=== PATIENT | male | born 1945 | race Caucasian/White ===

== ENCOUNTER → 2021-09-25 | Outpatient (REF) | payer SELFPAY ==
[2021-09-25 09:25] LABS: Erythrocyte Sedimentation Rate 25 mm/hr (0-20)
[2021-09-25 09:27] LABS: Absolute Lymphocyte Count 0.89 X10^3/uL (0.83-4.51); Absolute Neutrophil Count 11.3 X10^3/uL (2.0-7.7); Basophil# 0.05 X10^3/uL; Basophil% 0.4 % (0-1); Eosinophil# 0.17 X10^3/uL; Eosinophils% 1.3 % (0-5); Hematocrit 27.8 % (40-54); Hemoglobin 8.8 g/dL (13.0-16.5); Lymphocyte # 0.89 X10^3/ul (0.83-4.51); Lymphocyte % 6.7 % (19-41); Mean Corp Hgb Conc 31.7 g/dL (32-36); Mean Corpuscular Hgb 31.9 pg (27.0-32.0); Mean Corpuscular Volume 100.7 fL (80-94); Mean Platelet Vol. 9.9 fl (6.2-12.0); Monocyte# 0.75 X10^3/uL; Monocyte% 5.7 % (0-10); NRBC Flagged by Analyzer 0 % (0-5); Neutrophil # 11.27 X10^3/uL (2.7-7.7); Neutrophil % 85.2 % (47-70); POSITIVE MORPHOLOGY YES; Platelet Count 470 K/mm3 (150-450); RBC Distribution Width CV 21.7 % (11.6-14.6); RBC Distribution Width SD 72.4 fl (35.1-43.9); Red Blood Count 2.76 M/mm3 (4.6-6.2); White Blood Count 13.2 K/mm3 (4.4-11.0)
[2021-09-25 09:28] LABS: Differential Indicated SCAN CRITERIA MET
[2021-09-25 09:54] LABS: Anion Gap 9 (5-15); BUN 41 mg/dL (7-18); BUN/Creat Ratio 7.4 RATIO (10-20); Calcium,Total 9.7 mg/dL (8.5-10.1); Chloride 97 mmol/L (98-107); Creatinine, Serum 5.55 mg/dL (0.70-1.30); EST Glomerular Filtration Rate 11 mL/min (>60); Est Glom Filt Rate - Afr Amer 13 mL/min (>60); Glucose 92 mg/dL (74-106); Sodium Level 136 mmol/L (136-145)
[2021-09-25 09:58] LABS: Anisocytosis 2+; Differential Comment SCANNED; Macrocytosis 1+; Microcytosis 1+
== END | disposition home or self-care (01) ==
LOC: OLS.SW300 07:50
PROVIDERS: PCP Surgery; Visit Provider Family Medicine
DX: L08.9 Local infection of the skin and subcutaneous tissue, unspecified (principal)
CPT/HCPCS: 36415; 80048; 85025; 85652; 86140

== ENCOUNTER → 2021-11-13 | Outpatient (REF) | payer MEDICARE, OTHER, SELFPAY ==
[2021-11-13 09:25] LABS: Absolute Lymphocyte Count 0.73 X10^3/uL (0.83-4.51); Absolute Neutrophil Count 6.5 X10^3/uL (2.0-7.7); Basophil# 0.01 X10^3/uL; Basophil% 0.1 % (0-1); Eosinophil# 0.03 X10^3/uL; Eosinophils% 0.4 % (0-5); Hematocrit 28.8 % (40-54); Hemoglobin 9.3 g/dL (13.0-16.5); Lymphocyte # 0.73 X10^3/ul (0.83-4.51); Lymphocyte % 9.2 % (19-41); Mean Corp Hgb Conc 32.3 g/dL (32-36); Mean Corpuscular Hgb 30.5 pg (27.0-32.0); Mean Corpuscular Volume 94.4 fL (80-94); Monocyte# 0.64 X10^3/uL; Monocyte% 8.1 % (0-10); NRBC Flagged by Analyzer 0 % (0-5); Neutrophil # 6.48 X10^3/uL (2.7-7.7); Neutrophil % 81.7 % (47-70); Platelet Count 297 K/mm3 (150-450); RBC Distribution Width CV 15.6 % (11.6-14.6); RBC Distribution Width SD 54.1 fl (35.1-43.9); Red Blood Count 3.05 M/mm3 (4.6-6.2); White Blood Count 7.9 K/mm3 (4.4-11.0)
[2021-11-13 09:33] LABS: Erythrocyte Sedimentation Rate 10 mm/hr (0-20)
[2021-11-13 09:41] LABS: Anion Gap 11 (5-15); BUN 45 mg/dL (7-18); BUN/Creat Ratio 6.3 RATIO (10-20); Calcium,Total 8.5 mg/dL (8.5-10.1); Chloride 91 mmol/L (98-107); Creatinine, Serum 7.16 mg/dL (0.70-1.30); EST Glomerular Filtration Rate 8 mL/min (>60); Est Glom Filt Rate - Afr Amer 10 mL/min (>60); Glucose 55 mg/dL (74-106); Potassium 3.6 mmol/L (3.5-5.1); Sodium Level 133 mmol/L (136-145)
== END ==
LOC: OLS.SW300 05:00
PROVIDERS: PCP Surgery; Visit Provider Family Medicine
DX: D64.9 Anemia, unspecified (principal); L08.9 Local infection of the skin and subcutaneous tissue, unspecified
CPT/HCPCS: 36415; 80048; 85025; 85652; 86140

== ENCOUNTER 2021-11-29 19:55 | Inpatient (IN) | payer MEDICARE, OTHER, SELFPAY ==
[2021-11-29 19:55] VITALS: BP 107/71; PULSE 91; RESP 18; TEMP 36.4; O2SAT 94; BMI 18.4
[2021-11-29 21:39] VITALS: BP 138/49; PULSE 79; RESP 30; O2SAT 97
--- NOTE | 2021-11-29 21:50 | EKG12_ITS ---
Test Reason : DYSRHYTHMIA Blood Pressure : / mmHG Vent. Rate : 074 BPM Atrial Rate : 068 BPM P-R Int : 000 ms QRS Dur : 118 ms QT Int : 430 ms P-R-T Axes : 000 248 140 degrees QTc Int : 477 ms Atrial fibrillation Nonspecific T wave abnormality Prolonged QT Abnormal ECG Confirmed by KORY KINCAID, ONOFRE ([id number]), editor publications ROSIE OVALLES ([id number]) on 12/02/2021 9:38:08 AM Referred By: BB Confirmed By:ONOFRE HORN MD
[2021-11-29 22:10] LABS: Absolute Lymphocyte Count 1.07 X10^3/uL (0.83-4.51); Absolute Neutrophil Count 5.1 X10^3/uL (2.0-7.7); Basophil# 0.04 X10^3/uL; Basophil% 0.6 % (0-1); Eosinophil# 0.06 X10^3/uL; Eosinophils% 0.9 % (0-5); Hematocrit 31.1 % (40-54); Hemoglobin 9.9 g/dL (13.0-16.5); Lymphocyte # 1.07 X10^3/ul (0.83-4.51); Lymphocyte % 15.7 % (19-41); Mean Corp Hgb Conc 31.8 g/dL (32-36); Mean Corpuscular Hgb 30.6 pg (27.0-32.0); Mean Platelet Vol. 10.4 fl (6.2-12.0); Monocyte# 0.57 X10^3/uL; Monocyte% 8.3 % (0-10); NRBC Flagged by Analyzer 0 % (0-5); Neutrophil # 5.06 X10^3/uL (2.7-7.7); Neutrophil % 74.1 % (47-70); Platelet Count 195 K/mm3 (150-450); RBC Distribution Width CV 17.5 % (11.6-14.6); RBC Distribution Width SD 60.4 fl (35.1-43.9); Red Blood Count 3.24 M/mm3 (4.6-6.2); White Blood Count 6.8 K/mm3 (4.4-11.0)
[2021-11-29 22:21] LABS: Anion Gap 10 (5-15); BUN 17 mg/dL (7-18); BUN/Creat Ratio 4.9 RATIO (10-20); Calcium,Total 8.3 mg/dL (8.5-10.1); Chloride 93 mmol/L (98-107); EST Glomerular Filtration Rate 18 mL/min (>60); Est Glom Filt Rate - Afr Amer 22 mL/min (>60); Estimated Creatinine Clearance 16.38 ml/min; Glucose 76 mg/dL (74-106); Potassium 3.1 mmol/L (3.5-5.1); Sodium Level 135 mmol/L (136-145); Troponin-I HS 57 pg/mL (3.0-78.0)
--- NOTE | 2021-11-29 22:50 | EDS_ITS ---
HPI History of Present Illness Chief Complaint: GI Bleed Informant: patient, EMS and SNF Onset/Context/Timing Onset: Today Narrative Narrative: According to halfway patient had an episode of GI bleeding today. He has no idea if he did or not, and the patient states he felt fine. At the halfway he was hypotensive 90/62, and otherwise okay. Did not lose consciousness. He is anticoagulated on apixaban because of atrial fibrillation, he is also on Plavix because he had had an ischemic distal left foot, ended up having what appeared to be a transtarsal amputation due to that, and is still in rehab b ecause he is nonweightbearing they are still according to the son's description of podiatry recommendations. [facility] Medical History (Updated 11/29/21 @ 22:[address] Aristeo Rossi MD) Atrial fibrillation ESRD (end stage renal disease) on dialysis Peripheral arterial disease Home Medications calcium acetate(phosphat bind) 667 mg capsule 667 mg PO TIDCM 10/09/14 [History Last Taken 10/08/14] cinacalcet 60 mg tablet (Sensipar) 60 mg PO PRN PRN IPTH 10/09/14 [History Last Taken Unknown] apixaban 2.5 mg tablet 2.5 mg PO BID 11/29/21 [History Last Taken Unknown] atorvastatin 40 mg tablet 40 mg PO QHS 11/29/21 [History Last Taken Unknown] clopidogrel 75 mg tablet 75 mg PO DAILY 11/29/21 [History Last Taken Unknown] metoprolol tartrate 50 mg tablet 50 mg PO BID 11/29/21 [History Last Taken Unknown] pantoprazole 40 mg tablet,delayed release (Protonix) 40 mg PO DAILY 11/29/21 [History Last Taken Unknown] Allergy/AdvReac Type Severity Reaction Status Date / Time No Known Allergies Allergy Verified 11/29/21 19:59 Social History Smoking Status: Never smoker ROS ROS ED Constitutional Constitutional ED: Denies chills or fever(s) Eyes Eyes: Denies change in vision or diplopia ENT ENT ED: Denies rhinorrhea or sore throat Cardiovascular Cardiovascular: Denies chest pain or palpitations Respiratory/Chest Respiratory/Chest: Denies cough or dyspnea Gastrointestinal Gastrointestinal: Denies abdominal pain, diarrhea, nausea or vomiting Genitourinary Genitourinary ED: Denies dysuria or hematuria Musculoskeletal Musculoskeletal: Denies back pain or neck pain Integumentary Denies abscess or rash Neurologic Neurologic: Denies headache(s), paresthesias or weakness Psychiatric Psychiatric: Denies anxiety or suicidal thoughts EXAM Physical Exam Const Vital Signs: 11/29/21 19:55 11/29/21 21:39 Temperature 97.5 F L Temperature Source Temporal Pulse Rate 91 79 Respiratory Rate 18 30 H Blood Pressure 107/71 138/49 H Blood Pressure Mean 83 78 Pulse Ox 94 97 Oxygen Delivery Method Room Air Room Air Positive well nourished and well developed General Appearance ED: well developed and NAD HEENT Reports moist mucous membranes normocephalic and atraumatic Eyes PERRL and EOMs intact bilaterally Neck full ROM and supple Chest Wall inspection of chest normal and palpation of chest normal Resp normal respiratory effort and clear to auscultation bilaterally Cardio Cardio Narrative: Systolic crescendo murmur LLSB Rhythm: abnormal rhythm irregularly irregular GI non-tender and non-distended GI Narrative: Stool is darker in his diaper, light brown from the rectum, no gross bleeding or melena present. Hemoccult positive after sent to lab. Auscultation: normoactive bowel sounds Palpation: soft Back/Spine no CVA tenderness General Back: other FROM Extremity normal to inspection General Extremety ED: Negative for edema, pulses abnormal or tenderness General Extremity: Negative for edema or pulses abnormal Neuro oriented x3, CN's II-XII intact bilaterally and no sensory deficits noted Sensorium / Orientation: awake and alert Motor Exam: strength 5/5 throughout Skin no rashes or lesions noted and no wounds MDM MDM MDM Narrative Medical decision making narrative: Patient blood pressure remained stable while in the emergency department, well over 100 systolic with each measurement. He remained clinically stable as well. His stool shows no gross blood or melena, it is Hemoccult positive. His hemoglobin was at 10.6, and went down to 8.6 prior to arrival, and here he is measuring at 9.9. It is possible he may be a little relatively dehydrated since he had dialysis today. Given that he is doing well now but he is anticoagulated, we will admit him to observation for further evaluation. Lab Data Attestation: I reviewed the patient's lab results. Labs: Laboratory Results - last 24 hr 11/29/21 11/29/21 20:10 20:10 WBC 6.8 RBC 3.24 L Hgb 9.9 L Hct 31.1 L MCV 96.0 H MCH 30.6 MCHC 31.8 L RDW Std Deviation 60.4 H RDW Coeff of Sue 17.5 H Plt Count 195 MPV 10.4 Immature Gran % (Auto) 0.400 Neut % (Auto) 74.1 H Lymph % (Auto) 15.7 L Bartholomew % (Auto) 8.3 Eos % (Auto) 0.9 Baso % (Auto) 0.6 Absolute Neuts (auto) 5.1 Absolute Lymphs (auto) 1.07 Nucleated RBC % 0 Sodium 135 L Potassium 3.1 L Chloride 93 L Carbon Dioxide 32.0 Anion Gap 10 BUN 17 Creatinine 3.50 H Estim Creat Clear Calc 16.38 Est GFR (MDRD) Af Amer 22 L Est GFR (MDRD) Non-Af 18 L BUN/Creatinine Ratio 4.9 L Glucose 76 Calcium 8.3 L Troponin I High Sens 57 EKG Initial EKG: Attestation: I personally reviewed and interpreted this EKG as follows: Interpretation: No Acute Injury Pattern and Atrial Fibrillation (rate 74) Prior EKG tracings: available for review Prior: Unchanged Discharge Plan Triage Chief Complaint: GI Bleed ED Provider: Aristeo Rossi Dx/Rx/DC Orders Clinical Impression: Acute lower gastrointestinal bleeding, ESRD (end stage renal disease) on dialysis, ABLA (acute blood loss anemia), Anticoagulated, Transient hypotension Prescriptions: No Action cinacalcet [Sensipar] 60 MG tablet 60 mg PO PRN PRN (Reason: IPTH) Label Comments: parathyroid calcium acetate(phosphat bind) 667 MG capsule 667 mg PO TIDCM Label Comments: kidney health atorvastatin 40 mg Tablet 40 mg PO QHS clopidogrel 75 mg Tablet 75 mg PO DAILY pantoprazole [Protonix] 40 mg Tablet,Delayed Release (Dr/Ec) 40 mg PO DAILY metoprolol tartrate 50 mg Tablet 50 mg PO BID apixaban 2.5 mg Tablet 2.5 mg PO BID Primary Care Provider: Adair Castaneda Referrals: Adair Castaneda MD [Primary Care Provider] - Disposition Disposition: Acute Care Hospital [facility]
[2021-11-29 23:03] VITALS: BP 125/75; PULSE 76; RESP 24; TEMP 36.7; O2SAT 95
--- NOTE | 2021-11-29 23:05 | HP.PCM.HOS_ITS ---
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 Quinteros, Chronic anemia/AOCD, Hx Lower GI bleed (10/2014) and also reported Hx Duodenal GI bleed prior also unclear exact timing, Hx Obstructive uropathy due to BPH with self chronic catheterization from remote history who presents to the [facility] ED on 11/29/21 with history of onset of dark appearing stools over the last 24 hours, low Hgb obtained at facility noted to have been initially 10.6 and decreased to 8.6 with blood pressure at 90/62 the evening prior with noted HD on day of presentation prompting ED referral. Patient denies any recent abdominal cramping or pain nor any nausea or emesis. He also denies any lightheadedness or dizziness. Work-up in the ED included T 97.5, HR 91, BP 107/71, RR 18, 94% on RA, CBC with WBC 6.8, hemoglobin 9.9, platelet 195 without marked shift, BMP with sodium 135, potassium 3.1, chloride 93, BUN/creatinine 17/3.50, troponin 57, type and screen performed per ED physician, guaiac positive. [facility] Medical History Atrial fibrillation Chronic anemia ESRD (end stage renal disease) on dialysis GERD (gastroesophageal reflux disease) History of duodenal ulcer HTN (hypertension) Peripheral arterial disease Home Medications calcium acetate(phosphat bind) 667 mg capsule 667 mg PO TIDCM 10/09/14 [History Last Taken 10/08/14] cinacalcet 60 mg tablet (Sensipar) 60 mg PO PRN PRN IPTH 10/09/14 [History Last Taken Unknown] apixaban 2.5 mg tablet 2.5 mg PO BID 11/29/21 [History Last Taken Unknown] atorvastatin 40 mg tablet 40 mg PO QHS 11/29/21 [History Last Taken Unknown] clopidogrel 75 mg tablet 75 mg PO DAILY 11/29/21 [History Last Taken Unknown] metoprolol tartrate 50 mg tablet 50 mg PO BID 11/29/21 [History Last Taken Unknown] pantoprazole 40 mg tablet,delayed release (Protonix) 40 mg PO DAILY 11/29/21 [History Last Taken Unknown] Allergy/AdvReac Type Severity Reaction Status Date / Time No Known Allergies Allergy Verified 11/29/21 19:59 Family History (Updated 11/29/21 @ 23:[address] Irma White MD) Mother Heart disease Father Heart disease Surgical History (Updated 11/29/21 @ 23:[address] Irma White MD) History of transmetatarsal amputation of left foot S/P arteriovenous (AV) fistula creation S/P foot surgery, left S/P peripheral artery angioplasty with stent placement Social History (Updated 11/29/21 @ 23:[address] Irma White MD) housing: [facility] Smoking Status: Never smoker alcohol intake: never substance use type: does not use ROS ROS Narrative Admission Review of Systems: CONSTITUTIONAL: No weight loss, fever, chills, + weakness or fatigue. HEENT: Eyes: No visual loss, blurred vision, double vision or yellow sclerae. Ears, Nose, Throat: No hearing loss, sneezing, congestion, runny nose or sore throat. SKIN: + s/p L TMA, some drainage, serosanguinous, staged ecchymoses to extremity. CARDIOVASCULAR: No chest pain, chest pressure or chest discomfort, palpitations, edema, orthopnea, syncopal events. RESPIRATORY: No shortness of breath, cough or sputum, wheezing, hemoptysis. GASTROINTESTINAL: + Dark stools, positive guaiac, No anorexia, nausea, vomiting, diarrhea, abdominal pain, BRBPR. GENITOURINARY: No dysuria, frequency, urgency or retention. NEUROLOGICAL: No headache, dizziness, syncope, paralysis, ataxia, numbness or tingling in the extremities, focal weakness, change in bowel or bladder control, seizure. MUSCULOSKELETAL: + muscle, back pain, joint pain or stiffness. HEMATOLOGIC: + anemia, bleeding or bruising. LYMPHATICS: No enlarged nodes. No history of splenectomy. PSYCHIATRIC: No history of depression or anxiety. ENDOCRINOLOGIC: No reports of sweating, cold or heat intolerance. No polyuria or polydipsia. ALLERGIES: No history of asthma, hives, eczema or rhinitis. Vital Signs Vital Signs Vital Signs: 11/29/21 19:55 11/29/21 21:39 11/29/21 23:03 Temperature 97.5 F L 98.1 F Temperature Source Temporal Temporal Pulse Rate 91 79 76 Respiratory Rate 18 30 H 24 H Blood Pressure 107/71 138/49 H 125/75 H Blood Pressure Mean 83 78 91 Pulse Ox 94 97 95 Oxygen Delivery Method Room Air Room Air Room Air Weight Weight: 140 lb Body Mass Index (BMI) 18.4 Physical Exam Narrative Physical Examination: General: Awake, alert, oriented to self, place and recent events, poor historian regarding his own medical history, remains cooperative, seated upright in the ED bed in no apparent distress. Skin: Normal color, normal turgor, no icterus, no cyanosis except for status post left TMA with serosanguineous drainage. HEENT: AT/NC, EOMI, PERRLA, MMM, no carotid bruits or JVD noted. Lungs: CTA bilaterally, moderate effort, mild decrease BL bases, no rales, ronchi or wheezing. Heart: Irregular, rate controlled; no gallop, rub audible. Abdomen: Soft, thin habitus, NTTP, ND, distant normal BS, no HSM. Extremities: No cyanosis, no clubbing, see skin for left lower extremity, + AVF. Neurological: Patient awake, alert, oriented as noted, very hard of hearing, from description potentially underlying dementia, currently cognitive function a ppears baseline intact; pupils equally reactive to light and accommodation, cranial nerves grossly normal, moving all 4 extremities, no focal deficits, strength moderately globally decreased. Psychiatric: Affect appears mildly fatigued otherwise normal, no acute evidence of depressive or anxiety feelings. Results Lab / Micro Data Result Diagrams: 11/29/21 20:10 11/29/21 20:10 Labs: Laboratory Results - last 24 hr 11/29/21 20:10: Blood Type O POSITIVE, Antibody Screen NEGATIVE 11/29/21 20:10: WBC 6.8, RBC 3.24 L, Hgb 9.9 L, Hct 31.1 L, MCV 96.0 H, MCH 30.6, MCHC 31.8 L, RDW Std Deviation 60.4 H, RDW Coeff of Sue 17.5 H, Plt Count 195, MPV 10.4, Immature Gran % (Auto) 0.400, Neut % (Auto) 74.1 H, Lymph % (Auto) 15.7 L, Hayes % (Auto) 8.3, Eos % (Auto) 0.9, Baso % (Auto) 0.6, Absolute Neuts (auto) 5.1, Absolute Lymphs (auto) 1.07, Nucleated RBC % 0 11/29/21 20:10: Sodium 135 L, Potassium 3.1 L, Chloride 93 L, Carbon Dioxide 32.0, Anion Gap 10, BUN 17, Creatinine 3.50 H, Estim Creat Clear Calc 16.38, Est GFR (MDRD) Af Amer 22 L, Est GFR (MDRD) Non-Af 18 L, BUN/Creatinine Ratio 4.9 L, Glucose 76, Calcium 8.3 L, Troponin I High Sens 57 Micro: Microbiology 11/29/21 21:50 Stool Stool Occult Blood (DILIP) - Final Occult Blood Positive Assessment & Plan Assessment/Plan (1) Acute lower gastrointestinal bleeding: PLAN: Plan The patient is a 76 y/o M w/ PMHx: Hx Severe Protein-Calorie Malnutrition, Recent 09/2021 Osteomyelitis L Foot s/p eventual TMA and LLE PAD requiring thrombectomy and [employer]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 Quinteros, Chronic anemia/AOCD, Hx Lower GI bleed (10/2014) and also reported Hx Duodenal GI bleed prior also unclear exact timing, Hx Obstructive uropathy due to BPH with self chronic catheterization from remote history who presents to the [facility] ED on 11/29/21 with history of onset of dark appearing stools over the last 24 hours, low Hgb obtained at facility noted to have been initially 10.6 and decreased to 8.6 with blood pressure at 90/62 the evening prior with noted HD on day of presentation prompting ED referral. #1. Acute GI Bleed w/ resultant Acute Blood Loss Anemia on Chronic anemia/AOCD: Will admit to [facility], maintain on IVFs, obtain serial H+H, obtain T+S w/ cross for PRBC administration if appropriate, maintain on IV PPI, maintain NPO status, con sult Gastroenterology. Given patient recent peripheral left lower extremity angioplasty and stenting will cautiously continue Plavix given stable hemoglobin as repeat hemoglobin in the ED 9.9 and had previously been 10.6 despite the reported initial drop at facility of 8.6 but hold low-dose Eliquis regimen pending further GI assessment. #2. Recent Hx L foot osteomyelitis, gangrene and LLE PAD: 09/04/21 presented to [facility] ED w/ L foot discoloration with CT demonstrating L great toe gangr earnest with necrotizing infection and osteomyelitis initiated on IV vanc and zosyn with 09/06/21 L foot 1st and 2nd digit amputation with vascular evaluation and eventual transfer to [facility] for evaluation by vascular with Dr. 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 Current dressings at [facility] w/ noted soap and water cleansing with follow-up Aquacel Ag placement with ABD and Kerlix wrap with Jamel overlay daily and as needed. NWB to LLE. Given acute presentation with GI bleed holding Eliquis, given recent stenting will cautiously continue Plavix given stable hemoglobin and blood pressure at this time awaiting GI evaluation. #3. PAF: We will cautiously continue patient home metoprolol regimen, hold for hypotension, holding Eliquis given acute presentation as noted. #4. Hx Obstructive uropathy: Secondary to BPH with prior reported history of self chronic catheterization, patient not the best historian therefore clarifying if still ongoing catheterization and if so we will continue. #5. ESRD: Will consult Nephrology, Dr. Quinteros with whom the patient follows per records, per patient and family as well as facility patient did have dialysis on 11/29/2021. Prior records from system note dialysis on Thursday//Thursday at [facility] in [place] however this does not concur with dialysis being administered 11/29/2021, will await nephrology input. #6. Hyperlipidemia: We will continue patient home statin therapy. #7. Hx CVA: As noted we will continue Plavix however will cautiously hold Eliquis therapy given acute presentation number 1, continue hypertensive regimen as well as statin therapy. #8. GERD: We will place on IV PPI. #9. DVT Prophylaxis: SCDs, holding home Eliquis regimen given acute presentation as noted #1. #10. CODE STATUS: Full code per facility paperwork. Charges/Coding Visit Charges OBSV E&M: 60401 Initial observation care L3
--- NOTE | 2021-11-29 23:06 | ED.RN ---
Attempted to call patient's son to let him know he would he admitted over night and phone number was unavailable and could not be completed.
[2021-11-30] VITALS (15 sets, daily range): BP systolic 111–129; BP diastolic 40–86; PULSE 71–89; RESP 17–20; TEMP 36.4–36.9; O2SAT 94–98; BMI 19.1
[2021-11-30] MEDS: 0.9% Saline Lock 10 ML Syringe IV (00:36)
[2021-11-30] MEDS: 0.9% Normal Saline 1,000 ML 100 ML IV (00:36)
[2021-11-30 02:39] LABS: Hematocrit 30.3 % (40-54); Hemoglobin 9.4 g/dL (13.0-16.5)
[2021-11-30] MEDS: Potassium Chloride Oral Tablet 20 MEQ 40 MEQ PO (03:28)
[2021-11-30 06:56] LABS: Absolute Lymphocyte Count 1.04 X10^3/uL (0.83-4.51); Absolute Neutrophil Count 3.5 X10^3/uL (2.0-7.7); Basophil# 0.05 X10^3/uL; Basophil% 0.9 % (0-1); Eosinophil# 0.09 X10^3/uL; Eosinophils% 1.7 % (0-5); Hemoglobin 8.6 g/dL (13.0-16.5); Lymphocyte # 1.04 X10^3/ul (0.83-4.51); Lymphocyte % 19.5 % (19-41); Mean Corp Hgb Conc 33.1 g/dL (32-36); Mean Corpuscular Hgb 31.2 pg (27.0-32.0); Mean Corpuscular Volume 94.2 fL (80-94); Monocyte# 0.65 X10^3/uL; Monocyte% 12.2 % (0-10); NRBC Flagged by Analyzer 0 % (0-5); Neutrophil # 3.49 X10^3/uL (2.7-7.7); Neutrophil % 65.5 % (47-70); Platelet Count 177 K/mm3 (150-450); RBC Distribution Width CV 17.6 % (11.6-14.6); RBC Distribution Width SD 59.7 fl (35.1-43.9); Red Blood Count 2.76 M/mm3 (4.6-6.2); White Blood Count 5.3 K/mm3 (4.4-11.0)
[2021-11-30 07:30] LABS: ALB/GLOB Ratio 0.5 RATIO (0.9-2.4); AST(SGOT) 21 U/L (15-37); Alanine Aminotransfer ALT/SGPT 11 U/L (16-61); Albumin, Serum 1.7 g/dL (3.2-5.0); Alkaline Phosphatase 149 U/L (45-117); Anion Gap 7 (5-15); BUN 18 mg/dL (7-18); BUN/Creat Ratio 4.7 RATIO (10-20); Calcium,Total 7.6 mg/dL (8.5-10.1); Chloride 96 mmol/L (98-107); Creatinine, Serum 3.83 mg/dL (0.70-1.30); EST Glomerular Filtration Rate 16 mL/min (>60); Est Glom Filt Rate - Afr Amer 20 mL/min (>60); Estimated Creatinine Clearance 15.53 ml/min; Globulin 3.7 g/dL (2.2-4.2); Glucose 60 mg/dL (74-106); Potassium 3.4 mmol/L (3.5-5.1); Protein, Total 5.4 g/dL (6.4-8.2); Sodium Level 135 mmol/L (136-145)
[2021-11-30] MEDS: Menthol/Lanolin/Calamine/Znox 113 GM Tube 1 APPLIC TOPICAL ×2 (07:37→15:14)
[2021-11-30] MEDS: Clopidogrel Bisulfate 75 MG Tablet PO (10:10)
[2021-11-30] MEDS: Metoprolol Tartrate 50 MG Tablet PO ×2 (10:11→21:30)
[2021-11-30] MEDS: Calcium Acetate 667 MG Capsule PO ×2 (13:32→17:44)
[2021-11-30] MEDS: 0.9% Normal Saline 1,000 ML 75 ML IV (13:32)
--- NOTE | 2021-11-30 14:34 | PCM.CONS.GEN ---
Assessment & Plan Assessment/Plan (1) Acute lower gastrointestinal bleeding: PLAN: The differential diagnosis for his acute GI blood loss does include diverticular bleed, hemorrhoidal bleeding, angiodysplasia, less likely neoplasia, upper GI bleed with rapid transit. We will perform an upper endoscopy tomorrow to evaluate his upper GI tract. Recommend to continue to hold anticoagulation and antiplatelet therapy. Continue to monitor his hemoglobin. Continue to GI therapy as previously ordered. Patient was explained alternatives, risk, benefits including not withstanding bleeding, infection, sepsis, perforation, need for emergent . He will have an ASA of 3. HPI Consult Data Date of Consult: 11/30/21 HPI Narrative Reason for Consultation: GI bleeding HPI Narrative: FLAQUITO GORDON, is a 76 M who presents from the half-way after passing blood per rectum.? At the half-way he was hypotensive 90/62. He did not lose consciousness.? 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 He also has a history of end-stage renal disease on hemodialysis. Apparently he had 2 episodes of bleeding per rectum. His hemoglobin was 9.9 and is down to 8.6. He had a colonoscopy back in 2014 for lower GI bleeding. He was discovered to have 2 adenomatous polyps which were removed. One from the rectum and one from the sigmoid colon. He was also discovered to have extensive diverticular disease and was a good prep for the study. T 97.5, HR 91, BP 107/71, RR 18, 94% on RA, CBC with WBC 6.8, platelet 195 without marked shift, BMP with sodium 135, potassium 3.1, chloride 93, BUN/creatinine 17/3.50, troponin 57, type and screen performed per ED physician, guaiac positive. [facility] Medical History Atrial fibrillation Chronic anemia ESRD (end stage renal disease) on dialysis GERD (gastroesophageal reflux disease) History of duodenal ulcer HTN (hypertension) Peripheral arterial disease Home Medications calcium acetate(phosphat bind) 667 mg capsule 667 mg PO TIDCM 10/09/14 [History Last Taken 10/08/14] cinacalcet 60 mg tablet (Sensipar) 60 mg PO PRN PRN IPTH 10/09/14 [History Last Taken Unknown] apixaban 2.5 mg tablet 2.5 mg PO BID 11/29/21 [History Last Taken Unknown] atorvastatin 40 mg tablet 40 mg PO QHS 11/29/21 [History Last Taken Unknown] clopidogrel 75 mg tablet 75 mg PO DAILY 11/29/21 [History Last Taken Unknown] metoprolol tartrate 50 mg tablet 50 mg PO BID 11/29/21 [History Last Taken Unknown] pantoprazole 40 mg tablet,delayed release (Protonix) 40 mg PO DAILY 11/29/21 [History Last Taken Unknown] Allergy/AdvReac Type Severity Reaction Status Date / Time No Known Allergies Allergy Verified 11/29/21 19:59 Family History (Updated 11/29/21 @ 23:[address] Irma White MD) Mother Heart disease Father Heart disease Surgical History (Updated 11/29/21 @ 23:[address] Irma White MD) History of transmetatarsal amputation of left foot S/P arteriovenous (AV) fistula creation S/P foot surgery, left S/P peripheral artery angioplasty with stent placement Social History (Updated 11/29/21 @ 23:[address] Irma White MD) housing: half-way Smoking Status: Never smoker alcohol intake: never substance use type: does not use ROS ROS Narrative Admission Review of Systems: CONSTITUTIONAL: No weight loss, fever, chills, + weakness or fatigue. HEENT: Eyes: No visual loss, blurred vision, double vision or yellow sclerae. Ears, Nose, Throat: No hearing loss, sneezing, congestion, runny nose or sore throat. SKIN: + s/p L TMA, some drainage, serosanguinous, staged ecchymoses to extremity. CARDIOVASCULAR: No chest pain, chest pressure or chest discomfort, palpitations, edema, orthopnea, syncopal events. RESPIRATORY: No shortness of breath, cough or sputum, wheezing, hemoptysis. GASTROINTESTINAL: + Dark stools, positive guaiac, No anorexia, nausea, vomiting, diarrhea, abdominal pain, BRBPR. GENITOURINARY: No dysuria, frequency, urgency or retention. NEUROLOGICAL: No headache, dizziness, syncope, paralysis, ataxia, numbness or tingling in the extremities, focal weakness, change in bowel or bladder control, seizure. MUSCULOSKELETAL: + muscle, back pain, joint pain or stiffness. HEMATOLOGIC: + anemia, bleeding or bruising. LYMPHATICS: No enlarged nodes. No history of splenectomy. PSYCHIATRIC: No history of depression or anxiety. ENDOCRINOLOGIC: No reports of sweating, cold or heat intolerance. No polyuria or polydipsia. ALLERGIES: No history of asthma, hives, eczema or rhinitis. Physical Exam Const alert, oriented x3 and no apparent distress HEENT head/scalp atraumatic, moist oral mucous membranes and oropharynx normal Head and Scalp: normocephalic Mouth: oral and palatal mucosa normal Eyes PERRL and EOMs intact bilaterally Neck no lymphadenopathy and supple Resp normal respiratory effort, no retractions, no use of accessory muscles and clear to auscultation bilaterally Cardio regular rate, regular rhythm, S1 normal heart sound, S2 normal heart sound and no murmurs GI normal to inspection, nondistended, normoactive bowel sounds, soft to palpation and non-tender Extremity normal to inspection, full ROM and no clubbing, cyanosis or edema Neuro oriented x3, CN's II-XII intact bilaterally and moves all extremities Sensorium / Orientation: awake, alert and oriented to person Speech: speech normal Motor Exam: strength 5/5 throughout Psych affect normal Lab / Micro Data Result Diagrams: 11/30/21 06:50 11/30/21 06:50 Labs: Laboratory Results - last 24 hr 11/29/21 20:10: Blood Type O POSITIVE, Antibody Screen NEGATIVE 11/29/21 20:10: WBC 6.8, RBC 3.24 L, Hgb 9.9 L, Hct 31.1 L, MCV 96.0 H, MCH 30.6, MCHC 31.8 L, RDW Std Deviation 60.4 H, RDW Coeff of Sue 17.5 H, Plt Count 195, MPV 10.4, Immature Gran % (Auto) 0.400, Neut % (Auto) 74.1 H, Lymph % (Auto) 15.7 L, [place] % (Auto) 8.3, Eos % (Auto) 0.9, Baso % (Auto) 0.6, Absolute Neuts (auto) 5.1, Absolute Lymphs (auto) 1.07, Nucleated RBC % 0 11/29/21 20:10: Sodium 135 L, Potassium 3.1 L, Chloride 93 L, Carbon Dioxide 32.0, Anion Gap 10, BUN 17, Creatinine 3.50 H, Estim Creat Clear Calc 16.38, Est GFR (MDRD) Af Amer 22 L, Est GFR (MDRD) Non-Af 18 L, BUN/Creatinine Ratio 4.9 L, Glucose 76, Calcium 8.3 L, Troponin I High Sens 57 11/30/21 02:17: Hgb 9.4 L, Hct 30.3 L 11/30/21 06:50: WBC 5.3, RBC 2.76 L, Hgb 8.6 L, Hct 26.0 L, MCV 94.2 H, MCH 31.2, MCHC 33.1, RDW Std Deviation 59.7 H, RDW Coeff of Sue 17.6 H, Plt Count 177, MPV 10.0, Immature Gran % (Auto) 0.200, Neut % (Auto) 65.5, Lymph % (Auto) 19.5, [place] % (Auto) 12.2 H, Eos % (Auto) 1.7, Baso % (Auto) 0.9, Absolute Neuts (auto) 3.5, Absolute Lymphs (auto) 1.04, Nucleated RBC % 0 11/30/21 06:50: Sodium 135 L, Potassium 3.4 L, Chloride 96 L, Carbon Dioxide 32.0, Anion Gap 7, BUN 18, Creatinine 3.83 H, Estim Creat Clear Calc 15.53, Est GFR (MDRD) Af Amer 20 L, Est GFR (MDRD) Non-Af 16 L, BUN/Creatinine Ratio 4.7 L, Glucose 60 L, Calcium 7.6 L, Total Bilirubin 0.60, AST 21, ALT 11 L, Alkaline Phosphatase 149 H, Total Protein 5.4 L, Albumin 1.7 L, Globulin 3.7, Albumin/Globulin Ratio 0.5 L Micro: Microbiology 11/29/21 21:50 Stool Stool Occult Blood (DILIP) - Final Occult Blood Positive Charges/Coding Visit Charges Inpatient E&M: 00883 Init Hosp L2
--- NOTE | 2021-11-30 14:36 | PN.HOSP_ITS ---
Subjective Subjective Patient seen and examined. He had no complaints and had an unventful night. Review of systems is otherwise negative. Objective Data Objective Data Vital Signs: Vital Signs Temp Pulse Resp BP Pulse Ox O2 Del Method 97.8 F 76 17 111/71 96 Room Air 11/30/21 09:50 11/30/21 10:11 11/30/21 09:50 11/30/21 09:50 11/30/21 09:50 11/30/21 09:50 Oxygen Delivery Method Room Air Weight: 145 lb 4.554 oz Body Mass Index (BMI) 19.1 Intake & Output: Intake and Output for Last 24 Hours 11/28/21 11/29/21 11/30/21 23:59 23:59 23:59 Intake Total 1245.41 / 1245.41 Balance 1245.41 / 1245.41 Lab / Micro Data Result Diagrams: 11/30/21 06:50 11/30/21 06:50 Labs: Laboratory Results - last 24 hr 11/29/21 20:10: Blood Type O POSITIVE, Antibody Screen NEGATIVE 11/29/21 20:10: WBC 6.8, RBC 3.24 L, Hgb 9.9 L, Hct 31.1 L, MCV 96.0 H, MCH 30.6, MCHC 31.8 L, RDW Std Deviation 60.4 H, RDW Coeff of Use 17.5 H, Plt Count 195, MPV 10.4, Immature Gran % (Auto) 0.400, Neut % (Auto) 74.1 H, Lymph % (Auto) 15.7 L, [place] % (Auto) 8.3, Eos % (Auto) 0.9, Baso % (Auto) 0.6, Absolute Neuts (auto) 5.1, Absolute Lymphs (auto) 1.07, Nucleated RBC % 0 11/29/21 20:10: Sodium 135 L, Potassium 3.1 L, Chloride 93 L, Carbon Dioxide 32.0, Anion Gap 10, BUN 17, Creatinine 3.50 H, Estim Creat Clear Calc 16.38, Est GFR (MDRD) Af Amer 22 L, Est GFR (MDRD) Non-Af 18 L, BUN/Creatinine Ratio 4.9 L, Glucose 76, Calcium 8.3 L, Troponin I High Sens 57 11/30/21 02:17: Hgb 9.4 L, Hct 30.3 L 11/30/21 06:50: WBC 5.3, RBC 2.76 L, Hgb 8.6 L, Hct 26.0 L, MCV 94.2 H, MCH 31.2, MCHC 33.1, RDW Std Deviation 59.7 H, RDW Coeff of Sue 17.6 H, Plt Count 177, MPV 10.0, Immature Gran % (Auto) 0.200, Neut % (Auto) 65.5, Lymph % (Auto) 19.5, [place] % (Auto) 12.2 H, Eos % (Auto) 1.7, Baso % (Auto) 0.9, Absolute Neuts (auto) 3.5, Absolute Lymphs (auto) 1.04, Nucleated RBC % 0 11/30/21 06:50: Sodium 135 L, Potassium 3.4 L, Chloride 96 L, Carbon Dioxide 32.0, Anion Gap 7, BUN 18, Creatinine 3.83 H, Estim Creat Clear Calc 15.53, Est GFR (MDRD) Af Amer 20 L, Est GFR (MDRD) Non-Af 16 L, BUN/Creatinine Ratio 4.7 L, Glucose 60 L, Calcium 7.6 L, Total Bilirubin 0.60, AST 21, ALT 11 L, Alkaline Phosphatase 149 H, Total Protein 5.4 L, Albumin 1.7 L, Globulin 3.7, Albumin/Globulin Ratio 0.5 L Micro: Microbiology 11/29/21 21:50 Stool Stool Occult Blood (DILIP) - Final Occult Blood Positive Physical Exam Const alert, oriented x3 and no apparent distress HEENT head/scalp atraumatic, moist oral mucous membranes and oropharynx normal Head and Scalp: normocephalic Mouth: oral and palatal mucosa normal Eyes PERRL and EOMs intact bilaterally Neck no lymphadenopathy and supple Resp normal respiratory effort, no retractions, no use of accessory muscles and clear to auscultation bilaterally Cardio regular rate, regular rhythm, S1 normal heart sound, S2 normal heart sound and no murmurs GI normal to inspection, nondistended, normoactive bowel sounds, soft to palpation and non-tender Extremity normal to inspection, full ROM and no clubbing, cyanosis or edema Neuro oriented x3, CN's II-XII intact bilaterally and moves all extremities Sensorium / Orientation: awake, alert and oriented to person Speech: speech normal Motor Exam: strength 5/5 throughout Psych affect normal Assessment & Plan Assessment/Plan (1) Acute lower gastrointestinal bleeding: PLAN: Plan #Acute lower GI bleed * hasnt had any more bleeding overnight * eliquis on hold * gastroenterology on board * for EGD and colonoscopy tomorrow * plavix also on hold. Trend Hb * does have a history of diverticular disease, so that may the cause of the bleeding * Hb is 8.6 * on IV PPI * #ESRD: on hemodialyisis. COnsult nephrology for dialysis. On sensipar #Peripheral artery disease * on plavix and high intensity statin * #Afib: on metoprolol. Eliquis on hold. #History of CVA: hold plavix as well. continue statin. DVT prophylaxis: SCDs. Eliquis on hold Charges/Coding Visit Charges Inpatient E&M: 78032 Subs Hosp L2
[2021-11-30] MEDS: Ensure Plus High Protein 120 ML LIQUID PO ×3 (15:14→21:30)
[2021-11-30] MEDS: Juven (unflavored) Packet 1 PACKET PO (17:44)
[2021-11-30] MEDS: Atorvastatin Calcium 40 MG Tablet PO (21:30)
[2021-12-01] VITALS (20 sets, daily range): BP systolic 85–129; BP diastolic 54–89; PULSE 68–95; RESP 16–20; TEMP 36.4–36.7; O2SAT 90–96
[2021-12-01] MEDS: 0.9% Normal Saline 1,000 ML 75 ML IV ×2 (01:46→09:25)
[2021-12-01] MEDS: Menthol/Lanolin/Calamine/Znox 113 GM Tube 1 APPLIC TOPICAL ×2 (03:34→15:13)
--- NOTE | 2021-12-01 03:52 | NURSING ---
Patient refuses to be straight cath, states he does not need it.
[2021-12-01 06:26] LABS: International Normalized Ratio 1.4; Prothrombin Time (Protime)PT. 17.2 SECONDS (11.7-14.9)
--- NOTE | 2021-12-01 07:52 | NURSING ---
Report given to surgery. Pt being taken down by DEVELOPMENT ARCHITECT for EGD. Consent on the chart.
--- NOTE | 2021-12-01 08:05 | EGD_PTH ---
PATIENT: FLAQUITO GORDON LOC: [facility] U#:[id number] AGE/SX: 76/M ROOM: [facility] RE11/30/[address]: Dr. Triston Ponce MD : 1945 BED: 1 DIS: 12/04/2021 SPEC #: [id number] RECD: 12/02/21 11:06 STATUS: OCHOA VIZCAINO #: [id number] DIEUDONNE: 12/01/21 08:[address]: Dipesh Suresh DEPT: SURGICAL PATHOLOGY RECD BY: Breanne Meehan ENTERED: 12/02/21 12:45 SP TYPE: EGD BIOPSY OTHR DR: MD Dr. Alda Perez MD Dr. Nana Yaa Koram, MD Dr. Nicholas F Kotsonis, MD Dr. Paul Nielsen, MD Tissues: Duodenum, NOS Procedures: Surgery Specimen Level IV Comments: @ Ordering doctor for SUIV edited from to @ by ALFONSO at 12/02/21 1404 @ Submitting doctor edited from to @ by RGOOD at 12/02/21 1405 HEADER OPERATION: EGD with biopsy (MAC) PRE-OP DIAGNOSIS: Acute lower GI bleeding TISSUE SUBMITTED: Duodenum biopsy MICROSCOPIC DIAGNOSIS Duodenum, biopsy: Suggestive of mild Anju?s gland hyperplasia. AM:jyoti 12/03/2021 MICROSCOPIC DESCRIPTION Slides are reviewed. GROSS DESCRIPTION Received in fixative is one container labeled with the patient's name and designated duodenum biopsy. The specimen consists of multiple irregular fragments of light ludwig soft tissue that in aggregate measure 1 x 0.5 x 0.1 cm. The specimen is totally submitted in one cassette. / EMMETT:jyoti 12/02/2021 TC:5 CPT: 70425
[2021-12-01 08:07] LABS: Absolute Lymphocyte Count 1.12 X10^3/uL (0.83-4.51); Basophil# 0.06 X10^3/uL; Eosinophil# 0.06 X10^3/uL; Hematocrit 27.1 % (40-54); Hemoglobin 8.6 g/dL (13.0-16.5); Lymphocyte # 1.12 X10^3/ul (0.83-4.51); Lymphocyte % 19.2 % (19-41); Mean Corp Hgb Conc 31.7 g/dL (32-36); Mean Corpuscular Hgb 30.1 pg (27.0-32.0); Mean Corpuscular Volume 94.8 fL (80-94); Mean Platelet Vol. 10.6 fl (6.2-12.0); Monocyte# 0.61 X10^3/uL; Monocyte% 10.4 % (0-10); NRBC Flagged by Analyzer 0 % (0-5); Neutrophil # 3.98 X10^3/uL (2.7-7.7); Neutrophil % 68.2 % (47-70); Platelet Count 210 K/mm3 (150-450); RBC Distribution Width CV 17.3 % (11.6-14.6); RBC Distribution Width SD 59.6 fl (35.1-43.9); Red Blood Count 2.86 M/mm3 (4.6-6.2); White Blood Count 5.8 K/mm3 (4.4-11.0)
[2021-12-01 08:21] LABS: Anion Gap 8 (5-15); BUN 21 mg/dL (7-18); BUN/Creat Ratio 4.8 RATIO (10-20); Calcium,Total 7.5 mg/dL (8.5-10.1); Chloride 98 mmol/L (98-107); Creatinine, Serum 4.38 mg/dL (0.70-1.30); EST Glomerular Filtration Rate 14 mL/min (>60); Est Glom Filt Rate - Afr Amer 17 mL/min (>60); Glucose 66 mg/dL (74-106); Sodium Level 133 mmol/L (136-145)
--- NOTE | 2021-12-01 08:39 | OP.EGD_ITS ---
Patient Name: Alivn Crandall Procedure Date: 12/01/2021 7:54 AM Date of : 1945 Age: 76 Procedure: Upper GI endoscopy Indications: Melena Providers: Dipesh Suresh DO Medicines: Monitored Anesthesia Care Patient Profile: This is a 76 year old male. Refer to note in patient chart for documentation of history and physical. Patient has symptoms of acute epigastric abdominal pain. Complications: No immediate complications. Procedure: Pre-Anesthesia Assessment: - Prior to the procedure, a History and Physical was performed, and patient medications and allergies were reviewed. The patient is competent. The risks and benefits of the procedure and the sedation options and risks were discussed with the patient. All questions were answered and informed consent was obtained. Patient identification and proposed procedure were verified by the physician in the pre-procedure area. Mental Status Examination: alert and oriented. Airway Examination: normal oropharyngeal airway and neck mobility. Respiratory Examination: clear to auscultation. CV Examination: normal. Prophylactic Antibiotics: The patient does not require prophylactic antibiotics. Prior Anticoagulants: The patient has taken no previous anticoagulant or antiplatelet agents. ASA Grade Assessment: II - A patient with mild systemic disease. After reviewing the risks and benefits, the patient was deemed in satisfactory condition to undergo the procedure. The anesthesia plan was to use monitored anesthesia care (MAC). Immediately prior to administration of medications, the patient was re-assessed for adequacy to receive sedatives. The heart rate, respiratory rate, oxygen saturations, blood pressure, adequacy of pulmonary ventilation, and response to care were monitored throughout the procedure. The physical status of the patient was re-assessed after the procedure. After obtaining informed consent, the endoscope was passed under direct vision. Throughout the procedure, the patient's blood pressure, pulse, and oxygen saturations were monitored continuously. The Endoscope was introduced through the mouth, and advanced to the second part of duodenum. The upper GI endoscopy was accomplished without difficulty. The patient tolerated the procedure well. Scope In: 8:12:08 AM Scope Out: 8:22:55 AM Total Procedure Duration Time 0 hours 10 minutes 47 seconds Findings: No gross lesions were noted in the entire esophagus. A medium-sized hiatal hernia was present. Moderate portal hypertensive gastropathy was found in the cardia. A Dieulafoy lesion with no bleeding and no stigmata of recent bleeding was found in the gastric fundus. Localized nodular mucosa was found in the duodenal bulb. Biopsies were taken with a cold forceps for histology. Verification of patient identification for the specimen was done. Estimated blood loss was minimal. One oozing cratered duodenal ulcer with pigmented material was found in the duodenal bulb. The lesion was 6 mm in largest dimension. Coagulation for hemostasis using monopolar probe was successful. Estimated blood loss was minimal. Impression: - No gross lesions in esophagus. - Medium-sized hiatal hernia. - Portal hypertensive gastropathy. - Dieulafoy lesion of stomach is an abnormally large and tortuous submucosal artery that protrudes through a small mucosal defect resulting in gastrointestinal bleeding. - Nodular mucosa in the duodenal bulb. Biopsied. - One oozing duodenal ulcer with pigmented material. Treated with a monopolar probe. Recommendation: - [facility]. Due to the fact that we do not have any imaging of his abdomen pelvis to see if he has any signs of blood clots in his abdomen pelvis, portal hypertension or cirrhosis. It is dangerous to treat this nonbleeding stable for lesion at this time. Also should not be treated at this time due to the fact that he has recently been on antiplatelets and anticoagulation and if it cannot be stopped from bleeding he would need angiographic embolization or surgery. - Clear liquid diet today. - Continue present medications. Procedure Code(s): --- Professional --- 44332, 59, Esophagogastroduodenoscopy, flexible, transoral; with control of bleeding, any method 15471, 51, Esophagogastroduodenoscopy, flexible, transoral; with biopsy, single or multiple CPT copyright 2017 [employer]. All rights reserved. The codes documented in this report are preliminary and upon supervisor pipe finishing review may be revised to meet current compliance requirements. Dipesh Suresh DO 12/01/2021 8:39:09 AM This report has been signed electronically. Number of Addenda: 0 Note Initiated On: 12/01/2021 7:54 AM
--- NOTE | 2021-12-01 08:40 | OP.CCLET_ITS ---
12/01/2021 Adair Castaneda MD [address] [phone] Re : Upper GI endoscopy procedure for Alvin Workmanh Dear Dr. Castaneda This procedure was performed on Wednesday, December 01, 2021. My impressions and recommendations are as follows: Impressions : - No gross lesions in esophagus. - Medium-sized hiatal hernia. - Portal hypertensive gastropathy. - Dieulafoy lesion of stomach is an abnormally large and tortuous submucosal artery that protrudes through a small mucosal defect resulting in gastrointestinal bleeding. - Nodular mucosa in the duodenal bulb. Biopsied. - One oozing duodenal ulcer with pigmented material. Treated with a monopolar probe. Recommendations : - [facility]. Due to the fact that we do not have any imaging of his abdomen pelvis to see if he has any signs of blood clots in his abdomen pelvis, portal hypertension or cirrhosis. It is dangerous to treat this nonbleeding stable for lesion at this time. Also should not be treated at this time due to the fact that he has recently been on antiplatelets and anticoagulation and if it cannot be stopped from bleeding he would need angiographic embolization or surgery. - Clear liquid diet today. - Continue present medications. My findings are described in the full procedure note, which is enclosed. If I can be of further assistance, please feel free to contact me at . Sincerely, Dipesh Suresh, 12/01/2021 8:39:09 AM This report has been signed electronically.
--- NOTE | 2021-12-01 09:11 | NURSING ---
Pt returned from procedure.
[2021-12-01] MEDS: 0.9% Saline Lock 10 ML Syringe IV ×2 (09:28→21:15)
[2021-12-01] MEDS: Calcium Acetate 667 MG Capsule PO ×2 (11:27→17:31)
[2021-12-01] MEDS: Metoprolol Tartrate 50 MG Tablet PO ×2 (11:27→21:15)
--- NOTE | 2021-12-01 11:31 | PN.HOSP_ITS ---
Subjective Subjective Patient seen and examined. He had no active complaints today. REview of systems is otherwise negative. he had EGD today. Objective Data Objective Data Vital Signs: Vital Signs Temp Pulse Resp BP Pulse Ox O2 Del Method 97.8 F 72 17 108/64 95 Room Air 12/01/21 11:04 12/01/21 11:27 12/01/21 11:04 12/01/21 11:04 12/01/21 11:04 12/01/21 11:04 Oxygen Delivery Method Room Air Weight: 149 lb 11.102 oz Body Mass Index (BMI) 19.1 Intake & Output: Intake and Output for Last 24 Hours 11/29/21 11/30/21 12/01/21 23:59 23:59 23:59 Intake Total 2149.16 / 2149.16 1265.00 / 1265.00 Balance 2149.16 / 2149.16 1265.00 / 1265.00 Lab / Micro Data Result Diagrams: 12/01/21 04:45 12/01/21 04:45 Labs: Laboratory Results - last 24 hr 12/01/21 04:45: PT 17.2 H, INR 1.4 12/01/21 04:45: WBC 5.8, RBC 2.86 L, Hgb 8.6 L, Hct 27.1 L, MCV 94.8 H, MCH 30.1, MCHC 31.7 L, RDW Std Deviation 59.6 H, RDW Coeff of Sue 17.3 H, Plt Count 210, MPV 10.6, Immature Gran % (Auto) 0.200, Neut % (Auto) 68.2, Lymph % (Auto) 19.2, [place] % (Auto) 10.4 H, Eos % (Auto) 1.0, Baso % (Auto) 1.0, Absolute Neuts (auto) 4.0, Absolute Lymphs (auto) 1.12, Nucleated RBC % 0 12/01/21 04:45: Sodium 133 L, Potassium 4.0, Chloride 98, Carbon Dioxide 27.0, Anion Gap 8, BUN 21 H, Creatinine 4.38 H, Estim Creat Clear Calc 14.00, Est GFR (MDRD) Af Amer 17 L, Est GFR (MDRD) Non-Af 14 L, BUN/Creatinine Ratio 4.8 L, Glucose 66 L, Calcium 7.5 L Micro: Microbiology 11/29/21 21:50 Stool Stool Occult Blood (DILIP) - Final Occult Blood Positive Physical Exam Const alert, oriented x3 and no apparent distress HEENT head/scalp atraumatic, moist oral mucous membranes and oropharynx normal Head and Scalp: normocephalic Mouth: oral and palatal mucosa normal Eyes PERRL and EOMs intact bilaterally Neck no lymphadenopathy and supple Resp normal respiratory effort, no retractions, no use of accessory muscles and clear to auscultation bilaterally Cardio regular rate, regular rhythm, S1 normal heart sound, S2 normal heart sound and no murmurs GI normal to inspection, nondistended, normoactive bowel sounds, soft to palpation and non-tender Extremity normal to inspection, full ROM and no clubbing, cyanosis or edema Neuro oriented x3, CN's II-XII intact bilaterally and moves all extremities Sensorium / Orientation: awake, alert and oriented to person Speech: speech normal Motor Exam: strength 5/5 throughout Psych affect normal Assessment & Plan Assessment/Plan (1) Acute lower gastrointestinal bleeding: PLAN: Plan #Acute lower GI bleed * had EGD today which showed no gross lesions in esophagus, medisum sized hiatal hernia and portal hypertensive gastropathy; Dieulafoy lesion of stomach as well as nodular mucosa in the duodenal bulb which was biopsied, and one oozing duodenal ulcer with pigmented material which was treated with a monopolar probe. * eliquis and plavix on hold * on IV PPI * will get CTA of hte abdomen and pelvis to evaluate for liver disease in light of portal hypertensive gastropathy; ordered for tomorrow morning, so he has dialysis afterwards. * * #ESRD: on hemodialysis MWF. Nephrology on board #Peripheral artery disease * on plavix and high intensity statin * #Afib: on metoprolol. Eliquis on hold. #History of CVA: hold plavix as well. continue statin. DVT prophylaxis: SCDs. Eliquis on hold Charges/Coding Visit Charges Inpatient E&M: 92952 Subs Hosp L2
[2021-12-01 12:33] LABS: AST(SGOT) 26 U/L (15-37); Alanine Aminotransfer ALT/SGPT 15 U/L (16-61); Albumin, Serum 1.5 g/dL (3.2-5.0); Alkaline Phosphatase 146 U/L (45-117); Bilirubin, Direct 0.15 mg/dL (0.00-0.30); Globulin 3.9 g/dL (2.2-4.2); Protein, Total 5.4 g/dL (6.4-8.2)
--- NOTE | 2021-12-01 15:08 | PCM.CONS.R ---
Assessment & Plan Assessment/Plan (1) ESRD (end stage renal disease) on dialysis: PLAN: Dialysis will be arranged for tomorrow as per schedule. No acute indications today. (2) ABLA (acute blood loss anemia): PLAN: Transfusion as needed. Gastroenterology following. HPI Consult Data Date of Consult: 12/01/21 HPI Narrative Reason for Consultation: ESRD HPI Narrative: FLAQUITO GORDON, is a 76 M who presents to the hospital with GI bleed. Nephrology on consultation for ESRD. History of ESRD, on dialysis at [facility] in [place]. He was seen by our group in the past. Currently sees trim master operator based out of [place]. Status post endoscopy today. Currently feels okay. No breathing problems. Dialysis Thursday, Thursday, Thursday schedule. FOR[facility]LY [facility], [facility] Medical History (Updated 12/01/21 @ 15:[address] Alda Quinteros MD) Atrial fibrillation Chronic anemia ESRD (end stage renal disease) on dialysis GERD (gastroesophageal reflux disease) History of duodenal ulcer HTN (hypertension) Peripheral arterial disease Medical History unable to obtain Home Medications calcium acetate(phosphat bind) 667 mg capsule 667 mg PO TIDCM 10/09/14 [History Last Taken 10/08/14] cinacalcet 60 mg tablet (Sensipar) 60 mg PO PRN PRN IPTH 10/09/14 [History Last Taken Unknown] apixaban 2.5 mg tablet 2.5 mg PO BID 11/29/21 [History Last Taken Unknown] atorvastatin 40 mg tablet 40 mg PO QHS 11/29/21 [History Last Taken Unknown] clopidogrel 75 mg tablet 75 mg PO DAILY 11/29/21 [History Last Taken Unknown] metoprolol tartrate 50 mg tablet 50 mg PO BID 11/29/21 [History Last Taken Unknown] pantoprazole 40 mg tablet,delayed release (Protonix) 40 mg PO DAILY 11/29/21 [History Last Taken Unknown] Allergy/AdvReac Type Severity Reaction Status Date / Time No Known Allergies Allergy Verified 11/29/21 19:59 Family History (Updated 11/29/21 @ 23:[address] Irma White MD) Mother Heart disease Father Heart disease Surgical History (Updated 11/29/21 @ 23:[address] Irma White MD) History of transmetatarsal amputation of left foot S/P arteriovenous (AV) fistula creation S/P foot surgery, left S/P peripheral artery angioplasty with stent placement Surgical History unable to obtain Social History (Updated 11/29/21 @ 23:[address] Irma White MD) housing: [facility] Smoking Status: Never smoker alcohol intake: never substance use type: does not use ROS ROS Narrative Negative except above Physical Exam Narrative Alert awake oriented x 3 no obvious distress no pallor no icterus no JVD s1s2 no murmurs lungs clear abdomen soft no organomegaly no edema no cyanosis Lab / Micro Data Result Diagrams: 12/01/21 04:45 12/01/21 04:45 Labs: Laboratory Results - last 24 hr 12/01/21 04:45: PT 17.2 H, INR 1.4 12/01/21 04:45: WBC 5.8, RBC 2.86 L, Hgb 8.6 L, Hct 27.1 L, MCV 94.8 H, MCH 30.1, MCHC 31.7 L, RDW Std Deviation 59.6 H, RDW Coeff of Sue 17.3 H, Plt Count 210, MPV 10.6, Immature Gran % (Auto) 0.200, Neut % (Auto) 68.2, Lymph % (Auto) 19.2, [place] % (Auto) 10.4 H, Eos % (Auto) 1.0, Baso % (Auto) 1.0, Absolute Neuts (auto) 4.0, Absolute Lymphs (auto) 1.12, Nucleated RBC % 0 12/01/21 04:45: Sodium 133 L, Potassium 4.0, Chloride 98, Carbon Dioxide 27.0, Anion Gap 8, BUN 21 H, Creatinine 4.38 H, Estim Creat Clear Calc 14.00, Est GFR (MDRD) Af Amer 17 L, Est GFR (MDRD) Non-Af 14 L, BUN/Creatinine Ratio 4.8 L, Glucose 66 L, Calcium 7.5 L 12/01/21 04:45: Total Bilirubin 0.50, Direct Bilirubin 0.15, AST 26, ALT 15 L, Alkaline Phosphatase 146 H, Total Protein 5.4 L, Albumin 1.5 L, Globulin 3.9
[2021-12-01] MEDS: Ensure Plus High Protein 120 ML LIQUID PO (15:13)
[2021-12-01] MEDS: Juven (unflavored) Packet 1 PACKET PO (17:31)
[2021-12-01] MEDS: Atorvastatin Calcium 40 MG Tablet PO (21:16)
[2021-12-02] VITALS (15 sets, daily range): BP systolic 104–123; BP diastolic 68–85; PULSE 74–91; RESP 16–18; TEMP 36.4–36.9; O2SAT 88–98
[2021-12-02] MEDS: Menthol/Lanolin/Calamine/Znox 113 GM Tube 1 APPLIC TOPICAL ×3 (02:37→22:36)
--- NOTE | 2021-12-02 05:55 | CT_ITS ---
EXAM: CT ANGIOGRAPHY ABDOMEN AND PELVIS WITHOUT AND WITH INTRAVENOUS CONTRAST CLINICAL INDICATION: portal gastropathy portal gastropathy. PT IN PCU FOR GI BLEED,DARK STOOLS WITH LOW HEMOGLOBIN,HAD EGD DONE YESTERDAYHX:A-FIB,CHRONIC ANEMIA,HTN,DUODENAL ULCER,SKIN CANCER,ESRD-ON DIALYSIS,PAD-WITH LLE STNT DUE TO THROMBECTOMY TECHNIQUE: Helically acquired angiography images were obtained of the abdomen and pelvis without and with intravenous contrast. This CT exam was performed using one or more of the following dose reduction techniques: automated exposure control, adjustment of the mA and/or kV according to patient size, and/or use of iterative reconstruction technique. This report was created using [employer] report generation technology. MIP reconstructed images were created and reviewed. CONTRAST: IV 100mL Isovue-370 RADIATION DOSE: CTDIvol = 22.46 mGy, DLP = 1185.70 mGy-cm COMPARISON: None. FINDINGS: VASCULATURE: AORTA: Extensive atherosclerotic calcification of the aorta and other intra-abdominal and pelvic arteries. No acute findings. Normal caliber abdominal aorta. No dissection. CELIAC TRUNK AND MESENTERIC ARTERIES: No acute findings. No occlusion or significant stenosis. No dissection. RENAL ARTERIES: Severe stenosis bilaterally.. No occlusion. ILIAC ARTERIES: No acute findings. No occlusion or significant stenosis. No dissection. LOWER THORAX: There large pleural effusions bilaterally with overlying compression atelectasis in the visualized lower lobes. The heart is enlarged. There are coronary artery calcifications. ABDOMEN: LIVER: Unremarkable. Homogeneous. No focal mass. GALLBLADDER AND BILE DUCTS: Unremarkable. No calcified gallstones. No gallbladder distention or wall edema. No intra- or extrahepatic biliary ductal dilation. PANCREAS: Unremarkable. No focal cystic or solid mass. SPLEEN: As seen on axial images 40-50, there is a 5 cm thick walled cystic lesion arising from the anterior upper pole of the spleen. There is probably another 3.8 cm nodule arising exophytically from the upper pole the spleen is well. Visualization is limited by artifacts related to the patient''s arms. ADRENALS: Unremarkable. No nodules. KIDNEYS AND URETERS: There is severe hydronephrosis of both kidneys, with bilateral ureteral distention. There is bilateral renal atrophy with cortical thinning. As seen on axial images 73-88, there is a 4 cm space occupying lesion arising from the lateral mid right kidney with attenuation of 50 [place] units. STOMACH AND BOWEL: Colonic diverticula. Assessment of the stomach is limited by nondistention. No focal inflammatory change. PELVIS: APPENDIX: No evidence of acute appendicitis. BLADDER: Unremarkable. REPRODUCTIVE: The prostate gland is enlarged. ABDOMEN and PELVIS: INTRAPERITONEAL SPACE: There is mild ascites and diffuse infiltration of intra-abdominal fat which may be due to anasarca and/or fluid overload. No free air. BONES/JOINTS: Unremarkable. No suspicious lytic or blastic abnormality. SOFT TISSUES: There is diffuse infiltration of subcutaneous fat, consistent with anasarca and/or fluid volume overload. LYMPH NODES: Unremarkable. No enlarged lymph nodes. CT/CT ANGIO ABD&PEL W/O&W/DYE IMPRESSION: 1. Extensive atherosclerotic calcifications. Severe stenosis of the renal arteries bilaterally. 2. No other evidence for hemodynamically significant arterial stenosis. No evidence for aneurysm or dissection. 3. This study does not include portal venous phase imaging and is not useful for evaluation of portal venous distention nor presence of esophageal varices. 4. 4 cm space occupying lesion arising from the lateral right kidney. Recommend MRI or CT without and with intravenous contrast. 5. Bilateral renal atrophy. Severe hydronephrosis of both kidneys and bilateral hydroureters, of indeterminate etiology. 6. Enlarged prostate. 7. Colonic diverticulosis, without evidence for acute diverticulitis. 8. Bilateral pleural effusions, ascites, and infiltration of subcutaneous fat may be due to fluid volume overload and/or anasarca. 9. 5 cm thick walled cystic lesion arising from the spleen as well as a 3.8 cm, probably solid nodular structure. Recommend further evaluation with PET, abdominal MRI or biopsy. Electronically Signed: Heriberto Mccoy MD at 6:15 EDT ,
[2021-12-02] MEDS: Cinacalcet HCl 30 MG Tablet 60 MG PO (08:09)
--- NOTE | 2021-12-02 08:51 | WOUNDNOTE ---
wound photo: left medial foot
--- NOTE | 2021-12-02 08:52 | WOUNDNOTE ---
skin photo: left foot
--- NOTE | 2021-12-02 10:06 | CASEMGMT ---
Discharge Enrobing Machine Feeder Debbi sent updates on patient via [facility] to Judit at [facility].' Debbi Hurd Discharge Enrobing Machine Feeder
[2021-12-02] MEDS: Metoprolol Tartrate 50 MG Tablet PO ×2 (10:22→22:37)
[2021-12-02] MEDS: Calcium Acetate 667 MG Capsule PO ×2 (10:22→12:24)
--- NOTE | 2021-12-02 13:15 | PN_ITS ---
Subjective Subjective Patient has been sleeping on and off all day. He denies any abdominal pain. He has been tolerating a diet. Objective Data Objective Data Vital Signs: Vital Signs Temp Pulse Resp BP Pulse Ox O2 Del Method O2 Flow Rate 97.9 F 75 16 123/77 H 94 Room Air 2 12/02/21 09:52 12/02/21 10:22 12/02/21 09:52 12/02/21 09:52 12/02/21 09:52 12/02/21 09:52 12/02/21 09:52 Oxygen Flow Rate (L/min) 2 Oxygen Delivery Method Room Air Weight: 154 lb 5.177 oz Body Mass Index (BMI) 19.1 Intake & Output: Intake and Output for Last 24 Hours 11/30/21 12/01/21 12/02/21 23:59 23:59 23:59 Intake Total 2149.16 / 2149.16 1814.50 / 1864.50 640 / 640 Balance 2149.16 / 2149.16 1814.50 / 1864.50 640 / 640 Lab / Micro Data Result Diagrams: 12/01/21 04:45 12/01/21 04:45 Micro: Microbiology 11/29/21 21:50 Stool Stool Occult Blood (DILIP) - Final Occult Blood Positive Radiography Diagnostic Testing: Radiology Impression Abdomen/Pelvis CTA 12/02/21 05:55 IMPRESSION: 1. Extensive atherosclerotic calcifications. Severe stenosis of the renal arteries bilaterally. 2. No other evidence for hemodynamically significant arterial stenosis. No evidence for aneurysm or dissection. 3. This study does not include portal venous phase imaging and is not useful for evaluation of portal venous distention nor presence of esophageal varices. 4. 4 cm space occupying lesion arising from the lateral right kidney. Recommend MRI or CT without and with intravenous contrast. 5. Bilateral renal atrophy. Severe hydronephrosis of both kidneys and bilateral hydroureters, of indeterminate etiology. 6. Enlarged prostate. 7. Colonic diverticulosis, without evidence for acute diverticulitis. 8. Bilateral pleural effusions, ascites, and infiltration of subcutaneous fat may be due to fluid volume overload and/or anasarca. 9. 5 cm thick walled cystic lesion arising from the spleen as well as a 3.8 cm, probably solid nodular structure. Recommend further evaluation with PET, abdominal MRI or biopsy. Electronically Signed: Heriberto Mccoy MD at 6:15 EDT , Physical Exam Narrative Alert awake oriented x 3 no obvious distress no pallor no icterus no JVD s1s2 no murmurs lungs clear abdomen soft no organomegaly no edema no cyanosis Assessment & Plan Assessment/Plan (1) Duodenal ulcer: PLAN: Awaiting biopsies of duodenal ulcer. I did not think it was ischemic although that was on the differential diagnosis in the setting of severe peripheral arterial disease. I suspect it was secondary to antiplatelet therapy and anticoagulation. I recommend continue sulcal fate therapy for 4 weeks and twice daily PPI therapy for 8 weeks. (2) ABLA (acute blood loss anemia): PLAN: He was discovered also to have gastropathy in the gastric cardia extending into the greater curvature with daily visualization. This was not treated endoscopically due to the fact that I had not visualized his abdomen pelvis for any signs of cirrhosis for thromboembolic involving the portal vasculature. CT angiography of the abdomen showed extensive arterial calcifications with severe stenosis of bilateral renal arteries. It also showed a 4 cm space- occupying lesion arising from the lateral right kidney. A CT or MRI was recommended for further evaluation. There was also severe colonic diverticulosis without diverticulitis and a 5 cm thick-walled cystic lesion a rising from the spleen which is likely solid and nodular. Also noted was bilateral pleural effusions, ascites and mild LAD of fluid in the subcutaneous fat consistent with possible anasarca. At this time I do not think it would be safe in order to treat the day before the lesion in the gastric cardia due to severe hypoalbuminemia, severe arthrosclerotic disease. If his hemoglobin continues to drop then this should be treated at a institution that can provide interventional radiology angiograp hy. This can be very difficult to stop bleeding endoscopically. ? Charges/Coding Visit Charges Inpatient E&M: 24934 Subs Hosp L3
--- NOTE | 2021-12-02 14:11 | CASEMGMT ---
SW attempted to call patient's son to see if the plan is for patient to return to [facility] at discharge. However, there was no answer and no option to leave a message. HIRA will try again. Tata PERERA
--- NOTE | 2021-12-02 14:28 | PN.HOSP_ITS ---
Documented by User: Pura Monsalve NP, RESIDENTIAL PLUMBER-C 12/02/21 14:40 Subjective Subjective Patient seen and examined. Denies abdominal pain. Intermittently drowsy. Denies nausea, vomiting. Objective Data Objective Data Vital Signs: Vital Signs Temp Pulse Resp BP Pulse Ox O2 Del Method O2 Flow Rate 98.2 F 74 18 120/80 94 Room Air 2 12/02/21 13:34 12/02/21 13:34 12/02/21 13:34 12/02/21 13:34 12/02/21 13:34 12/02/21 13:34 12/02/21 09:52 Oxygen Flow Rate (L/min) 2 Oxygen Delivery Method Room Air Weight: 154 lb 5.177 oz Body Mass Index (BMI) 19.1 Intake & Output: Intake and Output for Last 24 Hours 11/30/21 12/01/21 12/02/21 23:59 23:59 23:59 Intake Total 2149.16 / 2149.16 1814.50 / 1864.50 640 / 640 Balance 2149.16 / 2149.16 1814.50 / 1864.50 640 / 640 Lab / Micro Data Result Diagrams: 12/01/21 04:45 12/01/21 04:45 Micro: Microbiology 11/29/21 21:50 Stool Stool Occult Blood (DILIP) - Final Occult Blood Positive Radiography Diagnostic Testing: Radiology Impression Abdomen/Pelvis CTA 12/02/21 05:55 IMPRESSION: 1. Extensive atherosclerotic calcifications. Severe stenosis of the renal arteries bilaterally. 2. No other evidence for hemodynamically significant arterial stenosis. No evidence for aneurysm or dissection. 3. This study does not include portal venous phase imaging and is not useful for evaluation of portal venous distention nor presence of esophageal varices. 4. 4 cm space occupying lesion arising from the lateral right kidney. Recommend MRI or CT without and with intravenous contrast. 5. Bilateral renal atrophy. Severe hydronephrosis of both kidneys and bilateral hydroureters, of indeterminate etiology. 6. Enlarged prostate. 7. Colonic diverticulosis, without evidence for acute diverticulitis. 8. Bilateral pleural effusions, ascites, and infiltration of subcutaneous fat may be due to fluid volume overload and/or anasarca. 9. 5 cm thick walled cystic lesion arising from the spleen as well as a 3.8 cm, probably solid nodular structure. Recommend further evaluation with PET, abdominal MRI or biopsy. Electronically Signed: Heriberto Mccoy MD at 6:15 EDT , Physical Exam Const alert and oriented x3 HEENT normocephalic and moist oral mucous membranes Eyes PERRL, EOMs intact bilaterally and conjunctivae normal Neck no lymphadenopathy Resp normal respiratory effort and clear to auscultation bilaterally Cardio regular rate, regular rhythm and no murmurs Peripheral Pulses: pulses 2+ throughout GI normal to inspection, nondistended, normoactive bowel sounds, non-tender and non-distended Extremity normal to inspection Extremity Narrative: PHYLLIS fistula Skin no rashes or lesions noted Lesions: no lesions Rashes: no rashes Trauma: no lacerations or abrasions Neuro CN's II-XII intact bilaterally, no focal motor deficits, no sensory deficits noted and deep tendon reflexes 2+ bilaterally Psych mental status grossly normal and affect normal Assessment & Plan Assessment/Plan (1) Acute lower gastrointestinal bleeding: PLAN: Plan 1. Acute GI bleed-GI following. Continue PPI, Carafate. Plavix, Eliquis on hold. 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 Oozing duodenal ulcer. CTA of abdomen demonstrated severe stenosis of the renal arteries bilaterally. 4 cm lesion lateral right kidney. Severe hydronephrosis of both kidneys and bilateral hydroureters. Enlarged prostate. 5 cm cystic lesion of the spleen as well as 3.[address] or MRI recommended for further evaluation of lesions. Will discuss with GI/nephrology further imaging recommendations. Per GI, if hemoglobin continues to drop, will likely need tertiary facility for interventional radiology. 2. Recent left foot osteomyelitis/gangrene, PAD-status post TMA 09/20/2021. Stent of distal popliteal artery and TP trunk 09/10/2021. Continue dressing changes as ordered. Completed course of antibiotics. Continue statin. Plavix on hold. 3. End-stage renal disease on hemodialysis-nephrology consulted. CT with bilateral hydronephrosis and bilateral renal artery stenosis. Will consult vascular as well. 4. History of obstructive uropathy-obtain bladder scan given hydronephrosis on CT. If evidence of retention, will involve urology. 5. Paroxysmal atrial fibrillation-Eliquis on hold. Continue metoprolol. 6. History of CVA-continue statin. Eliquis, Plavix on hold. 7. Hyperlipidemia-continue statin. DVT prophylaxis-SCDs This patient was seen by ARUN Aguilar under the supervision of Dr. Ponce. Time spent examining patient, reviewing data and subsequent management of care: 17 minutes Documented by User: Dr. Triston Ponce MD 12/02/21 15:59 Objective Data Lab / Micro Data Result Diagrams: 12/01/21 04:45 12/01/21 04:45 Assessment & Plan Assessment/Plan (1) Acute lower gastrointestinal bleeding: Charges/Coding Addendum Addendum: Addendum: Dr. Ponce I personally examined the patient and reviewed the chart. I agree with the above.-year-old male presented with a GI bleed. EGD demonstrated Dieulafoy lesion of the stomach as well as a large and tortuous submucosal artery. There was concern that he could have a cirrhotic like picture so a CTA of the abdomen was performed on the day of dialysis which demonstrated a possible renal mass as well as a splenic mass as well as hydronephrosis and hydroureters as well as an enlarged prostate. Bladder scan only demonstrated about 200 cc of urine. We will discuss with nephrology if we can proceed with an MRA of his abdomen to better characterize the solid kidney and splenic lesions. In the meantime we will recheck his hemoglobin which appears to have stayed stable in the morning, if his hemoglobin drops from transfer to a tertiary care center. We will also continue with wound care to his recent left foot osteomyelitis and gangrene. Clinical time spent in all aspects of patient care: 23 minutes Visit Charges Inpatient E&M: 16687 Subs Hosp L3
--- NOTE | 2021-12-02 15:26 | PCM.PN.REN ---
Subjective Subjective No new complaints Objective Data Objective Data Vital Signs: Vital Signs Temp Pulse Resp BP Pulse Ox O2 Del Method O2 Flow Rate 98.2 F 74 18 120/80 94 Room Air 2 12/02/21 13:34 12/02/21 13:34 12/02/21 13:34 12/02/21 13:34 12/02/21 13:34 12/02/21 13:34 12/02/21 09:52 Oxygen Flow Rate (L/min) 2 Oxygen Delivery Method Room Air Weight: 70 kg Body Mass Index (BMI) 19.1 Intake & Output: Intake and Output for Last 24 Hours 11/30/21 12/01/21 12/02/21 23:59 23:59 23:59 Intake Total 2149.16 / 2149.16 1814.50 / 1864.50 640 / 640 Balance 2149.16 / 2149.16 1814.50 / 1864.50 640 / 640 Lab / Micro Data Result Diagrams: 12/01/21 04:45 12/01/21 04:45 Micro: Microbiology 11/29/21 21:50 Stool Stool Occult Blood (DILIP) - Final Occult Blood Positive Radiography Diagnostic Testing: Radiology Impression Abdomen/Pelvis CTA 12/02/21 05:55 IMPRESSION: 1. Extensive atherosclerotic calcifications. Severe stenosis of the renal arteries bilaterally. 2. No other evidence for hemodynamically significant arterial stenosis. No evidence for aneurysm or dissection. 3. This study does not include portal venous phase imaging and is not useful for evaluation of portal venous distention nor presence of esophageal varices. 4. 4 cm space occupying lesion arising from the lateral right kidney. Recommend MRI or CT without and with intravenous contrast. 5. Bilateral renal atrophy. Severe hydronephrosis of both kidneys and bilateral hydroureters, of indeterminate etiology. 6. Enlarged prostate. 7. Colonic diverticulosis, without evidence for acute diverticulitis. 8. Bilateral pleural effusions, ascites, and infiltration of subcutaneous fat may be due to fluid volume overload and/or anasarca. 9. 5 cm thick walled cystic lesion arising from the spleen as well as a 3.8 cm, probably solid nodular structure. Recommend further evaluation with PET, abdominal MRI or biopsy. Electronically Signed: Heriberto Mccoy MD at 6:15 EDT , Physical Exam Narrative Alert awake oriented x 3 no obvious distress no pallor no icterus no JVD s1s2 no murmurs lungs clear abdomen soft no organomegaly no edema no cyanosis Assessment & Plan Assessment/Plan (1) ESRD (end stage renal disease) on dialysis: PLAN: He is on neck stage on dialysis 5 times a week. 2 and half hours each treatment. We will plan for dialysis 3 times a week while he is inpatient. 3 and half hours. Discussed with staff about dialysis orders. Left arm AV fistula with good bruit. (2) ABLA (acute blood loss anemia): PLAN: Transfusion as needed. Gastroenterology following. PLAN: Plan A CT abdomen with contrast was done in view of bleeding duodenal ulcer. He was noted to have a 4 cm lesion on the kidney, bilateral hydronephrosis, bilateral renal artery stenosis. Of all these, I would probably pursue the renal mass work-up. MRI of kidney can be done as outpatient. We will check to see if he has urology follow-up.
[2021-12-02] MEDS: 0.9% Saline Lock 10 ML Syringe IV (22:36)
[2021-12-02] MEDS: Atorvastatin Calcium 40 MG Tablet PO (22:38)
[2021-12-03] VITALS (15 sets, daily range): BP systolic 103–118; BP diastolic 46–86; PULSE 66–82; RESP 16–18; TEMP 36.2–36.4; O2SAT 89–99
--- NOTE | 2021-12-03 00:30 | NURSING ---
PT refused to let nurse Bladder scan at this time. PT stated to this nurse that he was bladder scanned earlier and did not want to be bladder scaned. This nurse educated patient on the importance of bladder scanning, and pt stated he will urinate before the am.
[2021-12-03] MEDS: Menthol/Lanolin/Calamine/Znox 113 GM Tube 1 APPLIC TOPICAL ×3 (04:28→21:43)
[2021-12-03 05:44] LABS: Absolute Lymphocyte Count 1.07 X10^3/uL (0.83-4.51); Absolute Neutrophil Count 3.2 X10^3/uL (2.0-7.7); Basophil# 0.07 X10^3/uL; Basophil% 1.4 % (0-1); Eosinophil# 0.09 X10^3/uL; Eosinophils% 1.8 % (0-5); Hematocrit 28.7 % (40-54); Lymphocyte # 1.07 X10^3/ul (0.83-4.51); Lymphocyte % 21.4 % (19-41); Mean Corp Hgb Conc 31.4 g/dL (32-36); Mean Corpuscular Volume 95.7 fL (80-94); Mean Platelet Vol. 10.3 fl (6.2-12.0); Monocyte# 0.55 X10^3/uL; NRBC Flagged by Analyzer 0 % (0-5); Neutrophil # 3.19 X10^3/uL (2.7-7.7); Neutrophil % 63.8 % (47-70); Platelet Count 177 K/mm3 (150-450); RBC Distribution Width CV 17.9 % (11.6-14.6); RBC Distribution Width SD 61.1 fl (35.1-43.9)
[2021-12-03 06:04] LABS: Anion Gap 7 (5-15); BUN 15 mg/dL (7-18); Calcium,Total 7.8 mg/dL (8.5-10.1); Chloride 99 mmol/L (98-107); Creatinine, Serum 3.74 mg/dL (0.70-1.30); EST Glomerular Filtration Rate 17 mL/min (>60); Est Glom Filt Rate - Afr Amer 20 mL/min (>60); Estimated Creatinine Clearance 16.97 ml/min; Glucose 51 mg/dL (74-106); Potassium 3.8 mmol/L (3.5-5.1); Sodium Level 136 mmol/L (136-145)
[2021-12-03] MEDS: Cinacalcet HCl 30 MG Tablet 60 MG PO (08:25)
[2021-12-03] MEDS: Calcium Acetate 667 MG Capsule PO ×3 (08:25→16:00)
[2021-12-03] MEDS: Juven (unflavored) Packet 1 PACKET PO ×2 (08:25→16:00)
[2021-12-03] MEDS: 0.9% Saline Lock 10 ML Syringe IV ×2 (09:38→21:41)
[2021-12-03] MEDS: Metoprolol Tartrate 50 MG Tablet PO ×2 (09:38→21:43)
[2021-12-03] MEDS: Ensure Plus High Protein 120 ML LIQUID PO ×4 (09:41→21:43)
--- NOTE | 2021-12-03 11:11 | EX.PCM.CON.S ---
Assessment & Plan Assessment/Plan (1) Renal artery stenosis: PLAN: -CTA images reviewed, bilateral renal artery origin calcified stenosis with diminutive vessels distally -given only single agent antihypertensive and that already ESRD on dialysis would not perform and further imaging or pursue intervention HPI Consult Data Date of Consult: 12/03/21 HPI Narrative HPI Narrative: FLAQUITO GORDON, is a 76 M who presents with an acute GI bleed. During evaluation he was found to have bilateral renal artery stenosis. Patient is a poor informant but states he has been on HD for 11 years. Has left forearm AV access that has been working fine, unclear how long it has been in place. Also with recent LLE intervention per notes, but patient unable to further elaborate or confirm. Was on eliquis and plavix prior to current acute events. On single agent antihypertensive. Does still make urine, straight cath daily. [facility] Medical History Atrial fibrillation Chronic anemia ESRD (end stage renal disease) on dialysis GERD (gastroesophageal reflux disease) History of duodenal ulcer HTN (hypertension) Peripheral arterial disease Medical History unable to obtain Home Medications calcium acetate(phosphat bind) 667 mg capsule 667 mg PO TIDCM 10/09/14 [History Last Taken 10/08/14] cinacalcet 60 mg tablet (Sensipar) 60 mg PO PRN PRN IPTH 10/09/14 [History Last Taken Unknown] apixaban 2.5 mg tablet 2.5 mg PO BID 11/29/21 [History Last Taken Unknown] atorvastatin 40 mg tablet 40 mg PO QHS 11/29/21 [History Last Taken Unknown] clopidogrel 75 mg tablet 75 mg PO DAILY 11/29/21 [History Last Taken Unknown] metoprolol tartrate 50 mg tablet 50 mg PO BID 11/29/21 [History Last Taken Unknown] pantoprazole 40 mg tablet,delayed release (Protonix) 40 mg PO DAILY 11/29/21 [History Last Taken Unknown] Allergy/AdvReac Type Severity Reaction Status Date / Time No Known Allergies Allergy Verified 11/29/21 19:59 Family History Mother Heart disease Father Heart disease Surgical History History of transmetatarsal amputation of left foot S/P arteriovenous (AV) fistula creation S/P foot surgery, left S/P peripheral artery angioplasty with stent placement Surgical History unable to obtain Social History housing: snf Smoking Status: Never smoker alcohol intake: never substance use type: does not use ROS Review of Systems ROS Unobtainable: due to mental status Gastrointestinal Gastrointestinal: Reports melena Physical Exam Const alert and no apparent distress General Appearance: cooperative and frail; Negative for combative or lethargic Orientation / Consciousness: awake Exam Limitations: altered mental status; Negative for no limitations HEENT Head and Scalp: normocephalic and atraumatic Neck full ROM General: trachea midline Resp normal respiratory effort and no use of accessory muscles Effort and Inspection: Negative for labored, stridor or audible wheezes Cardio regular rate and regular rhythm Peripheral Pulses: brachial pulses present and radial pulses present; Negative for popliteal pulses present, posterior tibial pulses present or dorsalis pedis pulses present Back/Spine Cervical Spine: cervical ROM normal Extremity no pedal edema Skin Skin Narrative: Left TMA dressing c/d/i Neuro CN's II-XII intact bilaterally and no focal motor deficits Psych thought process normal, cooperative, affect normal, speech normal and activity/motor behavior normal Lab / Micro Data Result Diagrams: 12/03/21 05:23 12/03/21 05:23 Labs: Laboratory Results - last 24 hr 12/03/21 05:23: WBC 5.0, RBC 3.00 L, Hgb 9.0 L, Hct 28.7 L, MCV 95.7 H, MCH 30.0, MCHC 31.4 L, RDW Std Deviation 61.1 H, RDW Coeff of Sue 17.9 H, Plt Count 177, MPV 10.3, Immature Gran % (Auto) 0.600, Neut % (Auto) 63.8, Lymph % (Auto) 21.4, [place] % (Auto) 11.0 H, Eos % (Auto) 1.8, Baso % (Auto) 1.4 H, Absolute Neuts (auto) 3.2, Absolute Lymphs (auto) 1.07, Nucleated RBC % 0 12/03/21 05:23: Sodium 136, Potassium 3.8, Chloride 99, Carbon Dioxide 30.0, Anion Gap 7, BUN 15, Creatinine 3.74 H, Estim Creat Clear Calc 16.97, Est GFR (MDRD) Af Amer 20 L, Est GFR (MDRD) Non-Af 17 L, BUN/Creatinine Ratio 4.0 L, Glucose 51 L, Calcium 7.8 L Charges/Coding Visit Charges Inpatient E&M: 39894 Init Hosp L2
--- NOTE | 2021-12-03 11:21 | MRI_ITS ---
STUDY: MRI ABDOMEN WITH AND WITHOUT CONTRAST REASON FOR EXAM: Male, 76 years old. Lesion of spleen, right kidney lesion -- Kidney and spleen -- TECHNIQUE: Standardized fat and water weighted pulse sequences were obtained in all 3 orthogonal planes post contrast administration. IV 14ml Clariscan was administered for the contrast portion of the examination. COMPARISON: CT examination of 12/02/2021 FINDINGS: Limitation: Severe limitation current examination. Technologist note: Pt unable to hold breath, filled with fluid, dialysis, best images possible d/t patient condition Liver has normal size and configuration. No distinct intrahepatic mass is identified however significant motion artifact obscures detail. Gallbladder is intact. No filling defects identified. No evidence of ductal dilatation. Visualized pancreas is normal configuration. No pancreatic masses identified. Spleen has normal configuration however a cystic lesion is identified along the anterior aspect of the spleen with irregular thickened capsule. There however is exophytic solid and cystic structure arising from the posterior contour of the liver, only partially visible on current exam, measuring approximately 3.3 x 2.6 cm. Kidneys: 1. RIGHT kidney is remarkable for multiple cysts with mild hydronephrosis and hydroureter. There is a cyst along the lateral aspect of the RIGHT kidney measuring approximately 2.9 x 3.0 cm, with peripheral wall enhancement. No other areas of abnormal enhancement noted. 2. LEFT kidney: Extensive cysts are noted throughout the LEFT kidney. There is hydronephrosis, and hydroureter. Normal visualized stomach. Normal small intestine. Normal colon. Appendix is not visualized. Normal abdominal aorta. Normal inferior vena cava. Normal retroperitoneum. Normal abdominal wall. Normal osseous structures. MRI/MRI Abd WITH and W/O Contrast IMPRESSION: 1. Significantly limited examination due to patient motion. 2. Extensive bilateral cystic changes within the kidneys consistent with polycystic kidney disease. 3. There is an exophytic cyst arising from the RIGHT kidney with peripheral capsular enhancement. No other areas of abnormal contrast enhancement identified, however significantly limited exam. Consider short-term follow-up to assure stability particularly of the exophytic cyst, with follow-up in approximately 2-3 months with MRI, alternatively postcontrast CT. Short-term follow-up could be obtained with ultrasound to assess the exophytic RIGHT renal lesion. 4. Bilateral pelvocaliectasis and hydroureter. 5. No evidence cholelithiasis. Normal appearance of the liver. Two lesions noted within the spleen, more anteriorly positioned lesion appears to represent a cyst with thick wall without significant enhancement. There is a complex solid and cystic exophytic mass arising from the posterior aspect of the spleen not adequately evaluated on current examination due to significant artifact. Short-term follow-up is recommended to assure stability... Electronically Signed: Cristiano Stinson MD at 2:17 EDT ,
--- NOTE | 2021-12-03 11:23 | PN.HOSP_ITS ---
Documented by User: Pura Monsalve NP, PERSONAL INVESTMENT ADVISER-C 12/03/21 11:29 Subjective Subjective Patient seen and examined. Denies current symptoms or complaints. Hemoglobin appears stable. To undergo MRI and dialysis. Objective Data Objective Data Vital Signs: Vital Signs Temp Pulse Resp BP Pulse Ox O2 Del Method O2 Flow Rate 97.4 F L 82 18 118/77 95 Nasal Cannula 2 12/03/21 09:45 12/03/21 09:45 12/03/21 09:45 12/03/21 09:45 12/03/21 09:45 12/03/21 09:45 12/03/21 09:45 Oxygen Flow Rate (L/min) 2 Oxygen Delivery Method Nasal Cannula Weight: 154 lb 15.759 oz Body Mass Index (BMI) 19.1 Intake & Output: Intake and Output for Last 24 Hours 12/01/21 12/02/21 12/03/21 23:59 23:59 23:59 Intake Total 1814.50 / 1864.50 1110 / 1110 110 / 110 Output Total 900 / 900 Balance 1814.50 / 1864.50 1110 / 1110 -790 / -790 Lab / Micro Data Result Diagrams: 12/03/21 05:23 12/03/21 05:23 Labs: Laboratory Results - last 24 hr 12/03/21 05:23: WBC 5.0, RBC 3.00 L, Hgb 9.0 L, Hct 28.7 L, MCV 95.7 H, MCH 30.0, MCHC 31.4 L, RDW Std Deviation 61.1 H, RDW Coeff of Sue 17.9 H, Plt Count 177, MPV 10.3, Immature Gran % (Auto) 0.600, Neut % (Auto) 63.8, Lymph % (Auto) 21.4, [place] % (Auto) 11.0 H, Eos % (Auto) 1.8, Baso % (Auto) 1.4 H, Absolute Neuts (auto) 3.2, Absolute Lymphs (auto) 1.07, Nucleated RBC % 0 12/03/21 05:23: Sodium 136, Potassium 3.8, Chloride 99, Carbon Dioxide 30.0, Anion Gap 7, BUN 15, Creatinine 3.74 H, Estim Creat Clear Calc 16.97, Est GFR (MDRD) Af Amer 20 L, Est GFR (MDRD) Non-Af 17 L, BUN/Creatinine Ratio 4.0 L, Glucose 51 L, Calcium 7.8 L Micro: Microbiology 11/29/21 21:50 Stool Stool Occult Blood (DILIP) - Final Occult Blood Positive Physical Exam Const alert and oriented x3 HEENT normocephalic and moist oral mucous membranes Eyes PERRL, EOMs intact bilaterally and conjunctivae normal Neck no lymphadenopathy Resp normal respiratory effort and clear to auscultation bilaterally Cardio regular rate, regular rhythm and no murmurs Peripheral Pulses: pulses 2+ throughout GI normal to inspection, nondistended, normoactive bowel sounds, non-tender and non-distended Extremity normal to inspection Skin no rashes or lesions noted Skin Narrative: Foot wound, dressing intact Lesions: no lesions Rashes: no rashes Trauma: no lacerations or abrasions Neuro CN's II-XII intact bilaterally, no focal motor deficits, no sensory deficits noted and deep tendon reflexes 2+ bilaterally Psych mental status grossly normal and affect normal Assessment & Plan Assessment/Plan (1) Acute lower gastrointestinal bleeding: PLAN: Plan 1.? Acute GI bleed-GI following.? Continue PPI, Carafate.? Plavix, Eliquis on hold.? 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? Oozing duodenal ulcer.? CTA of abdomen demonstrated severe stenosis of the renal arteries bilaterally.? 4 cm lesion lateral right kidney.? Severe hydronephrosis of both kidneys and bilateral hydroureters.? Enlarged prostate.? 5 cm cystic lesion of the spleen as well as 3.8 cm nodular structure.? CT or MRI recommended for further evaluation of lesions.? Per GI, if hemoglobin continues to drop, will likely need tertiary facility for interventional radiology. MRI for spleen and kidney lesions pending. Hemoglobin currently stable. 2. Recent left foot osteomyelitis/gangrene, PAD-status post TMA 09/20/2021.? Stent of distal popliteal artery and TP trunk 09/10/2021.? Continue dressing changes as ordered.? Completed course of antibiotics.? Continue statin.? Plavix on hold. 3. End-stage renal disease on hemodialysis-nephrology consulted.? CT with bilateral hydronephrosis and bilateral renal artery stenosis.? Vascular consulted. To undergo dialysis following MRI. 4. History of obstructive uropathy-bladder scan unremarkable. 5. Paroxysmal atrial fibrillation-Eliquis on hold.? Continue metoprolol. 6. History of CVA-continue statin.? Eliquis, Plavix on hold. 7. Hyperlipidemia-continue statin. DVT prophylaxis-SCDs This patient was seen by ARUN Aguilar under the supervision of Dr. Ponce. Time spent examining patient, reviewing data and subsequent management of care: 16 minutes Documented by User: Dr. Triston Ponce MD 12/03/21 12:06 Objective Data Lab / Micro Data Result Diagrams: 12/03/21 05:23 12/03/21 05:23 Assessment & Plan Assessment/Plan (1) Acute lower gastrointestinal bleeding: Charges/Coding Addendum Addendum: Dr. Ponce I personally examined the patient and reviewed the chart. I agree with the above.-year-old male presented with a GI bleed.? EGD demonstrated Dieulafoy lesion of the stomach as well as a large and tortuous submucosal artery.? There was concern that he could have a cirrhotic like picture so a CTA of the abdomen was performed on the day of dialysis which demonstrated a possible renal mass as well as a splenic mass as well as hydronephrosis and hydroureters as well as an enlarged prostate.? Bladder scan only demonstrated about 200 cc of urine.? We will discuss with nephrology if we can proceed with an MRA of his abdomen to better characterize the solid kidney and splenic lesions.? In the meantime we will recheck his hemoglobin which appears to have stayed stable in the morning, if his hemoglobin drops from transfer to a tertiary care center.? We will also continue with wound care to his recent left foot osteomyelitis and gangrene.? Clinical time spent in all aspects of patient care: 23 minutes 12/03/2021: Doing well today, denies any further abdominal pain or hematemesis. Discussed the potential for an MRI with nephrology and they are okay with receiving contrast as an MRA to further evaluate these abdominal masses. There was the possibility of obtaining an MRI as an outpatient however given that he would be going to a SNF I felt it more prudent to have the evaluation done while he was here. Vascular surgery was consulted to evaluate for his renal artery stenosis however given his comorbidities no further interventions were indicated at this time. Clinical time spent in all aspects of patient care: 18 minutes Visit Charges Inpatient E&M: 69286 Subs Hosp L2
--- NOTE | 2021-12-03 11:40 | PCM.PN.REN ---
Subjective Subjective No new complaints Objective Data Objective Data Vital Signs: Vital Signs Temp Pulse Resp BP Pulse Ox O2 Del Method O2 Flow Rate 97.4 F L 82 18 118/77 95 Nasal Cannula 2 12/03/21 09:45 12/03/21 09:45 12/03/21 09:45 12/03/21 09:45 12/03/21 09:45 12/03/21 09:45 12/03/21 09:45 Oxygen Flow Rate (L/min) 2 Oxygen Delivery Method Nasal Cannula Weight: 70.3 kg Body Mass Index (BMI) 19.1 Intake & Output: Intake and Output for Last 24 Hours 12/01/21 12/02/21 12/03/21 23:59 23:59 23:59 Intake Total 1814.50 / 1864.50 1110 / 1110 110 / 110 Output Total 900 / 900 Balance 1814.50 / 1864.50 1110 / 1110 -790 / -790 Lab / Micro Data Result Diagrams: 12/03/21 05:23 12/03/21 05:23 Labs: Laboratory Results - last 24 hr 12/03/21 05:23: WBC 5.0, RBC 3.00 L, Hgb 9.0 L, Hct 28.7 L, MCV 95.7 H, MCH 30.0, MCHC 31.4 L, RDW Std Deviation 61.1 H, RDW Coeff of Sue 17.9 H, Plt Count 177, MPV 10.3, Immature Gran % (Auto) 0.600, Neut % (Auto) 63.8, Lymph % (Auto) 21.4, [place] % (Auto) 11.0 H, Eos % (Auto) 1.8, Baso % (Auto) 1.4 H, Absolute Neuts (auto) 3.2, Absolute Lymphs (auto) 1.07, Nucleated RBC % 0 12/03/21 05:23: Sodium 136, Potassium 3.8, Chloride 99, Carbon Dioxide 30.0, Anion Gap 7, BUN 15, Creatinine 3.74 H, Estim Creat Clear Calc 16.97, Est GFR (MDRD) Af Amer 20 L, Est GFR (MDRD) Non-Af 17 L, BUN/Creatinine Ratio 4.0 L, Glucose 51 L, Calcium 7.8 L Micro: Microbiology 11/29/21 21:50 Stool Stool Occult Blood (DILIP) - Final Occult Blood Positive Physical Exam Narrative Alert awake oriented x 3 no obvious distress no pallor no icterus no JVD s1s2 no murmurs lungs clear abdomen soft no organomegaly no edema no cyanosis Assessment & Plan Assessment/Plan (1) ESRD (end stage renal disease) on dialysis: PLAN: He is on nxstage on dialysis 5 times a week. 2 and half hours each treatment. We will plan for dialysis 3 times a week while he is inpatient. 3 and half hours. Left arm AV fistula with good bruit. (2) ABLA (acute blood loss anemia): PLAN: Transfusion as needed. Gastroenterology following. PLAN: Plan A CT abdomen with contrast was done in view of bleeding duodenal ulcer. He was noted to have a 4 cm lesion on the kidney, bilateral hydronephrosis, bilateral renal artery stenosis. Doubt renal artery stenosis is significant. He will probably need to follow-up with urology for management of kidney mass. I asked him if he has any urology appointments and he could not tell me. It might be just safer to set up urology appointment while he is here with a follow-up. Recommend urology consult. If he gets MRI with contrast today, will plan for dialysis here for 3 days in a row. At the skilled nursing he gets dialysis 5 times a week anyway.
--- NOTE | 2021-12-03 13:53 | CASEMGMT ---
HIRA spoke with patient's son Alvin. Alvin confirmed the plan is for patient to return to [facility] at discharge. Plan: d/c back to [facility] when medically ready. Tata PERERA
[2021-12-03] MEDS: Atorvastatin Calcium 40 MG Tablet PO (21:43)
[2021-12-04] VITALS (11 sets, daily range): BP systolic 105–121; BP diastolic 44–73; PULSE 68–75; RESP 15–20; TEMP 36.3–36.7; O2SAT 91–98
[2021-12-04 05:39] LABS: Absolute Lymphocyte Count 0.97 X10^3/uL (0.83-4.51); Absolute Neutrophil Count 2.9 X10^3/uL (2.0-7.7); Basophil# 0.05 X10^3/uL; Basophil% 1.1 % (0-1); Eosinophil# 0.09 X10^3/uL; Hematocrit 26.7 % (40-54); Hemoglobin 8.7 g/dL (13.0-16.5); Lymphocyte # 0.97 X10^3/ul (0.83-4.51); Lymphocyte % 21.5 % (19-41); Mean Corp Hgb Conc 32.6 g/dL (32-36); Mean Corpuscular Hgb 31.6 pg (27.0-32.0); Mean Corpuscular Volume 97.1 fL (80-94); Mean Platelet Vol. 11.4 fl (6.2-12.0); Monocyte# 0.55 X10^3/uL; Monocyte% 12.2 % (0-10); NRBC Flagged by Analyzer 0 % (0-5); Neutrophil # 2.85 X10^3/uL (2.7-7.7); Platelet Count 220 K/mm3 (150-450); RBC Distribution Width CV 18.1 % (11.6-14.6); RBC Distribution Width SD 63.7 fl (35.1-43.9); Red Blood Count 2.75 M/mm3 (4.6-6.2); White Blood Count 4.5 K/mm3 (4.4-11.0)
[2021-12-04] MEDS: Menthol/Lanolin/Calamine/Znox 113 GM Tube 1 APPLIC TOPICAL (06:23)
[2021-12-04 07:09] LABS: Anion Gap 7 (5-15); BUN 31 mg/dL (7-18); BUN/Creat Ratio 6.8 RATIO (10-20); Calcium,Total 7.9 mg/dL (8.5-10.1); Chloride 100 mmol/L (98-107); Creatinine, Serum 4.57 mg/dL (0.70-1.30); EST Glomerular Filtration Rate 13 mL/min (>60); Est Glom Filt Rate - Afr Amer 16 mL/min (>60); Estimated Creatinine Clearance 12.21 ml/min; Glucose 73 mg/dL (74-106); Potassium 4.2 mmol/L (3.5-5.1); Sodium Level 137 mmol/L (136-145)
--- NOTE | 2021-12-04 07:42 | PCM.CONS.U ---
HPI Consult Data Date of Consult: 12/04/21 HPI Narrative Reason for Consultation: Bilateral hydronephrosis and lesion on right kidney HPI Narrative: FLAQUITO GORDON, is a 76 M who presents to the hospital with a GI bleed he was seen by gastroenterology who did a work-up supposedly by the notes it looks like he has a lesion in his stomach to cause the bleeding. During work-up a CAT scan was done and he was found to have chronic bilateral hydronephrosis. Also appears to have a cystic mass on the right kidney some enhancement on MRI but not a clear mass not a clear surgical mass. He would be at high risk for any surgical intervention on the mass given his comorbidities. Currently is in a custodial recovering from podiatric surgery and has been on intermittent catheterization and also while here in the hospital he has been on intermittent catheterization for high residuals, PVR. He is on hemodialysis. Current recommendations would be observation of the right renal mass and probably repeat imaging in 4 months to document stability and I would not recommend any intervention on that mass, on my review of imaging this this appears to be a complex cyst. He has chronic bilateral hydronephrosis which is probably the cause of his renal insufficiency and renal failure and no intervention is necessary at this point continue with self intermittent catheterization per the hospital and on discharge he can continue with that management for his bladder. If you have any questions please give a call. [facility] Medical History Atrial fibrillation Chronic anemia ESRD (end stage renal disease) on dialysis GERD (gastroesophageal reflux disease) History of duodenal ulcer HTN (hypertension) Peripheral arterial disease Medical History unable to obtain Home Medications calcium acetate(phosphat bind) 667 mg capsule 667 mg PO TIDCM 10/09/14 [History Last Taken 10/08/14] cinacalcet 60 mg tablet (Sensipar) 60 mg PO PRN PRN IPTH 10/09/14 [History Last Taken Unknown] apixaban 2.5 mg tablet 2.5 mg PO BID 11/29/21 [History Last Taken Unknown] atorvastatin 40 mg tablet 40 mg PO QHS 11/29/21 [History Last Taken Unknown] clopidogrel 75 mg tablet 75 mg PO DAILY 11/29/21 [History Last Taken Unknown] metoprolol tartrate 50 mg tablet 50 mg PO BID 11/29/21 [History Last Taken Unknown] pantoprazole 40 mg tablet,delayed release (Protonix) 40 mg PO DAILY 11/29/21 [History Last Taken Unknown] Allergy/AdvReac Type Severity Reaction Status Date / Time No Known Allergies Allergy Verified 11/29/21 19:59 Family History Mother Heart disease Father Heart disease Surgical History History of transmetatarsal amputation of left foot S/P arteriovenous (AV) fistula creation S/P foot surgery, left S/P peripheral artery angioplasty with stent placement Surgical History unable to obtain Social History housing: custodial Smoking Status: Never smoker alcohol intake: never substance use type: does not use Lab / Micro Data Result Diagrams: 12/04/21 04:42 12/04/21 06:15 Labs: Laboratory Results - last 24 hr 12/04/21 04:42: WBC 4.5, RBC 2.75 L, Hgb 8.7 L, Hct 26.7 L, MCV 97.1 H, MCH 31.6, MCHC 32.6, RDW Std Deviation 63.7 H, RDW Coeff of Sue 18.1 H, Plt Count 220, MPV 11.4, Immature Gran % (Auto) 0.200, Neut % (Auto) 63.0, Lymph % (Auto) 21.5, [place] % (Auto) 12.2 H, Eos % (Auto) 2.0, Baso % (Auto) 1.1 H, Absolute Neuts (auto) 2.9, Absolute Lymphs (auto) 0.97, Nucleated RBC % 0 12/04/21 04:42: Sodium Cancelled, Potassium Cancelled, Chloride Cancelled, Carbon Dioxide Cancelled, Anion Gap Cancelled, BUN Cancelled, Creatinine Cancelled, Estim Creat Clear Calc Cancelled, Est GFR (MDRD) Af Amer Cancelled, Est GFR (MDRD) Non-Af Cancelled, BUN/Creatinine Ratio Cancelled, Glucose Cancelled, Calcium Cancelled 12/04/21 06:15: Sodium 137, Potassium 4.2, Chloride 100, Carbon Dioxide 30.0, Anion Gap 7, BUN 31 H, Creatinine 4.57 H, Estim Creat Clear Calc 12.21, Est GFR (MDRD) Af Amer 16 L, Est GFR (MDRD) Non-Af 13 L, BUN/Creatinine Ratio 6.8 L, Glucose 73 L, Calcium 7.9 L Radiology Impression Abdomen MRI 12/03/21 11:21 IMPRESSION: 1. Significantly limited examination due to patient motion. 2. Extensive bilateral cystic changes within the kidneys consistent with polycystic kidney disease. 3. There is an exophytic cyst arising from the RIGHT kidney with peripheral capsular enhancement. No other areas of abnormal contrast enhancement identified, however significantly limited exam. Consider short-term follow-up to assure stability particularly of the exophytic cyst, with follow-up in approximately 2-3 months with MRI, alternatively postcontrast CT. Short-term follow-up could be obtained with ultrasound to assess the exophytic RIGHT renal lesion. 4. Bilateral pelvocaliectasis and hydroureter. 5. No evidence cholelithiasis. Normal appearance of the liver. Two lesions noted within the spleen, more anteriorly positioned lesion appears to represent a cyst with thick wall without significant enhancement. There is a complex solid and cystic exophytic mass arising from the posterior aspect of the spleen not adequately evaluated on current examination due to significant artifact. Short-term follow-up is recommended to assure stability... Electronically Signed: Cristiano Stinson MD at 2:17 EDT ,
[2021-12-04] MEDS: Juven (unflavored) Packet 1 PACKET PO (08:18)
[2021-12-04] MEDS: Calcium Acetate 667 MG Capsule PO ×2 (08:18→15:04)
[2021-12-04] MEDS: Cinacalcet HCl 30 MG Tablet 60 MG PO (08:18)
[2021-12-04] MEDS: Ensure Plus High Protein 120 ML LIQUID PO ×2 (09:46→15:03)
--- NOTE | 2021-12-04 11:55 | CASEMGMT ---
Patient is ready for discharge back to [facility] today. SW notified Judit at [facility] as well as patient's son. Tata PERERA
--- NOTE | 2021-12-04 13:43 | PCM.TXEXTCAR ---
Diet Diet Order/Speech Therapy: 12/03/21 11:56 Diet: Renal - General Is pt able to select menu?: No Routine Orders/Code Status Enema Type: Fleetz Enema Frequency: Daily PRN Suppository Type: Dulcolax 10mg Suppository Frequency: Daily PRN O2 Liters per Minute: 2 O2 Frequency: Continuous Keep PO Greater than or Equal to (%): 90 Routine Lab Work: - (weekly CBC, BMP) Code Status: Full Code Wound(s) LLE: Wound Type: Surgical Incision left medial foot: Wound Type: nonhealing wound along surgical incision Dressing Change: AntiMicrobial (Aquacel AG, etc) Suggestions for Active Care Change Position every (hours): 2 Times a day to sit in chair: 3 Therapies Weight Bearing: Non weight bearing Physical Therapy: Eval and Treat Occupational Therapy: Eval and Treat Problem/Diagnosis (1) Acute lower gastrointestinal bleeding: Status: Acute Code(s): K92.2 - Gastrointestinal hemorrhage, unspecified Allergies/Procedures Done in Hospital Allergies No Known Allergies Allergy (Verified 11/29/21 19:59) Procedures: Dialysis Type of Care/Length of Stay Estimated LOS: More Than 30 Days Type of Care Needed: Skilled Rehab Potential: Fair Prognosis: Fair Additional Orders/Day of Discharge H&P will serve as current which was dated: 11/29/21 Day of Discharge: 12/04/21 Dietary and Speech Recommendations Dietitian Recommendations/Changes: continue renal-general diet as tolerated, ensure plus high protein w/ medpass and Paul BID Discharge Plan Admission Admit Date/Time: 11/30/21 14:32 Primary Reason for Your Visit: GI Bleed Attending Provider: Triston Ponce Primary Care Provider: Adair Castaneda Consulting Providers: Irma White ; Alda Quinteros ; Ann Chang ; Serge Dunn Discharge Orders/Prescriptions Prescriptions: New sucralfate 1 gram Tablet 1 g PO 1HR_ACHS 30 Days Qty: 0 0RF pantoprazole 40 mg Tablet,Delayed Release (Dr/Ec) 40 mg PO BID 60 Days Qty: 120 0RF Continued cinacalcet [Sensipar] 60 MG tablet 60 mg PO PRN PRN (Reason: IPTH) Label Comments: parathyroid Rx Instructions: Give 60mg on Mon, Tues, Wed, Fri before dialysis calcium acetate(phosphat bind) 667 MG capsule 667 mg PO TIDCM Label Comments: kidney health atorvastatin 40 mg Tablet 40 mg PO QHS clopidogrel 75 mg Tablet 75 mg PO DAILY metoprolol tartrate 50 mg Tablet 50 mg PO BID apixaban 2.5 mg Tablet 2.5 mg PO BID Discontinued pantoprazole [Protonix] 40 mg Tablet,Delayed Release (Dr/Ec) 40 mg PO DAILY Referrals / Follow Up: Alda Quinteros MD [Med Staff - Consulting] - See Referral Note (As scheduled ) Serge Dunn MD [Med Staff - Active Staff] - In 1 Week Adair Castaneda MD [Primary Care Provider] - In 1 Week Dipesh Suresh DO [Med Staff - Active Staff] - Within 2 Weeks (May see DIE CUTTING MACHINE OPERATOR) Disposition Disposition (needs filled in before D/C Order can be placed): Longterm Facility
--- NOTE | 2021-12-04 13:59 | PCM.DC.SUM ---
Documented by User: Pura Monsalve NP, PORTABLE POWER TOOL REPAIRER-C 12/04/21 14:15 Providers Date of Admission: 11/30/21 Date of Discharge: 12/04/21 Primary Care Physician: Dr. Adair Castaneda MD Consultations 11/30/21 00:12 Consult: Gastroenterology Routine Consulting Provider: [facility] Reason for Consult: GI bleed, recent peripheral angioplasty/stent on plavix and PAF on eliquis. EMERGENT Consult: No MD Notified: Yes Date Notified: 11/29/21 Time Notified: 23:35 Method of Notification: Text Consult: Onc/Wound/hand pattern marker Routine Comment: Reason for Consult:: LLE TMA prior 11/30/21 01:56 Consult: Nephrology Routine Consulting Provider: Alda Quinteros Reason for Consult: ESRD on HD EMERGENT Consult: No Notified: Yes Date Notified: 11/30/21 Time Notified: 06:35 Method of Notification: Answering Service 12/03/21 11:55 Consult: Urology Routine Consulting Provider: Serge Dunn Reason for Consult: Hydroureter, hydronephrosis EMERGENT Consult: No Notified: Yes Date Notified: 12/04/21 Time Notified: 07:32 Method of Notification: Verbal Reason For Visit: GI BLEED Diagnosis Discharge Diagnosis (1) Acute lower gastrointestinal bleeding: Status: Acute Code(s): K92.2 - Gastrointestinal hemorrhage, unspecified Medications at Discharge Home Medications calcium acetate(phosphat bind) 667 mg capsule 667 mg PO TIDCM 10/09/14 cinacalcet 60 mg tablet (Sensipar) 60 mg PO PRN PRN IPTH 10/09/14 apixaban 2.5 mg tablet 2.5 mg PO BID 11/29/21 atorvastatin 40 mg tablet 40 mg PO QHS 11/29/21 clopidogrel 75 mg tablet 75 mg PO DAILY 11/29/21 metoprolol tartrate 50 mg tablet 50 mg PO BID 11/29/21 pantoprazole 40 mg tablet,delayed release 40 mg PO BID 60 days #120 tabs 12/04/21 sucralfate 1 gram tablet 1 g PO 1HR_ACHS 30 days #0 tabs 12/04/21 Hospital Course Operations None Procedures Dialysis Summary of Care Provided Hospital Course: Patient is a 76-year-old male admitted 11/29/2021 due to dark stools and low hemoglobin. 1.? Acute GI bleed-GI consulted during admission.? Continue PPI, Carafate.? Plavix, Eliquis on hold.? 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? Oozing duodenal ulcer.? CTA of abdomen demonstrated severe stenosis of the renal arteries bilaterally.? 4 cm lesion lateral right kidney.? Severe hydronephrosis of both kidneys and bilateral hydroureters.? Enlarged prostate.? 5 cm cystic lesion of the spleen as well as 3.8 cm nodular structure.? CT or MRI recommended for further evaluation of lesions. Hemoglobin remained stable. Continue PPI and Carafate. Resume Plavix and Eliquis. MRI showed cystic lesions on the spleen as well as right kidney cyst. Recommend outpatient surveillance. Follow-up with PCP, GI and nephrology at discharge. 2. Recent left foot osteomyelitis/gangrene, PAD-status post TMA 09/20/2021.? Stent of distal popliteal artery and TP trunk 09/10/2021.? Completed course of antibiotics.? Continue statin.? Resume Plavix. Continue dressing changes as ordered. 3. End-stage renal disease on hemodialysis-nephrology consulted.? CT with bilateral hydronephrosis and bilateral renal artery stenosis.? Vascular consulted with no additional recommendations. Continue outpatient follow-up with nephrology. Recommend follow-up with urology at discharge. 4. History of obstructive uropathy-bladder scan unremarkable. 5. Paroxysmal atrial fibrillation-? Continue metoprolol, eliquis. 6. History of CVA-continue statin.? Resume Eliquis, Plavix at discharge. 7. Hyperlipidemia-continue statin. Physical Exam Const alert and oriented x3 HEENT normocephalic and moist oral mucous membranes Eyes PERRL, EOMs intact bilaterally and conjunctivae normal Neck no lymphadenopathy Resp normal respiratory effort and clear to auscultation bilaterally Cardio regular rate, regular rhythm and no murmurs Peripheral Pulses: pulses 2+ throughout GI normal to inspection, nondistended, normoactive bowel sounds, non-tender and non-distended Extremity normal to inspection Skin no rashes or lesions noted Skin Narrative: Foot wound, dressing intact Lesions: no lesions Rashes: no rashes Trauma: no lacerations or abrasions Neuro CN's II-XII intact bilaterally, no focal motor deficits, no sensory deficits noted and deep tendon reflexes 2+ bilaterally Psych mental status grossly normal and affect normal Patient seen and examined prior to discharge. Physical assessment as noted above. Patient is stable for discharge with follow up recommendations as noted above. This patient was seen by ARUN Aguilar under the supervision of Dr. Ponce. Time spent examining patient, reviewing data and subsequent management of care: 25 minutes Weight / BMI Weight Weight: 136 lb 3.931 oz Body Mass Index (BMI) 19.1 ABG / Lab / Microbiology Data Result Diagrams: 12/04/21 04:42 12/04/21 06:15 Laboratory: Laboratory Results - last 24 hr 12/04/21 04:42: WBC 4.5, RBC 2.75 L, Hgb 8.7 L, Hct 26.7 L, MCV 97.1 H, MCH 31.6, MCHC 32.6, RDW Std Deviation 63.7 H, RDW Coeff of Sue 18.1 H, Plt Count 220, MPV 11.4, Immature Gran % (Auto) 0.200, Neut % (Auto) 63.0, Lymph % (Auto) 21.5, [place] % (Auto) 12.2 H, Eos % (Auto) 2.0, Baso % (Auto) 1.1 H, Absolute Neuts (auto) 2.9, Absolute Lymphs (auto) 0.97, Nucleated RBC % 0 12/04/21 04:42: Sodium Cancelled, Potassium Cancelled, Chloride Cancelled, Carbon Dioxide Cancelled, Anion Gap Cancelled, BUN Cancelled, Creatinine Cancelled, Estim Creat Clear Calc Cancelled, Est GFR (MDRD) Af Amer Cancelled, Est GFR (MDRD) Non-Af Cancelled, BUN/Creatinine Ratio Cancelled, Glucose Cancelled, Calcium Cancelled 12/04/21 06:15: Sodium 137, Potassium 4.2, Chloride 100, Carbon Dioxide 30.0, Anion Gap 7, BUN 31 H, Creatinine 4.57 H, Estim Creat Clear Calc 12.21, Est GFR (MDRD) Af Amer 16 L, Est GFR (MDRD) Non-Af 13 L, BUN/Creatinine Ratio 6.8 L, Glucose 73 L, Calcium 7.9 L Microbiology: Microbiology 12/04/21 11:50 Nasal Secretion SARS-CoV-2 Antigen (Rapid) - Final 11/29/21 21:50 Stool Stool Occult Blood (DILIP) - Final Occult Blood Positive Radiography Diagnostic Testing: Radiology Impression Abdomen MRI 12/03/21 11:21 IMPRESSION: 1. Significantly limited examination due to patient motion. 2. Extensive bilateral cystic changes within the kidneys consistent with polycystic kidney disease. 3. There is an exophytic cyst arising from the RIGHT kidney with peripheral capsular enhancement. No other areas of abnormal contrast enhancement identified, however significantly limited exam. Consider short-term follow-up to assure stability particularly of the exophytic cyst, with follow-up in approximately 2-3 months with MRI, alternatively postcontrast CT. Short-term follow-up could be obtained with ultrasound to assess the exophytic RIGHT renal lesion. 4. Bilateral pelvocaliectasis and hydroureter. 5. No evidence cholelithiasis. Normal appearance of the liver. Two lesions noted within the spleen, more anteriorly positioned lesion appears to represent a cyst with thick wall without significant enhancement. There is a complex solid and cystic exophytic mass arising from the posterior aspect of the spleen not adequately evaluated on current examination due to significant artifact. Short-term follow-up is recommended to assure stability... Electronically Signed: Cristiano Stinson MD at 2:17 EDT , Meaningful Use Info Meaningful Use Diagnoses (Choose all that apply): None applicable Discharge Plan Admission Admit Date/Time: 11/30/21 14:32 Primary Reason for Your Visit: GI Bleed Attending Provider: Triston Ponce Primary Care Provider: Adair Castaneda Consulting Providers: Irma White ; Alda Quinteros ; Ann Chang ; Serge Dunn Discharge Orders/Prescriptions Prescriptions: New sucralfate 1 gram Tablet 1 g PO 1HR_ACHS 30 Days Qty: 0 0RF pantoprazole 40 mg Tablet,Delayed Release (Dr/Ec) 40 mg PO BID 60 Days Qty: 120 0RF Continued cinacalcet [Sensipar] 60 MG tablet 60 mg PO PRN PRN (Reason: IPTH) Label Comments: parathyroid Rx Instructions: Give 60mg on Mon, Tues, Wed, Fri before dialysis calcium acetate(phosphat bind) 667 MG capsule 667 mg PO TIDCM Label Comments: kidney health atorvastatin 40 mg Tablet 40 mg PO QHS clopidogrel 75 mg Tablet 75 mg PO DAILY metoprolol tartrate 50 mg Tablet 50 mg PO BID apixaban 2.5 mg Tablet 2.5 mg PO BID Discontinued pantoprazole [Protonix] 40 mg Tablet,Delayed Release (Dr/Ec) 40 mg PO DAILY Referrals / Follow Up: Alda Quinteros MD [Med Staff - Consulting] - See Referral Note (As scheduled ) Serge Dunn MD [Med Staff - Active Staff] - In 1 Week Adair Castaneda MD [Primary Care Provider] - In 1 Week Dipesh Suresh DO [Med Staff - Active Staff] - Within 2 Weeks (May see PORTABLE POWER TOOL REPAIRER) Disposition Disposition (needs filled in before D/C Order can be placed): Shelter Facility Documented by User: Dr. Triston Ponce MD 12/04/21 15:49 Providers Date of Admission: 11/30/21 Reason For Visit: GI BLEED Diagnosis Discharge Diagnosis (1) Acute lower gastrointestinal bleeding: Status: Acute Code(s): K92.2 - Gastrointestinal hemorrhage, unspecified Medications at Discharge Home Medications calcium acetate(phosphat bind) 667 mg capsule 667 mg PO TIDCM 10/09/14 cinacalcet 60 mg tablet (Sensipar) 60 mg PO PRN PRN IPTH 10/09/14 apixaban 2.5 mg tablet 2.5 mg PO BID 11/29/21 atorvastatin 40 mg tablet 40 mg PO QHS 11/29/21 clopidogrel 75 mg tablet 75 mg PO DAILY 11/29/21 metoprolol tartrate 50 mg tablet 50 mg PO BID 09/23/22 pantoprazole 40 mg tablet,delayed release 40 mg PO BID 60 days #120 tabs 12/04/21 sucralfate 1 gram tablet 1 g PO 1HR_ACHS 30 days #0 tabs 12/04/21 ABG / Lab / Microbiology Data Result Diagrams: 12/04/21 04:42 12/04/21 06:15 Discharge Plan Admission Admit Date/Time: 11/30/21 14:32 Primary Reason for Your Visit: GI Bleed Attending Provider: Triston Ponce Primary Care Provider: Adair Castaneda Consulting Providers: Irma White ; Alda Quinteros ; Ann Chang ; Serge Dunn Discharge Orders/Prescriptions Prescriptions: New sucralfate 1 gram Tablet 1 g PO 1HR_ACHS 30 Days Qty: 0 0RF pantoprazole 40 mg Tablet,Delayed Release (Dr/Ec) 40 mg PO BID 60 Days Qty: 120 0RF Continued cinacalcet [Sensipar] 60 MG tablet 60 mg PO PRN PRN (Reason: IPTH) Label Comments: parathyroid Rx Instructions: Give 60mg on Mon, Tues, Wed, Fri before dialysis calcium acetate(phosphat bind) 667 MG capsule 667 mg PO TIDCM Label Comments: kidney health atorvastatin 40 mg Tablet 40 mg PO QHS clopidogrel 75 mg Tablet 75 mg PO DAILY metoprolol tartrate 50 mg Tablet 50 mg PO BID apixaban 2.5 mg Tablet 2.5 mg PO BID Discontinued pantoprazole [Protonix] 40 mg Tablet,Delayed Release (Dr/Ec) 40 mg PO DAILY Referrals / Follow Up: Alda Quinteros MD [Med Staff - Consulting] - See Referral Note (As scheduled ) Serge Dunn MD [Med Staff - Active Staff] - In 1 Week Adair Castaneda MD [Primary Care Provider] - In 1 Week Dipesh Suresh DO [Med Staff - Active Staff] - Within 2 Weeks (May see PORTABLE POWER TOOL REPAIRER) Disposition Disposition (needs filled in before D/C Order can be placed): Shelter Facility Charges/Coding Addendum Addendum: Dr. Ponce I personally examined the patient and reviewed the chart. I agree with the above.-year-old male presented with a GI bleed.? EGD demonstrated Dieulafoy lesion of the stomach as well as a large and tortuous submucosal artery.? There was concern that he could have a cirrhotic like picture so a CTA of the abdomen was performed on the day of dialysis which demonstrated a possible renal mass as well as a splenic mass as well as hydronephrosis and hydroureters as well as an enlarged prostate.? Bladder scan only demonstrated about 200 cc of urine.? We will discuss with nephrology if we can proceed with an MRA of his abdomen to better characterize the solid kidney and splenic lesions.? In the meantime we will recheck his hemoglobin which appears to have stayed stable in the morning, if his hemoglobin drops from transfer to a tertiary care center.? We will also continue with wound care to his recent left foot osteomyelitis and gangrene.? Clinical time spent in all aspects of patient care: 23 minutes 12/03/2021:?Doing well today, denies any further abdominal pain or hematemesis.? Discussed the potential for an MRI with nephrology and they are okay with receiving contrast as an MRA to further evaluate these abdominal masses.? There was the possibility of obtaining an MRI as an outpatient however given that he would be going to a SNF I felt it more prudent to have the evaluation done while he was here.? Vascular surgery was consulted to evaluate for his renal artery stenosis however given his comorbidities no further interventions were indicated at this time.? Clinical time spent in all aspects of patient care: 18 minutes 12/04/2021: Doing well today, hemoglobin is stable at 8.7. He did have his MRI yesterday however he could not hold his breath and was moving so the exam was limited, however it was read as multiple cysts in the kidney and the spleen. I do appreciate urology's assistance with his hydronephrosis and the recommendation was Self-Cath her intermittent cathing at the correction. We will continue with dialysis daily for 3 days since he had his MRI contrast. The plan for discharge was discussed and he expressed understanding of the risk and benefits of discharge and would like to go to SNF today. I do recommend monitoring his renal function for the next several days until he completes his daily dialysis treatments. Clinical time spent in all aspects of patient care including discharge plannin minutes Visit Charges Inpatient E&M: 37951 Disch Hosp
--- NOTE | 2021-12-04 14:25 | PHA.DC.MR ---
Pharmacy Service has performed discharge medication reconciliation for this patient. The patient's discharge medication list was reviewed for discrepancies and discrepancies were resolved. Home Medications calcium acetate(phosphat bind) 667 mg capsule 667 mg PO TIDCM 10/09/14 cinacalcet 60 mg tablet (Sensipar) 60 mg PO PRN PRN IPTH 10/09/14 apixaban 2.5 mg tablet 2.5 mg PO BID 11/29/21 atorvastatin 40 mg tablet 40 mg PO QHS 11/29/21 clopidogrel 75 mg tablet 75 mg PO DAILY 11/29/21 metoprolol tartrate 50 mg tablet 50 mg PO BID 11/29/21 pantoprazole 40 mg tablet,delayed release 40 mg PO BID 60 days #120 tabs 12/04/21 sucralfate 1 gram tablet 1 g PO 1HR_ACHS 30 days #0 tabs 12/04/21
--- NOTE | 2021-12-04 14:30 | PN.RENAL_ITS ---
Subjective Subjective no new events Objective Data Objective Data Vital Signs: Vital Signs Temp Pulse Resp BP Pulse Ox O2 Del Method O2 Flow Rate 98.1 F 75 16 105/66 97 Nasal Cannula 2 12/04/21 11:02 12/04/21 11:02 12/04/21 11:02 12/04/21 11:02 12/04/21 11:02 12/04/21 11:02 12/04/21 11:02 Oxygen Flow Rate (L/min) 2 Oxygen Delivery Method Nasal Cannula Weight: 61.8 kg Body Mass Index (BMI) 19.1 Intake & Output: Intake and Output for Last 24 Hours 12/02/21 12/03/21 12/04/21 23:59 23:59 23:59 Intake Total 1110 / 1110 1200 / 1200 110 / 110 Output Total 1500 / 1500 900 / 900 0 / 0 Balance -390 / -390 300 / 300 110 / 110 Lab / Micro Data Result Diagrams: 12/04/21 04:42 12/04/21 06:15 Labs: Laboratory Results - last 24 hr 12/04/21 04:42: WBC 4.5, RBC 2.75 L, Hgb 8.7 L, Hct 26.7 L, MCV 97.1 H, MCH 31.6, MCHC 32.6, RDW Std Deviation 63.7 H, RDW Coeff of Sue 18.1 H, Plt Count 220, MPV 11.4, Immature Gran % (Auto) 0.200, Neut % (Auto) 63.0, Lymph % (Auto) 21.5, [place] % (Auto) 12.2 H, Eos % (Auto) 2.0, Baso % (Auto) 1.1 H, Absolute Neuts (auto) 2.9, Absolute Lymphs (auto) 0.97, Nucleated RBC % 0 12/04/21 04:42: Sodium Cancelled, Potassium Cancelled, Chloride Cancelled, Carbon Dioxide Cancelled, Anion Gap Cancelled, BUN Cancelled, Creatinine Cancelled, Estim Creat Clear Calc Cancelled, Est GFR (MDRD) Af Amer Cancelled, Est GFR (MDRD) Non-Af Cancelled, BUN/Creatinine Ratio Cancelled, Glucose Cancelled, Calcium Cancelled 12/04/21 06:15: Sodium 137, Potassium 4.2, Chloride 100, Carbon Dioxide 30.0, Anion Gap 7, BUN 31 H, Creatinine 4.57 H, Estim Creat Clear Calc 12.21, Est GFR (MDRD) Af Amer 16 L, Est GFR (MDRD) Non-Af 13 L, BUN/Creatinine Ratio 6.8 L, Glucose 73 L, Calcium 7.9 L Micro: Microbiology 12/04/21 11:50 Nasal Secretion SARS-CoV-2 Antigen (Rapid) - Final 11/29/21 21:50 Stool Stool Occult Blood (DILIP) - Final Occult Blood Positive Radiography Diagnostic Testing: Radiology Impression Abdomen MRI 12/03/21 11:21 IMPRESSION: 1. Significantly limited examination due to patient motion. 2. Extensive bilateral cystic changes within the kidneys consistent with polycystic kidney disease. 3. There is an exophytic cyst arising from the RIGHT kidney with peripheral capsular enhancement. No other areas of abnormal contrast enhancement identified, however significantly limited exam. Consider short-term follow-up to assure stability particularly of the exophytic cyst, with follow-up in approximately 2-3 months with MRI, alternatively postcontrast CT. Short-term follow-up could be obtained with ultrasound to assess the exophytic RIGHT renal lesion. 4. Bilateral pelvocaliectasis and hydroureter. 5. No evidence cholelithiasis. Normal appearance of the liver. Two lesions noted within the spleen, more anteriorly positioned lesion appears to represent a cyst with thick wall without significant enhancement. There is a complex solid and cystic exophytic mass arising from the posterior aspect of the spleen not adequately evaluated on current examination due to significant artifact. Short-term follow-up is recommended to assure stability... Electronically Signed: Cristiano Stinson MD at 2:17 EDT , Physical Exam Narrative Alert awake oriented x 3 no obvious distress no pallor no icterus no JVD s1s2 no murmurs lungs clear abdomen soft no organomegaly no edema no cyanosis Assessment & Plan Assessment/Plan (1) ESRD (end stage renal disease) on dialysis: PLAN: He is on nxstage on dialysis 5 times a week. 2 and half hours each treatment. We will plan for dialysis 3 times a week while he is inpatient. 3 and half hours. Left arm AV fistula with good bruit. seen on HD today (2) ABLA (acute blood loss anemia): PLAN: Transfusion as needed. Gastroenterology following. PLAN: Plan A CT abdomen with contrast was done in view of bleeding duodenal ulcer. He was noted to have a 4 cm lesion on the kidney, bilateral hydronephrosis, bilateral renal artery stenosis. Doubt renal artery stenosis is significant. He will probably need to follow-up with urology for management of kidney mass. I asked him if he has any urology appointments and he could not tell me. Urology note reviewed HD x 3 days since he got contrast with MRI.
[2021-12-04] MEDS: Metoprolol Tartrate 50 MG Tablet PO (15:03)
--- NOTE | 2021-12-04 15:03 | CASEMGMT ---
SW sent orders and COVID test to [facility] via [facility]. SW arranged for patient to get picked up at 4p via cot. SW notified RN, secretary administrative assistant, and Judit at [facility]. Patient's son knows patient is being discharged today, but did not need to know a time. Plan: d/c back to [facility] under skilled level of care. [facility] will transport via cot. Tata PERERA
--- NOTE | 2021-12-04 15:54 | NURSING ---
[facility], pt loaded onto cot by squad personnel. Report called to nurse Gan at [facility] who will assume care of pt
== END 2021-12-04 15:48 | disposition skilled nursing facility (03) | DRG 377 ==
LOC: ED 22:54 → PCU 11-30 00:54
PROVIDERS: Anesthesiology; Internal Medicine Gastroenterology; Nurse Practitioner Family; Student in an Organized Health Care Education/Training Program; Admitting Provider Family Medicine; Emergency Provider Emergency Medicine; PCP Family Medicine; Visit Provider Family Medicine
PROC: 0DJ08ZZ Inspection of Upper Intestinal Tract, Via Natural or Artificial Opening Endoscopic (ICD-10-PCS; CPT 43235; principal; 2021-12-01 08:00)
DX: K26.4 Chronic or unspecified duodenal ulcer with hemorrhage (principal); N18.6 End stage renal disease; I12.0 Hypertensive chronic kidney disease with stage 5 chronic kidney disease or end stage renal disease; K76.6 Portal hypertension; R18.8 Other ascites; D62 Acute posthemorrhagic anemia; N13.30 Unspecified hydronephrosis; N13.4 Hydroureter; N13.8 Other obstructive and reflux uropathy; D63.8 Anemia in other chronic diseases classified elsewhere; D73.89 Other diseases of spleen; I73.9 Peripheral vascular disease, unspecified; I48.0 Paroxysmal atrial fibrillation; Z99.2 Dependence on renal dialysis; I70.1 Atherosclerosis of renal artery; Z89.432 Acquired absence of left foot; K21.9 Gastro-esophageal reflux disease without esophagitis; E78.5 Hyperlipidemia, unspecified; K31.89 Other diseases of stomach and duodenum; K44.9 Diaphragmatic hernia without obstruction or gangrene; K57.30 Diverticulosis of large intestine without perforation or abscess without bleeding; K31.82 Dieulafoy lesion (hemorrhagic) of stomach and duodenum; N28.1 Cyst of kidney, acquired; N40.1 Benign prostatic hyperplasia with lower urinary tract symptoms; Z95.820 Peripheral vascular angioplasty status with implants and grafts; Z79.01 Long term (current) use of anticoagulants; Z79.02 Long term (current) use of antithrombotics/antiplatelets; Z79.899 Other long term (current) drug therapy; Z86.73 Personal history of transient ischemic attack (TIA), and cerebral infarction without residual deficits
CPT/HCPCS: 36415; 74174; 74183; 80048; 80053; 80076; 82274; 84484; 85014; 85018; 85025; 85610; 86850; 86900; 86901; 87426; 88305; 90937; 93005; 97162; 97165; 97530; 97535; 97802; 97803; 99285; A9575; J7030; Q9967; A4216; G0257

== ENCOUNTER → 2021-12-10 | Outpatient (CLI) | payer MEDICARE, OTHER, SELFPAY ==
--- NOTE | 2021-12-10 14:20 | AVDS_ITS ---
Reason For Study: Swelling LEFT Left inflow, 112.2/63 cm/sec. Left inflow, 1031 ml/min. Left prox anastamosis, 624.4/302.1 cm/sec. Left prox anastamosis, 478.9 ml/min. Left prox graft, 120/65.5 cm/sec. Left prox graft, 3378 ml/min. Left mid graft, 50.7/24.9 cm/sec. Left mid graft, 2537 ml/min. Left distal graft, 40.9/28.6 cm/sec. Left distal graft, 622.8 cm/sec. Left outflow, 60.8/34.3 cm/sec. Left outflow, 3698.5 ml/min. Left medial arm branch, 42.8/21.1 cm/sec. Left medial arm branch, 1067 cm/sec. Left Brachial artery distal, 103.8/49 cm/sec. Left Brachial artery distal, 950.4 ml/min. Preliminary report given to Idalia Collado PA-C. VL/AV Fistula/Dialysis Graft Scan Interpretation Summary Left forearm arteriovenous hemodialysis fistula with inflow at 1031 mm/min, hig h flow Proximal fistula has flow rate of 3378 mm/min, high flow With fistula enlargement to 1.24 x 1.42 cm Mid forearm fistula has flow rate of 2537 mL/min, high flow with fistula enlarg ement to 2.28 x 2.86 cm diameter The distal left forearm fistula has flow rate of 622 mm/min and a diameter of 0 .72 x 0.81 cm There is a large outflow branch that measures 2.53 x 2.67 cm No thrombus or occlusion is identified on this examination Ordering Physician: Idalia Collado Referring Physician: Adair Castaneda Performed By: Leesa Coker RVT
== END | disposition home or self-care (01) ==
PROVIDERS: PCP Family Medicine; Referring Provider Surgery; Visit Provider Surgery
DX: N18.6 End stage renal disease (principal); R60.0 Localized edema
CPT/HCPCS: 93990

== ENCOUNTER → 2021-12-30 | Outpatient (CLI) | payer MEDICARE, OTHER, SELFPAY ==
--- NOTE | 2021-12-30 13:52 | ECHOD_ITS ---
Reason For Study: Afib/Flutter Procedure This was a 2D Doppler, Color Flow transthoracic echocardiogram. Myocardial strain analysis was performed in this exam to aid in the assessment of cardiac function. Exam performed in department. Left Ventricle Moderately dilated left ventricle. The estimated ejection fraction is 25 %. Stage 3 diastolic dysfunction. There is severe global hypokinesis of the left ventricle. Right Ventricle Mildly dilated right ventricle. Mild global right ventricular systolic dysfunction. Atria The left atrium is severely enlarged. The right atrium is moderately enlarged. Mitral Valve There is mild mitral annular calcification. Mild (1+) eccentric mitral valve insufficiency. Tricuspid Valve Normal tricuspid valve. Mild to moderate (1-2+) tricuspid valve insufficiency. Pulmonary artery systolic pressure is 48 mmHg. Aortic Valve Trisinus/trileaflet aortic valve. Moderate focal aortic valve calcification. Peak aortic valve gradient 21 mmHg. Mean aortic valve gradient 13 mmHg. Mild aortic stenosis. Pulmonic Valve Normal pulmonic valve. Great Vessels Normal aortic root. The pulmonary artery is normal size. Normal inferior vena cava. Pericardium/Pleural No pericardial effusion. Large left pleural effusion. MMode/2D Measurements & Calculations LVIDd: 6.1 cm IVSd: 0.93 cm LVOT diam: 2.0 cm LVIDs: 5.2 cm LVPWd: 0.92 cm LVOT area: 3.0 cm2 RVDd: 4.6 cm FS: 15.5 % ACS: 0.97 cm LAV(MOD-bp): 105.4 ml Aortic Valve Planimetry: 0.99 cm2 LA dimension: 5.1 cm LAV(MOD-bp) Indexed: 56.3 ml/m2 LAV(MOD-sp2): 83.7 ml LAV(MOD-sp4): 126.1 ml LA A4 area: 31.8 cm2 RA A4 area: 25.1 cm2 Time Measurements MV dec time: 0.18 sec Doppler Measurements & Calculations MV E max gera: 109.9 cm/sec Lat Peak E' Gera: 9.7 cm/sec MV V2 max: 128.6 cm/sec MV A max gera: 52.2 cm/sec E/E' lat: 11.3 MV max P.6 mmHg MV E/A: 2.1 MV V2 mean: 71.0 cm/sec MV mean P.4 mmHg MV V2 VTI: 31.6 cm MVA(VTI): 1.5 cm2 MV P1/2t max gera: 129.4 cm/sec Ao V2 max: 230.1 cm/sec LV V1 max: 89.2 cm/sec MV P1/2t: 99.3 msec Ao max P.2 mmHg LV V1 max P.2 mmHg Ao V2 mean: 169.1 cm/sec LV V1 mean P.8 mmHg MV dec slope: 381.7 cm/sec2 Ao mean P.8 mmHg LV V1 mean: 62.1 cm/sec MVA(P1/2t): 2.2 cm2 Ao V2 VTI: 40.7 cm LV V1 VTI: 16.0 cm MIHAELA(I,D): 1.2 cm2 MIHAELA(V,D): 1.2 cm2 MR max gera: 433.9 cm/sec SV(LVOT): 48.6 ml PA V2 max: 118.6 cm/sec MR max P.3 mmHg PA V2 mean: 85.9 cm/sec MR mean gera: 336.1 cm/sec MR mean P.3 mmHg MR VTI: 138.9 cm TR max gera: 317.5 cm/sec TR max P.5 mmHg ECHO/Echo Complete Interpretation Summary Moderately dilated left ventricle. The estimated ejection fraction is 25 %. There is severe global hypokinesis of the left ventricle. Stage 3 diastolic dysfunction. Pulmonary artery systolic pressure is 48 mmHg. Large left pleural effusion. Mean aortic valve gradient 13 mmHg. The global longitudinal strain is severely abnormal. The global longitudinal st rain = -5.2% (abnormal). Ordering Physician: Marc Adler Referring Physician: Adair Castaneda Performed By: Kehinde Mckeon RCS
== END | disposition home or self-care (01) ==
LOC: CVS 13:51
PROVIDERS: PCP Family Medicine; Referring Provider Internal Medicine Cardiovascular Disease; Visit Provider Internal Medicine Cardiovascular Disease
DX: I48.91 Unspecified atrial fibrillation (principal); I42.8 Other cardiomyopathies
CPT/HCPCS: 93306

== ENCOUNTER 2022-01-01 21:34 | Emergency (ER) | payer MEDICARE, OTHER, SELFPAY ==
[2022-01-01 21:37] VITALS: BP 99/68; PULSE 81; RESP 12; TEMP 36.1; O2SAT 94; BMI 19.9
[2022-01-01 22:00] VITALS: O2SAT 87
[2022-01-01] MEDS: Dextrose 50%-Water 25 GM/50 ML DISP.SYRIN IV (22:10)
[2022-01-01 22:12] VITALS: O2SAT 95
--- NOTE | 2022-01-01 22:16 | EDS_ITS ---
HPI History of Present Illness Chief Complaint: Hypoglycemia Narrative Narrative: 76-year-old male presents from [facility] with reported increased confusion. Per RN, EMS checked his blood sugar and it was low in the 50s. Upon arrival, blood sugar was checked and was in the 30s. 1 amp of D50 was administered. History and physical is limited secondary to patient's age. Is not reported that he is diabetic. He states that he last ate at suppertime. He denies any fevers or chills. No nausea or vomiting. No diarrhea. PFSH PFS Medical History Anticoagulated Bilateral renal artery stenosis Chronic anemia Dialysis patient Edema of left forearm ESRD (end stage renal disease) on dialysis Essential hypertension GERD (gastroesophageal reflux disease) GI bleed (11/2021) Hyperlipidemia Ischemic cerebrovascular accident (CVA) (01/2021) Non-ischemic cardiomyopathy Non-traumatic rhabdomyolysis Peripheral arterial disease Peripheral vascular occlusive disease Persistent atrial fibrillation Polycystic kidney disease Renal artery stenosis Secondary pulmonary arterial hypertension Home Medications calcium acetate(phosphat bind) 667 mg capsule 667 mg PO TIDCM 10/09/14 [History Last Taken 10/08/14] cinacalcet 60 mg tablet (Sensipar) 60 mg PO PRN PRN IPTH 10/09/14 [History Last Taken Unknown] apixaban 2.5 mg tablet 2.5 mg PO BID 11/29/21 [History Last Taken Unknown] atorvastatin 40 mg tablet 40 mg PO QHS 11/29/21 [History Last Taken Unknown] clopidogrel 75 mg tablet 75 mg PO DAILY 11/29/21 [History Last Taken Unknown] metoprolol tartrate 50 mg tablet 50 mg PO BID 11/29/21 [History Last Taken Unknown] pantoprazole 40 mg tablet,delayed release 40 mg PO BID 60 days #120 tabs 12/04/21 [Rx Last Taken Unknown] sucralfate 1 gram tablet 1 g PO 1HR_ACHS 30 days #0 tabs 12/04/21 [Rx Last Taken Unknown] Allergy/AdvReac Type Severity Reaction Status Date / Time No Known Allergies Allergy Verified 01/01/22 22:00 Family History Mother Heart disease Father Heart disease Surgical History Amputation of toe History of angioplasty of peripheral vessel (09/10/21) History of bilateral cataract extraction History of tonsillectomy History of transmetatarsal amputation of left foot S/P arteriovenous (AV) fistula creation Social History housing: alf Smoking Status: Never smoker alcohol intake: never substance use type: does not use ROS ROS ED ROS Narrative Constitutional: No fever, no chills. HEENT: No sore throat. No neck pain. No loss of vision. No rhinorrhea. Cardiovascular: No chest pain. No palpitations. No pedal edema. Respiratory: No cough, no shortness of breath. Abdominal: No abdominal pain. No nausea. No vomiting. Genitourinary: No dysuria. No hematuria. Musculoskeletal: No myalgias. No arthralgias. Neurologic: No headaches. No dizziness. No lightheadedness. Reported increased confusion. Skin: No rash. No change in color. Psychiatric: No depression. No anxiety. EXAM Physical Exam Narrative Exam Narrative: Afebrile. Vital signs noted. HEENT: Normocephalic. Atraumatic. PERRL, EOMI. Neck soft and supple. No point tenderness or step off. Cardiovascular: Regular rate and rhythm. No murmurs, rubs, or gallops appreciated. Respiratory: No tachypnea. Lungs clear to auscultation bilaterally. Diminished breath sounds bilateral bases. Gastrointestinal: Abdomen soft, nontender, with normoactive bowel sounds. No rebound or guarding. Neurological: Awake. Alert. Nonfocal, nonlateralizing. Skin: No rash. Normal color. No pallor. Musculoskeletal: No pedal edema. Full range of motion extremities. Const Vital Signs: 01/01/22 21:37 01/01/22 22:00 01/01/22 22:00 Temperature 97 F L Temperature Source Temporal Pulse Rate 81 Respiratory Rate 12 Respiratory Pattern Normal Blood Pressure 99/68 Blood Pressure Mean 78 Pulse Ox 94 87 Oxygen Delivery Method Room Air Room Air Oxygen Flow Rate (L/min) 01/01/22 22:12 01/02/22 00:11 Temperature Temperature Source Pulse Rate 69 Respiratory Rate 23 H Respiratory Pattern Blood Pressure Blood Pressure Mean Pulse Ox 95 99 Oxygen Delivery Method Room Air Room Air Oxygen Flow Rate (L/min) 2 MDM MDM MDM Narrative Medical decision making narrative: Blood sugar will be rechecked after D50. I will obtain basic laboratory work including CBC, CMP, and UA. CBC shows normal white count of 6.2, hemoglobin stable at 8.1 with hematocrit 25.6. Platelet count normal at 180. He is mildly dehydrated with a sodium of 132, potassium 3.0 which was replaced orally with 40 mill equivalents. CO2 elevated at 33 with a creatinine of 4.10 consistent with his chronic kidney disease. He appears to be near his baseline. Glucose is currently elevated at 209 with a normal anion gap/low anion gap of 4. I did add a BNP as his chest x-ray that was interpreted by myself shows CHF bilaterally with interstitial infiltrates. BNP is elevated above 1500. He is given a dose of Lasix 40 mg intravenously, but then it was noted that the patient does have end-stage renal disease which requires dialysis. At this point in time, he is satting well on his as needed oxygen per nasal cannula. I discussed the patient with Dr. Macario Alves who is aware of the patient being in for his transient mental status change. I do feel this was secondary to hypoglycemia. It was felt that he was stable for return to the senior living facility. Disposition is discharged home in stable condition. Lab Data Attestation: I reviewed the patient's lab results. Labs: Laboratory Results - last 24 hr 01/01/22 01/01/22 01/01/22 21:44 21:50 21:50 WBC 6.2 RBC 2.46 L Hgb 8.1 L Hct 25.6 L MCV 104.1 H MCH 32.9 H MCHC 31.6 L RDW Std Deviation 85.7 H RDW Coeff of Sue 23.4 H Plt Count 180 MPV 10.3 Immature Gran % (Auto) 0.300 Neut % (Auto) 79.2 H Lymph % (Auto) 7.5 L [place] % (Auto) 9.6 Eos % (Auto) 2.9 Baso % (Auto) 0.5 Absolute Neuts (auto) 4.9 Absolute Lymphs (auto) 0.47 L Nucleated RBC % 0 Differential Comment SCANNED Anisocytosis 2+ Microcytosis 1+ Macrocytosis 1+ Sodium 132 L Potassium 3.0 L Chloride 95 L Carbon Dioxide 33.0 H Anion Gap 4 L BUN 35 H Creatinine 4.10 H Estim Creat Clear Calc 15.11 Est GFR (MDRD) Af Amer 18 L Est GFR (MDRD) Non-Af 15 L BUN/Creatinine Ratio 8.5 L Glucose 209 H Calcium 8.0 L Total Bilirubin 0.40 AST 21 ALT 12 L Alkaline Phosphatase 112 B-Natriuretic Peptide Total Protein 5.3 L Albumin 1.5 L Globulin 3.8 Albumin/Globulin Ratio 0.4 L Urine Color Urine Clarity Urine pH Ur Specific [place] Urine Protein Urine Glucose (UA) Urine Ketones Urine Occult Blood Urine Nitrite Urine Bilirubin Urine Urobilinogen Ur Leukocyte Esterase Urine RBC Urine WBC Ur Squamous Epith Cells Urine Bacteria Urine Mucus POC Glucose 35 L* 01/01/22 01/01/22 01/01/22 21:50 22:18 23:05 WBC RBC Hgb Hct MCV MCH MCHC RDW Std Deviation RDW Coeff of Sue Plt Count MPV Immature Gran % (Auto) Neut % (Auto) Lymph % (Auto) [place] % (Auto) Eos % (Auto) Baso % (Auto) Absolute Neuts (auto) Absolute Lymphs (auto) Nucleated RBC % Differential Comment Anisocytosis Microcytosis Macrocytosis Sodium Potassium Chloride Carbon Dioxide Anion Gap BUN Creatinine Estim Creat Clear Calc Est GFR (MDRD) Af Amer Est GFR (MDRD) Non-Af BUN/Creatinine Ratio Glucose Calcium Total Bilirubin AST ALT Alkaline Phosphatase B-Natriuretic Peptide 1576.1 H Total Protein Albumin Globulin Albumin/Globulin Ratio Urine Color Urine Clarity Urine pH Ur Specific [place] Urine Protein Urine Glucose (UA) Urine Ketones Urine Occult Blood Urine Nitrite Urine Bilirubin Urine Urobilinogen Ur Leukocyte Esterase Urine RBC Urine WBC Ur Squamous Epith Cells Urine Bacteria Urine Mucus POC Glucose 122 H 107 H 01/01/22 23:14 WBC RBC Hgb Hct MCV MCH MCHC RDW Std Deviation RDW Coeff of Sue Plt Count MPV Immature Gran % (Auto) Neut % (Auto) Lymph % (Auto) [place] % (Auto) Eos % (Auto) Baso % (Auto) Absolute Neuts (auto) Absolute Lymphs (auto) Nucleated RBC % Differential Comment Anisocytosis Microcytosis Macrocytosis Sodium Potassium Chloride Carbon Dioxide Anion Gap BUN Creatinine Estim Creat Clear Calc Est GFR (MDRD) Af Amer Est GFR (MDRD) Non-Af BUN/Creatinine Ratio Glucose Calcium Total Bilirubin AST ALT Alkaline Phosphatase B-Natriuretic Peptide Total Protein Albumin Globulin Albumin/Globulin Ratio Urine Color Yellow Urine Clarity Clear Urine pH 8.0 Ur Specific [place] 1.010 Urine Protein 500 H Urine Glucose (UA) Normal Urine Ketones Negative Urine Occult Blood 25 H Urine Nitrite Positive H Urine Bilirubin Negative Urine Urobilinogen Normal Ur Leukocyte Esterase 100 H Urine RBC 0 SEEN Urine WBC 0-5 SEEN Ur Squamous Epith Cells 0 SEEN Urine Bacteria 1+ Urine Mucus 0 SEEN POC Glucose Radiography Chest X-Ray - ED: Read by ED Physician Diagnostic Testing: Clinical Impression(s) from Imaging Studies Chest X-Ray 01/01/22 22:25 IMPRESSION: Extensive central and lower lung consolidation bilaterally with cardiomegaly and effusions consistent with CHF and pulmonary edema. Electronically Signed: Eugenio Holland MD at 23:06 EDT , Discharge Plan Triage Chief Complaint: Hypoglycemia ED Provider: Regulo Carter Dx/Rx/DC Orders Clinical Impression: Hypoglycemia, CHF (congestive heart failure), Hypokalemia, Acute alteration in mental status Instructions: ED ALOC, ED Heart Failure, Congestive (CHF), ED Hypoglycemia, Nondiabetic, ED Hypokalemia Prescriptions: No Action cinacalcet [Sensipar] 60 MG tablet 60 mg PO PRN PRN (Reason: IPTH) Label Comments: parathyroid Rx Instructions: Give 60mg on Mon, Tues, Wed, Fri before dialysis calcium acetate(phosphat bind) 667 MG capsule 667 mg PO TIDCM Label Comments: kidney health atorvastatin 40 mg Tablet 40 mg PO QHS clopidogrel 75 mg Tablet 75 mg PO DAILY metoprolol tartrate 50 mg Tablet 50 mg PO BID apixaban 2.5 mg Tablet 2.5 mg PO BID sucralfate 1 gram Tablet 1 g PO 1HR_ACHS 30 Days Qty: 0 0RF pantoprazole 40 mg Tablet,Delayed Release (Dr/Ec) 40 mg PO BID 60 Days Qty: 120 0RF Primary Care Provider: Adair Castaneda Referrals: Adair Castaneda MD [Primary Care Provider] - 1 Day Disposition Disposition: Assisted Facility Discharge Location: [facility]
--- NOTE | 2022-01-01 22:25 | RAD_ITS ---
EXAM: XR CHEST, 1 VIEW CLINICAL INDICATION: COPD TECHNIQUE: Frontal view of the chest. This report was created using [employer] report generation technology. COMPARISON: None. FINDINGS: LUNGS AND PLEURAL SPACES: Extensive central and lower lung consolidation bilaterally. No pneumothorax. No effusion. HEART: Cardiomegaly. Bilateral effusions. MEDIASTINUM: Central airways and mediastinal contour are unremarkable. BONES/JOINTS: See above. SOFT TISSUES: Unremarkable. RAD/Chest 1 View (Portable) IMPRESSION: Extensive central and lower lung consolidation bilaterally with cardiomegaly and effusions consistent with CHF and pulmonary edema. Electronically Signed: Eugenio Holland MD at 23:06 EDT ,
[2022-01-01 22:30] LABS: Absolute Lymphocyte Count 0.47 X10^3/uL (0.83-4.51); Absolute Neutrophil Count 4.9 X10^3/uL (2.0-7.7); Basophil# 0.03 X10^3/uL; Basophil% 0.5 % (0-1); Eosinophil# 0.18 X10^3/uL; Eosinophils% 2.9 % (0-5); Hematocrit 25.6 % (40-54); Hemoglobin 8.1 g/dL (13.0-16.5); Lymphocyte # 0.47 X10^3/ul (0.83-4.51); Lymphocyte % 7.5 % (19-41); Mean Corp Hgb Conc 31.6 g/dL (32-36); Mean Corpuscular Hgb 32.9 pg (27.0-32.0); Mean Corpuscular Volume 104.1 fL (80-94); Mean Platelet Vol. 10.3 fl (6.2-12.0); Monocyte% 9.6 % (0-10); NRBC Flagged by Analyzer 0 % (0-5); Neutrophil # 4.93 X10^3/uL (2.7-7.7); Neutrophil % 79.2 % (47-70); POSITIVE DIFFERENTIAL YES; POSITIVE MORPHOLOGY YES; Platelet Count 180 K/mm3 (150-450); RBC Distribution Width CV 23.4 % (11.6-14.6); RBC Distribution Width SD 85.7 fl (35.1-43.9); Red Blood Count 2.46 M/mm3 (4.6-6.2); White Blood Count 6.2 K/mm3 (4.4-11.0)
[2022-01-01 22:33] LABS: Differential Indicated SCAN CRITERIA MET
[2022-01-01 22:40] LABS: Bedside Glucose 122 mg/dL (74-106)
[2022-01-01 22:40] LABS: Bedside Glucose 35 mg/dL (74-106)
[2022-01-01 22:50] LABS: ALB/GLOB Ratio 0.4 RATIO (0.9-2.4); AST(SGOT) 21 U/L (15-37); Alanine Aminotransfer ALT/SGPT 12 U/L (16-61); Albumin, Serum 1.5 g/dL (3.2-5.0); Alkaline Phosphatase 112 U/L (45-117); Anion Gap 4 (5-15); BUN 35 mg/dL (7-18); BUN/Creat Ratio 8.5 RATIO (10-20); Chloride 95 mmol/L (98-107); EST Glomerular Filtration Rate 15 mL/min (>60); Est Glom Filt Rate - Afr Amer 18 mL/min (>60); Estimated Creatinine Clearance 15.11 ml/min; Globulin 3.8 g/dL (2.2-4.2); Glucose 209 mg/dL (74-106); Protein, Total 5.3 g/dL (6.4-8.2); Sodium Level 132 mmol/L (136-145)
[2022-01-01 22:51] LABS: Anisocytosis 2+; Differential Comment SCANNED
[2022-01-01 22:53] LABS: Macrocytosis 1+; Microcytosis 1+
[2022-01-01 23:19] LABS: Mucous, Urine 0 SEEN /hpf (<or=2+); Red Blood Cells-Urine 0 SEEN /hpf (0-5); Squamous Epithelial Cells - UA 0 SEEN /hpf (0-5)
[2022-01-01 23:25] LABS: Bedside Glucose 107 mg/dL (74-106)
[2022-01-01 23:27] LABS: Color, Urine Yellow (Yellow); Glucose, Dipstick Normal (Normal); Ketone-Dipstick Negative (Negative); Leukocyte Esterase-Dipstick 100 /ul (Negative); Nitrite-Dipstick Positive (Negative); Occult Blood-Urine 25 /ul (Negative); Protein-Dipstick 500 mg/dl (Negative); Urine Bilirubin Dipstick Negative (Negative); Urine Clarity Clear (Clear); Urine Urobilinogen Normal (Normal)
[2022-01-01 23:35] LABS: Bacteria 1+ /hpf (None Seen); White Blood Cells 0-5 SEEN /hpf (0-5)
[2022-01-02 00:11] VITALS: PULSE 69; RESP 23; O2SAT 99
[2022-01-02 00:12] LABS: BNP,B-Type NATRIURETIC PEPTIDE 1576.1 pg/mL (0-100)
--- NOTE | 2022-01-02 00:12 | CCN.REFER ---
THIS RN CALLED [facility] TO INFORM NURSE OF PATIENTS BLOODWORK, URINE AND GLUCOSE LEVEL. NURSE REQUESTED TO BE INFORMED WHEN ALL THE TEST RESULTS HAVE COME BACK
[2022-01-02] MEDS: Ceftriaxone 1 GM/50 ML BAG IV (00:20)
[2022-01-02] MEDS: Potassium Chloride Oral Tablet 20 MEQ 40 MEQ PO (00:26)
--- NOTE | 2022-01-02 00:27 | NURSING ---
PATIENT GIVEN APPLE SAUCE AND CONSUMED ALL OF IT
[2022-01-02] MEDS: Furosemide 40 MG/4 ML Vial IV (01:50)
[2022-01-02 01:58] VITALS: BP 115/60; PULSE 65; RESP 15; O2SAT 95
[2022-01-02 04:57] VITALS: BP 103/87; PULSE 71; RESP 16; O2SAT 96
--- NOTE | 2022-01-02 04:58 | ED.RN ---
report called to [facility], updated that patients blood sugar dropped again and that they will need to keep a close eye one patients glucose. Pt given orange juice and crackers and glucose came up to normal levels.
[2022-01-02 05:06] LABS: Bedside Glucose 80 mg/dL (74-106)
[2022-01-02 05:06] LABS: Bedside Glucose 55 mg/dL (74-106)
[2022-01-02 05:06] LABS: Bedside Glucose 60 mg/dL (74-106)
== END 2022-01-02 05:08 | disposition skilled nursing facility (03) ==
PROVIDERS: Emergency Provider Emergency Medicine; PCP Family Medicine; Visit Provider Emergency Medicine
DX: I13.2 Hypertensive heart and chronic kidney disease with heart failure and with stage 5 chronic kidney disease, or end stage renal disease (principal); Z99.2 Dependence on renal dialysis; I50.9 Heart failure, unspecified; I42.8 Other cardiomyopathies; I27.21 Secondary pulmonary arterial hypertension; N18.6 End stage renal disease; I48.19 Other persistent atrial fibrillation; R09.02 Hypoxemia; E16.2 Hypoglycemia, unspecified; E78.5 Hyperlipidemia, unspecified; E86.0 Dehydration; E87.6 Hypokalemia; Z79.01 Long term (current) use of anticoagulants; Z79.02 Long term (current) use of antithrombotics/antiplatelets; Z79.899 Other long term (current) drug therapy; Z86.73 Personal history of transient ischemic attack (TIA), and cerebral infarction without residual deficits
CPT/HCPCS: 36415; 71045; 80053; 81001; 82962; 83880; 85025; 85027; 85652; 87086; 96365; 96366; 96375; 99285; P9612; A4216; J1940

== ENCOUNTER → 2022-01-01 | Outpatient (REF) | payer MEDICARE, OTHER, SELFPAY ==
[2022-01-01 07:55] LABS: Hematocrit 24.4 % (40-54); Hemoglobin 7.7 g/dL (13.0-16.5); Mean Corp Hgb Conc 31.6 g/dL (32-36); Mean Corpuscular Hgb 32.6 pg (27.0-32.0); Mean Corpuscular Volume 103.4 fL (80-94); Mean Platelet Vol. 10.6 fl (6.2-12.0); POSITIVE MORPHOLOGY YES; Platelet Count 186 K/mm3 (150-450); RBC Distribution Width CV 23.4 % (11.6-14.6); RBC Distribution Width SD 85.5 fl (35.1-43.9); Red Blood Count 2.36 M/mm3 (4.6-6.2); White Blood Count 6.3 K/mm3 (4.4-11.0)
[2022-01-01 07:58] LABS: ALB/GLOB Ratio 0.4 RATIO (0.9-2.4); AST(SGOT) 23 U/L (15-37); Alanine Aminotransfer ALT/SGPT 10 U/L (16-61); Albumin, Serum 1.4 g/dL (3.2-5.0); Alkaline Phosphatase 120 U/L (45-117); Anion Gap 4 (5-15); BUN 37 mg/dL (7-18); BUN/Creat Ratio 8.7 RATIO (10-20); Calcium,Total 8.1 mg/dL (8.5-10.1); Chloride 96 mmol/L (98-107); Creatinine, Serum 4.23 mg/dL (0.70-1.30); EST Glomerular Filtration Rate 15 mL/min (>60); Est Glom Filt Rate - Afr Amer 18 mL/min (>60); Globulin 3.7 g/dL (2.2-4.2); Glucose 45 mg/dL (74-106); Potassium 3.2 mmol/L (3.5-5.1); Protein, Total 5.1 g/dL (6.4-8.2); Sodium Level 133 mmol/L (136-145)
[2022-01-01 08:04] LABS: Erythrocyte Sedimentation Rate 7 mm/hr (0-20)
[2022-01-01 08:24] LABS: Scan Indicated on CBC? Y/N YES- FLAGS NOTED
[2022-01-01 08:43] LABS: Differential Comment SCANNED
== END ==
LOC: OLS.SW 05:00
PROVIDERS: PCP Family Medicine; Visit Provider Family Medicine
DX: R09.02 Hypoxemia (principal)
CPT/HCPCS: 36415; 80053; 85027; 85652

== ENCOUNTER → 2022-01-09 | Outpatient (REF) | payer MEDICARE, OTHER, SELFPAY ==
[2022-01-09 09:46] LABS: Hematocrit 26.2 % (40-54); Hemoglobin 8.5 g/dL (13.0-16.5); Mean Corp Hgb Conc 32.4 g/dL (32-36); Mean Corpuscular Hgb 33.3 pg (27.0-32.0); Mean Corpuscular Volume 102.7 fL (80-94); Mean Platelet Vol. 10.3 fl (6.2-12.0); POSITIVE MORPHOLOGY YES; Platelet Count 184 K/mm3 (150-450); RBC Distribution Width CV 21.1 % (11.6-14.6); RBC Distribution Width SD 79.7 fl (35.1-43.9); Red Blood Count 2.55 M/mm3 (4.6-6.2); White Blood Count 5.9 K/mm3 (4.4-11.0)
[2022-01-09 09:50] LABS: Scan Indicated on CBC? Y/N YES- FLAGS NOTED
[2022-01-09 09:54] LABS: Anion Gap 4 (5-15); BUN 55 mg/dL (7-18); BUN/Creat Ratio 11.1 RATIO (10-20); Calcium,Total 8.4 mg/dL (8.5-10.1); Chloride 96 mmol/L (98-107); Creatinine, Serum 4.95 mg/dL (0.70-1.30); EST Glomerular Filtration Rate 12 mL/min (>60); Est Glom Filt Rate - Afr Amer 15 mL/min (>60); Glucose 67 mg/dL (74-106); Potassium 3.8 mmol/L (3.5-5.1); Sodium Level 136 mmol/L (136-145)
== END ==
LOC: OLS.SW 05:00
PROVIDERS: PCP Family Medicine; Visit Provider Family Medicine
DX: I10 Essential (primary) hypertension (principal); K92.2 Gastrointestinal hemorrhage, unspecified
CPT/HCPCS: 36415; 80048; 85027

== ENCOUNTER → 2022-01-10 | Outpatient (CLI) | payer MEDICARE, OTHER, SELFPAY ==
--- NOTE | 2022-01-10 09:00 | ADUL_ITS ---
Reason For Study: ATHEROSCLEROSIS Right Velocities Ext. Iliac Artery, dist = 70.8 cm./sec. Common Femoral Artery, mid = 47.9 cm./sec. Supf Femoral Artery, prox = 38.3 cm./sec. Supf Femoral Artery, mid = 49.6 cm./sec. Supf Femoral Artery, dist. = 34.2 cm./sec. Profunda Femoral Artery = 45.3 cm./sec. Popliteal Artery, mid = 40.8 cm./sec. Post. Tibial Artery, prox = 7.0 cm./sec. Post. Tibial Artery, mid = 5.9 cm./sec. Post. Tibial Artery, dist = 14.5 cm./sec. Peroneal Artery, prox = 79.0 cm./sec. Peroneal Artery, mid = 60.3 cm./sec. Peroneal Artery,dist = 81.2 cm./sec. Ant. Tibial Artery, prox = 36.7 cm./sec. Ant. Tibial Artery, mid = 14.7 cm./sec. Ant. Tibial Artery, dist = 13.2 cm./sec. Procedure Exam performed in department. /US Art Duplex Unilat Lower Ext Interpretation Summary Right leg with no obvious stenosis and triphasic flow throughout. Ordering Physician: Jean-Pierre Buckley Referring Physician: Adair Castaneda Performed By: Roxy Munguia, RDCS, RVT
--- NOTE | 2022-01-10 09:00 | ART_ITS ---
Reason For Study: ATHEROSCLEROSIS, LT FOOT ULCER, S/P AMPUTEE Procedure A bilateral lower extremity continuous wave Doppler with analog waveform analysis and ankle brachial indexes. Left Segmental Pressures Left brachial= FISTULA NO BP TAKENmmHg. Left posterior tibial artery = >254mmHg. Left dorsalis pedis artery = >254mmHg. The left posterior tibial artery waveforms are monophasic. The left dorsalis pedis waveforms are monophasic. Right Segmental Pressures Right brachial= 105mmHg. Right posterior tibial artery = >254mmHg. Right dorsalis pedis artery = >254mmHg. Right digit = 131 mmHg. The right posterior tibial artery waveforms are triphasic. The right dorsalis pedis waveforms are triphasic. Indices The right digital-brachial index is 1.25. The right ankle brachial index by the posterior tibial artery is -NC-. The right ankle brachial index by the dorsalis pedis is -NC-. The left ankle brachial index by the posterior tibial artery is -NC-. The left ankle brachial index by the dorsalis pedis is -NC-. Due to left forefoot amputation, unable to get a TBI. VL/Ankle Brachial Index Interpretation Summary Bialteral noncompressible at ankle. Right triphasic and left monophasic flow no be. Right DBI 1.25. Ordering Physician: Jean-Pierre Buckley Referring Physician: Adair Castaneda Performed By: Roxy Munguia RVT, RDCS
== END | disposition home or self-care (01) ==
PROVIDERS: PCP Family Medicine; Referring Provider Surgery Vascular Surgery; Visit Provider Surgery Vascular Surgery
DX: I70.213 Atherosclerosis of native arteries of extremities with intermittent claudication, bilateral legs (principal); L97.529 Non-pressure chronic ulcer of other part of left foot with unspecified severity
CPT/HCPCS: 93922; 93926

== ENCOUNTER → 2022-01-16 | Outpatient (REF) | payer MEDICARE, OTHER, SELFPAY ==
[2022-01-16 09:19] LABS: Mean Corpuscular Hgb 32.8 pg (27.0-32.0); Mean Corpuscular Volume 105.8 fL (80-94); Mean Platelet Vol. 10.7 fl (6.2-12.0); POSITIVE MORPHOLOGY YES; Platelet Count 178 K/mm3 (150-450); RBC Distribution Width CV 20.3 % (11.6-14.6); RBC Distribution Width SD 79.8 fl (35.1-43.9); Red Blood Count 2.74 M/mm3 (4.6-6.2); White Blood Count 8.6 K/mm3 (4.4-11.0)
[2022-01-16 09:21] LABS: Scan Indicated on CBC? Y/N YES- FLAGS NOTED
[2022-01-16 09:50] LABS: Anion Gap 9 (5-15); BUN 98 mg/dL (7-18); BUN/Creat Ratio 12.1 RATIO (10-20); Calcium,Total 8.9 mg/dL (8.5-10.1); Chloride 98 mmol/L (98-107); Creatinine, Serum 8.11 mg/dL (0.70-1.30); EST Glomerular Filtration Rate 7 mL/min (>60); Est Glom Filt Rate - Afr Amer 8 mL/min (>60); Glucose 62 mg/dL (74-106); Potassium 4.8 mmol/L (3.5-5.1); Sodium Level 134 mmol/L (136-145)
[2022-01-16 09:51] LABS: Differential Comment SCANNED
== END ==
LOC: OLS.SW 05:00
PROVIDERS: PCP Family Medicine; Visit Provider Family Medicine
DX: I10 Essential (primary) hypertension (principal); K92.2 Gastrointestinal hemorrhage, unspecified
CPT/HCPCS: 36415; 80048; 85027

== ENCOUNTER → 2022-01-23 | Outpatient (REF) | payer MEDICARE, OTHER, SELFPAY ==
[2022-01-23 09:12] LABS: Hematocrit 28.1 % (40-54); Hemoglobin 8.9 g/dL (13.0-16.5); Mean Corp Hgb Conc 31.7 g/dL (32-36); Mean Corpuscular Hgb 32.8 pg (27.0-32.0); Mean Corpuscular Volume 103.7 fL (80-94); Mean Platelet Vol. 11.3 fl (6.2-12.0); POSITIVE MORPHOLOGY YES; Platelet Count 136 K/mm3 (150-450); RBC Distribution Width CV 20.6 % (11.6-14.6); RBC Distribution Width SD 78.5 fl (35.1-43.9); Red Blood Count 2.71 M/mm3 (4.6-6.2); White Blood Count 5.2 K/mm3 (4.4-11.0)
[2022-01-23 09:17] LABS: Scan Indicated on CBC? Y/N YES- FLAGS NOTED
[2022-01-23 09:29] LABS: Anion Gap 5 (5-15); BUN 52 mg/dL (7-18); Calcium,Total 8.5 mg/dL (8.5-10.1); Chloride 96 mmol/L (98-107); Creatinine, Serum 4.71 mg/dL (0.70-1.30); EST Glomerular Filtration Rate 13 mL/min (>60); Est Glom Filt Rate - Afr Amer 16 mL/min (>60); Glucose 62 mg/dL (74-106); Potassium 3.7 mmol/L (3.5-5.1); Sodium Level 135 mmol/L (136-145)
== END ==
LOC: OLS.SW 05:00
PROVIDERS: PCP Family Medicine; Visit Provider Family Medicine
DX: I12.0 Hypertensive chronic kidney disease with stage 5 chronic kidney disease or end stage renal disease (principal); N18.6 End stage renal disease
CPT/HCPCS: 36415; 80048; 85027

== ENCOUNTER 2022-01-27 10:50 | Inpatient (IN) | payer MEDICARE, OTHER, SELFPAY ==
[2022-01-27] VITALS (23 sets, daily range): BP systolic 72–121; BP diastolic 39–70; PULSE 48–95; RESP 15–26; TEMP 36.6–36.7; O2SAT 90–100; BMI 19.8; BMI 19.4
--- NOTE | 2022-01-27 12:02 | EKG12_ITS ---
Test Reason : UNRESPONSIVE Blood Pressure : / mmHG Vent. Rate : 051 BPM Atrial Rate : 046 BPM P-R Int : 000 ms QRS Dur : 122 ms QT Int : 514 ms P-R-T Axes : 000 156 029 degrees QTc Int : 473 ms Suspect arm lead reversal, interpretation assumes no reversal Atrial fibrillation Nonspecific T wave abnormality Abnormal ECG Confirmed by KORY KINCAID, ONOFRE ([id number]), order editor ROSIE OVALLES ([id number]) on 01/28/2022 8:20:31 AM Referred By: NIA Confirmed By:ONOFRE HORN MD
--- NOTE | 2022-01-27 12:09 | EX.ED.DYSGE1 ---
HPI History of Present Illness Chief Complaint: Alt LOC Informant: patient, family, EMS and SNF Narrative Narrative: 76-year-old male presenting from the retirement where he reportedly went unresponsive while receiving dialysis. He has a history of peripheral vascular disease as well as nonischemic cardiomyopathy and atrial fibrillation. Son does not know what his blood pressures typically run or his heart rate is. Unfortunately the patient does not provide much information due to a prior stroke and apparent expressive aphasia. Who was noted that the patient was hypotensive for EMS and at the retirement. He is on apixaban. He sees Dr. Adler for cardiology and Dr. Jennifer alarcon for nephrology. Almost all the history is gained simply from trying to get through the chart as quickly as possible due to his hypotensive status. [facility] Medical History Anticoagulated Bilateral renal artery stenosis Chronic anemia Dialysis patient Edema of left forearm ESRD (end stage renal disease) on dialysis Essential hypertension GERD (gastroesophageal reflux disease) GI bleed (11/2021) Hyperlipidemia Ischemic cerebrovascular accident (CVA) (01/2021) Non-ischemic cardiomyopathy Non-traumatic rhabdomyolysis Peripheral arterial disease Peripheral vascular occlusive disease Persistent atrial fibrillation Polycystic kidney disease Renal artery stenosis Secondary pulmonary arterial hypertension Home Medications cinacalcet 60 mg tablet (Sensipar) 60 mg PO PRN PRN IPTH 10/09/14 [History Last Taken 01/27/22] apixaban 2.5 mg tablet 2.5 mg PO BID 11/29/21 [History Last Taken 01/27/22] atorvastatin 40 mg tablet 40 mg PO QHS 11/29/21 [History Last Taken 01/26/22] metoprolol tartrate 50 mg tablet 50 mg PO BID 11/29/21 [History Last Taken 01/27/22] pantoprazole 40 mg tablet,delayed release 40 mg PO BID 60 days #120 tabs 12/04/21 [Rx Last Taken 01/27/22] vitamin B complex-vitamin C-folic acid 0.8 mg tablet 1 tab PO DAILY SUPPLEMENT 01/27/22 [History Last Taken 01/27/22] Allergy/AdvReac Type Severity Reaction Status Date / Time No Known Allergies Allergy Verified 01/27/22 10:51 Family History Mother Heart disease Father Heart disease Surgical History Amputation of toe History of angioplasty of peripheral vessel (09/10/21) History of bilateral cataract extraction History of tonsillectomy History of transmetatarsal amputation of left foot S/P arteriovenous (AV) fistula creation Social History housing: retirement Smoking Status: Never smoker alcohol intake: never substance use type: does not use ROS ROS ED Review of Systems ROS Unobtainable: due to mental status EXAM Physical Exam Const Vital Signs: 01/27/22 10:52 01/27/22 10:57 01/27/22 11:00 Temperature 97.8 F Temperature Source Temporal Pulse Rate 48 L 54 L Respiratory Rate 18 18 Respiratory Effort Normal Respiratory Pattern Normal Blood Pressure 81/49 L 72/48 L Blood Pressure Mean 59 56 Pulse Ox 92 100 Oxygen Delivery Method Nasal Cannula Nasal Cannula Oxygen Flow Rate (L/min) 6 6 01/27/22 12:02 01/27/22 13:00 01/27/22 14:00 Temperature 97.9 F Temperature Source Temporal Pulse Rate 58 L 61 59 L Respiratory Rate 16 18 18 Respiratory Effort Respiratory Pattern Blood Pressure 81/49 L 89/46 L 82/49 L Blood Pressure Mean 59 60 60 Pulse Ox 100 100 96 Oxygen Delivery Method Nasal Cannula Room Air Nasal Cannula Oxygen Flow Rate (L/min) 4 4 01/27/22 15:00 Temperature Temperature Source Pulse Rate 58 L Respiratory Rate 15 Respiratory Effort Respiratory Pattern Blood Pressure 102/64 Blood Pressure Mean 76 Pulse Ox 96 Oxygen Delivery Method Nasal Cannula Oxygen Flow Rate (L/min) 4 Positive well nourished and well developed General Appearance ED: well developed HEENT Reports normocephalic, head/scalp atraumatic and moist mucous membranes Eyes PERRL and EOMs intact bilaterally Neck no lymphadenopathy, supple and no JVD Resp normal respiratory effort and clear to auscultation bilaterally Cardio no murmurs Rate: bradycardia Rhythm: abnormal rhythm irregularly irregular GI normal to inspection, nondistended, normoactive bowel sounds and non-tender Palpation: soft Back/Spine no CVA tenderness and normal ROM Extremity Extremity Narrative: Chronic changes of the bilateral lower extremities associated with peripheral vascular disease. Chronic wound to the left foot General Extremety ED: Negative for edema General Extremity: Negative for edema Neuro CN's II-XII intact bilaterally Neuro Narrative: Patient will respond to questions but with unintelligible sounds. He moves all extremities. Sensorium / Orientation: alert Psych Mood & Affect: Negative for depressed or tearful Skin no rashes or lesions noted MDM MDM MDM Narrative Medical decision making narrative: White count is 9.8 with a hemoglobin 9.4 and a platelet count of 136. Creatinine 4.86 with a BUN of 54 which is at baseline. Troponin is 27. Lactic acid is 6.9 which is probably multifactorial from hypoxia that was noted by squad as well as the hypotension and possibly the renal disease. He is awake and talking to me. His chest x-ray shows volume overload and bilateral pleural effusions. I spoke with ICU Dr. Lincoln as well as hospitalist Dr. Pete. We were able to contact Dr. Salazar who is covering Dr. Jennifer alarcon for nephrology. We are going to bring him into the ICU. His blood pressure has improved down to 102/64. He continues to be awake and talking but easily falls asleep. We will attempt to dialyze him in the unit. Lab Data Attestation: I reviewed the patient's lab results. Labs: Laboratory Results - last 24 hr 01/27/22 01/27/22 01/27/22 11:45 11:45 11:45 WBC 9.8 RBC 2.81 L Hgb 9.4 L Hct 29.7 L MCV 105.7 H MCH 33.5 H MCHC 31.6 L RDW Std Deviation 79.9 H RDW Coeff of Sue 20.8 H Plt Count 136 L MPV 12.3 H Immature Gran % (Auto) 0.400 Neut % (Auto) 83.1 H Lymph % (Auto) 8.4 L Cowley % (Auto) 5.5 Eos % (Auto) 2.2 Baso % (Auto) 0.4 Absolute Neuts (auto) 8.1 H Absolute Lymphs (auto) 0.82 L Nucleated RBC % 0.2 Differential Comment SCANNED Hypochromasia 1+ Anisocytosis 2+ Microcytosis 1+ Macrocytosis 1+ PT 18.3 H INR 1.6 APTT 51.5 H Sodium 135 L Potassium 3.5 Chloride 95 L Carbon Dioxide 30.0 Anion Gap 10 BUN 54 H Creatinine 4.86 H Estim Creat Clear Calc 12.64 Est GFR (MDRD) Af Amer 15 L Est GFR (MDRD) Non-Af 13 L BUN/Creatinine Ratio 11.1 Glucose 77 Lactic Acid Calcium 9.0 Total Bilirubin 0.40 Direct Bilirubin 0.23 AST 20 ALT 13 L Alkaline Phosphatase 154 H Troponin I High Sens 27 Total Protein 6.5 Albumin 1.9 L Globulin 4.6 H Lipase 49 L 01/27/22 11:45 WBC RBC Hgb Hct MCV MCH MCHC RDW Std Deviation RDW Coeff of Sue Plt Count MPV Immature Gran % (Auto) Neut % (Auto) Lymph % (Auto) Cowley % (Auto) Eos % (Auto) Baso % (Auto) Absolute Neuts (auto) Absolute Lymphs (auto) Nucleated RBC % Differential Comment Hypochromasia Anisocytosis Microcytosis Macrocytosis PT INR APTT Sodium Potassium Chloride Carbon Dioxide Anion Gap BUN Creatinine Estim Creat Clear Calc Est GFR (MDRD) Af Amer Est GFR (MDRD) Non-Af BUN/Creatinine Ratio Glucose Lactic Acid 6.9 H* Calcium Total Bilirubin Direct Bilirubin AST ALT Alkaline Phosphatase Troponin I High Sens Total Protein Albumin Globulin Lipase Radiography Diagnostic Testing: Clinical Impression(s) from Imaging Studies Chest X-Ray 01/27/22 12:12 IMPRESSION: Cardiomegaly with moderate pulmonary edema and pleural effusions. Electronically Signed: Antonella Banerjee MD at 12:31 EST Reading Location ID and State: [address] [place] [address] Tel , Service support , EKG Initial EKG: Attestation: I personally reviewed and interpreted this EKG as follows: Comments: Atrial fibrillation with a ventricular to 59 bpm Discharge Plan Dx/Rx/DC Orders Clinical Impression: Essential hypertension, Hyperlipidemia, Non-ischemic cardiomyopathy, Peripheral vascular occlusive disease, Persistent atrial fibrillation, ESRD (end stage renal disease) on dialysis, Episode of unresponsiveness, Volume overload, Bilateral pleural effusion, Acute on chronic respiratory failure with hypoxemia Disposition Disposition: [facility]
--- NOTE | 2022-01-27 12:12 | RAD_ITS ---
HISTORY: CHF. TECHNIQUE: XR Chest 1 View. COMPARISON: 01/01/2022. FINDINGS: CARDIOMEDIASTINAL BORDERS: Mild cardiomegaly and calcification of the aortic knob again noted. LUNGS: Moderate interstitial and bibasilar opacities. PLEURA: Moderate bilateral pleural effusions. OSSEOUS STRUCTURES: Old right rib fractures. RAD/Chest 1 View (Portable) IMPRESSION: Cardiomegaly with moderate pulmonary edema and pleural effusions. Electronically Signed: Antonella Banerjee MD at 12:31 EST ,
[2022-01-27 12:26] LABS: Absolute Lymphocyte Count 0.82 X10^3/uL (0.83-4.51); Absolute Neutrophil Count 8.1 X10^3/uL (2.0-7.7); Basophil# 0.04 X10^3/uL; Basophil% 0.4 % (0-1); Eosinophil# 0.21 X10^3/uL; Eosinophils% 2.2 % (0-5); Hematocrit 29.7 % (40-54); Hemoglobin 9.4 g/dL (13.0-16.5); Lymphocyte # 0.82 X10^3/ul (0.83-4.51); Lymphocyte % 8.4 % (19-41); Mean Corp Hgb Conc 31.6 g/dL (32-36); Mean Corpuscular Hgb 33.5 pg (27.0-32.0); Mean Corpuscular Volume 105.7 fL (80-94); Mean Platelet Vol. 12.3 fl (6.2-12.0); Monocyte# 0.54 X10^3/uL; Monocyte% 5.5 % (0-10); NRBC Flagged by Analyzer 0.2 % (0-5); Neutrophil % 83.1 % (47-70); POSITIVE MORPHOLOGY YES; Platelet Count 136 K/mm3 (150-450); RBC Distribution Width CV 20.8 % (11.6-14.6); RBC Distribution Width SD 79.9 fl (35.1-43.9); Red Blood Count 2.81 M/mm3 (4.6-6.2); White Blood Count 9.8 K/mm3 (4.4-11.0)
[2022-01-27 12:28] LABS: Differential Indicated SCAN CRITERIA MET
[2022-01-27 12:48] LABS: International Normalized Ratio 1.6; Prothrombin Time (Protime)PT. 18.3 SECONDS (11.7-14.9)
[2022-01-27 12:49] LABS: Partial Thromboplast Time 51.5 Seconds (24.1-36.2)
[2022-01-27 12:50] LABS: AST(SGOT) 20 U/L (15-37); Alanine Aminotransfer ALT/SGPT 13 U/L (16-61); Albumin, Serum 1.9 g/dL (3.2-5.0); Alkaline Phosphatase 154 U/L (45-117); Anion Gap 10 (5-15); BUN 54 mg/dL (7-18); BUN/Creat Ratio 11.1 RATIO (10-20); Bilirubin, Direct 0.23 mg/dL (0.00-0.30); Chloride 95 mmol/L (98-107); Creatinine, Serum 4.86 mg/dL (0.70-1.30); EST Glomerular Filtration Rate 13 mL/min (>60); Est Glom Filt Rate - Afr Amer 15 mL/min (>60); Estimated Creatinine Clearance 12.64 ml/min; Globulin 4.6 g/dL (2.2-4.2); Glucose 77 mg/dL (74-106); Lipase 49 U/L (73-393); Potassium 3.5 mmol/L (3.5-5.1); Protein, Total 6.5 g/dL (6.4-8.2); Sodium Level 135 mmol/L (136-145); Troponin-I HS 27 pg/mL (3.0-78.0)
[2022-01-27 13:03] LABS: Lactic Acid 6.9 mmol/L (0.4-1.9)
[2022-01-27 13:13] LABS: Differential Comment SCANNED
[2022-01-27 13:14] LABS: Anisocytosis 2+; Hypochromasia 1+; Macrocytosis 1+; Microcytosis 1+
[2022-01-27 16:22] LABS: Reflex Lactate? Y
--- NOTE | 2022-01-27 18:16 | NURSING ---
attempted to call [facility] ([facility]) to inquire if patient received flu vaccine, as patient and son were unsure and wish to receive it. No answer at [facility]
--- NOTE | 2022-01-27 18:24 | DIALYSIS ---
Left arm fistula with large aneurysmal areas and large collaterals. Left arm is very swollen w 4 + pitting edema. BP stable and patient resting comfortably on 4 liters NC O2. Labs within normal limits. Situation discussed w Dr Salazar from Nephrology and will have Vascular evaluate first. Report given to FINISHING LAB TECHNICIAN
--- NOTE | 2022-01-27 20:01 | HP.PCM.HOS_ITS ---
HPI - General General Date of Admission: 01/27/22 Date of Service: 01/27/22 Chief Complaint: Generalized weakness, shortness of breath HPI Narrative FLAQUITO GORDON, is a 76 M who presents to the emergency room at [facility] [place] after being transported from a local extended care facility at which she resides for rehab services due to an unresponsive episode that happened during his dialysis today, patient is end-stage renal disease and [facility]. Patient also complained of some increased shortness of breath-he is chronically on oxygen and either 2 or 4 L (accurate history is not possible to obtain from the patient), patient has had a past history of a stroke approximately a year ago and a partial amputation of his left foot in August of this year due to vascular occlusive disease of his left l eg. According to his son who I obtained most of the information from, [facility] this [facility], according to son he does not walk but they are actively trying to get him physical therapy. Patient only underwent half of his dialysis today. Work-up in the emergency room included chest x-ray which shows signs of fluid overload and pulmonary edema, patient's oxygen requirement was 4 L via nasal cannula, CBC was remarkable for hemoglobin of 9.4, CHEM panel showed a BUN of 54, creatinine of 4.86, and a sodium of 135. Patient was admitted to ICU for fluid overload/pulmonary edema secondary to his end-stage renal disease, he will be seen by nephrology-I talked to nephrology by phone today, the dialysis nurse did not like the looks of the patient's fistula on his left arm and he requested that vascular surgery see the patient before any dialysis is attempted, I contacted Dr. Cortes and he is aware of the consultation. Nephrology feels that the patient is stable at this time to wait for dialysis tomorrow. Critical care will be consulted. [facility] Medical History Anticoagulated Bilateral renal artery stenosis Chronic anemia Dialysis patient Edema of left forearm ESRD (end stage renal disease) on dialysis Essential hypertension GERD (gastroesophageal reflux disease) GI bleed (11/2021) Hyperlipidemia Ischemic cerebrovascular accident (CVA) (01/2021) Non-ischemic cardiomyopathy Non-traumatic rhabdomyolysis Peripheral arterial disease Peripheral vascular occlusive disease Persistent atrial fibrillation Polycystic kidney disease Renal artery stenosis Secondary pulmonary arterial hypertension Home Medications cinacalcet 60 mg tablet (Sensipar) 60 mg PO PRN PRN IPTH 10/09/14 [History Last Taken 01/27/22] apixaban 2.5 mg tablet 2.5 mg PO BID 11/29/21 [History Last Taken 01/27/22] atorvastatin 40 mg tablet 40 mg PO QHS 11/29/21 [History Last Taken 01/26/22] metoprolol tartrate 50 mg tablet 50 mg PO BID 11/29/21 [History Last Taken 01/27/22] pantoprazole 40 mg tablet,delayed release 40 mg PO BID 60 days #120 tabs 12/04/21 [Rx Last Taken 01/27/22] vitamin B complex-vitamin C-folic acid 0.8 mg tablet 1 tab PO DAILY SUPPLEMENT 01/27/22 [History Last Taken 01/27/22] Allergy/AdvReac Type Severity Reaction Status Date / Time No Known Allergies Allergy Verified 01/27/22 10:51 Family History Mother Heart disease Father Heart disease Surgical History Amputation of toe History of angioplasty of peripheral vessel (09/10/21) History of bilateral cataract extraction History of tonsillectomy History of transmetatarsal amputation of left foot S/P arteriovenous (AV) fistula creation Social History [facility]: [facility] Smoking Status: Never smoker alcohol intake: never substance use type: does not use ROS ROS Narrative Review of systems was not able to be obtained due to patient's expressive aphasia and extreme hard of hearing, I talked at length with patient's son who was at the bedside during the time my examination and glean medical history from his son. Vital Signs Vital Signs Vital Signs: 01/27/22 10:52 01/27/22 10:57 01/27/22 11:00 Temperature 97.8 F Temperature Source Temporal Pulse Rate 48 L 54 L Respiratory Rate 18 18 Respiratory Effort Normal Respiratory Depth Respiratory Pattern Normal Blood Pressure 81/49 L 72/48 L Blood Pressure [BP] Blood Pressure Mean 59 56 Blood Pressure Mean [BP] Blood Pressure Source Blood Pressure Source [BP] Blood Pressure Position Blood Pressure Position [BP] Blood Pressure Location Blood Pressure Location [BP] Pulse Ox 92 100 Oxygen Delivery Method Nasal Cannula Nasal Cannula Oxygen Flow Rate (L/min) 6 6 Fraction of Inspired Oxygen (FIO2) 01/27/22 12:02 01/27/22 13:00 01/27/22 14:00 Temperature 97.9 F Temperature Source Temporal Pulse Rate 58 L 61 59 L Respiratory Rate 16 18 18 Respiratory Effort Respiratory Depth Respiratory Pattern Blood Pressure 81/49 L 89/46 L 82/49 L Blood Pressure [BP] Blood Pressure Mean 59 60 60 Blood Pressure Mean [BP] Blood Pressure Source Blood Pressure Source [BP] Blood Pressure Position Blood Pressure Position [BP] Blood Pressure Location Blood Pressure Location [BP] Pulse Ox 100 100 96 Oxygen Delivery Method Nasal Cannula Room Air Nasal Cannula Oxygen Flow Rate (L/min) 4 4 Fraction of Inspired Oxygen (FIO2) 01/27/22 15:00 01/27/22 16:00 01/27/22 16:00 Temperature 98 F Temperature Source Oral Pulse Rate 58 L 54 L 58 L Respiratory Rate 15 18 16 Respiratory Effort Respiratory Depth Respiratory Pattern Blood Pressure 102/64 107/64 109/65 Blood Pressure [BP] Blood Pressure Mean 76 78 79 Blood Pressure Mean [BP] Blood Pressure Source Blood Pressure Source [BP] Blood Pressure Position Blood Pressure Position [BP] Blood Pressure Location Blood Pressure Location [BP] Pulse Ox 96 98 98 Oxygen Delivery Method Nasal Cannula Nasal Cannula Nasal Cannula Oxygen Flow Rate (L/min) 4 4 4 Fraction of Inspired Oxygen (FIO2) 01/27/22 17:21 01/27/22 17:16 01/27/22 18:17 Temperature 98.0 F Temperature Source Temporal Pulse Rate 63 95 Respiratory Rate 26 H Respiratory Effort Normal Non-Labored Respiratory Depth Normal Respiratory Pattern Normal Blood Pressure 100/39 L Blood Pressure [BP] Blood Pressure Mean 59 Blood Pressure Mean [BP] Blood Pressure Source Monitor Blood Pressure Source [BP] Blood Pressure Position Semi-Fowlers Blood Pressure Position [BP] Blood Pressure Location Right Arm Blood Pressure Location [BP] Pulse Ox 90 Oxygen Delivery Method Nasal Cannula Nasal Cannula Oxygen Flow Rate (L/min) 2 4 Fraction of Inspired Oxygen (FIO2) 01/27/22 17:30 01/27/22 17:45 01/27/22 18:00 Temperature Temperature Source Pulse Rate 65 68 64 Respiratory Rate 25 H 22 H 23 H Respiratory Effort Respiratory Depth Respiratory Pattern Blood Pressure 99/62 121/62 H 108/70 Blood Pressure [BP] Blood Pressure Mean 74 81 82 Blood Pressure Mean [BP] Blood Pressure Source Monitor Monitor Monitor Blood Pressure Source [BP] Blood Pressure Position Semi-Fowlers Semi-Fowlers Semi-Fowlers Blood Pressure Position [BP] Blood Pressure Location Right Arm Right Arm Right Arm Blood Pressure Location [BP] Pulse Ox 97 100 100 Oxygen Delivery Method Nasal Cannula Nasal Cannula Nasal Cannula Oxygen Flow Rate (L/min) 4 4 4 Fraction of Inspired Oxygen (FIO2) 01/27/22 18:30 01/27/22 19:22 01/27/22 19:00 Temperature 97.9 F Temperature Source Temporal Pulse Rate 65 59 L 66 Respiratory Rate 22 H 22 H Respiratory Effort Respiratory Depth Respiratory Pattern Blood Pressure Blood Pressure [BP] 115/61 106/64 Blood Pressure Mean Blood Pressure Mean [BP] 79 78 Blood Pressure Source Blood Pressure Source [BP] Monitor Monitor Blood Pressure Position Blood Pressure Position [BP] Semi-Fowlers Semi-Fowlers Blood Pressure Location Blood Pressure Location [BP] Right Arm Right Arm Pulse Ox 100 100 Oxygen Delivery Method Nasal Cannula Nasal Cannula Oxygen Flow Rate (L/min) 4 4 Fraction of Inspired Oxygen (FIO2) 01/27/22 19:50 01/27/22 19:52 Temperature 97.9 F Temperature Source Temporal Pulse Rate 59 L Respiratory Rate 22 H Respiratory Effort Normal Non-Labored Respiratory Depth Normal Respiratory Pattern Normal Blood Pressure 108/70 Blood Pressure [BP] Blood Pressure Mean 82 Blood Pressure Mean [BP] Blood Pressure Source Blood Pressure Source [BP] Blood Pressure Position Blood Pressure Position [BP] Blood Pressure Location Blood Pressure Location [BP] Pulse Ox 100 Oxygen Delivery Method Nasal Cannula Nasal Cannula Oxygen Flow Rate (L/min) 4 Fraction of Inspired Oxygen (FIO2) 4 4 Weight Weight: 66.8 kg Body Mass Index (BMI) 19.4 Physical Exam Const alert and no apparent distress Constitutional Narrative: Patient appears older than his stated age, he appears cachectic General Appearance: cooperative, well kempt and well developed Orientation / Consciousness: awake HEENT normocephalic, head/scalp atraumatic and moist oral mucous membranes HEENT Narrative: Patient is extremely hard of hearing Eyes PERRL, EOMs intact bilaterally and conjunctivae normal Neck supple, no JVD, thyroid normal and no carotid bruits General: trachea midline Resp normal respiratory effort, no retractions, no use of accessory muscles and clear to auscultation bilaterally Auscultation: Negative for rales, rhonchi or wheezes Cardio S1 normal heart sound, S2 normal heart sound, no murmurs, no rub and no gallops Cardio Narrative: Heart rate and rhythm is irregular GI normal to inspection, nondistended, normoactive bowel sounds, soft to palpation, non-tender and non-distended Extremity Extremity Narrative: Patient's left forearm around his fistula area is swollen as compared with his right forearm. 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 Skin Skin Narrative: Patient has a partial amputation of his left foot, his bandages were not removed for examination of the area General Skin Exam: no breakdown Neuro CN's II-XII intact bilaterally, no focal motor deficits and no sensory deficits noted Neuro Narrative: Patient has an element of expressive aphasia which is also complicated by the patient's extreme hearing loss Sensorium / Orientation: awake and alert Speech: speech normal Psych Psych Narrative: Patient does not appear depressed , agitated or anxious. Results Lab / Micro Data Result Diagrams: 01/27/22 11:45 01/27/22 11:45 Labs: Laboratory Results - last 24 hr 01/27/22 11:45: WBC 9.8, RBC 2.81 L, Hgb 9.4 L, Hct 29.7 L, MCV 105.7 H, MCH 33.5 H, MCHC 31.6 L, RDW Std Deviation 79.9 H, RDW Coeff of Sue 20.8 H, Plt Count 136 L, MPV 12.3 H, Immature Gran % (Auto) 0.400, Neut % (Auto) 83.1 H, Lymph % (Auto) 8.4 L, [place] % (Auto) 5.5, Eos % (Auto) 2.2, Baso % (Auto) 0.4, Absolute Neuts (auto) 8.1 H, Absolute Lymphs (auto) 0.82 L, Nucleated RBC % 0.2, Differential Comment SCANNED, Hypochromasia 1+, Anisocytosis 2+, Microcytosis 1+, Macrocytosis 1+ 01/27/22 11:45: PT 18.3 H, INR 1.6, APTT 51.5 H 01/27/22 11:45: Sodium 135 L, Potassium 3.5, Chloride 95 L, Carbon Dioxide 30.0, Anion Gap 10, BUN 54 H, Creatinine 4.86 H, Estim Creat Clear Calc 12.64, Est GFR (MDRD) Af Amer 15 L, Est GFR (MDRD) Non-Af 13 L, BUN/Creatinine Ratio 11.1, Glucose 77, Calcium 9.0, Total Bilirubin 0.40, Direct Bilirubin 0.23, AST 20, ALT 13 L, Alkaline Phosphatase 154 H, Troponin I High Sens 27, Total Protein 6.5, Albumin 1.9 L, Globulin 4.6 H, Lipase 49 L 01/27/22 11:45: Lactic Acid 6.9 H* 01/27/22 16:52: Lactic Acid 2.0 Radiology Impression Chest X-Ray 01/27/22 12:12 IMPRESSION: Cardiomegaly with moderate pulmonary edema and pleural effusions. Electronically Signed: Antonella Banerjee MD at 12:31 EST Reading Location ID and State: [facility] / [place] Tel , Service support , Assessment & Plan Assessment/Plan (1) Episode of unresponsiveness: PLAN: Plan 1. Volume overload/pulmonary edema-secondary to end-stage renal disease, patient was admitted to ICU, he will be seen by critical care, he appears stable at this time on 4 L of nasal cannula oxygen. It is unknown whether the patient's dialysis fistula can be used, vascular surgery will see the patient in the morning to assess whether it can be used for dialysis. #2 end-stage renal disease-patient will be seen by nephrology, he will need continued dialysis #3 episode of unresponsiveness during dialysis today-etiology unclear, it does not appear to this examiner that the patient is septic or has an infection. #4 cerebrovascular disease-it appears the patient may have some aphasia due to this, complicates care, management, recovery, and prognosis #5 persistent atrial fibrillation-patient is currently on rate limiting agents and apixaban. Patient's metoprolol will be decreased due to the patient's low blood pressure in the emergency room today, I will place him on metoprolol 25 mg twice daily #6 chronic anticoagulation with Eliquis secondary to hypercoagulable state due to chronic atrial fibrillation-patient is on Eliquis #7 essential hypertension-by history, again patient's metoprolol was decreased today due to the patient's low blood pressure in the emergency room #8 peripheral vascular disease-patient underwent a partial amputation of his left foot in August of this year according to his son, wound care nurse will look at the wound tomorrow #9 nonischemic cardiomyopathy-patient will remain on his present medications, patient's last echocardiogram done in December of this year shows an EF of 25% #10 mild pulmonary hypertension-complicates care, management, recovery, and prognosis #11 chronic debility-patient will be seen by PT and OT #12 type 2 diabetes-patient uses sliding scale insulin at the nursing facility where he resides, this will be continued here Charges/Coding Visit Charges Inpatient E&M: 19039 Init Hosp L3
[2022-01-27] MEDS: Pantoprazole Sodium 40 MG Tablet PO (21:14)
[2022-01-27] MEDS: Atorvastatin Calcium 40 MG Tablet PO (21:14)
[2022-01-27] MEDS: APIXABAN 2.5 MG TABLET (WCH) PO (21:14)
--- NOTE | 2022-01-27 21:24 | NURSING ---
blood sugar 62. pt given oj w sugar. cracker w peanut butter and sm amount ice crm. Pt pulled up and repostion in bed. mouth care done
[2022-01-27 21:25] LABS: Bedside Glucose 62 mg/dL (74-106)
[2022-01-28] VITALS (33 sets, daily range): BP systolic 81–119; BP diastolic 52–73; PULSE 67–100; RESP 17–30; TEMP 36.4–37.4; O2SAT 78–98
[2022-01-28] MEDS: Dextrose 50%-Water 25 GM/50 ML DISP.SYRIN IV ×3 (02:06→10:06)
--- NOTE | 2022-01-28 02:09 | NURSING ---
accucheck 62 . 12.5 of dextrose given
[2022-01-28 02:21] LABS: Bedside Glucose 63 mg/dL (74-106)
--- NOTE | 2022-01-28 02:26 | NURSING ---
Pulse ox drop to 88% on 2lnc. Pt sleeps with mouth open. 02 increase to 3lnc. po 94 then
[2022-01-28 03:30] LABS: Absolute Neutrophil Count 14.1 X10^3/uL (2.0-7.7); Basophil# 0.04 X10^3/uL; Basophil% 0.3 % (0-1); Eosinophil# 0.09 X10^3/uL; Eosinophils% 0.6 % (0-5); Hematocrit 24.8 % (40-54); Lymphocyte % 3.2 % (19-41); Mean Corp Hgb Conc 32.3 g/dL (32-36); Mean Corpuscular Hgb 33.3 pg (27.0-32.0); Mean Corpuscular Volume 103.3 fL (80-94); Mean Platelet Vol. 11.8 fl (6.2-12.0); Monocyte# 0.63 X10^3/uL; Monocyte% 4.1 % (0-10); NRBC Flagged by Analyzer 0 % (0-5); Neutrophil % 91.2 % (47-70); POSITIVE DIFFERENTIAL YES; POSITIVE MORPHOLOGY YES; Platelet Count 130 K/mm3 (150-450); RBC Distribution Width SD 79.6 fl (35.1-43.9); White Blood Count 15.5 K/mm3 (4.4-11.0)
[2022-01-28 03:38] LABS: Differential Indicated SCAN CRITERIA MET
[2022-01-28 04:14] LABS: Anisocytosis 2+; Differential Comment SCANNED; Macrocytosis 2+
[2022-01-28 04:33] LABS: Anion Gap 5 (5-15); BUN 61 mg/dL (7-18); BUN/Creat Ratio 11.5 RATIO (10-20); Calcium,Total 8.7 mg/dL (8.5-10.1); Chloride 96 mmol/L (98-107); Creatinine, Serum 5.31 mg/dL (0.70-1.30); EST Glomerular Filtration Rate 11 mL/min (>60); Est Glom Filt Rate - Afr Amer 14 mL/min (>60); Estimated Creatinine Clearance 11.36 ml/min; Glucose 87 mg/dL (74-106); Potassium 3.9 mmol/L (3.5-5.1); Sodium Level 135 mmol/L (136-145)
--- NOTE | 2022-01-28 04:34 | NURSING ---
po 88% on ra. 02 increased to 4lnc
--- NOTE | 2022-01-28 06:12 | EX.PCM.CON.S ---
Assessment & Plan Assessment/Plan (1) Problem with dialysis access: PLAN: The patient's left upper extremity fistula appears to be functioning adequately to allow for hemodialysis and may be utilized. 1 could consider the arterial side closer to the anastomosis and the return side even potentially in the left upper arm. This patient appears to have multiple significant medical comorbidities and he appears to be wasting and malnourished. Hopefully primary care is addressing end-of-life discussions with him. Karthikeyan Cortes M.D., F.A.C.S. HPI Consult Data Date of Consult: 01/28/22 HPI Narrative Reason for Consultation: Assessment of usability of left upper extremity arteriovenous hemodialysis HPI Narrative: FLAQUITO GORDON, is a 76 M who presents with unresponsiveness. I have been specifically asked as to whether his left upper extremity arteriovenous hemodialysis fistula can be utilized for dialysis. The patient has previously been seen by Dr. Macario Castillo and Dr. Jean-Pierre Buckley for vascular issues. He was seen in my office on December 10, 2021 by Idalia Collado PA-C for left arm swelling. It is of note that at that time his left arm swelling was significantly more dramatic than what he is currently. He had a duplex imaging exam on the same day. This demonstrated patency of the left upper chimney fistula with high flow noted. The patient was felt to be cleared to utilize a fistula at that time with recommendations for gentle compression therapy and arm elevation. The patient was seen back in the office January 07, 2022 by Idalia Collado PA-C with reports that there had been no trouble with dialysis over the ensuing month. There was a good pulse thrill and bruit. There is evidence of some recent infiltration. Warm compresses were recommended. No fistula intervention was felt to be indicated. The patient is currently denying any left upper extremity pain. [facility] Medical History Anticoagulated Bilateral renal artery stenosis Chronic anemia Dialysis patient Edema of left forearm ESRD (end stage renal disease) on dialysis Essential hypertension GERD (gastroesophageal reflux disease) GI bleed (11/2021) Hyperlipidemia Ischemic cerebrovascular accident (CVA) (01/2021) Non-ischemic cardiomyopathy Non-traumatic rhabdomyolysis Peripheral arterial disease Peripheral vascular occlusive disease Persistent atrial fibrillation Polycystic kidney disease Renal artery stenosis Secondary pulmonary arterial hypertension Home Medications cinacalcet 60 mg tablet (Sensipar) 60 mg PO PRN PRN IPTH 10/09/14 [History Last Taken 01/27/22] apixaban 2.5 mg tablet 2.5 mg PO BID 11/29/21 [History Last Taken 01/27/22] atorvastatin 40 mg tablet 40 mg PO QHS 11/29/21 [History Last Taken 01/26/22] metoprolol tartrate 50 mg tablet 50 mg PO BID 11/29/21 [History Last Taken 01/27/22] pantoprazole 40 mg tablet,delayed release 40 mg PO BID 60 days #120 tabs 12/04/21 [Rx Last Taken 01/27/22] vitamin B complex-vitamin C-folic acid 0.8 mg tablet 1 tab PO DAILY SUPPLEMENT 01/27/22 [History Last Taken 01/27/22] Allergy/AdvReac Type Severity Reaction Status Date / Time No Known Allergies Allergy Verified 01/27/22 10:51 Family History Mother Heart disease Father Heart disease Surgical History Amputation of toe History of angioplasty of peripheral vessel (09/10/21) History of bilateral cataract extraction History of tonsillectomy History of transmetatarsal amputation of left foot S/P arteriovenous (AV) fistula creation Social History housing: halfway Smoking Status: Never smoker alcohol intake: never substance use type: does not use ROS ROS Narrative The patient is confused and not able to provide me with an accurate review of systems. He simply states he is not in any discomfort or pain. He is denying shortness of breath or chest pain Physical Exam Narrative Patient appears to be markedly cachectic. There is diffuse muscle wasting. Retraction as he breathes. Extremity Extremity Narrative: Left upper extremity has evidence of a forearm AV fistula with seemingly to outflow tracts. There are some mild ecchymosis in the mid forearm. Evidence of some tape injury or self excoriation. The cephalic vein of the upper arm is pulsatile but patent. There is a strong pulse and thrill and bruit close to the origin of the fistula. There is mild swelling of the proximal forearm. This is markedly improved from previously Lab / Micro Data Result Diagrams: 01/28/22 03:20 01/28/22 03:20 Labs: Laboratory Results - last 24 hr 01/27/22 11:45: WBC 9.8, RBC 2.81 L, Hgb 9.4 L, Hct 29.7 L, MCV 105.7 H, MCH 33.5 H, MCHC 31.6 L, RDW Std Deviation 79.9 H, RDW Coeff of Sue 20.8 H, Plt Count 136 L, MPV 12.3 H, Immature Gran % (Auto) 0.400, Neut % (Auto) 83.1 H, Lymph % (Auto) 8.4 L, [place] % (Auto) 5.5, Eos % (Auto) 2.2, Baso % (Auto) 0.4, Absolute Neuts (auto) 8.1 H, Absolute Lymphs (auto) 0.82 L, Nucleated RBC % 0.2, Differential Comment SCANNED, Hypochromasia 1+, Anisocytosis 2+, Microcytosis 1+, Macrocytosis 1+ 01/27/22 11:45: PT 18.3 H, INR 1.6, APTT 51.5 H 01/27/22 11:45: Sodium 135 L, Potassium 3.5, Chloride 95 L, Carbon Dioxide 30.0, Anion Gap 10, BUN 54 H, Creatinine 4.86 H, Estim Creat Clear Calc 12.64, Est GFR (MDRD) Af Amer 15 L, Est GFR (MDRD) Non-Af 13 L, BUN/Creatinine Ratio 11.1, Glucose 77, Calcium 9.0, Total Bilirubin 0.40, Direct Bilirubin 0.23, AST 20, ALT 13 L, Alkaline Phosphatase 154 H, Troponin I High Sens 27, Total Protein 6.5, Albumin 1.9 L, Globulin 4.6 H, Lipase 49 L 01/27/22 11:45: Lactic Acid 6.9 H* 01/27/22 16:52: Lactic Acid 2.0 01/27/22 21:08: POC Glucose 62 L 01/28/22 02:03: POC Glucose 63 L 01/28/22 03:20: WBC 15.5 H, RBC 2.40 L, Hgb 8.0 L, Hct 24.8 L, MCV 103.3 H, MCH 33.3 H, MCHC 32.3, RDW Std Deviation 79.6 H, RDW Coeff of Sue 21.0 H, Plt Count 130 L, MPV 11.8, Immature Gran % (Auto) 0.600, Neut % (Auto) 91.2 H, Lymph % (Auto) 3.2 L, [place] % (Auto) 4.1, Eos % (Auto) 0.6, Baso % (Auto) 0.3, Absolute Neuts (auto) 14.1 H, Absolute Lymphs (auto) 0.50 L, Nucleated RBC % 0, Differential Comment SCANNED, Anisocytosis 2+, Macrocytosis 2+ 01/28/22 03:20: Sodium 135 L, Potassium 3.9, Chloride 96 L, Carbon Dioxide 34.0 H, Anion Gap 5, BUN 61 H, Creatinine 5.31 H, Estim Creat Clear Calc 11.36, Est GFR (MDRD) Af Amer 14 L, Est GFR (MDRD) Non-Af 11 L, BUN/Creatinine Ratio 11.5, Glucose 87, Calcium 8.7 Radiology Impression Chest X-Ray 01/27/22 12:12 IMPRESSION: Cardiomegaly with moderate pulmonary edema and pleural effusions. Electronically Signed: Antonella Banerjee MD at 12:31 EST ,
[2022-01-28] MEDS: 0.9% Saline Lock 10 ML Syringe IV ×3 (06:36→21:13)
[2022-01-28 06:50] LABS: Bedside Glucose 63 mg/dL (74-106)
--- NOTE | 2022-01-28 07:40 | NURSING ---
Dr. Lincoln made aware of sepsis alert, blood cultures were obtained in ED, antibiotics started, per Dr. Lincoln no fluids to be ordered
--- NOTE | 2022-01-28 07:42 | PN.HOSP_ITS ---
Subjective Subjective Follow-up for volume overload, pulm pulmonary edema and pleural effusions complicated with hypotension and syncope. Patient was hypotensive on EMS arrival. Patient is getting hemodialysis. Blood pressure is still low in systolic 90s Objective Data Objective Data Vital Signs: Vital Signs Temp Pulse Resp BP Pulse Ox O2 Del Method O2 Flow Rate 97.6 F L 70 27 H 89/61 L 94 Nasal Cannula 4 01/28/22 07:00 01/28/22 07:00 01/28/22 07:00 01/28/22 07:00 01/28/22 07:00 01/28/22 07:00 01/28/22 07:00 FiO2 4 01/27/22 19:52 Oxygen Flow Rate (L/min) 4 Oxygen Delivery Method Nasal Cannula Weight: 149 lb 7.574 oz Body Mass Index (BMI) 19.4 Intake & Output: Intake and Output for Last 24 Hours 01/26/22 01/27/22 01/28/22 23:59 23:59 23:59 Intake Total 300 / 300 60 / 60 Output Total 0 / 0 Balance 300 / 300 60 / 60 Lab / Micro Data Result Diagrams: 01/28/22 03:20 01/28/22 03:20 Labs: Laboratory Results - last 24 hr 01/27/22 11:45: WBC 9.8, RBC 2.81 L, Hgb 9.4 L, Hct 29.7 L, MCV 105.7 H, MCH 33.5 H, MCHC 31.6 L, RDW Std Deviation 79.9 H, RDW Coeff of Sue 20.8 H, Plt Count 136 L, MPV 12.3 H, Immature Gran % (Auto) 0.400, Neut % (Auto) 83.1 H, Lymph % (Auto) 8.4 L, [place] % (Auto) 5.5, Eos % (Auto) 2.2, Baso % (Auto) 0.4, Absolute Neuts (auto) 8.1 H, Absolute Lymphs (auto) 0.82 L, Nucleated RBC % 0.2, Differential Comment SCANNED, Hypochromasia 1+, Anisocytosis 2+, Microcytosis 1+, Macrocytosis 1+ 01/27/22 11:45: PT 18.3 H, INR 1.6, APTT 51.5 H 01/27/22 11:45: Sodium 135 L, Potassium 3.5, Chloride 95 L, Carbon Dioxide 30.0, Anion Gap 10, BUN 54 H, Creatinine 4.86 H, Estim Creat Clear Calc 12.64, Est GFR (MDRD) Af Amer 15 L, Est GFR (MDRD) Non-Af 13 L, BUN/Creatinine Ratio 11.1, Glucose 77, Calcium 9.0, Total Bilirubin 0.40, Direct Bilirubin 0.23, AST 20, ALT 13 L, Alkaline Phosphatase 154 H, Troponin I High Sens 27, Total Protein 6.5, Albumin 1.9 L, Globulin 4.6 H, Lipase 49 L 01/27/22 11:45: Lactic Acid 6.9 H* 01/27/22 16:52: Lactic Acid 2.0 01/27/22 21:08: POC Glucose 62 L 01/28/22 02:03: POC Glucose 63 L 01/28/22 03:20: WBC 15.5 H, RBC 2.40 L, Hgb 8.0 L, Hct 24.8 L, MCV 103.3 H, MCH 33.3 H, MCHC 32.3, RDW Std Deviation 79.6 H, RDW Coeff of Sue 21.0 H, Plt Count 130 L, MPV 11.8, Immature Gran % (Auto) 0.600, Neut % (Auto) 91.2 H, Lymph % (Auto) 3.2 L, [place] % (Auto) 4.1, Eos % (Auto) 0.6, Baso % (Auto) 0.3, Absolute Neuts (auto) 14.1 H, Absolute Lymphs (auto) 0.50 L, Nucleated RBC % 0, Differential Comment SCANNED, Anisocytosis 2+, Macrocytosis 2+ 01/28/22 03:20: Sodium 135 L, Potassium 3.9, Chloride 96 L, Carbon Dioxide 34.0 H, Anion Gap 5, BUN 61 H, Creatinine 5.31 H, Estim Creat Clear Calc 11.36, Est GFR (MDRD) Af Amer 14 L, Est GFR (MDRD) Non-Af 11 L, BUN/Creatinine Ratio 11.5, Glucose 87, Calcium 8.7 01/28/22 06:32: POC Glucose 63 L Radiography Diagnostic Testing: Radiology Impression Chest X-Ray 01/27/22 12:12 IMPRESSION: Cardiomegaly with moderate pulmonary edema and pleural effusions. Electronically Signed: Antonella Banerjee MD at 12:31 EST , Physical Exam Narrative Physical exam General: Alert, Oriented x3, Cooperative HEENT: Atraumatic, PERRLA, EOMI, Normocephalic Oral: No Gingival or Mucosal Lesions/ Ulcerations Neck: Supple, No JVD, Negative Carotid Bruits Lungs: Air entry diminished in bilateral lung bases. No crepitation/rhonchi Cardiovascular: Regular rate, Regular Rhythm, Normal S1, Normal S2, No murmurs Abdomen: Bowel Sounds Present, Soft, Non Tender, Non-Distended : No renal angle tenderness. No suprapubic tenderness. Extremities: No edema, Capillary Refill Less than 3 Seconds Skin: Mild purplish/pressure over the surgical scar site of Left transmetatarsal amputation. No ulcer. Musculoskeletal: No Tenderness to Palpation of Joints or Extremities Neurological: Cranial nerves II-XII grossly intact, DTR 2+/4 and Symmetrical, Neuro grossly intact Psych/Mental Status: Normal Affect, Appropriate. Assessment & Plan Assessment/Plan (1) Episode of unresponsiveness: PLAN: Plan This 76-year-old gentleman was brought by EMS as patient passed out, syncope during hemodialysis. His pressure was low. 1. Volume overload/pulmonary edema complicated with hypotension-secondary to end-stage renal disease: Chest x-ray mutilative shows bilateral pleural effusion and pulmonary edema. Patient is being admitted in ICU. On 3 to 4 L of oxygen. Currently getting hemodialysis. Patient might have passed out due to hypotension. #2 hypotension with end-stage renal disease-patient seen by torch straightener and heater. Patient was dialyzed about 2 hours before he passed out he has left arm AV fistula. #3 episode of unresponsiveness during dialysis on day of admission and concern/possibility of sepsis: Etiology unclear probably due to hypotension. Patient does not look septic or toxic at time of admission. Blood cultures are pending. Empirically started on IV antibiotic. Elevated lactic acid. There is concern of gram-positive sepsis as per addiction nurse. #4 cerebrovascular disease-it appears the patient may have some aphasia due to this, complicates care, management, recovery, and prognosis #5 persistent atrial fibrillation-patient is currently on rate limiting agents and apixaban. 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 Discussed with the wound nurse , Radha. There is small purplish discoloration around suture line on the left site of transmetatarsal amputation. She discussed with the installation superintendent Dr. Beebe and he suggested Jamel wrap bandage with no pressure. 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 Glucose is on lower side in 60s. Laboratory Results 01/27/22 16:52: Lactic Acid 2.0 01/27/22 21:08: POC Glucose 62 L 01/28/22 02:03: POC Glucose 63 L 01/28/22 03:20: WBC 15.5 H, RBC 2.40 L, Hgb 8.0 L, Hct 24.8 L, MCV 103.3 H, MCH 33.3 H, MCHC 32.3, RDW Std Deviation 79.6 H, RDW Coeff of Sue 21.0 H, Plt Count 130 L, MPV 11.8, Immature Gran % (Auto) 0.600, Neut % (Auto) 91.2 H, Lymph % (Auto) 3.2 L, [place] % (Auto) 4.1, Eos % (Auto) 0.6, Baso % (Auto) 0.3, Absolute Neuts (auto) 14.1 H, Absolute Lymphs (auto) 0.50 L, Nucleated RBC % 0, Dif ferential Comment SCANNED, Anisocytosis 2+, Macrocytosis 2+ 01/28/22 03:20: Sodium 135 L, Potassium 3.9, Chloride 96 L, Carbon Dioxide 34.0 H, Anion Gap 5, BUN 61 H, Creatinine 5.31 H, Estim Creat Clear Calc 11.36, Est GFR (MDRD) Af Amer 14 L, Est GFR (MDRD) Non-Af 11 L, BUN/Creatinine Ratio 11.5, Glucose 87, Calcium 8.7 01/28/22 06:32: POC Glucose 63 L 01/28/22 10:03: POC Glucose 61 L 01/28/22 10:38: POC Glucose 87 01/28/22 10:41: POC Glucose 77 01/28/22 13:13: POC Glucose 61 L . Charges/Coding Visit Charges Inpatient E&M: 85699 Subs Hosp L3
--- NOTE | 2022-01-28 09:35 | DIALYSIS ---
Report from primary, Diana Martinez. Access: Left lower arm AVF: Site swollen and bruised d/t prior infiltration. Vascular surgeon assessed AVF and wrote AVF can be used. Cannulated AVF with 15 gauge needles without issue. Arterial needle cannulated closer to anastomosis. Venous needle cannulated just above aneurysm. Patient adamant that he did not want venous needle higher in the arm. This RN, educated patient the reason aneurysm should not be cannulated. [place] taped securely to patient's arm.
--- NOTE | 2022-01-28 09:39 | CASEMGMT ---
Discharge Rnp AMADO reached out. Tigist stated that patient family had chose to go with [facility]. HIRA Cardoza notified. Owen SOOD [employer]
--- NOTE | 2022-01-28 10:00 | CON.PCM.CC_ITS ---
Assessment & Plan Assessment/Plan (1) Volume overload: (2) Secondary pulmonary arterial hypertension: PLAN: Plan RECOMMENDATIONS: 1. Await blood cultures. Initiate Vanco and Zosyn 2. Hold on fluid boluses 3. Attempt hemodialysis with volume removal 4. Wean oxygen as tolerated 5. Monitor in intensive care unit given possible decompensation IMPRESSIONS: 1. Possible sepsis Patient with marginal blood pressures and known dialysis. Some concern for gram-positive sepsis. We will start empiric antibiotics. Fluid resuscitation will be held given patient's finding on chest x-ray, new oxygen requirements and concern for worsening in congestive heart failure. Cannot exclude the need for transfer for [facility] if unable to tolerate conventional dialysis. Patient does have significant swelling of the fistula site, but fluctuance is not noted. Endorgan damage noted by elevated lactate. Patient has end-stage renal disease making creatinine unhelpful. 2. Syncopal event Patient with a syncopal event during hemodialysis. Unclear if this is related to volume removal, problem #1 or cardiac arrhythmia. Patient will be kept on telemetry. No significant changes have been noted. Patient was hypotensive and bradycardic on presentation 3. Persistent A. fib/acute on chronic systolic CHF Patient with a known ejection fraction of 25%. Chest x-ray does show findings consistent with volume overload. Dialysis is being attempted at this time. We will hold on any fluid boluses as this could lead to respiratory failure. Wean supplemental oxygen as tolerated. Cannot exclude the need for a thoracentesis, but pleural effusions do not appear to be the predominant etiology of his hypoxia. Patient is chronically anticoagulated with Eliquis. 4. Hypertension/peripheral vascular disease/secondary pulmonary hypertension/advanced age/type 2 diabetes mellitus/debility Complicates care, management, recovery and prognosis. Antihypertensives have been held secondary to problem #1. Okay to continue with anticoagulation for now. We will need to watch blood sugars closely, but hypoglycemia has been more of an issue. This may be secondary to problem #1. HPI Consult Data Date of Consult: 01/28/22 HPI Narrative Reason for Consultation: Syncopal event HPI Narrative: FLAQUITO GORDON is a 76 M, with past medical history listed below, who presents from a nursing facility on 01/27/2022 after becoming unresponsive during dialysis. Patient has a history of end-stage renal disease and gets dialysis within his SNF. Background history is unclear on what his typical heart rate and blood pressure are. Patient was confused and unable to provide much ad ditional information. Patient reportedly was hypotensive on EMS arrival. Patient is on Eliquis in the past secondary to A. fib and does see Dr. Quinteros for nephrology. In the ER, patient was afebrile, but hypotensive at 81/49 with a heart rate in the 40s. Patient was requiring 6 L nasal cannula to maintain saturations initially. Laboratory work-up showed a white blood cell count of 9.8, hemogl obin of 9.4 and platelets of 136. INR was elevated at 1.6 and creatinine was 4.86. Patient was noted to have a glucose of 77 and a potassium of 3.5. Initial lactate was 6.9. Chest x-ray was consistent with moderate pulmonary edema with bilateral pleural effusions and EKG confirmed A. fib with a ventricular rate of 59. Given elevated lactate, patient was admitted to the intensive care unit for further evaluation. Overnight, patient did have some hypoglycemia requiring intermittent boluses of glucose. There was some plans to initiate dialysis, but this was held secondary to concerns for the fistula. This morning, the fistula was examined by surgery and thought to be appropriate for dialysis. On my evaluation, patient was confused not able to provide much additional information. Patient had not been placed on antibiotics and oxygen requirements have remained stable at 4 L/min. [facility] Medical History Anticoagulated Bilateral renal artery stenosis Chronic anemia Dialysis patient Edema of left forearm ESRD (end stage renal disease) on dialysis Essential hypertension GERD (gastroesophageal reflux disease) GI bleed (11/2021) Hyperlipidemia Ischemic cerebrovascular accident (CVA) (01/2021) Non-ischemic cardiomyopathy Non-traumatic rhabdomyolysis Peripheral arterial disease Peripheral vascular occlusive disease Persistent atrial fibrillation Polycystic kidney disease Renal artery stenosis Secondary pulmonary arterial hypertension Home Medications cinacalcet 60 mg tablet (Sensipar) 60 mg PO PRN PRN IPTH 10/09/14 [History Last Taken 01/27/22] apixaban 2.5 mg tablet 2.5 mg PO BID 11/29/21 [History Last Taken 01/27/22] atorvastatin 40 mg tablet 40 mg PO QHS 11/29/21 [History Last Taken 01/26/22] metoprolol tartrate 50 mg tablet 50 mg PO BID 11/29/21 [History Last Taken 01/27/22] pantoprazole 40 mg tablet,delayed release 40 mg PO BID 60 days #120 tabs 12/04/21 [Rx Last Taken 01/27/22] vitamin B complex-vitamin C-folic acid 0.8 mg tablet 1 tab PO DAILY SUPPLEMENT 01/27/22 [History Last Taken 01/27/22] Allergy/AdvReac Type Severity Reaction Status Date / Time No Known Allergies Allergy Verified 01/27/22 10:51 Family History Mother Heart disease Father Heart disease Surgical History Amputation of toe History of angioplasty of peripheral vessel (09/10/21) History of bilateral cataract extraction History of tonsillectomy History of transmetatarsal amputation of left foot S/P arteriovenous (AV) fistula creation Social History housing: long term Smoking Status: Never smoker alcohol intake: never substance use type: does not use ROS Review of Systems ROS Unobtainable: due to mental status Physical Exam Const alert and no apparent distress Constitutional Narrative: Patient appears older than his stated age, he appears cachectic. Patient oriented to self only General Appearance: cooperative Orientation / Consciousness: awake HEENT normocephalic, head/scalp atraumatic and moist oral mucous membranes HEENT Narrative: Patient is extremely hard of hearing. Some temporal wasting noted Eyes PERRL, EOMs intact bilaterally and conjunctivae normal Neck supple, thyroid normal and no carotid bruits General: trachea midline Resp normal respiratory effort, no retractions, no use of accessory muscles and clear to auscultation bilaterally Auscultation: Negative for rales, rhonchi or wheezes Cardio S1 normal heart sound, S2 normal heart sound, no murmurs, no rub and no gallops Cardio Narrative: Heart rate and rhythm is irregular GI normal to inspection, nondistended, normoactive bowel sounds, soft to palpation, non-tender and non-distended Extremity Extremity Narrative: Patient's left forearm around his fistula area is swollen as compared with his right forearm. 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 Partial wound healing noted. Skin Skin Narrative: Patient has a partial amputation of his left foot, his bandages were not removed for examination of the area General Skin Exam: no breakdown Neuro CN's II-XII intact bilaterally, no focal motor deficits and no sensory deficits noted Neuro Narrative: Patient has an element of expressive aphasia which is also complicated by the patient's extreme hearing loss Sensorium / Orientation: awake and alert Speech: speech normal Psych affect normal Lab / Micro Data Attestation: I reviewed the patient's lab results. Result Diagrams: 01/28/22 03:20 01/28/22 03:20 Labs: Laboratory Results - last 24 hr 01/27/22 11:45: WBC 9.8, RBC 2.81 L, Hgb 9.4 L, Hct 29.7 L, MCV 105.7 H, MCH 33.5 H, MCHC 31.6 L, RDW Std Deviation 79.9 H, RDW Coeff of Sue 20.8 H, Plt Count 136 L, MPV 12.3 H, Immature Gran % (Auto) 0.400, Neut % (Auto) 83.1 H, Lymph % (Auto) 8.4 L, [place] % (Auto) 5.5, Eos % (Auto) 2.2, Baso % (Auto) 0.4, Absolute Neuts (auto) 8.1 H, Absolute Lymphs (auto) 0.82 L, Nucleated RBC % 0.2, Differential Comment SCANNED, Hypochromasia 1+, Anisocytosis 2+, Microcytosis 1+, Macrocytosis 1+ 01/27/22 11:45: PT 18.3 H, INR 1.6, APTT 51.5 H 01/27/22 11:45: Sodium 135 L, Potassium 3.5, Chloride 95 L, Carbon Dioxide 30.0, Anion Gap 10, BUN 54 H, Creatinine 4.86 H, Estim Creat Clear Calc 12.64, Est GFR (MDRD) Af Amer 15 L, Est GFR (MDRD) Non-Af 13 L, BUN/Creatinine Ratio 11.1, Glucose 77, Calcium 9.0, Total Bilirubin 0.40, Direct Bilirubin 0.23, AST 20, ALT 13 L, Alkaline Phosphatase 154 H, Troponin I High Sens 27, Total Protein 6.5, Albumin 1.9 L, Globulin 4.6 H, Lipase 49 L 01/27/22 11:45: Lactic Acid 6.9 H* 01/27/22 16:52: Lactic Acid 2.0 01/27/22 21:08: POC Glucose 62 L 01/28/22 02:03: POC Glucose 63 L 01/28/22 03:20: WBC 15.5 H, RBC 2.40 L, Hgb 8.0 L, Hct 24.8 L, MCV 103.3 H, MCH 33.3 H, MCHC 32.3, RDW Std Deviation 79.6 H, RDW Coeff of Sue 21.0 H, Plt Count 130 L, MPV 11.8, Immature Gran % (Auto) 0.600, Neut % (Auto) 91.2 H, Lymph % (Auto) 3.2 L, [place] % (Auto) 4.1, Eos % (Auto) 0.6, Baso % (Auto) 0.3, Absolute Neuts (auto) 14.1 H, Absolute Lymphs (auto) 0.50 L, Nucleated RBC % 0, Differential Comment SCANNED, Anisocytosis 2+, Macrocytosis 2+ 01/28/22 03:20: Sodium 135 L, Potassium 3.9, Chloride 96 L, Carbon Dioxide 34.0 H, Anion Gap 5, BUN 61 H, Creatinine 5.31 H, Estim Creat Clear Calc 11.36, Est GFR (MDRD) Af Amer 14 L, Est GFR (MDRD) Non-Af 11 L, BUN/Creatinine Ratio 11.5, Glucose 87, Calcium 8.7 01/28/22 06:32: POC Glucose 63 L Radiology Impression Chest X-Ray 01/27/22 12:12 IMPRESSION: Cardiomegaly with moderate pulmonary edema and pleural effusions. Electronically Signed: Antonella Banerjee MD at 12:31 EST , Charges/Coding Visit Charges Inpatient E&M: [id number] Init Hosp L3
[2022-01-28 10:21] LABS: Bedside Glucose 61 mg/dL (74-106)
[2022-01-28 11:11] LABS: Bedside Glucose 87 mg/dL (74-106)
[2022-01-28 11:11] LABS: Bedside Glucose 77 mg/dL (74-106)
--- NOTE | 2022-01-28 12:05 | WOUNDNOTE ---
wound photo: left foot
--- NOTE | 2022-01-28 12:54 | DIALYSIS ---
Tx complete. 3 hour run, 3k bath. Net fluid removed = 2000 ml. Patient tolerated HD tx fairly well. Patient's SBP 80-90 mmHg throughout treatment. Left lower arm AVF: Site remains swollen and bruised. Needle site pressure held 10 min each. Hemostasis achieved. Patient remains confused. Report given to primary RN, Diana Martinez
--- NOTE | 2022-01-28 13:07 | PCM.CONS.R ---
Documented by User: [email or web address] Arguelles 01/28/22 13:25 Assessment & Plan Assessment/Plan (1) ESRD (end stage renal disease) on dialysis: (2) Volume overload: (3) Anemia of chronic disease: (4) Essential hypertension: (5) Secondary pulmonary arterial hypertension: PLAN: Plan Patient was transferred from the long-term to the emergency room for evaluation of episode of unresponsiveness/confusion during dialysis yesterday. Work-up in the emergency room noted, patient admitted to ICU for concern for sepsis, volume overload/pulmonary edema. Patient did undergo dialysis today over 3 hours and tolerated 2 L of fluid removal. We will plan for hemodialysis again tomorrow and attempt fluid removal as patient/blood pressure tolerates. Patient dialyzes at [facility] on a Thursday schedule. Recently he has been shortening his dialysis sessions which likely has led to volume overload. Patient is now on nasal canula 3L. His blood pressures are low, metoprolol is on hold. Will start midodrine. Blood cultures are pending, patient is on IV antibiotics, Zosyn. Patient has a history of anemia of chronic disease and receives RITIKA at dialysis. We will continue to monitor hemoglobin trends. Patient has left UA AVF and was evaluated by Dr. Cortes today for left upper arm swelling concern; no intervention at this time. HD RN had no issues with cannulating AVF today. Further orders forthcoming as hospitalizations evolves. Assessment & Plan (1) Volume overload: (2) Secondary pulmonary arterial hypertension: Plan Patient was transferred from the long-term to the emergency room for evaluation of episode of unresponsiveness/confusion during dialysis yesterday. Work-up in the emergency room noted, patient admitted to ICU for concern for sepsis, volume overload/pulmonary edema. Patient did undergo dialysis today over 3 hours and tolerated 2 L of fluid removal. We will plan for hemodialysis again tomorrow and attempt fluid removal as patient/blood pressure tolerates. Patient dialyzes at [facility] on a Thursday schedule. Recently he has been shortening his dialysis sessions which likely has led to volume overload. Patient is now on nasal canula 3L. His blood pressures are low, metoprolol is on hold. Will start midodrine. Blood cultures are pending, patient is on IV antibiotics, Zosyn. Patient has a history of anemia of chronic disease and receives RITIKA at dialysis. We will continue to monitor hemoglobin trends. Patient has left UA AVF and was evaluated by Dr. Cortes today for left upper arm swelling concern; no intervention at this time. HD RN had no issues with cannulating AVF today. Further orders forthcoming as hospitalizations evolves. Plan Detail Assessment: The patient is seen after hemodialysis. We were able to take off 2 L today without significant change in his blood pressure. The patient appears to be comfortable on 2 L nasal cannula oxygen tonight. AV fistula was examined. There is large pseudoaneurysm in the midportion AV fistula although the skin above the pseudoaneurysm does not appear to be shiny. There is thorough proximal to the pseudoaneurysms. We will reassess the patient for further volume removal tomorrow. HPI Consult Data Date of Consult: 01/28/22 HPI Narrative HPI Narrative: FLAQUITO GORDON, is a 76 M with past medical history for ESRD, PVD, anemia of chronic disease who had been residing at [facility] for rehab, was also receiving hemodialysis at the long-term when yesterday patient was noted to have episode of unresponsiveness/confusion during dialysis therefore he was transferred to the emergency room for further evaluation and treatment. Patient dialyzed roughly 2hours yesterday at the long-term. He is very hard or hearing therefore information is gathered from the chart. Patient was admitted to ICU for fluid overload/pulmonary edema. [facility] Medical History Anticoagulated Bilateral renal artery stenosis Chronic anemia Dialysis patient Edema of left forearm ESRD (end stage renal disease) on dialysis Essential hypertension GERD (gastroesophageal reflux disease) GI bleed (11/2021) Hyperlipidemia Ischemic cerebrovascular accident (CVA) (01/2021) Non-ischemic cardiomyopathy Non-traumatic rhabdomyolysis Peripheral arterial disease Peripheral vascular occlusive disease Persistent atrial fibrillation Polycystic kidney disease Renal artery stenosis Secondary pulmonary arterial hypertension Home Medications cinacalcet 60 mg tablet (Sensipar) 60 mg PO PRN PRN IPTH 10/09/14 [History Last Taken 01/27/22] apixaban 2.5 mg tablet 2.5 mg PO BID 11/29/21 [History Last Taken 01/27/22] atorvastatin 40 mg tablet 40 mg PO QHS 11/29/21 [History Last Taken 01/26/22] metoprolol tartrate 50 mg tablet 50 mg PO BID 11/29/21 [History Last Taken 01/27/22] pantoprazole 40 mg tablet,delayed release 40 mg PO BID 60 days #120 tabs 12/04/21 [Rx Last Taken 01/27/22] vitamin B complex-vitamin C-folic acid 0.8 mg tablet 1 tab PO DAILY SUPPLEMENT 01/27/22 [History Last Taken 01/27/22] Allergy/AdvReac Type Severity Reaction Status Date / Time No Known Allergies Allergy Verified 01/27/22 10:51 Family History Mother Heart disease Father Heart disease Surgical History Amputation of toe History of angioplasty of peripheral vessel (09/10/21) History of bilateral cataract extraction History of tonsillectomy History of transmetatarsal amputation of left foot S/P arteriovenous (AV) fistula creation Social History housing: long-term Smoking Status: Never smoker alcohol intake: never substance use type: does not use ROS ROS Narrative as in HPI and PMH Physical Exam Narrative Const: Alert to name. Confused to place and time. No apparent distress Cardio: S1-S2 RRR Respiratory: Lung sounds diminished posterior bases. Faint rhonchi. On O2 GI: Abdomen soft, nontender, positive bowel sounds Extremities: No edema noted to bilateral lower legs, thighs, feet. AV fistula left arm positive thrill and bruit. Jamel wrap intact/dry left foot Medical Records Data Medical Nutrition Assessment Dietitian: Malnutrition Criteria Met Start: 01/28/22 10:30 Freq: Status: Active Protocol: Document 01/28/22 10:30 AG (Rec: 01/28/22 10:30 AG [id number]) Nutrition Malnutrition Evidence of Malnutrition Exists Yes Malnutrition (severe): Acute Illness/Injury Evidenced By Suboptimal Energy Intake ( Severe),Weight Loss (Severe) Clinical Problem Acute Disease or Injury Related Malnutrition Etiology severe, acute malnutrition related to inadequate energy intake w/ increased energy needs d/t chronic dialysis Signs/Symptoms as evidenced by reported PO intake meeting <75% of estimated energy needs > 1 week; unintentional wt loss of 10.5#/6.5% wt loss < 1 month Status Active Problem Recommendation Dietitian Recommendations/Changes recommend renal-general diet- texture/consistency per PROVIDER RELATIONS REPRESENTATIVE; Paul BID for wounds, Nepro 240mL BID w/ breakfast and dinner for additional calories /protein if consumed given signs/symptoms of malnutrition . Lab / Micro Data Result Diagrams: 01/28/22 03:20 01/28/22 03:20 Labs: Laboratory Results - last 24 hr 01/27/22 11:45: Differential Comment SCANNED, Hypochromasia 1+, Anisocytosis 2+, Microcytosis 1+, Macrocytosis 1+ 01/27/22 16:52: Lactic Acid 2.0 01/27/22 21:08: POC Glucose 62 L 01/28/22 02:03: POC Glucose 63 L 01/28/22 03:20: WBC 15.5 H, RBC 2.40 L, Hgb 8.0 L, Hct 24.8 L, MCV 103.3 H, MCH 33.3 H, MCHC 32.3, RDW Std Deviation 79.6 H, RDW Coeff of Sue 21.0 H, Plt Count 130 L, MPV 11.8, Immature Gran % (Auto) 0.600, Neut % (Auto) 91.2 H, Lymph % (Auto) 3.2 L, [place] % (Auto) 4.1, Eos % (Auto) 0.6, Baso % (Auto) 0.3, Absolute Neuts (auto) 14.1 H, Absolute Lymphs (auto) 0.50 L, Nucleated RBC % 0, Differential Comment SCANNED, Anisocytosis 2+, Macrocytosis 2+ 01/28/22 03:20: Sodium 135 L, Potassium 3.9, Chloride 96 L, Carbon Dioxide 34.0 H, Anion Gap 5, BUN 61 H, Creatinine 5.31 H, Estim Creat Clear Calc 11.36, Est GFR (MDRD) Af Amer 14 L, Est GFR (MDRD) Non-Af 11 L, BUN/Creatinine Ratio 11.5, Glucose 87, Calcium 8.7 01/28/22 06:32: POC Glucose 63 L 01/28/22 10:03: POC Glucose 61 L 01/28/22 10:38: POC Glucose 87 01/28/22 10:41: POC Glucose 77 Documented by User: Dr. Lindsay Mccabe MD 01/28/22 18:44 Assessment & Plan Assessment/Plan (1) ESRD (end stage renal disease) on dialysis: (2) Volume overload: (3) Anemia of chronic disease: (4) Essential hypertension: (5) Secondary pulmonary arterial hypertension: Assessment & Plan (1) Volume overload: (2) Secondary pulmonary arterial hypertension: Plan Detail Assessment: The patient is seen after hemodialysis. We were able to take off 2 L today without significant change in his blood pressure. The patient appears to be comfortable on 2 L nasal cannula oxygen tonight. AV fistula was examined. There is large pseudoaneurysm in the midportion AV fistula although the skin above the pseudoaneurysm does not appear to be shiny. There is thorough proximal to the pseudoaneurysms. We will reassess the patient for further volume removal tomorrow. HPI Consult Data Date of Consult: 01/28/22 [facility] Medical History Anticoagulated Bilateral renal artery stenosis Chronic anemia Dialysis patient Edema of left forearm ESRD (end stage renal disease) on dialysis Essential hypertension GERD (gastroesophageal reflux disease) GI bleed (11/2021) Hyperlipidemia Ischemic cerebrovascular accident (CVA) (01/2021) Non-ischemic cardiomyopathy Non-traumatic rhabdomyolysis Peripheral arterial disease Peripheral vascular occlusive disease Persistent atrial fibrillation Polycystic kidney disease Renal artery stenosis Secondary pulmonary arterial hypertension Home Medications cinacalcet 60 mg tablet (Sensipar) 60 mg PO PRN PRN IPTH 10/09/14 [History Last Taken 01/27/22] apixaban 2.5 mg tablet 2.5 mg PO BID 11/29/21 [History Last Taken 01/27/22] atorvastatin 40 mg tablet 40 mg PO QHS 11/29/21 [History Last Taken 01/26/22] metoprolol tartrate 50 mg tablet 50 mg PO BID 11/29/21 [History Last Taken 01/27/22] pantoprazole 40 mg tablet,delayed release 40 mg PO BID 60 days #120 tabs 12/04/21 [Rx Last Taken 01/27/22] vitamin B complex-vitamin C-folic acid 0.8 mg tablet 1 tab PO DAILY SUPPLEMENT 01/27/22 [History Last Taken 01/27/22] Allergy/AdvReac Type Severity Reaction Status Date / Time No Known Allergies Allergy Verified 01/27/22 10:51 Family History Mother Heart disease Father Heart disease Surgical History Amputation of toe History of angioplasty of peripheral vessel (09/10/21) History of bilateral cataract extraction History of tonsillectomy History of transmetatarsal amputation of left foot S/P arteriovenous (AV) fistula creation Social History housing: long-term Smoking Status: Never smoker alcohol intake: never substance use type: does not use Lab / Micro Data Result Diagrams: 01/28/22 03:20 01/28/22 03:20
[2022-01-28 13:35] LABS: Bedside Glucose 61 mg/dL (74-106)
--- NOTE | 2022-01-28 14:07 | CASEMGMT ---
Social Work SW in to meet with pt. Pt receiving Dialysis and not feeling up to talking but gave permission for SW to speak to son, Alvin. SW called son to discuss discharge plan. SW offered list of SNF providers including quality and resource use data and consistent with the patient?s preferred geographic region, medical needs, and insurance network were provided from the [employer], however Alvin declined the list. Alvin stated pt is happy at [facility] and wants to return. SW discussed [facility] with Alvin as [facility] reached out this morning to report pt and family had been working with [facility] recently. Alvin explained pt wants to continue dialysis and other courses of treatment and has NOT signed with Hospice and does not plan to do so at this time. SW encouraged Alvin and pt to reach out if any other needs/concerns arise. Alvin understanding. PLAN: Return to [facility] CHINTAN Kim
--- NOTE | 2022-01-28 14:09 | WOUNDNOTE ---
wound photo: left distal foot
--- NOTE | 2022-01-28 14:09 | WOUNDNOTE ---
wound photo: left lateral malleolus
--- NOTE | 2022-01-28 14:26 | PHA.PHARE_ITS ---
Consult Pharmacy has been consulted to manage selected antiobiotic: Vancomycin Type of Consult: New start Labs: Sodium 135 mmol/L (136-145) L 01/28/22 03:20 Potassium 3.9 mmol/L (3.5-5.1) 01/28/22 03:20 Chloride 96 mmol/L (98-107) L 01/28/22 03:20 Carbon Dioxide 34.0 mmol/L (21.0-32.0) H 01/28/22 03:20 Anion Gap 5 (5-15) 01/28/22 03:20 BUN 61 mg/dL (7-18) H 01/28/22 03:20 Creatinine 5.31 mg/dL (0.70-1.30) H 01/28/22 03:20 Est GFR (MDRD) Af Amer 14 mL/min (>60) L 01/28/22 03:20 Est GFR (MDRD) Non-Af 11 mL/min (>60) L 01/28/22 03:20 BUN/Creatinine Ratio 11.5 RATIO (10-20) 01/28/22 03:20 Glucose 87 mg/dL (74-106) 01/28/22 03:20 Weight used for dosin.8 kg Estimated Creatinine Clearance: ON HD Goal Trough: 15-20 mcg/mL Pharmacy Plan for Drug Dosing: Give initial dose of 1750mg IV x1 today after dialysis. According to the electroencephalographic technician's note, the patient will be getting dialysis again tomorrow. So per [facility] dosing in patients on HD, will order another dose of 500mg IV x1 (based on the patient's weight) to be given after the next dialysis session which will be tomorrow after dialysis. The patient usually has a HD schedule of Thu/Thu/Thu so will order a pre-dialysis vanc random level before subsequent dialysis sessions, the first being on 01/31/22. Pharmacy Service will continue to monitor and adjust dosing as required. Follow-Up Labs: Trough Vancomycin - random Labs to be done on [date and time ordered]: 01/31/22 vanc random pre-dialysis level
[2022-01-28] MEDS: Dextrose 10%-Water 250 ML 25 ML IV (14:28)
--- NOTE | 2022-01-28 15:33 | CHAPLAIN ---
Type of Pastoral Visit _x__ Initial Visit ___ Follow-up Visit ___ On-call Visit ___ General Patient Visit ___ Spiritual Assessment ___ Family Conference ___ Bereavement ___ Rapid Response ___ Code Blue ___ Other (describe below) Pastoral Care Referral From _x__ Patient _x__ Family ___ Nurse ___ Physician ___ Living Advisor ___ Industry Consultant ___ Other (describe below) Sacrament/Intervention _x__ Active listening ___ Anointing ___ Faith ___ Bereavement ___ Communion ___ María exploration ___ _x__ Life review ___ Prayer ___ Reconciliation ___ Sacrament of Sick _x__ Supportive presence ___ Wedding ___ Other (describe below) Pastoral Comments patient was known to this retail cosmetics sales beauty advisor forty years ago; pt did not recognize this retail cosmetics sales beauty advisor and per son has memory issues and some confusion since a stroke; pt asks repeatedly about when he is leaving and that I will leave here; son gives more details and shows kind support and honest answers to his father; pt has some hearing loss and has some difficulty processing the questions; this retail cosmetics sales beauty advisor reminds pt of good things he has done and asks questions that would be avenues to good memories; pt expresses concerns and wants definite answers to how this bill will be paid; this retail cosmetics sales beauty advisor talked to CM and requested that she approach pt to assure him of Medicare coverage; will follow up as able with this patient for further support
[2022-01-28 15:50] LABS: Bedside Glucose 59 mg/dL (74-106)
[2022-01-28 17:55] LABS: Bedside Glucose 78 mg/dL (74-106)
[2022-01-28] MEDS: Dextrose 10%-Water 250 ML 40 ML IV (21:08)
[2022-01-28 21:11] LABS: Bedside Glucose 73 mg/dL (74-106)
[2022-01-28] MEDS: Midodrine HCl 5 MG Tablet 10 MG PO (21:17)
[2022-01-28] MEDS: Atorvastatin Calcium 40 MG Tablet PO (21:17)
[2022-01-28] MEDS: Pantoprazole Sodium 40 MG Tablet PO (21:17)
[2022-01-28] MEDS: APIXABAN 2.5 MG TABLET (WCH) PO (21:18)
[2022-01-29] VITALS (30 sets, daily range): BP systolic 94–140; BP diastolic 52–96; PULSE 61–97; RESP 12–24; TEMP 36.4–36.9; O2SAT 84–100
[2022-01-29] MEDS: Dextrose 50%-Water 25 GM/50 ML DISP.SYRIN IV (00:15)
[2022-01-29] MEDS: 0.9% Saline Lock 10 ML Syringe IV ×2 (00:15→22:35)
[2022-01-29 00:25] LABS: Bedside Glucose 66 mg/dL (74-106)
--- NOTE | 2022-01-29 00:35 | NURSING ---
Blood glucose @ 0015 was 66. Pt asymptomatic at this time. 12.5gm of D50 given. 0034 blood glucose was 89. Will continue to monitor.
[2022-01-29 00:55] LABS: Bedside Glucose 89 mg/dL (74-106)
[2022-01-29] MEDS: Dextrose 10%-Water 250 ML 40 ML IV ×4 (03:12→22:55)
[2022-01-29 03:57] LABS: Absolute Lymphocyte Count 0.66 X10^3/uL (0.83-4.51); Absolute Neutrophil Count 11.4 X10^3/uL (2.0-7.7); Basophil# 0.05 X10^3/uL; Basophil% 0.4 % (0-1); Eosinophil# 0.14 X10^3/uL; Eosinophils% 1.1 % (0-5); Hemoglobin 8.5 g/dL (13.0-16.5); Lymphocyte # 0.66 X10^3/ul (0.83-4.51); Mean Corp Hgb Conc 31.5 g/dL (32-36); Mean Corpuscular Hgb 32.8 pg (27.0-32.0); Mean Corpuscular Volume 104.2 fL (80-94); Mean Platelet Vol. 11.5 fl (6.2-12.0); Monocyte# 0.87 X10^3/uL; Monocyte% 6.6 % (0-10); NRBC Flagged by Analyzer 0 % (0-5); Neutrophil % 86.5 % (47-70); POSITIVE MORPHOLOGY YES; Platelet Count 135 K/mm3 (150-450); RBC Distribution Width CV 21.2 % (11.6-14.6); RBC Distribution Width SD 81.2 fl (35.1-43.9); Red Blood Count 2.59 M/mm3 (4.6-6.2); White Blood Count 13.2 K/mm3 (4.4-11.0)
[2022-01-29 03:58] LABS: Differential Indicated SCAN CRITERIA MET
[2022-01-29 04:22] LABS: Albumin, Serum 1.7 g/dL (3.2-5.0); BUN 35 mg/dL (7-18); BUN/Creat Ratio 8.7 RATIO (10-20); Calcium,Total 8.5 mg/dL (8.5-10.1); Chloride 96 mmol/L (98-107); Creatinine, Serum 4.04 mg/dL (0.70-1.30); EST Glomerular Filtration Rate 15 mL/min (>60); Est Glom Filt Rate - Afr Amer 19 mL/min (>60); Estimated Creatinine Clearance 15.15 ml/min; Glucose 132 mg/dL (74-106); Phosphorus 2.3 mg/dL (2.5-4.9); Potassium 3.5 mmol/L (3.5-5.1); Sodium Level 134 mmol/L (136-145)
[2022-01-29 04:46] LABS: Anisocytosis 1+; Differential Comment SCANNED; Macrocytosis 1+; Microcytosis RARE
[2022-01-29 04:47] LABS: Hypochromasia 1+
--- NOTE | 2022-01-29 06:13 | PCM.PN.SRG ---
Subjective Subjective Patient denies pain in his left forearm at the fistula site Objective Data Objective Data Vital Signs: Vital Signs Temp Pulse Resp BP Pulse Ox O2 Del Method O2 Flow Rate 98.1 F 81 23 H 95/59 L 100 Nasal Cannula 3 01/29/22 04:00 01/29/22 04:00 01/29/22 04:00 01/29/22 04:00 01/29/22 04:00 01/29/22 04:00 01/29/22 04:00 FiO2 4 01/27/22 19:52 Oxygen Flow Rate (L/min) 3 Oxygen Delivery Method Nasal Cannula Weight: 149 lb 7.574 oz Body Mass Index (BMI) 19.4 Intake & Output: Intake and Output for Last 24 Hours 01/27/22 01/28/22 01/29/22 23:59 23:59 23:59 Intake Total 300 / 300 811.67 / 811.67 292.67 / 292.67 Output Total 0 / 0 1999 / 1999 Balance 300 / 300 -1188.33 / -1188.33 292.67 / 292.67 Medical Nutrition Assessment Dietitian: Malnutrition Criteria Met Start: 01/28/22 10:30 Freq: Status: Active Protocol: Document 01/28/22 10:30 AG (Rec: 01/28/22 10:30 [id number]) Nutrition Malnutrition Evidence of Malnutrition Exists Yes Malnutrition (severe): Acute Illness/Injury Evidenced By Suboptimal Energy Intake ( Severe),Weight Loss (Severe) Clinical Problem Acute Disease or Injury Related Malnutrition Etiology severe, acute malnutrition related to inadequate energy intake w/ increased energy needs d/t chronic dialysis Signs/Symptoms as evidenced by reported PO intake meeting <75% of estimated energy needs > 1 week; unintentional wt loss of 10.5#/6.5% wt loss < 1 month Status Active Problem Recommendation Dietitian Recommendations/Changes recommend renal-general diet- texture/consistency per BOAT HOIST OPERATOR HELPER; Paul BID for wounds, Nepro 240mL BID w/ breakfast and dinner for additional calories /protein if consumed given signs/symptoms of malnutrition . Lab / Micro Data Result Diagrams: 01/29/22 03:49 01/29/22 03:25 Labs: Laboratory Results - last 24 hr 01/28/22 06:32: POC Glucose 63 L 01/28/22 10:03: POC Glucose 61 L 01/28/22 10:38: POC Glucose 87 01/28/22 10:41: POC Glucose 77 01/28/22 13:13: POC Glucose 61 L 01/28/22 15:32: POC Glucose 59 L 01/28/22 17:34: POC Glucose 78 01/28/22 20:47: POC Glucose 73 L 01/29/22 00:08: POC Glucose 66 L 01/29/22 00:34: POC Glucose 89 01/29/22 03:25: Sodium 134 L, Potassium 3.5, Chloride 96 L, Carbon Dioxide 32.0, BUN 35 H, Creatinine 4.04 H, Estim Creat Clear Calc 15.15, Est GFR (MDRD) Af Amer 19 L, Est GFR (MDRD) Non-Af 15 L, BUN/Creatinine Ratio 8.7 L, Glucose 132 H, Calcium 8.5, Phosphorus 2.3 L, Albumin 1.7 L 01/29/22 03:49: WBC 13.2 H, RBC 2.59 L, Hgb 8.5 L, Hct 27.0 L, MCV 104.2 H, MCH 32.8 H, MCHC 31.5 L, RDW Std Deviation 81.2 H, RDW Coeff of Sue 21.2 H, Plt Count 135 L, MPV 11.5, Immature Gran % (Auto) 0.400, Neut % (Auto) 86.5 H, Lymph % (Auto) 5.0 L, Carbon % (Auto) 6.6, Eos % (Auto) 1.1, Baso % (Auto) 0.4, Absolute Neuts (auto) 11.4 H, Absolute Lymphs (auto) 0.66 L, Nucleated RBC % 0, Differential Comment SCANNED, Hypochromasia 1+, Anisocytosis 1+, Microcytosis RARE, Macrocytosis 1+ Physical Exam Extremity Extremity Narrative: Left upper extremity with some mild swelling particularly in the distal upper arm however decreased swelling of the forearm, decreased ecchymosis, no erythema, no tenderness, strong pulse thrill and bruit Assessment & Plan Assessment/Plan (1) Problem with dialysis access: PLAN: Left forearm AV fistula successfully utilized for hemodialysis yesterday. If anything the left arm appears less swollen and less ecchymotic than yesterday. I believe that the access sites for the arterial side closer to the radial arterial anastomosis and for the venous side currently located in the proximal left forearm though the entire upper arm is available as well. No surgical intervention will be required. I will sign off. Karthikeyan Cortes M.D., F.A.C.S.
[2022-01-29 06:35] LABS: Bedside Glucose 85 mg/dL (74-106)
--- NOTE | 2022-01-29 07:19 | PCM.PN.INT ---
Assessment & Plan Assessment/Plan (1) Volume overload: (2) Secondary pulmonary arterial hypertension: PLAN: Plan RECOMMENDATIONS: 1. Await blood cultures. Continue Vanco and Zosyn 2. Hold on fluid boluses. Volume removal if possible with dialysis 3. Dialysis timing per nephrology 4. Wean oxygen as tolerated 5. Okay to leave the intensive care unit from my perspective IMPRESSIONS: 1. Possible sepsis Patient with marginal blood pressures and known dialysis. Some concern for gram-positive sepsis. We will continue empiric antibiotics. Fluid resuscitation will be held given patient's finding on chest x-ray, new oxygen requirements and concern for worsening in congestive heart failure. Blood pressures have significantly improved with initiation of antibiotics, but cultures have not been positive to this point. Patient does have significant swelling of the fistula site, but fluctuance is not noted. Endorgan damage noted by elevated lactate. Patient has end-stage renal disease making creatinine unhelpful. 2. Syncopal event No recurrence noted. Patient with a syncopal event during hemodialysis. Unclear if this is related to volume removal, problem #1 or cardiac arrhythmia. Patient will be kept on telemetry. No significant changes have been noted. Patient was hypotensive and bradycardic on presentation 3. Persistent A. fib/acute on chronic systolic CHF Patient with a known ejection fraction of 25%. Chest x-ray does show findings consistent with volume overload. Dialysis is being attempted at this time. We will hold on any fluid boluses as this could lead to respiratory failure. Wean supplemental oxygen as tolerated. Cannot exclude the need for a thoracentesis, but pleural effusions do not appear to be the predominant etiology of his hypoxia. Patient is chronically anticoagulated with Eliquis. 4. Hypertension/peripheral vascular disease/secondary pulmonary hypertension/advanced age/type 2 diabetes mellitus/debility Complicates care, management, recovery and prognosis. Antihypertensives have been held secondary to problem #1. Okay to continue with anticoagulation for now. We will need to watch blood sugars closely, but hypoglycemia has been more of an issue. This may be secondary to problem #1. Subjective Subjective Patient able to tolerate hemodialysis yesterday with 2 L removed. Patient has had significantly improved blood pressures with initiation of antibiotics. Patient has continued to have hypoglycemia requiring a D10 drip. Oxygenation status has remained stable. Objective Data Objective Data Vital Signs: Vital Signs Temp Pulse Resp BP Pulse Ox O2 Del Method O2 Flow Rate 36.7 C 70 21 H 114/74 100 Nasal Cannula 3 01/29/22 04:00 01/29/22 06:00 01/29/22 06:00 01/29/22 06:00 01/29/22 06:00 01/29/22 06:00 01/29/22 06:00 FiO2 4 01/27/22 19:52 Oxygen Flow Rate (L/min) 3 Oxygen Delivery Method Nasal Cannula Weight: 65 kg Body Mass Index (BMI) 19.4 Intake & Output: Intake and Output for Last 24 Hours 01/27/22 01/28/22 01/29/22 23:59 23:59 23:59 Intake Total 300 / 300 811.67 / 811.67 292.67 / 292.67 Output Total 0 / 0 1999 0 / 0 Balance 300 / 300 -1188.33 / -1188.33 292.67 / 292.67 Medical Nutrition Assessment Dietitian: Malnutrition Criteria Met Start: 01/28/22 10:30 Freq: Status: Active Protocol: Document 01/28/22 10:30 (Rec: 01/28/22 10:30 [id number]) Nutrition Malnutrition Evidence of Malnutrition Exists Yes Malnutrition (severe): Acute Illness/Injury Evidenced By Suboptimal Energy Intake ( Severe),Weight Loss (Severe) Clinical Problem Acute Disease or Injury Related Malnutrition Etiology severe, acute malnutrition related to inadequate energy intake w/ increased energy needs d/t chronic dialysis Signs/Symptoms as evidenced by reported PO intake meeting <75% of estimated energy needs > 1 week; unintentional wt loss of 10.5#/6.5% wt loss < 1 month Status Active Problem Recommendation Dietitian Recommendations/Changes recommend renal-general diet- texture/consistency per DERMATOLOGY PHYSICIAN; Paul BID for wounds, Nepro 240mL BID w/ breakfast and dinner for additional calories /protein if consumed given signs/symptoms of malnutrition . Lab / Micro Data Attestation: I reviewed the patient's lab results. Result Diagrams: 01/29/22 03:49 01/29/22 03:25 Labs: Laboratory Results - last 24 hr 01/28/22 10:03: POC Glucose 61 L 01/28/22 10:38: POC Glucose 87 01/28/22 10:41: POC Glucose 77 01/28/22 13:13: POC Glucose 61 L 01/28/22 15:32: POC Glucose 59 L 01/28/22 17:34: POC Glucose 78 01/28/22 20:47: POC Glucose 73 L 01/29/22 00:08: POC Glucose 66 L 01/29/22 00:34: POC Glucose 89 01/29/22 03:25: Sodium 134 L, Potassium 3.5, Chloride 96 L, Carbon Dioxide 32.0, BUN 35 H, Creatinine 4.04 H, Estim Creat Clear Calc 15.15, Est GFR (MDRD) Af Amer 19 L, Est GFR (MDRD) Non-Af 15 L, BUN/Creatinine Ratio 8.7 L, Glucose 132 H, Calcium 8.5, Phosphorus 2.3 L, Albumin 1.7 L 01/29/22 03:49: WBC 13.2 H, RBC 2.59 L, Hgb 8.5 L, Hct 27.0 L, MCV 104.2 H, MCH 32.8 H, MCHC 31.5 L, RDW Std Deviation 81.2 H, RDW Coeff of Sue 21.2 H, Plt Count 135 L, MPV 11.5, Immature Gran % (Auto) 0.400, Neut % (Auto) 86.5 H, Lymph % (Auto) 5.0 L, [place] % (Auto) 6.6, Eos % (Auto) 1.1, Baso % (Auto) 0.4, Absolute Neuts (auto) 11.4 H, Absolute Lymphs (auto) 0.66 L, Nucleated RBC % 0, Differential Comment SCANNED, Hypochromasia 1+, Anisocytosis 1+, Microcytosis RARE, Macrocytosis 1+ 01/29/22 06:15: POC Glucose 85 Physical Exam Const alert and no apparent distress Constitutional Narrative: Patient appears older than his stated age, he appears cachectic. Patient oriented to self only General Appearance: cooperative Orientation / Consciousness: awake HEENT normocephalic, head/scalp atraumatic and moist oral mucous membranes Eyes PERRL, EOMs intact bilaterally and conjunctivae normal Neck supple, thyroid normal and no carotid bruits General: trachea midline Resp normal respiratory effort, no retractions, no use of accessory muscles and clear to auscultation bilaterally Auscultation: Negative for rales, rhonchi or wheezes Cardio S1 normal heart sound, S2 normal heart sound, no murmurs, no rub and no gallops Cardio Narrative: Heart rate and rhythm is irregular GI normal to inspection, nondistended, normoactive bowel sounds, soft to palpation, non-tender and non-distended Extremity Extremity Narrative: Patient's left forearm around his fistula area is swollen as compared with his right forearm. 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 Partial wound healing noted. 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
[2022-01-29] MEDS: Midodrine HCl 5 MG Tablet 10 MG PO (08:05)
[2022-01-29] MEDS: APIXABAN 2.5 MG TABLET (WCH) PO (08:05)
[2022-01-29] MEDS: Pantoprazole Sodium 40 MG Tablet PO (08:06)
[2022-01-29 08:46] LABS: Hepatitis B Surface Antigen Non-Reactive (Nonreactive)
--- NOTE | 2022-01-29 09:52 | SP.MBSS_ITS ---
Modified Barium Swallow - Patient Information Study Date: 01/29/22 Study Time: 09:00 Direct Billable Minutes: 115 Total Minutes procedure & reportin Diagnosis: ESRD (N18.16), Ischemic CVA (01/2021) (I63.9) Referring Physician: Julisu Soto Reason for Referral: Objectively assess swallow function, risk for aspiration, and determine recommendations for least restrictive diet textures and compensatory strategies to improve safety of swallow. Medical History: Alvin Crandall is a 76-year-old male with PMH including CVA (01/2021), end stage renal disease, dialysis patient, HTN, GERD, GI bleed (11/2021), A fib, PAD (SEE EMR for full PMH). He presented to [facility] ED 01/27/2022 from [facility] where he resides for rehab services due to an unresponsive episode that happened during his dialysis on the day of presentation. Patient also complained of some increased shortness of breath. Work-up in the emergency room included chest x- ray which showed signs of fluid overload and pulmonary edema, patient's oxygen requirement was 4 L via nasal cannula. Patient was admitted to ICU for fluid overload/pulmonary edema secondary to his end-stage renal disease. RN requested ST consult prior to diet advancement. AUTOMOTIVE ENGINEER completed BSE 01/28/2022 and recommended that patient remain NPO - ok for ice chips 1 at a time supervised - monitor SpO2 to make sure the patient is maintaining. Ok for medications crushed in applesauce. Will plan for MBSS 01/29/2022 to objectively assess aspiration risk and swallow function prior to diet advancement. Current Diet Ordered: NPO Mental Status: Impaired - Some difficulty following commands (e.g. could not complete cough and re-swallow when verbally cued and provided models) Respiratory Status: Oxygenating on 4L/M nasal cannula - Penetration-Aspiration Scale Penetration-Aspiration Scale: OBJECTIVE ASSESSMENT OF SWALLOW FUNCTION (QUANTITATIVE ? PER TRIAL): PENETRATION / ASPIRATION SCALE (MARINO): 1 = does not enter airway 2 = enters airway/above vocal folds/ejected 3 = enters airway/above vocal folds/not ejected 4 = enters airway/contacts vocal folds/ejected 5 = enters airway/contacts vocal folds/not ejected 6 = enters airway/below vocal folds/ejected 7 = enters airway/below vocal folds/not ejected despite effort 8 = enters airway/below vocal folds/no effort VIDEOFLOROSCOPIC SCALE SCORE (MARINO): Grade I = aspiration of material that has penetrated into the laryngeal vestibule, intact cough reflex Grade II = aspiration < 10 % of the bolus, intact cough reflex Grade III = aspiration of < 10 % of the bolus, reduced cough reflex or aspiration of > 10 % of the bolus, intact cough reflex Grade IV = aspiration of > 10 % of the bolus, reduced cough reflex - Penetration-Aspiration Scale Score Thin Liquid via teaspoon Result: 1= does not enter airway Thin Liquid via teaspoon Trial 2 Result: 7= enters airways/below vocal folds/not ejected despite effort - weak cough observed after the swallow, which somewhat cleared contrast from the laryngeal vestibule; however, contrast remained in the trachea Thin Liquid via small single sip from cup Result: 7= enters airways/below vocal folds/not ejected despite effort - fluoroscopy was turned on to capture a delayed cough with re-swallow and post prandial aspiration Thin Liquid via teaspoon Effortful swallow Result: 8= enters airway/below vocal folds/no effort Thin Liquid via teaspoon Chin tuck Result: 8= enters airway/below vocal folds/no effort Thin Liquid via teaspoon - AUTOMOTIVE ENGINEER cued cough and re-swallow but pt unable to follow the command Result: 7= enters airways/below vocal folds/not ejected despite effort - fluoroscopy was turned on to capture a delayed cough with re-swallow and post prandial aspiration Toxey Thick Liquid via teaspoon Result: 7= enters airways/below vocal folds/not ejected despite effort - fluoroscopy was turned on to capture a delayed cough with re-swallow and post prandial aspiration - Oral Phase Labial Seal: Escape progressing to mid-chin Tongue Control During Bolus Hold: Posterior escape of less than half of bolus Bolus Transport/Lingual Motion: Repetitive/disorganized tongue motion Oral Residue: Residue collection on oral structures - Pharyngeal Phase Initiation of Pharyngeal Swallow: Bolus head at posterior laryngeal surgace of epiglottis Laryngeal Elevation: Partial superior movement thyroid cart/partial apprx aryt- epig petiole Anterior Hyoid Excursion: No anterior movement Epiglottic Movement: No inversion Laryngeal Vestibule Closure at Height of Swallow: Incomplete; narrow column of air/contrast in laryngeal vestibule Pharyngoesophageal Segment Opening: Minimal distension and minimal duration; marked obstruction of flow Tongue Base Retraction: Wide column of contrast between tongue base & post. pharyngeal wall Pharyngeal Residue: Minimal to no pharyngeal clearance - Treatment Strategies Effects of treatment strategies attemped:: Chin tuck = not effective. Effortful swallow = not effective. - Diagnosis/Impression Diagnosis: Mild-mod oral dysphagia (R13.11), Sev pharyngoesophageal dysphagia (R13.14) Impression: The oral phase is primarily marked by... -Decreased bolus control with <1/2 of the bolus spilling posteriorly to the posterior surface of the epiglottis prior to swallow onset. -Delayed and repetitive tongue motion for A-P transport. -Mild oral residue after the swallow. The pharyngeal phase is primarily marked by... -Severely decreased airway closure during the swallow due to no anterior hyoid excursion, no epiglottic inversion, and decreased laryngeal elevation. -Moderately-severely decreased tongue base retraction, severely decreased UES opening/duration, and no pharyngeal stripping wave with resulting severe pharyngeal residues after the swallow. Thin and nectar thick liquids had minimal clearance through UES with each swallow. Even with multiple swallows, the majority of the bolus remained in the pharynx and placed the patient at increased risk for post prandial aspiration. -Aspiration of thin liquids by tsp, thin liquids by cup, and nectar thick liquids by tsp. SILENT aspiration occurred following two thin liquid trials via tsp. Post prandial aspiration of thin and nectar thick liquids was observed, as well. He was unable to follow cues to complete cough and re-swallow strategy, but his delayed reflexive cough was ineffective at decreasing aspirated contrast. AUTOMOTIVE ENGINEER did not trial consistencies thicker than nectar thick due to concerns for increased aspiration due to poor pharyngeal clearance of thin and nectar thick boluses through UES. Did not assess solid cookie due to concerns for choking. - Recommendations Diet: NPO - Strict NPO Comment: Would strongly consider the patient for alternative means of nutrition due to severe pharyngoesophageal phase dysphagia, including severe deficits in upper esophageal opening/duration resulting in aspiration of thin and nectar thickened consistencies both during and after the swallow. Recommend Repeat Modified Barium Swallow: Yes - Repeat MBSS in 4-8 weeks after implementation of intensive oropharyngeal strengthening program Need for Skilled Speech Therapy Services: Yes Comment: The patient requires intensive dysphagia therapy to improve oropharyngeal swallow function. Will recommend implementation of exercises to promote improved hyolaryngeal elevation/excursion, tongue base retraction, pharyngeal contraction, and UES opening (Gracie, CTAR, Nani, effortful swallow). Will recommend trials of ice chips with AUTOMOTIVE ENGINEER only at this time. Recommended Referrals: GI Consult Education Completed: 1. Described result of evaluation. - AUTOMOTIVE ENGINEER educated pt, pt's son, DHEERAJ, RN, Pura, and Dr. Soto in MBSS results and recommendations. AUTOMOTIVE ENGINEER recommended pt and family speak with Dr. Soto regarding consideration of alternative means of nutrition and hydration. - Status Active ST Patient: Active - Contact Information [facility] Speech Therapy:: Alexandra Hope M.A. [facility]-AUTOMOTIVE ENGINEER Speech-Language Pathologist [facility] [address] [place] [address] [email or web address] [phone] 01/29/22 12:57
[2022-01-29 12:01] LABS: Bedside Glucose 78 mg/dL (74-106)
--- NOTE | 2022-01-29 12:14 | PCM.PN.HOSP ---
Subjective Subjective Follow-up for pulmonary edema/volume overload. On hemodialysis. Physical debility requiring 2-3 people assist for stand up Objective Data Objective Data Vital Signs: Vital Signs Temp Pulse Resp BP Pulse Ox O2 Del Method O2 Flow Rate 98.1 F 70 18 127/88 H 99 Nasal Cannula 2 01/29/22 08:12 01/29/22 11:52 01/29/22 11:52 01/29/22 11:52 01/29/22 11:52 01/29/22 11:52 01/29/22 11:52 FiO2 4 01/29/22 08:12 Oxygen Flow Rate (L/min) 2 Oxygen Delivery Method Nasal Cannula Weight: 143 lb 4.807 oz Body Mass Index (BMI) 19.4 Intake & Output: Intake and Output for Last 24 Hours 01/27/22 01/28/22 01/29/22 23:59 23:59 23:59 Intake Total 300 / 300 811.67 / 811.67 542.67 / 542.67 Output Total 0 / 0 1999 0 / 0 Balance 300 / 300 -1188.33 / -1188.33 542.67 / 542.67 Medical Nutrition Assessment Dietitian: Malnutrition Criteria Met Start: 01/28/22 10:30 Freq: Status: Active Protocol: Document 01/28/22 10:30 (Rec: 01/28/22 10:30 [id number]) Nutrition Malnutrition Evidence of Malnutrition Exists Yes Malnutrition (severe): Acute Illness/Injury Evidenced By Suboptimal Energy Intake ( Severe),Weight Loss (Severe) Clinical Problem Acute Disease or Injury Related Malnutrition Etiology severe, acute malnutrition related to inadequate energy intake w/ increased energy needs d/t chronic dialysis Signs/Symptoms as evidenced by reported PO intake meeting <75% of estimated energy needs > 1 week; unintentional wt loss of 10.5#/6.5% wt loss < 1 month Status Active Problem Recommendation Dietitian Recommendations/Changes recommend renal-general diet- texture/consistency per CHECKING CLERK; Paul BID for wounds, Nepro 240mL BID w/ breakfast and dinner for additional calories /protein if consumed given signs/symptoms of malnutrition . Lab / Micro Data Result Diagrams: 01/29/22 03:49 01/29/22 03:25 Labs: Laboratory Results - last 24 hr 01/28/22 13:13: POC Glucose 61 L 01/28/22 15:32: POC Glucose 59 L 01/28/22 17:34: POC Glucose 78 01/28/22 20:47: POC Glucose 73 L 01/29/22 00:08: POC Glucose 66 L 01/29/22 00:34: POC Glucose 89 01/29/22 03:25: Sodium 134 L, Potassium 3.5, Chloride 96 L, Carbon Dioxide 32.0, BUN 35 H, Creatinine 4.04 H, Estim Creat Clear Calc 15.15, Est GFR (MDRD) Af Amer 19 L, Est GFR (MDRD) Non-Af 15 L, BUN/Creatinine Ratio 8.7 L, Glucose 132 H, Calcium 8.5, Phosphorus 2.3 L, Albumin 1.7 L 01/29/22 03:49: WBC 13.2 H, RBC 2.59 L, Hgb 8.5 L, Hct 27.0 L, MCV 104.2 H, MCH 32.8 H, MCHC 31.5 L, RDW Std Deviation 81.2 H, RDW Coeff of Sue 21.2 H, Plt Count 135 L, MPV 11.5, Immature Gran % (Auto) 0.400, Neut % (Auto) 86.5 H, Lymph % (Auto) 5.0 L, [place] % (Auto) 6.6, Eos % (Auto) 1.1, Baso % (Auto) 0.4, Absolute Neuts (auto) 11.4 H, Absolute Lymphs (auto) 0.66 L, Nucleated RBC % 0, Differential Comment SCANNED, Hypochromasia 1+, Anisocytosis 1+, Microcytosis RARE, Macrocytosis 1+ 01/29/22 05:33: Hep Bs Antigen Non-Reactive 01/29/22 06:15: POC Glucose 85 01/29/22 11:39: POC Glucose 78 Physical Exam Narrative Physical exam General: Alert, Oriented x3, Cooperative HEENT: Atraumatic, PERRLA, EOMI, Normocephalic Oral: No Gingival or Mucosal Lesions/ Ulcerations Neck: Supple, No JVD, Negative Carotid Bruits Lungs: Air entry diminished in bilateral lung bases. No crepitation/rhonchi Cardiovascular: Regular rate, Regular Rhythm, Normal S1, Normal S2, No murmurs Abdomen: Bowel Sounds Present, Soft, Non Tender, Non-Distended : No renal angle tenderness. No suprapubic tenderness. Extremities: No edema, Capillary Refill Less than 3 Seconds Skin: Mild pressure over the surgical scar site of Left transmetatarsal amputation. No ulcer. Musculoskeletal: No Tenderness to Palpation of Joints or Extremities Neurological: Cranial nerves II-XII grossly intact, DTR 2+/4 and Symmetrical, Neuro grossly intact Psych/Mental Status: Normal Affect, Appropriate. Assessment & Plan Assessment/Plan (1) Episode of unresponsiveness: PLAN: Plan This 76-year-old gentleman was brought by EMS as patient passed out, syncope during hemodialysis. His pressure was low. 1. Volume overload/pulmonary edema complicated with hypotension-secondary to end-stage renal disease: Chest x-ray mutilative shows bilateral pleural effusion and pulmonary edema. Patient is being admitted in ICU. On 3 to 4 L of oxygen. Currently getting hemodialysis. Patient might have passed out due to hypotension. 01/29: Dialysis schedule as per recessing machine operator. #2 hypotension with end-stage renal disease-patient seen by recessing machine operator. Patient was dialyzed about 2 hours before he passed out he has left arm AV fistula. 01/29: Blood pressure is normal 128/64. Hypotension resolved. Patient is being transferred out of ICU to PCU. #3 episode of unresponsiveness during dialysis on day of admission and concern/possibility of sepsis: Etiology unclear probably due to hypotension. Patient does not look septic or toxic at time of admission. Blood cultures are pending. Empirically started on IV antibiotic. Elevated lactic acid. There is concern of gram-positive sepsis as per qa engineer. 01/29: Blood culture negative for more than 48 hours.Patient empirically on IV antibiotic. I do not think patient has sepsis. Sepsis ruled out. Elevated lactic acid probably from decreased perfusion. Oropharyngeal and most probably cervical esophageal dysphagia with cervical esophageal stenosis: Patient had history of PEG tube for oropharyngeal dysphagia in the past after stroke which was removed. Patient was evaluated by speech therapist poor esophageal opening on modified barium swallow test. He also has poor oropharyngeal transit. Discussed with the GI and requested consult. Patient might need EGD possible esophageal dilatation and PEG tube insertion. I discussed modified barium swallow findings with the speech therapist and then to patient's power of construction rep his son. He is agreeable for PEG tube. #4 cerebrovascular disease-it appears the patient may have some aphasia due to this, complicates care, management, recovery, and prognosis #5 persistent atrial fibrillation-patient is currently on rate limiting agents and apixaban. 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 Discussed with the wound nurse , Radha. There is small purplish discoloration around suture line on the left site of transmetatarsal amputation. She discussed with the maintenance planning clerk Dr. Beebe and he suggested Jamel wrap bandage with no pressure. 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 Glucose is on lower side in 60s. Microbiology Past 72 Hours 01/27/22 12:40 Blood Culture (Wb) - Right Hand Blood Culture - Preliminary No growth in 48 hours. 01/27/22 12:46 Blood Culture (Wb) - Anticubital Right Blood Culture - Preliminary No growth in 48 hours. Laboratory Results 01/28/22 15:32: POC Glucose 59 L 01/28/22 17:34: POC Glucose 78 01/28/22 20:47: POC Glucose 73 L 01/29/22 00:08: POC Glucose 66 L 01/29/22 00:34: POC Glucose 89 01/29/22 03:25: Sodium 134 L, Potassium 3.5, Chloride 96 L, Carbon Dioxide 32.0, BUN 35 H, Creatinine 4.04 H, Estim Creat Clear Calc 15.15, Est GFR (MDRD) Af Amer 19 L, Est GFR (MDRD) Non-Af 15 L, BUN/Creatinine Ratio 8.7 L, Glucose 132 H, Calcium 8.5, Phosphorus 2.3 L, Albumin 1.7 L 01/29/22 03:49: WBC 13.2 H, RBC 2.59 L, Hgb 8.5 L, Hct 27.0 L, MCV 104.2 H, MCH 32.8 H, MCHC 31.5 L, RDW Std Deviation 81.2 H, RDW Coeff of Sue 21.2 H, Plt Count 135 L, MPV 11.5, Immature Gran % (Auto) 0.400, Neut % (Auto) 86.5 H, Lymph % (Auto) 5.0 L, [place] % (Auto) 6.6, Eos % (Auto) 1.1, Baso % (Auto) 0.4, Absolute Neuts (auto) 11.4 H, Absolute Lymphs (auto) 0.66 L, Nucleated RBC % 0, Differential Comment SCANNED, Hypochromasia 1+, Anisocytosis 1+, Microcytosis RARE, Macrocytosis 1+ 01/29/22 05:33: Hep Bs Antigen Non-Reactive 01/29/22 06:15: POC Glucose 85 01/29/22 11:39: POC Glucose 78 . Charges/Coding Visit Charges Inpatient E&M: 04695 Subs Hosp L3
--- NOTE | 2022-01-29 13:56 | PCM.PN.REN ---
Subjective Subjective Following for ESRD Patient resting quietly, alert to name. Hard of hearing. Son at bedside. Patient seen and examined during dialysis today. Objective Data Objective Data Vital Signs: Vital Signs Temp Pulse Resp BP Pulse Ox O2 Del Method O2 Flow Rate 97.7 F L 67 22 H 128/77 H 84 Room Air 1 01/29/22 13:06 01/29/22 13:06 01/29/22 13:06 01/29/22 13:06 01/29/22 13:26 01/29/22 13:26 01/29/22 12:57 FiO2 4 01/29/22 08:12 Oxygen Flow Rate (L/min) 1 Oxygen Delivery Method Room Air Weight: 65 kg Body Mass Index (BMI) 19.4 Intake & Output: Intake and Output for Last 24 Hours 01/27/22 01/28/22 01/29/22 23:59 23:59 23:59 Intake Total 300 / 300 811.67 / 811.67 592.67 / 592.67 Output Total 0 / 0 1999 0 / 0 Balance 300 / 300 -1188.33 / -1188.33 592.67 / 592.67 Medical Nutrition Assessment Dietitian: Malnutrition Criteria Met Start: 01/28/22 10:30 Freq: Status: Active Protocol: Document 01/28/22 10:30 (Rec: 01/28/22 10:30 [id number]) Nutrition Malnutrition Evidence of Malnutrition Exists Yes Malnutrition (severe): Acute Illness/Injury Evidenced By Suboptimal Energy Intake ( Severe),Weight Loss (Severe) Clinical Problem Acute Disease or Injury Related Malnutrition Etiology severe, acute malnutrition related to inadequate energy intake w/ increased energy needs d/t chronic dialysis Signs/Symptoms as evidenced by reported PO intake meeting <75% of estimated energy needs > 1 week; unintentional wt loss of 10.5#/6.5% wt loss < 1 month Status Active Problem Recommendation Dietitian Recommendations/Changes recommend renal-general diet- texture/consistency per SUPERVISOR ALUMINUM BOAT ASSEMBLY; Paul BID for wounds, Nepro 240mL BID w/ breakfast and dinner for additional calories /protein if consumed given signs/symptoms of malnutrition . Lab / Micro Data Result Diagrams: 01/29/22 03:49 01/29/22 03:25 Labs: Laboratory Results - last 24 hr 01/28/22 15:32: POC Glucose 59 L 01/28/22 17:34: POC Glucose 78 01/28/22 20:47: POC Glucose 73 L 01/29/22 00:08: POC Glucose 66 L 01/29/22 00:34: POC Glucose 89 01/29/22 03:25: Sodium 134 L, Potassium 3.5, Chloride 96 L, Carbon Dioxide 32.0, BUN 35 H, Creatinine 4.04 H, Estim Creat Clear Calc 15.15, Est GFR (MDRD) Af Amer 19 L, Est GFR (MDRD) Non-Af 15 L, BUN/Creatinine Ratio 8.7 L, Glucose 132 H, Calcium 8.5, Phosphorus 2.3 L, Albumin 1.7 L 01/29/22 03:49: WBC 13.2 H, RBC 2.59 L, Hgb 8.5 L, Hct 27.0 L, MCV 104.2 H, MCH 32.8 H, MCHC 31.5 L, RDW Std Deviation 81.2 H, RDW Coeff of Sue 21.2 H, Plt Count 135 L, MPV 11.5, Immature Gran % (Auto) 0.400, Neut % (Auto) 86.5 H, Lymph % (Auto) 5.0 L, [place] % (Auto) 6.6, Eos % (Auto) 1.1, Baso % (Auto) 0.4, Absolute Neuts (auto) 11.4 H, Absolute Lymphs (auto) 0.66 L, Nucleated RBC % 0, Differential Comment SCANNED, Hypochromasia 1+, Anisocytosis 1+, Microcytosis RARE, Macrocytosis 1+ 01/29/22 05:33: Hep Bs Antigen Non-Reactive 01/29/22 06:15: POC Glucose 85 01/29/22 11:39: POC Glucose 78 Micro: Microbiology 01/27/22 12:40 Blood Culture (Wb) - Right Hand Blood Culture - Preliminary No growth in 48 hours. 01/27/22 12:46 Blood Culture (Wb) - Anticubital Right Blood Culture - Preliminary No growth in 48 hours. Physical Exam Narrative Const: Alert to name. No apparent distress. CHINIK. Cardio: S1-S2 RRR Respiratory: Lung sounds diminished posterior bases. On O2 via nasal canula GI: Abdomen soft, nontender, positive bowel sounds Extremities: No edema noted to bilateral lower legs, thighs, or feet. AV fistula left arm positive thrill and bruit. Jamel wrap intact/dry left foot Assessment & Plan Assessment/Plan (1) ESRD (end stage renal disease) on dialysis: (2) Volume overload: (3) Anemia of chronic disease: (4) Essential hypertension: (5) Secondary pulmonary arterial hypertension: PLAN: Plan - Patient underwent hemodialysis 01/28 with 2 L fluid removed. Plan for sequential treatment today over 2.5 hours and attempting 2 L fluid removal as patient/blood pressure tolerates. Patient dialyzes at [facility] on a Thursday schedule. Recently he has been shortening his dialysis sessions which likely has led to volume overload. Patient has history of chronic systolic heart failure with last known EF 25%. EDW had been 65 kg. Likely patient will have new lowered dry weight by time of hospital discharge. -Blood pressures improved. Not on any antihypertensives. He is currently NPO. -On antibiotics Zosyn and vancomycin. BC pending. - does not need any phosphate binders at this time. Last phosphorus 2.3. Will monitor phosphorus trends. -Anemia of chronic disease; patient receives RITIKA with HD. Hemoglobin is 8.5 today. We will continue to monitor hemoglobin trends. -Patient had modified barium swallow today. Found to have severe oropharyngeal phase dysphagia resulting in aspiration. Recommended GI consult - Patient has left UA AVF and was evaluated by Dr. Cortes for left upper arm swelling concern; no intervention at this time and ok to cannulate. HD RN did not have issues with cannulation yesterday or today.
--- NOTE | 2022-01-29 15:48 | DIALYSIS ---
Hemodialysis complete with 2.5 liters fluid removed. Accessed with #15g needles upper and lower portion of AV fistula in LFA, avoiding the aneurysms. Stasis obtained after needles removed. LFA remains with ecchymotic areas and edema from prior infiltrate. Patient tolerated treatment without difficulty.
[2022-01-29] MEDS: Vancomycin IV 500 MG/100 ML BAG 100 MG IV (15:54)
[2022-01-29 17:10] LABS: Bedside Glucose 108 mg/dL (74-106)
--- NOTE | 2022-01-29 18:37 | CASEMGMT ---
Social Work Green sheet completed and placed on patient chart in the event that patient is medically cleared for discharge over the Holiday. PLAN: [facility], intermediate level of care when medically cleared. Gerald POTTER, ALE
--- NOTE | 2022-01-29 18:39 | PCM.CONS.GEN ---
Assessment & Plan Assessment/Plan (1) Anemia of chronic disease: (2) Esophageal dysphagia: PLAN: Oropharyngeal and most probably cervical esophageal dysphagia with cervical esophageal stenosis. Patient had history of PEG tube for oropharyngeal dysphagia in the past after stroke which was removed.? Patient was evaluated by speech therapist poor esophageal opening on modified barium swallow test.? He also has poor oropharyngeal transit.? He will need an EGD possible esophageal dilatation and PEG tube insertion.? The patient's son is agreeable to undergo an EGD with PEG tube placement. This will likely be done on 01/31/2022. (3) Failure to thrive: HPI Consult Data Date of Consult: 01/29/22 HPI Narrative Reason for Consultation: Esophageal dysphagia and failure to thrive HPI Narrative: FLAQUITO GORDON, is a 76-year-old male who presented from the care home where he reportedly went unresponsive while receiving dialysis.? He has a history of peripheral vascular disease as well as nonischemic cardiomyopathy and atrial fibrillation.? Son does not know what his blood pressures typically run or his heart rate is.? Unfortunately the patient does not provide much information due to a prior stroke and apparent expressive aphasia.? Who was noted that the patient was hypotensive for EMS and at the care home.? He is on apixaban.? He sees Dr. Adler for cardiology and Dr. Jennifer alarcon for nephrology.? Almost all the history is gained simply from the chart and the patients son. He is chronically on oxygen and either 2 or 4 L (accurate history is not possible to obtain from the patient). He had a stroke approximately a year ago and a partial amputation of his left foot in August of this year due to vascular occlusive disease of his left leg.? According to his son who I obtained most of the information from, patient has been in the care home since September of this year, according to son he does not walk but they are actively trying to get him physical therapy. Work-up in the emergency room included chest x-ray which shows signs of fluid overload and pulmonary edema, patient's oxygen requirement was 4 L via nasal cannula, CBC was remarkable for hemoglobin of 9.4, CHEM panel showed a BUN of 54, creatinine of 4.86, and a sodium of 135. Patient was admitted to ICU for fluid overload/pulmonary edema secondary to his end-stage renal disease. He is currently out of the ICU and in the progressive care unit. I was consulted due to his worsening esophageal dysphagia and possible need for PEG tube. [facility] Medical History Anticoagulated Bilateral renal artery stenosis Chronic anemia Dialysis patient Edema of left forearm ESRD (end stage renal disease) on dialysis Essential hypertension GERD (gastroesophageal reflux disease) GI bleed (11/2021) Hyperlipidemia Ischemic cerebrovascular accident (CVA) (01/2021) Non-ischemic cardiomyopathy Non-traumatic rhabdomyolysis Peripheral arterial disease Peripheral vascular occlusive disease Persistent atrial fibrillation Polycystic kidney disease Renal artery stenosis Secondary pulmonary arterial hypertension Home Medications cinacalcet 60 mg tablet (Sensipar) 60 mg PO PRN PRN IPTH 10/09/14 [History Last Taken 01/27/22] apixaban 2.5 mg tablet 2.5 mg PO BID 11/29/21 [History Last Taken 01/27/22] atorvastatin 40 mg tablet 40 mg PO QHS 11/29/21 [History Last Taken 01/26/22] metoprolol tartrate 50 mg tablet 50 mg PO BID 11/29/21 [History Last Taken 01/27/22] pantoprazole 40 mg tablet,delayed release 40 mg PO BID 60 days #120 tabs 12/04/21 [Rx Last Taken 01/27/22] vitamin B complex-vitamin C-folic acid 0.8 mg tablet 1 tab PO DAILY SUPPLEMENT 01/27/22 [History Last Taken 01/27/22] Allergy/AdvReac Type Severity Reaction Status Date / Time No Known Allergies Allergy Verified 01/27/22 10:51 Family History Mother Heart disease Father Heart disease Surgical History Amputation of toe History of angioplasty of peripheral vessel (09/10/21) History of bilateral cataract extraction History of tonsillectomy History of transmetatarsal amputation of left foot S/P arteriovenous (AV) fistula creation Social History housing: care home Smoking Status: Never smoker alcohol intake: never substance use type: does not use ROS ROS Narrative as in HPI and PMH Physical Exam Const alert General Appearance: cooperative Orientation / Consciousness: oriented to person HEENT hearing grossly normal bilaterally Head and Scalp: normal to inspection Face and Sinus: face symmetric Nose: external nose normal Mouth: oral and palatal mucosa normal Eyes conjunctivae normal General Eye: normal appearance of both eyes Neck full ROM General: normal visual inspection Lymph Lymphatic: no lymphadenopathy noted Chest inspection of chest normal and palpation of chest normal Chest: symmetrical chest wall rise Resp normal respiratory effort Effort and Inspection: able to speak in complete sentences Cardio regular rate GI non-distended Percussion: normal to percussion Rectal Exam: deferred Neuro Speech: speech normal Gait (Neuro): normal gait Medical Records Data Medical Nutrition Assessment Dietitian: Malnutrition Criteria Met Start: 01/28/22 10:30 Freq: Status: Active Protocol: Document 01/28/22 10:30 AG (Rec: 01/28/22 10:30 [id number]) Nutrition Malnutrition Evidence of Malnutrition Exists Yes Malnutrition (severe): Acute Illness/Injury Evidenced By Suboptimal Energy Intake ( Severe),Weight Loss (Severe) Clinical Problem Acute Disease or Injury Related Malnutrition Etiology severe, acute malnutrition related to inadequate energy intake w/ increased energy needs d/t chronic dialysis Signs/Symptoms as evidenced by reported PO intake meeting <75% of estimated energy needs > 1 week; unintentional wt loss of 10.5#/6.5% wt loss < 1 month Status Active Problem Recommendation Dietitian Recommendations/Changes recommend renal-general diet- texture/consistency per LOGISTICS OPERATIONS MANAGER; Paul BID for wounds, Nepro 240mL BID w/ breakfast and dinner for additional calories /protein if consumed given signs/symptoms of malnutrition . Lab / Micro Data Result Diagrams: 01/29/22 03:49 01/29/22 03:25 Labs: Laboratory Results - last 24 hr 01/28/22 20:47: POC Glucose 73 L 01/29/22 00:08: POC Glucose 66 L 01/29/22 00:34: POC Glucose 89 01/29/22 03:25: Sodium 134 L, Potassium 3.5, Chloride 96 L, Carbon Dioxide 32.0, BUN 35 H, Creatinine 4.04 H, Estim Creat Clear Calc 15.15, Est GFR (MDRD) Af Amer 19 L, Est GFR (MDRD) Non-Af 15 L, BUN/Creatinine Ratio 8.7 L, Glucose 132 H, Calcium 8.5, Phosphorus 2.3 L, Albumin 1.7 L 01/29/22 03:49: WBC 13.2 H, RBC 2.59 L, Hgb 8.5 L, Hct 27.0 L, MCV 104.2 H, MCH 32.8 H, MCHC 31.5 L, RDW Std Deviation 81.2 H, RDW Coeff of Sue 21.2 H, Plt Count 135 L, MPV 11.5, Immature Gran % (Auto) 0.400, Neut % (Auto) 86.5 H, Lymph % (Auto) 5.0 L, [place] % (Auto) 6.6, Eos % (Auto) 1.1, Baso % (Auto) 0.4, Absolute Neuts (auto) 11.4 H, Absolute Lymphs (auto) 0.66 L, Nucleated RBC % 0, Differential Comment SCANNED, Hypochromasia 1+, Anisocytosis 1+, Microcytosis RARE, Macrocytosis 1+ 01/29/22 05:33: Hep Bs Antigen Non-Reactive 01/29/22 06:15: POC Glucose 85 01/29/22 11:39: POC Glucose 78 01/29/22 16:44: POC Glucose 108 H Micro: Microbiology 01/27/22 12:40 Blood Culture (Wb) - Right Hand Blood Culture - Preliminary No growth in 48 hours. 01/27/22 12:46 Blood Culture (Wb) - Anticubital Right Blood Culture - Preliminary No growth in 48 hours. Charges/Coding Visit Charges Inpatient E&M: 38612 Init Hosp L2
[2022-01-29 23:20] LABS: Bedside Glucose 83 mg/dL (74-106)
[2022-01-30] VITALS (15 sets, daily range): BP systolic 98–121; BP diastolic 68–74; PULSE 70–85; RESP 16–18; TEMP 36.4–36.7; O2SAT 83–98
[2022-01-30] MEDS: Dextrose 10%-Water 250 ML 40 ML IV (05:29)
[2022-01-30] MEDS: 0.9% Saline Lock 10 ML Syringe IV ×2 (06:13→10:37)
[2022-01-30] MEDS: Dextrose 50%-Water 25 GM/50 ML DISP.SYRIN IV (06:13)
[2022-01-30 06:36] LABS: Bedside Glucose 65 mg/dL (74-106)
[2022-01-30 06:55] LABS: Absolute Lymphocyte Count 0.58 X10^3/uL (0.83-4.51); Absolute Neutrophil Count 4.8 X10^3/uL (2.0-7.7); Basophil# 0.03 X10^3/uL; Basophil% 0.5 % (0-1); Differential Indicated SCAN CRITERIA MET; Eosinophil# 0.22 X10^3/uL; Eosinophils% 3.5 % (0-5); Hematocrit 23.8 % (40-54); Hemoglobin 7.6 g/dL (13.0-16.5); Lymphocyte # 0.58 X10^3/ul (0.83-4.51); Lymphocyte % 9.3 % (19-41); Mean Corp Hgb Conc 31.9 g/dL (32-36); Mean Corpuscular Hgb 32.8 pg (27.0-32.0); Mean Corpuscular Volume 102.6 fL (80-94); Mean Platelet Vol. 10.5 fl (6.2-12.0); Monocyte# 0.58 X10^3/uL; Monocyte% 9.3 % (0-10); NRBC Flagged by Analyzer 0 % (0-5); Neutrophil # 4.81 X10^3/uL (2.7-7.7); Neutrophil % 76.9 % (47-70); POSITIVE DIFFERENTIAL YES; POSITIVE MORPHOLOGY YES; Platelet Count 113 K/mm3 (150-450); RBC Distribution Width CV 20.7 % (11.6-14.6); RBC Distribution Width SD 78.1 fl (35.1-43.9); Red Blood Count 2.32 M/mm3 (4.6-6.2); White Blood Count 6.3 K/mm3 (4.4-11.0)
[2022-01-30 07:00] LABS: Bedside Glucose 98 mg/dL (74-106)
[2022-01-30 07:09] LABS: Albumin, Serum 1.6 g/dL (3.2-5.0); BUN 41 mg/dL (7-18); BUN/Creat Ratio 8.6 RATIO (10-20); Calcium,Total 8.8 mg/dL (8.5-10.1); Chloride 97 mmol/L (98-107); Creatinine, Serum 4.75 mg/dL (0.70-1.30); EST Glomerular Filtration Rate 13 mL/min (>60); Est Glom Filt Rate - Afr Amer 16 mL/min (>60); Glucose 152 mg/dL (74-106); Phosphorus 3.2 mg/dL (2.5-4.9); Potassium 3.6 mmol/L (3.5-5.1); Sodium Level 135 mmol/L (136-145)
[2022-01-30 07:15] LABS: Hypochromasia 1+
--- NOTE | 2022-01-30 09:48 | PN.CC_ITS ---
Assessment & Plan Assessment/Plan (1) Volume overload: (2) Secondary pulmonary arterial hypertension: PLAN: Plan RECOMMENDATIONS: 1. Okay to discontinue antibiotics 2. Hold on fluid boluses. Volume removal if possible with dialysis 3. Dialysis timing per nephrology 4. Wean oxygen as tolerated 5. Hemodynamically stable on minimal nasal cannula oxygen. Will sign off from a pulmonary perspective. Please call with issues IMPRESSIONS: 1. Possible sepsis Ruled out. Patient with marginal blood pressures and known dialysis. Cultures are negative at 48 hours, so antibiotics will be discontinued. Would recommend repeat blood cultures if patient becomes febrile. Fluid resuscitation will be held given patient's finding on chest x-ray, new oxygen requirements and concern for worsening in congestive heart failure. Blood pressures have significantly improved with initiation of antibiotics, but cultures have not been positive to this point. Patient does have significant swelling of the fistula site, but fluctuance is not noted. Endorgan damage noted by elevated lactate. Patient has end-stage renal disease making creatinine unhelpful. 2. Syncopal event No recurrence noted. Patient with a syncopal event during hemodialysis. Unclear if this is related to volume removal, problem #1 or cardiac arrhythmia. Patient will be kept on telemetry. No significant changes have been noted. Patient was hypotensive and bradycardic on presentation 3. Persistent A. fib/acute on chronic systolic CHF Patient with a known ejection fraction of 25%. Chest x-ray does show findings consistent with volume overload. Dialysis is being attempted at this time. We will hold on any fluid boluses as this could lead to respiratory failure. Wean supplemental oxygen as tolerated. Cannot exclude the need for a thoracentesis, but pleural effusions do not appear to be the predominant etiology of his hypoxia. Patient is chronically anticoagulated with Eliquis. 4. Hypertension/peripheral vascular disease/secondary pulmonary hypertension/advanced age/type 2 diabetes mellitus/debility Complicates care, management, recovery and prognosis. Antihypertensives have been held secondary to problem #1. Okay to continue with anticoagulation for now. We will need to watch blood sugars closely, but hypoglycemia has been more of an issue. This may be secondary to problem #1. Subjective Subjective Patient transferred out of the intensive care unit yesterday. Patient overall feels subjectively slightly improved compared to yesterday. Patient still requiring minimal nasal cannula oxygen, but blood pressures improved. Objective Data Objective Data Vital Signs: Vital Signs Temp Pulse Resp BP Pulse Ox O2 Del Method O2 Flow Rate 36.6 C 72 18 98/68 83 Nasal Cannula 2 01/30/22 03:59 01/30/22 07:00 01/30/22 03:59 01/30/22 03:59 01/30/22 08:46 01/30/22 07:45 01/30/22 08:46 FiO2 4 01/29/22 08:12 Oxygen Flow Rate (L/min) 2 Oxygen Delivery Method Nasal Cannula Weight: 62.6 kg Body Mass Index (BMI) 19.4 Intake & Output: Intake and Output for Last 24 Hours 01/28/22 01/29/22 01/30/22 23:59 23:59 23:59 Intake Total 811.67 / 811.67 1188.67 / 1188.67 300 / 300 Output Total 1999 / 1999 2500 / 2500 Balance -1188.33 / -1188.33 -1311.33 / -1311.33 300 / 300 Medical Nutrition Assessment Dietitian: Malnutrition Criteria Met Start: 01/28/22 10:30 Freq: Status: Active Protocol: Document 01/28/22 10:30 AG (Rec: 01/28/22 10:30 [id number]) Nutrition Malnutrition Evidence of Malnutrition Exists Yes Malnutrition (severe): Acute Illness/Injury Evidenced By Suboptimal Energy Intake ( Severe),Weight Loss (Severe) Clinical Problem Acute Disease or Injury Related Malnutrition Etiology severe, acute malnutrition related to inadequate energy intake w/ increased energy needs d/t chronic dialysis Signs/Symptoms as evidenced by reported PO intake meeting <75% of estimated energy needs > 1 week; unintentional wt loss of 10.5#/6.5% wt loss < 1 month Status Active Problem Recommendation Dietitian Recommendations/Changes recommend renal-general diet- texture/consistency per VEGETABLE B[employer]CHER; Paul BID for wounds, Nepro 240mL BID w/ breakfast and dinner for additional calories /protein if consumed given signs/symptoms of malnutrition . Lab / Micro Data Attestation: I reviewed the patient's lab results. Result Diagrams: 01/30/22 06:45 01/30/22 06:45 Labs: Laboratory Results - last 24 hr 01/29/22 11:39: POC Glucose 78 01/29/22 16:44: POC Glucose 108 H 01/29/22 22:08: POC Glucose 83 01/30/22 06:09: POC Glucose 65 L 01/30/22 06:43: POC Glucose 98 01/30/22 06:45: WBC 6.3, RBC 2.32 L, Hgb 7.6 L, Hct 23.8 L, MCV 102.6 H, MCH 32.8 H, MCHC 31.9 L, RDW Std Deviation 78.1 H, RDW Coeff of Sue 20.7 H, Plt Count 113 L, MPV 10.5, Immature Gran % (Auto) 0.500, Neut % (Auto) 76.9 H, Lymph % (Auto) 9.3 L, [place] % (Auto) 9.3, Eos % (Auto) 3.5, Baso % (Auto) 0.5, Absolute Neuts (auto) 4.8, Absolute Lymphs (auto) 0.58 L, Nucleated RBC % 0, Hypochromasia 1+ 01/30/22 06:45: Sodium 135 L, Potassium 3.6, Chloride 97 L, Carbon Dioxide 32.0, BUN 41 H, Creatinine 4.75 H, Estim Creat Clear Calc 11.90, Est GFR (MDRD) Af Amer 16 L, Est GFR (MDRD) Non-Af 13 L, BUN/Creatinine Ratio 8.6 L, Glucose 152 H , Calcium 8.8, Phosphorus 3.2, Albumin 1.6 L Micro: Microbiology 01/27/22 12:40 Blood Culture (Wb) - Right Hand Blood Culture - Preliminary No growth in 48 hours. 01/27/22 12:46 Blood Culture (Wb) - Anticubital Right Blood Culture - Preliminary No growth in 48 hours. Physical Exam Const alert, oriented x3 and no apparent distress Constitutional Narrative: Patient appears older than his stated age, he appears cachectic. General Appearance: cooperative Orientation / Consciousness: awake HEENT normocephalic, head/scalp atraumatic and moist oral mucous membranes Eyes PERRL, EOMs intact bilaterally and conjunctivae normal Neck supple, thyroid normal and no carotid bruits General: trachea midline Resp normal respiratory effort, no retractions, no use of accessory muscles and clear to auscultation bilaterally Auscultation: Negative for rales, rhonchi or wheezes Cardio S1 normal heart sound, S2 normal heart sound, no murmurs, no rub and no gallops Cardio Narrative: Heart rate and rhythm is irregular GI normal to inspection, nondistended, normoactive bowel sounds, soft to palpation, non-tender and non-distended Extremity Extremity Narrative: Patient's left forearm around his fistula area is swollen as compared with his right forearm. 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 Partial wound healing noted. 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
--- NOTE | 2022-01-30 11:26 | PN.HOSP_ITS ---
Subjective Subjective Patient seen and examined. HE has no complaints today. He was wondering why he couldnt eat. HE denied any fever, chills, cough, chest pain, palpitaitons, dizziness, nausea, vomiting or any other symptoms. Review of systems is otherwise negative. Objective Data Objective Data Vital Signs: Vital Signs Temp Pulse Resp BP Pulse Ox O2 Del Method O2 Flow Rate 97.9 F 78 18 121/74 H 96 Nasal Cannula 3 01/30/22 10:01/30/22 10:01/30/22 10:01/30/22 10:01/30/22 10:01/30/22 10:01/30/22 10: FiO2 4 01/30/22 10: Oxygen Flow Rate (L/min) 3 Oxygen Delivery Method Nasal Cannula Weight: 138 lb 0.15 oz Body Mass Index (BMI) 19.4 Intake & Output: Intake and Output for Last 24 Hours 01/28/22 01/29/22 01/30/22 23:59 23:59 23:59 Intake Total 811.67 / 811.67 1188.67 / 1188.67 300 / 300 Output Total 1999 / 1999 2500 / 2500 Balance -1188.33 / -1188.33 -1311.33 / -1311.33 300 / 300 Medical Nutrition Assessment Dietitian: Malnutrition Criteria Met Start: 01/28/22 10 :30 Freq: Status: Active Protocol: Document 01/28/22 10:30 (Rec: 01/28/22 10:30 [id number]) Nutrition Malnutrition Evidence of Malnutrition Exists Yes Malnutrition (severe): Acute Illness/Injury Evidenced By Suboptimal Energy Intake ( Severe),Weight Loss (Severe) Clinical Problem Acute Disease or Injury Related Malnutrition Etiology severe, acute malnutrition related to inadequate energy intake w/ increased energy needs d/t chronic dialysis Signs/Symptoms as evidenced by reported PO intake meeting <75% of estimated energy needs > 1 week; unintentional wt loss of 10.5#/6.5% wt loss < 1 month Status Active Problem Recommendation Dietitian Recommendations/Changes recommend renal-general diet- texture/consistency per ASSISTANT PROFESSOR OF THEATER; Paul BID for wounds, Nepro 240mL BID w/ breakfast and dinner for additional calories /protein if consumed given signs/symptoms of malnutrition . Lab / Micro Data Result Diagrams: 01/30/22 06:45 01/30/22 06:45 Labs: Laboratory Results - last 24 hr 01/29/22 11:39: POC Glucose 78 01/29/22 16:44: POC Glucose 108 H 01/29/22 22:08: POC Glucose 83 01/30/22 06:09: POC Glucose 65 L 01/30/22 06:43: POC Glucose 98 01/30/22 06:45: WBC 6.3, RBC 2.32 L, Hgb 7.6 L, Hct 23.8 L, MCV 102.6 H, MCH 32.8 H, MCHC 31.9 L, RDW Std Deviation 78.1 H, RDW Coeff of Sue 20.7 H, Plt Count 113 L, MPV 10.5, Immature Gran % (Auto) 0.500, Neut % (Auto) 76.9 H, Lymph % (Auto) 9.3 L, [place] % (Auto) 9.3, Eos % (Auto) 3.5, Baso % (Auto) 0.5, Absolute Neuts (auto) 4.8, Absolute Lymphs (auto) 0.58 L, Nucleated RBC % 0, Hypochrom elliot 1+ 01/30/22 06:45: Sodium 135 L, Potassium 3.6, Chloride 97 L, Carbon Dioxide 32.0, BUN 41 H, Creatinine 4.75 H, Estim Creat Clear Calc 11.90, Est GFR (MDRD) Af Amer 16 L, Est GFR (MDRD) Non-Af 13 L, BUN/Creatinine Ratio 8.6 L, Glucose 152 H , Calcium 8.8, Phosphorus 3.2, Albumin 1.6 L Micro: Microbiology 01/27/22 12:40 Blood Culture (Wb) - Right Hand Blood Culture - Preliminary No growth in 48 hours. 01/27/22 12:46 Blood Culture (Wb) - Anticubital Right Blood Culture - Preliminary No growth in 48 hours. Physical Exam Const alert, oriented x3 and no apparent distress HEENT head/scalp atraumatic HEENT Narrative: dry oral mucosa Head and Scalp: normocephalic Mouth: dry mucous membranes Eyes PERRL, EOMs intact bilaterally and conjunctivae normal Resp normal respiratory effort Resp Narrative: mildly diminished breath sounds bibasally, no wheezes, no crackles. On room air Cardio regular rate, regular rhythm, S1 normal heart sound, S2 normal heart sound and no murmurs GI normal to inspection, nondistended, normoactive bowel sounds, soft to palpation, non-tender and non-distended Extremity normal to inspection and full ROM Extremity Narrative: AV fistula with good thrill in LUE Neuro oriented x3, CN's II-XII intact bilaterally, moves all extremities and no focal motor deficits Sensorium / Orientation: awake and alert Speech: speech normal Psych affect normal Assessment & Plan Assessment/Plan (1) Failure to thrive: (2) Esophageal dysphagia: (3) Bilateral pleural effusion: (4) Volume overload: (5) Acute on chronic respiratory failure with hypoxemia: PLAN: Plan #FLuid overload due to pulmonary edema * due to ESRD. CXR showed bilateral pleural effusion and pulmonary edema * was initially admitted to the ICU. * resolved after dialysis and transferred out of the ICU * #Hypotension: resolved #Dysphagia * GI on board * had modified barium swallow which showed poor esophageal opening * GI to determine if he needs EGD with perhaps esophageal dilatation and PEG tube insertion * #History of CVA: stable. on atorvastatin #HYpotension: on midodrine to help with hypotension #AFib; on eliquis and metoprolol #Acute on chronic anemia * Hb is 7.6. Baseline is usually ~ 8 * he appeared to be coughing vs spitting up some blood. He had blood in tissue in the room, but couldnt tell me if he threw up or coughed it up. 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 * * #ESRD: on HD. On cinacalcet. Nephrology on board DVT prophylaxis: on eliquis Charges/Coding Visit Charges Inpatient E&M: 79084 Subs Hosp L2
[2022-01-30 12:21] LABS: Bedside Glucose 74 mg/dL (74-106)
[2022-01-30] MEDS: Dextrose 10%-Water 250 ML 60 ML IV ×3 (14:42→23:45)
--- NOTE | 2022-01-30 18:33 | PCM.PN.REN ---
Subjective Subjective Following for ESRD. The patient denies chest pain, shortness of breath, or nausea today. He is still n.p.o. and is scheduled for PEG placement tomorrow. Objective Data Objective Data Vital Signs: Vital Signs Temp Pulse Resp BP Pulse Ox O2 Del Method O2 Flow Rate 98.1 F 70 18 110/72 98 Nasal Cannula 3 01/30/22 17:00 01/30/22 17:00 01/30/22 17:00 01/30/22 17:00 01/30/22 17:00 01/30/22 17:00 01/30/22 17:00 FiO2 4 01/30/22 17:00 Oxygen Flow Rate (L/min) 3 Oxygen Delivery Method Nasal Cannula Weight: 62.6 kg Body Mass Index (BMI) 19.4 Intake & Output: Intake and Output for Last 24 Hours 01/28/22 01/29/22 01/30/22 23:59 23:59 23:59 Intake Total 811.67 / 811.67 1188.67 / 1188.67 550 / 550 Output Total 1999 / 1999 2500 / 2500 Balance -1188.33 / -1188.33 -1311.33 / -1311.33 550 / 550 Medical Nutrition Assessment Dietitian: Malnutrition Criteria Met Start: 01/28/22 10:30 Freq: Status: Active Protocol: Document 01/30/22 11:56 JULIA (Rec: 01/30/22 11:56 [email or web address] [id number]) Nutrition Malnutrition Evidence of Malnutrition Exists Yes Malnutrition (severe): Acute Illness/Injury Evidenced By Suboptimal Energy Intake ( Severe),Weight Loss (Severe) Clinical Problem Biting/Chewing Difficulty Etiology swallowing related to dysphagia Signs/Symptoms as evidenced by strict NPO w/ rec for alternate means of nutrition/hydration Status Active Problem Acute Disease or Injury Related Malnutrition Etiology severe, acute malnutrition related to inadequate energy intake w/ increased energy needs d/t chronic dialysis Signs/Symptoms as evidenced by reported PO intake meeting <75% of estimated energy needs > 1 week; unintentional wt loss of 10.5#/6.5% wt loss < 1 month Status Active Problem Recommendation Dietitian Recommendations/Changes Rec Nepro CHO Steady via PEG at goal rate 75 ml/hr with 80 ml water flush every 4 hours to provide ~ 1800 glenna/145 gm pro/ 1788 ml free water/day. Would start tf at 15 ml/hr and increase by 15 ml every 8- 12 hours as pt tolerates until goal rate achieved. Lab / Micro Data Result Diagrams: 01/30/22 06:45 01/30/22 06:45 Labs: Laboratory Results - last 24 hr 01/29/22 22:08: POC Glucose 83 01/30/22 06:09: POC Glucose 65 L 01/30/22 06:43: POC Glucose 98 01/30/22 06:45: WBC 6.3, RBC 2.32 L, Hgb 7.6 L, Hct 23.8 L, MCV 102.6 H, MCH 32.8 H, MCHC 31.9 L, RDW Std Deviation 78.1 H, RDW Coeff of Sue 20.7 H, Plt Count 113 L, MPV 10.5, Immature Gran % (Auto) 0.500, Neut % (Auto) 76.9 H, Lymph % (Auto) 9.3 L, [place] % (Auto) 9.3, Eos % (Auto) 3.5, Baso % (Auto) 0.5, Absolute Neuts (auto) 4.8, Absolute Lymphs (auto) 0.58 L, Nucleated RBC % 0, Hypochromasia 1+ 01/30/22 06:45: Sodium 135 L, Potassium 3.6, Chloride 97 L, Carbon Dioxide 32.0, BUN 41 H, Creatinine 4.75 H, Estim Creat Clear Calc 11.90, Est GFR (MDRD) Af Amer 16 L, Est GFR (MDRD) Non-Af 13 L, BUN/Creatinine Ratio 8.6 L, Glucose 152 H, Calcium 8.8, Phosphorus 3.2, Albumin 1.6 L 01/30/22 11:58: POC Glucose 74 Micro: Microbiology 01/27/22 12:40 Blood Culture (Wb) - Right Hand Blood Culture - Preliminary No growth in 48 hours. 01/27/22 12:46 Blood Culture (Wb) - Anticubital Right Blood Culture - Preliminary No growth in 48 hours. Physical Exam Narrative Const: Alert to name. No apparent distress. [place]. Cardio: S1-S2 RRR Respiratory: Lung sounds diminished posterior bases. On O2 via nasal canula GI: Abdomen soft, nontender, positive bowel sounds Extremities: No edema noted to bilateral lower legs, thighs, or feet. AV fistula left arm positive thrill and bruit. Jamel wrap intact/dry left foot Assessment & Plan Assessment/Plan (1) ESRD (end stage renal disease) on dialysis: (2) Volume overload: (3) Anemia of chronic disease: (4) Essential hypertension: (5) Secondary pulmonary arterial hypertension: PLAN: Plan - Patient underwent hemodialysis 01/28 with 2 L fluid removed. Dialyzed again yesterday for 2.5 hours with 2 L fluid removal as patient/blood pressure tolerates. -Respiratory status and volume overload is improving. -No need for dialysis today. We will arrange for dialysis tomorrow. Patient dialyzes at [facility] on a Thursday schedule. -Recently he has been shortening his dialysis sessions which likely has led to volume overload. Patient has history of chronic systolic heart failure with last known EF 25%. EDW had been 65 kg. Likely patient will have new lowered dry weight by time of hospital discharge. -Blood pressure is stable. Not on any antihypertensives. He is actually on midodrine. -The patient does not need any phosphate binders at this time. Last phosphorus is 3.2. Will monitor phosphorus trends. -Anemia of chronic disease: Patient receives RITIKA with HD. Hemoglobin is 7.6 today. We will continue to monitor hemoglobin trends. -Patient had modified barium swallow today. Found to have severe oropharyngeal phase dysphagia resulting in aspiration. The patient will undergo EGD with PEG placement tomorrow. - Patient has left UA AVF and was evaluated by Dr. Cortes for left upper arm swelling concern; no intervention at this time and ok to cannulate. HD RN did not have issues with cannulation yesterday or today.
[2022-01-30 19:15] LABS: Bedside Glucose 84 mg/dL (74-106)
[2022-01-30] MEDS: Menthol/Lanolin/Calamine/Znox 113 GM Tube 1 APPLIC TOPICAL (23:41)
[2022-01-31] VITALS (27 sets, daily range): BP systolic 79–121; BP diastolic 40–74; PULSE 70–91; RESP 16–22; TEMP 36.4–36.7; O2SAT 92–108; BMI 18.3
[2022-01-31 00:15] LABS: Bedside Glucose 96 mg/dL (74-106)
[2022-01-31] MEDS: Dextrose 10%-Water 250 ML 60 ML IV ×3 (04:05→18:13)
[2022-01-31 05:54] LABS: Absolute Lymphocyte Count 0.68 X10^3/uL (0.83-4.51); Absolute Neutrophil Count 4.1 X10^3/uL (2.0-7.7); Basophil# 0.04 X10^3/uL; Basophil% 0.7 % (0-1); Eosinophil# 0.22 X10^3/uL; Eosinophils% 3.9 % (0-5); Hematocrit 23.9 % (40-54); Hemoglobin 7.9 g/dL (13.0-16.5); Lymphocyte # 0.68 X10^3/ul (0.83-4.51); Lymphocyte % 12.2 % (19-41); Mean Corp Hgb Conc 33.1 g/dL (32-36); Mean Corpuscular Hgb 33.9 pg (27.0-32.0); Mean Corpuscular Volume 102.6 fL (80-94); Mean Platelet Vol. 11.1 fl (6.2-12.0); Monocyte# 0.56 X10^3/uL; NRBC Flagged by Analyzer 0 % (0-5); Neutrophil # 4.05 X10^3/uL (2.7-7.7); Neutrophil % 72.7 % (47-70); POSITIVE MORPHOLOGY YES; Platelet Count 139 K/mm3 (150-450); RBC Distribution Width CV 20.1 % (11.6-14.6); RBC Distribution Width SD 74.9 fl (35.1-43.9); Red Blood Count 2.33 M/mm3 (4.6-6.2); White Blood Count 5.6 K/mm3 (4.4-11.0)
[2022-01-31 05:59] LABS: Differential Indicated SCAN CRITERIA MET
[2022-01-31 06:18] LABS: Anion Gap 8 (5-15); BUN 43 mg/dL (7-18); BUN/Creat Ratio 7.8 RATIO (10-20); Calcium,Total 8.7 mg/dL (8.5-10.1); Chloride 95 mmol/L (98-107); Creatinine, Serum 5.51 mg/dL (0.70-1.30); EST Glomerular Filtration Rate 11 mL/min (>60); Est Glom Filt Rate - Afr Amer 13 mL/min (>60); Estimated Creatinine Clearance 10.37 ml/min; Glucose 88 mg/dL (74-106); Potassium 3.7 mmol/L (3.5-5.1); Sodium Level 131 mmol/L (136-145)
[2022-01-31 06:46] LABS: Anisocytosis 2+; Microcytosis 1+; Ovalocyte RARE
[2022-01-31 06:47] LABS: Macrocytosis 1+; Polychromasia RARE
[2022-01-31 07:05] LABS: Bedside Glucose 93 mg/dL (74-106)
[2022-01-31 10:16] LABS: Bedside Glucose 79 mg/dL (74-106)
--- NOTE | 2022-01-31 10:16 | PN.HOSP_ITS ---
Subjective Subjective Patient seen and examined. He had no active complaints. HE is due for EGD and PEG Tube placement today. REview of systems otherwise negative. Objective Data Objective Data Vital Signs: Vital Signs Temp Pulse Resp BP Pulse Ox O2 Del Method O2 Flow Rate 97.6 F L 85 18 106/63 96 Nasal Cannula 3 01/31/22 08:30 01/31/22 08:30 01/31/22 08:30 01/31/22 08:30 01/31/22 08:40 01/31/22 08:40 01/31/22 08:40 FiO2 4 01/31/22 08:30 Oxygen Flow Rate (L/min) 3 Oxygen Delivery Method Nasal Cannula Weight: 139 lb 8.842 oz Body Mass Index (BMI) 18.3 Intake & Output: Intake and Output for Last 24 Hours 01/29/22 01/30/22 01/31/22 23:59 23:59 23:59 Intake Total 1188.67 / 1188.67 1050 / 1050 500 / 500 Output Total 2500 / 2500 Balance -1311.33 / -1311.33 1050 / 1050 500 / 500 Medical Nutrition Assessment Dietitian: Malnutrition Criteria Met Start: 01/28/22 10:30 Freq: Status: Active Protocol: Document 01/30/22 11:56 JULIA (Rec: 01/30/22 11:56 SLA [id number]) Nutrition Malnutrition Evidence of Malnutrition Exists Yes Malnutrition (severe): Acute Illness/Injury Evidenced By Suboptimal Energy Intake ( Severe),Weight Loss (Severe) Clinical Problem Biting/Chewing Difficulty Etiology swallowing related to dysphagia Signs/Symptoms as evidenced by strict NPO w/ rec for alternate means of nutrition/hydration Status Active Problem Acute Disease or Injury Related Malnutrition Etiology severe, acute malnutrition related to inadequate energy intake w/ increased energy needs d/t chronic dialysis Signs/Symptoms as evidenced by reported PO intake meeting <75% of estimated energy needs > 1 week; unintentional wt loss of 10.5#/6.5% wt loss < 1 month Status Active Problem Recommendation Dietitian Recommendations/Changes Rec Nepro CHO Steady via PEG at goal rate 50 ml/hr with 150 ml water flush every 4 hours to provide ~ 2040 glenna/97 gm pro/ 1772 ml free water/day. Would start tf at 15 ml/hr and increase by 15 ml every 8- 12 hours as pt tolerates until goal rate achieved. Lab / Micro Data Result Diagrams: 01/31/22 05:16 01/31/22 05:16 Labs: Laboratory Results - last 24 hr 01/30/22 11:58: POC Glucose 74 01/30/22 17:38: POC Glucose 84 01/30/22 23:46: POC Glucose 96 01/31/22 05:16: WBC 5.6, RBC 2.33 L, Hgb 7.9 L, Hct 23.9 L, MCV 102.6 H, MCH 3 3.9 H, MCHC 33.1, RDW Std Deviation 74.9 H, RDW Coeff of Sue 20.1 H, Plt Count 139 L, MPV 11.1, Immature Gran % (Auto) 0.500, Neut % (Auto) 72.7 H, Lymph % (Auto) 12.2 L, [place] % (Auto) 10.0, Eos % (Auto) 3.9, Baso % (Auto) 0.7, Absolute Neuts (auto) 4.1, Absolute Lymphs (auto) 0.68 L, Nucleated RBC % 0, Polychromasia RARE, Anisocytosis 2+, Microcytosis 1+, Macrocytosis 1+, Ovalocytes RARE 01/31/22 05:16: Sodium 131 L, Potassium 3.7, Chloride 95 L, Carbon Dioxide 28.0, Anion Gap 8, BUN 43 H, Creatinine 5.51 H, Estim Creat Clear Calc 10.37, Est GFR (MDRD) Af Amer 13 L, Est GFR (MDRD) Non-Af 11 L, BUN/Creatinine Ratio 7.8 L, Glucose 88, Calcium 8.7 01/31/22 06:42: POC Glucose 93 Micro: Microbiology 01/27/22 12:40 Blood Culture (Wb) - Right Hand Blood Culture - Preliminary No growth in 48 hours. 01/27/22 12:46 Blood Culture (Wb) - Anticubital Right Blood Culture - Preliminary No growth in 48 hours. Physical Exam Const alert, oriented x3 and no apparent distress Constitutional Narrative: Patient appears older than his stated age, he appears cachectic General Appearance: cooperative, well kempt and well developed Orientation / Consciousness: awake HEENT normocephalic, head/scalp atraumatic and moist oral mucous membranes Head and Scalp: normocephalic Mouth: oral and palatal mucosa normal Eyes PERRL, EOMs intact bilaterally and conjunctivae normal Neck supple, no JVD, thyroid normal and no carotid bruits General: trachea midline Resp normal respiratory effort, no retractions, no use of accessory muscles and clear to auscultation bilaterally Resp Narrative: on 3L of oxygen by nasal canula Auscultation: Negative for rales, rhonchi or wheezes Cardio regular rate, regular rhythm, S1 normal heart sound, S2 normal heart sound, no murmurs, no rub and no gallops Cardio Narrative: Heart rate and rhythm is irregular GI normal to inspection, nondistended, normoactive bowel sounds, soft to palpation, non-tender and non-distended 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 CXR showed bilateral pleural effusion and pulmonary edema * was initially admitted to the ICU. * resolved after dialysis and transferred out of the ICU * #Hypotension: resolved #Dysphagia * GI on board * had modified barium swallow which showed poor esophageal opening * for EGD with PEG tube placement today * #History of CVA: stable. on atorvastatin #HYpotension: on midodrine to help with hypotension #AFib; on eliquis and metoprolol #Acute on chronic anemia * Hb is 7.9. 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 * * #ESRD: on HD. On cinacalcet. Nephrology on board DVT prophylaxis: on eliquis Charges/Coding Visit Charges Inpatient E&M: 91850 Subs Hosp L2
--- NOTE | 2022-01-31 11:30 | EGD_PTH ---
PATIENT: FLAQUITO GORDON LOC: [facility] U#:[id number] AGE/SX: 76/M ROOM: [facility] RE01/27/[address]: Dr. Ann Chang MD : 1945 BED: 1 DIS: 02/03/2022 SPEC #: [id number] RECD: 01/31/22 13:16 STATUS: OCHOA REQ #: [id number] DIEUDONNE: 01/31/22 11:[address]: Dipesh Suresh DEPT: SURGICAL PATHOLOGY RECD BY: Breanne Meehan ENTERED: 02/03/22 08:09 SP TYPE: EGD BIOPSY OTHR DR: MD Dr. Haile Martin Dr., MD Dr. Glen Santiago Dr., DO Dr. Nana Yaa Koram, MD Dr. Natthavat Tanphaichitr, MD Dr. Prakash Chand, MD Dr. Paul Nielsen, MD Dr. Robert D Cebul, MD Dr. Tanmay Panchabhai, MD Christina Muller, TOWER ERECTOR HELPER-C Tissues: Duodenum, NOS Procedures: Surgery Specimen Level IV Comments: @ Ordering doctor for SUIV edited from to @ by ALFONSO at 02/03/22 1413 @ Submitting doctor edited from to @ by ALFONSO at 02/03/22 1410 HEADER OPERATION: EGD (MAC), PEG tube, dilation, biopsy PRE-OP DIAGNOSIS: Anemia, esophagus dysphagia TISSUE SUBMITTED: Duodenal polyp biopsy MICROSCOPIC DIAGNOSIS Duodenal polyp, biopsy: Fragments of duodenal mucosa with mild nonspecific chronic inflammation and gastric metaplasia. Ousmane 02/04/2022 MICROSCOPIC DESCRIPTION Slides are reviewed. GROSS DESCRIPTION Received in fixative is one container labeled with the patient's name and designated duodenal polyp biopsy. The specimen consists of two irregular fragments of light ludwig soft tissue that in aggregate measure 0.6 x 0.3 x 0.1 cm. The specimen is totally submitted in one cassette. / Ousmane 02/03/2022 TC:5 CPT: 58977
--- NOTE | 2022-01-31 12:21 | OP.EGD_ITS ---
Patient Name: Alvin Crandall Procedure Date: 01/31/2022 11:36 AM Date of : 1945 Age: 76 Procedure: Upper GI endoscopy Indications: Dysphagia Providers: Dipesh Suresh DO Medicines: Monitored Anesthesia Care Patient Profile: This is a 76 year old male. Refer to note in patient chart for documentation of history and physical. Patient has symptoms of chronic dysphagia and dysphagia with both liquids and solids. Complications: No immediate complications. Procedure: Pre-Anesthesia Assessment: - Prior to the procedure, a History and Physical was performed, and patient medications and allergies were reviewed. The patient is competent. The risks and benefits of the procedure and the sedation options and risks were discussed with the patient. All questions were answered and informed consent was obtained. Patient identification and proposed procedure were verified by the physician in the pre-procedure area. Mental Status Examination: alert and oriented. Airway Examination: normal oropharyngeal airway and neck mobility. Respiratory Examination: clear to auscultation. CV Examination: normal. Prophylactic Antibiotics: The patient does not require prophylactic antibiotics. Prior Anticoagulants: The patient has taken no previous anticoagulant or antiplatelet agents. ASA Grade Assessment: II - A patient with mild systemic disease. After reviewing the risks and benefits, the patient was deemed in satisfactory condition to undergo the procedure. The anesthesia plan was to use monitored anesthesia care (MAC). Immediately prior to administration of medications, the patient was re-assessed for adequacy to receive sedatives. The heart rate, respiratory rate, oxygen saturations, blood pressure, adequacy of pulmonary ventilation, and response to care were monitored throughout the procedure. The physical status of the patient was re-assessed after the procedure. After obtaining informed consent, the endoscope was passed under direct vision. Throughout the procedure, the patient's blood pressure, pulse, and oxygen saturations were monitored continuously. The gastroscope was introduced through the mouth, and advanced to the second part of duodenum. The upper GI endoscopy was accomplished without difficulty. The patient tolerated the procedure well. Scope In: 11:49:31 AM Scope Out: 12:10:25 PM Total Procedure Duration Time 0 hours 20 minutes 54 seconds Findings: One benign-appearing, intrinsic stenosis was found 20 to 21 cm from the incisors. This stenosis was moderately severe and. The stenosis was traversed after dilation. A guidewire was placed and the scope was withdrawn. Dilation was performed with a Savary dilator with no resistance at 45 Fr. The dilation site was examined following endoscope reinsertion and showed moderate improvement in luminal narrowing. Estimated blood loss was minimal. No gross lesions were noted in the entire examined stomach. The patient was placed in the supine position for PEG placement. The stomach was insufflated to appose gastric and abdominal gómez. A site was located in the cardia with excellent transillumination for placement. The abdominal wall was marked and prepped in a sterile manner. The area was anesthetized with 1 mL of 0.5% lidocaine. The trocar needle was introduced through the abdominal wall and into the stomach under direct endoscopic view. A snare was introduced through the endoscope and opened in the gastric lumen. The guide wire was passed through the trocar and into the open snare. The snare was closed around the guide wire. The endoscope and snare were removed, pulling the wire out through the mouth. A skin incision was made at the site of needle insertion. The externally removable 20 Fr Bard gastrostomy tube was lubricated. The G-tube was tied to the guide wire and pulled through the mouth and into the stomach. The trocar needle was removed, and the gastrostomy tube was pulled out from the stomach through the skin. The external bumper was attached to the gastrostomy tube, and the tube was cut to remove the guide wire. The final position of the gastrostomy tube was confirmed by relook endoscopy, and skin marking noted to be 4 cm at the external bumper. The final tension and compression of the abdominal wall by the PEG tube and external bumper were checked and revealed that the bumper was loose and lightly touching the skin and that the PEG balloon was loose and lightly touching the stomach. The feeding tube was capped, and the tube site cleaned and dressed. Two 5 mm sessile polyps with no bleeding were found in the duodenal bulb. Biopsies were taken with a cold forceps for histology. Verification of patient identification for the specimen was done. Estimated blood loss was minimal. One non-bleeding superficial gastric ulcer with no stigmata of bleeding was found in the gastric body. The lesion was 6 mm in largest dimension. Impression: - Benign-appearing esophageal stenosis. Dilated. - No gross lesions in the stomach. - Two duodenal polyps. Biopsied. - An externally removable PEG placement was successfully completed. Recommendation: - Discharge patient to home. - NPO. - Please follow the post-PEG recommendations including: Nutrition consult for formula and volume, advance food and medications per primary care provider, external bolster 1 cm from abdominal wall, remove dressing after 2 weeks, start using PEG today and check site for bleeding q 4 hrs. - Continue present medications. Procedure Code(s): --- Professional --- 90236, Esophagogastroduodenoscopy, flexible, transoral; with directed placement of percutaneous gastrostomy tube 51662, 51, Esophagogastroduodenoscopy, flexible, transoral; with insertion of guide wire followed by passage of dilator(s) through esophagus over guide wire 73851, 59, Esophagogastroduodenoscopy, flexible, transoral; with biopsy, single or multiple CPT copyright 2017 [employer]. All rights reserved. The codes documented in this report are preliminary and upon knitted garment finisher review may be revised to meet current compliance requirements. Dipesh Suresh DO 01/31/2022 12:20:52 PM This report has been signed electronically. Number of Addenda: 0 Note Initiated On: 01/31/2022 11:36 AM
--- NOTE | 2022-01-31 12:23 | OP.CCLET_ITS ---
01/31/2022 Adair Castaneda MD [address] [id number] Re : Upper GI endoscopy procedure for Alvin Workmanh Dear Dr. Castaneda This procedure was performed on Monday, January 31, 2022. My impressions and recommendations are as follows: Impressions : - Benign-appearing esophageal stenosis. Dilated. - No gross lesions in the stomach. - Two duodenal polyps. Biopsied. - An externally removable PEG placement was successfully completed. Recommendations : - Discharge patient to home. - NPO. - Please follow the post-PEG recommendations including: Nutrition consult for formula and volume, advance food and medications per primary care provider, external bolster 1 cm from abdominal wall, remove dressing after 2 weeks, start using PEG today and check site for bleeding q 4 hrs. - Continue present medications. My findings are described in the full procedure note, which is enclosed. If I can be of further assistance, please feel free to contact me at . Sincerely, Dipesh Suresh, 01/31/2022 12:20:52 PM This report has been signed electronically.
--- NOTE | 2022-01-31 13:46 | CASEMGMT ---
Social Work PCU Received notice from RN SHELLIE that patient is for a PEG tube today. No discharge time frame yet. Called Tigist at [facility] and confirmed whether patient can return skilled level of care. Per Tigist, patient can but there was thought that patient may be going to hospice. Reviewed record and based on social work note from 01.28.2022 the patient was not yet deciding to go with hospice. Tigist confirms, then if no hospice the patient can return to facility skilled. Noted also from chart review, patient has been at [facility] at least since November (so longer than 30 days now). CM transfer to extended care facility intervention completed this date. No PASRR or convalescent form is needed due to patient being from [facility] and no break to the community. Plan: Return to [facility] SNF, skilled level of care when medically stable. Green sheet on chart to follow at time of discharge. -DONOVAN Blakely, PBX MECHANIC
[2022-01-31 14:45] LABS: Bedside Glucose 77 mg/dL (74-106)
[2022-01-31 16:55] LABS: Bedside Glucose 82 mg/dL (74-106)
--- NOTE | 2022-01-31 19:48 | DIALYSIS ---
Hemodialysis x3.5 hours completed at 1745 on a 3K bath, tolerated fair, UF 2000mL, CritLine maintained profile B, accessed via LFA AVF, arterial needle placed in LFA below aneurysms and above anastomosis, venous needle placed in PHYLLIS, worked well but at some point small infiltration noted but still good flows, to be safe placed new venous needle lower in arm above aneurysms, AVF narrow in upper arm and pt attempts to use access arm intermittently during tx, 3 needles pulled post tx and stasis achieved without issue, next tx planned for Thursday
--- NOTE | 2022-01-31 20:27 | PCM.PN.REN ---
Subjective Subjective Following for ESRD. The patient denies chest pain, shortness of breath at rest, or nausea today. Was seen after dialysis. I did supervised the procedure. Objective Data Objective Data Vital Signs: Vital Signs Temp Pulse Resp BP Pulse Ox O2 Del Method O2 Flow Rate 97.6 F L 79 22 H 103/52 L 99 Nasal Cannula 2 01/31/22 18:00 01/31/22 19:00 01/31/22 18:00 01/31/22 18:00 01/31/22 18:00 01/31/22 18:00 01/31/22 18:00 FiO2 4 01/31/22 14:05 Oxygen Flow Rate (L/min) 2 Oxygen Delivery Method Nasal Cannula Weight: 63.3 kg Body Mass Index (BMI) 18.3 Intake & Output: Intake and Output for Last 24 Hours 01/29/22 01/30/22 01/31/22 23:59 23:59 23:59 Intake Total 1188.67 / 1188.67 1050 / 1050 743 / 743 Output Total 2500 / 2500 1999 Balance -1311.33 / -1311.33 1050 / 1050 -1257 / -1257 Medical Nutrition Assessment Dietitian: Malnutrition Criteria Met Start: 01/28/22 10:30 Freq: Status: Active Protocol: Document 01/31/22 11:32 AG (Rec: 01/31/22 11:32 AG [id number]) Nutrition Malnutrition Evidence of Malnutrition Exists Yes Malnutrition (severe): Acute Illness/Injury Evidenced By Suboptimal Energy Intake ( Severe),Weight Loss (Severe) Clinical Problem Biting/Chewing Difficulty Etiology swallowing related to dysphagia Signs/Symptoms as evidenced by strict NPO status w/ plans for PEG tube placement Status Active Problem Acute Disease or Injury Related Malnutrition Etiology severe, acute malnutrition related to inadequate energy intake w/ increased energy needs d/t chronic dialysis Signs/Symptoms as evidenced by reported PO intake meeting <75% of estimated energy needs > 1 week; unintentional wt loss of 10.5#/6.5% wt loss < 1 month and 3.5kg/5.2% wt loss < 1 week Status Active Problem Recommendation Dietitian Recommendations/Changes When PEG placed, recommend Nepro Carb Steady- 260mL bolus 5x/day w/ 110mL flush before and after each bolus to provide 2301 calories, 105 g protein, and 2045mL total fluid/day. Would start w/ 130mL for first bolus, increase by 65mL as tolerated each bolus until goal of 260mL is achieved. Lab / Micro Data Result Diagrams: 01/31/22 05:16 01/31/22 05:16 Labs: Laboratory Results - last 24 hr 01/30/22 23:46: POC Glucose 96 01/31/22 05:16: WBC 5.6, RBC 2.33 L, Hgb 7.9 L, Hct 23.9 L, MCV 102.6 H, MCH 33.9 H, MCHC 33.1, RDW Std Deviation 74.9 H, RDW Coeff of Sue 20.1 H, Plt Count 139 L, MPV 11.1, Immature Gran % (Auto) 0.500, Neut % (Auto) 72.7 H, Lymph % (Auto) 12.2 L, Warren % (Auto) 10.0, Eos % (Auto) 3.9, Baso % (Auto) 0.7, Absolute Neuts (auto) 4.1, Absolute Lymphs (auto) 0.68 L, Nucleated RBC % 0, Polychromasia RARE, Anisocytosis 2+, Microcytosis 1+, Macrocytosis 1+, Ovalocytes RARE 01/31/22 05:16: Sodium 131 L, Potassium 3.7, Chloride 95 L, Carbon Dioxide 28.0, Anion Gap 8, BUN 43 H, Creatinine 5.51 H, Estim Creat Clear Calc 10.37, Est GFR (MDRD) Af Amer 13 L, Est GFR (MDRD) Non-Af 11 L, BUN/Creatinine Ratio 7.8 L, Glucose 88, Calcium 8.7 01/31/22 06:42: POC Glucose 93 01/31/22 09:55: POC Glucose 79 01/31/22 14:24: POC Glucose 77 01/31/22 16:34: POC Glucose 82 Micro: Microbiology 01/27/22 12:40 Blood Culture (Wb) - Right Hand Blood Culture - Preliminary No growth in 48 hours. 01/27/22 12:46 Blood Culture (Wb) - Anticubital Right Blood Culture - Preliminary No growth in 48 hours. Physical Exam Narrative Const: Alert to name. No apparent distress. [place]. Cardio: S1-S2 RRR Respiratory: Lung sounds diminished posterior bases. On O2 via nasal canula GI: Abdomen soft, nontender, positive bowel sounds Extremities: No edema noted to bilateral lower legs, thighs, or feet. AV fistula left arm positive thrill and bruit. Jamel wrap intact/dry left foot Assessment & Plan Assessment/Plan (1) ESRD (end stage renal disease) on dialysis: (2) Volume overload: (3) Anemia of chronic disease: (4) Essential hypertension: (5) Secondary pulmonary arterial hypertension: PLAN: Plan - Patient underwent hemodialysis 01/28 with 2 L fluid removed. Dialyzed again on 01/29/2022 for 2.5 hours with 2 L fluid removal as patient/blood pressure tolerates. -Respiratory status and volume overload is improving. -Patient dialyzes at [facility] on a Thursday schedule as outpatient. -Dialysis today to get the patient back on [facility] schedule. We were able to remove 2 more liter of fluid. -Recently he has been shortening his dialysis sessions which likely has led to volume overload. Patient has history of chronic systolic heart failure with last known EF 25%. EDW had been 65 kg. Likely patient will have new lowered dry weight by time of hospital discharge. -Blood pressure is stable. Not on any antihypertensives. He is actually on midodrine. -The patient does not need any phosphate binders at this time. Last phosphorus is 3.2 on 01/30/2022. Will monitor phosphorus trends. -Anemia of chronic disease: Patient receives RITIKA with HD. Hemoglobin is 7.9 today which is stable. We will continue to monitor hemoglobin trends. -Patient had modified barium swallow today. Found to have severe oropharyngeal phase dysphagia resulting in aspiration. The patient is status post PEG placement today. - Patient has left UA AVF and was evaluated by Dr. Cortes for left upper arm swelling concern; no intervention at this time and ok to cannulate. HD RN did not have issues with cannulation today.
[2022-01-31 22:36] LABS: Bedside Glucose 74 mg/dL (74-106)
--- NOTE | 2022-01-31 22:50 | NURSING ---
Dr Suresh verbally ordered 1mg of SQ Epi. This RN called down to Pharmacy to order and send up.
[2022-01-31] MEDS: Midodrine HCl 5 MG Tablet 10 MG PO (23:23)
[2022-01-31] MEDS: Menthol/Lanolin/Calamine/Znox 113 GM Tube 1 APPLIC TOPICAL (23:23)
[2022-01-31] MEDS: Atorvastatin Calcium 40 MG Tablet GT (23:23)
[2022-01-31] MEDS: Lansoprazole 15 MG Capsule.DR 30 MG NG (23:24)
[2022-01-31] MEDS: Epinephrine (1 mg/ml) 1 MG/ML VIAL SC (23:26)
[2022-02-01] VITALS (21 sets, daily range): BP systolic 83–114; BP diastolic 53–76; PULSE 71–86; RESP 16–20; TEMP 36.3–36.6; O2SAT 84–100
[2022-02-01] MEDS: Dextrose 10%-Water 250 ML 60 ML IV ×3 (00:24→08:39)
[2022-02-01 06:35] LABS: Bedside Glucose 74 mg/dL (74-106)
[2022-02-01 07:14] LABS: Absolute Lymphocyte Count 0.83 X10^3/uL (0.83-4.51); Absolute Neutrophil Count 3.8 X10^3/uL (2.0-7.7); Basophil# 0.04 X10^3/uL; Basophil% 0.7 % (0-1); Eosinophils% 5.4 % (0-5); Hematocrit 25.8 % (40-54); Lymphocyte # 0.83 X10^3/ul (0.83-4.51); Lymphocyte % 14.8 % (19-41); Mean Corpuscular Hgb 32.7 pg (27.0-32.0); Mean Corpuscular Volume 105.3 fL (80-94); Mean Platelet Vol. 11.2 fl (6.2-12.0); Monocyte# 0.67 X10^3/uL; NRBC Flagged by Analyzer 0 % (0-5); Neutrophil # 3.75 X10^3/uL (2.7-7.7); Neutrophil % 66.9 % (47-70); POSITIVE MORPHOLOGY YES; Platelet Count 119 K/mm3 (150-450); RBC Distribution Width CV 19.9 % (11.6-14.6); RBC Distribution Width SD 77.4 fl (35.1-43.9); Red Blood Count 2.45 M/mm3 (4.6-6.2); White Blood Count 5.6 K/mm3 (4.4-11.0)
[2022-02-01 07:19] LABS: Differential Indicated SCAN CRITERIA MET
[2022-02-01 08:09] LABS: Anion Gap 7 (5-15); BUN 23 mg/dL (7-18); BUN/Creat Ratio 6.1 RATIO (10-20); Calcium,Total 8.3 mg/dL (8.5-10.1); Chloride 100 mmol/L (98-107); Creatinine, Serum 3.79 mg/dL (0.70-1.30); EST Glomerular Filtration Rate 17 mL/min (>60); Est Glom Filt Rate - Afr Amer 20 mL/min (>60); Estimated Creatinine Clearance 15.32 ml/min; Glucose 69 mg/dL (74-106); Potassium 3.7 mmol/L (3.5-5.1); Sodium Level 132 mmol/L (136-145)
[2022-02-01] MEDS: Juven (unflavored) Packet 1 PACKET GT ×2 (08:33→16:22)
[2022-02-01 09:23] LABS: Anisocytosis 2+; Differential Comment SCANNED; Macrocytosis 1+; Microcytosis 1+
[2022-02-01] MEDS: Menthol/Lanolin/Calamine/Znox 113 GM Tube 1 APPLIC TOPICAL ×2 (10:20→21:53)
[2022-02-01] MEDS: Midodrine HCl 5 MG Tablet 10 MG PO ×2 (10:29→21:53)
[2022-02-01] MEDS: Lansoprazole 15 MG Capsule.DR 30 MG NG ×2 (10:29→21:54)
--- NOTE | 2022-02-01 11:22 | PN.HOSP_ITS ---
Subjective Subjective Patient seen and examined. He was resting calmly and had no active complaints. Review of systems is otherwise negative. He had EGD with PEG tube insertion yesterday. Per his nurse, he had a bit of bleeding from the PEG tube site overnight, but it has now resolved. His is also running a bit low this morning. Objective Data Objective Data Vital Signs: Vital Signs Temp Pulse Resp BP Pulse Ox O2 Del Method O2 Flow Rate 97.8 F 80 17 97/76 95 Nasal Cannula 2 02/01/22 10:00 02/01/22 10:00 02/01/22 10:00 02/01/22 11:00 02/01/22 10:00 02/01/22 10:00 02/01/22 10:00 FiO2 4 01/31/22 14:05 Oxygen Flow Rate (L/min) 2 Oxygen Delivery Method Nasal Cannula Weight: 141 lb 12.116 oz Body Mass Index (BMI) 18.3 Intake & Output: Intake and Output for Last 24 Hours 01/30/22 01/31/22 02/01/22 23:59 23:59 23:59 Intake Total 1050 / 1050 993 / 993 1161 / 1161 Output Total 1999 Balance 1050 / 1050 -1007 / -1007 1161 / 1161 Medical Nutrition Assessment Dietitian: Malnutrition Criteria Met Start: 01/28/22 10:30 Freq: Status: Active Protocol: Document 01/31/22 11:32 (Rec: 01/31/22 11:32 AG [id number]) Nutrition Malnutrition Evidence of Malnutrition Exists Yes Malnutrition (severe): Acute Illness/Injury Evidenced By Suboptimal Energy Intake ( Severe),Weight Loss (Severe) Clinical Problem Biting/Chewing Difficulty Etiology swallowing related to dysphagia Signs/Symptoms as evidenced by strict NPO status w/ plans for PEG tube placement Status Active Problem Acute Disease or Injury Related Malnutrition Etiology severe, acute malnutrition related to inadequate energy intake w/ increased energy needs d/t chronic dialysis Signs/Symptoms as evidenced by reported PO intake meeting <75% of estimated energy needs > 1 week; unintentional wt loss of 10.5#/6.5% wt loss < 1 month and 3.5kg/5.2% wt loss < 1 week Status Active Problem Recommendation Dietitian Recommendations/Changes When PEG placed, recommend Nepro Carb Steady- 260mL bolus 5x/day w/ 110mL flush before and after each bolus to provide 2301 calories, 105 g protein, and 2045mL total fluid/day. Would start w/ 130mL for first bolus, increase by 65mL as tolerated each bolus until goal of 260mL is achieved. Lab / Micro Data Result Diagrams: 02/01/22 06:35 02/01/22 06:35 Labs: Laboratory Results - last 24 hr 01/31/22 14:24: POC Glucose 77 01/31/22 16:34: POC Glucose 82 01/31/22 22:10: POC Glucose 74 02/01/22 06:14: POC Glucose 74 02/01/22 06:35: WBC 5.6, RBC 2.45 L, Hgb 8.0 L, Hct 25.8 L, MCV 105.3 H, MCH 32.7 H, MCHC 31.0 L D, RDW Std Deviation 77.4 H, RDW Coeff of Sue 19.9 H, Plt Count 119 L, MPV 11.2, Immature Gran % (Auto) 0.200, Neut % (Auto) 66.9, Lymph % (Auto) 14.8 L, [place] % (Auto) 12.0 H, Eos % (Auto) 5.4 H, Baso % (Auto) 0.7, Absolute Neuts (auto) 3.8, Absolute Lymphs (auto) 0.83, Nucleated RBC % 0, Differential Comment SCANNED, Anisocytosis 2+, Microcytosis 1+, Macrocytosis 1+ 02/01/22 06:35: Sodium 132 L, Potassium 3.7, Chloride 100, Carbon Dioxide 25.0, Anion Gap 7, BUN 23 H, Creatinine 3.79 H, Estim Creat Clear Calc 15.32, Est GFR (MDRD) Af Amer 20 L, Est GFR (MDRD) Non-Af 17 L, BUN/Creatinine Ratio 6.1 L, Glu cose 69 L, Calcium 8.3 L Micro: Microbiology 01/27/22 12:40 Blood Culture (Wb) - Right Hand Blood Culture - Preliminary No growth in 48 hours. 01/27/22 12:46 Blood Culture (Wb) - Anticubital Right Blood Culture - Preliminary No growth in 48 hours. Physical Exam Const alert, oriented x3 and no apparent distress General Appearance: cooperative, well kempt and well developed Orientation / Consciousness: awake HEENT normocephalic, head/scalp atraumatic and moist oral mucous membranes Head and Scalp: normocephalic Mouth: dry mucous membranes Eyes PERRL, EOMs intact bilaterally and conjunctivae normal Neck supple, no JVD, thyroid normal and no carotid bruits General: trachea midline Resp normal respiratory effort, no retractions, no use of accessory muscles and clear to auscultation bilaterally Resp Narrative: on 2L of oxygen by nasal canula Auscultation: Negative for rales, rhonchi or wheezes Cardio regular rate, regular rhythm, S1 normal heart sound, S2 normal heart sound, no murmurs, no rub and no gallops GI normal to inspection, nondistended, normoactive bowel sounds, soft to palpation, non-tender and non-distended GI Narrative: PEG tube in place. 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 CXR showed bilateral pleural effusion and pulmonary edema * was initially admitted to the ICU. * resolved after dialysis and transferred out of the ICU * #Hypotension: resolved #Dysphagia * GI on board * had modified barium swallow which showed poor esophageal opening * EGD done on 01/31/2022 showed benign appearing esophageal stenosis which was dilated, and 2 duodenal polyps which were biopsied. An externally removable PEG tube was completed * on Nepro tube feed 250mls 5x daily * #History of CVA: stable. on atorvastatin #HYpotension: on midodrine to help with hypotension. BP running in the 90s systolic. #AFib; on eliquis and metoprolol # Anemia of chronic disease * Hb is 8. 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 * on D5W infusion as he is NPO * ISS. Accuchecks q6 hrly * #ESRD: on HD. On cinacalcet. Nephrology on board DVT prophylaxis: on eliquis Disposition: DC to [facility] when medically stable Charges/Coding Visit Charges Inpatient E&M: 87546 Subs Hosp L2
[2022-02-01 11:55] LABS: Bedside Glucose 84 mg/dL (74-106)
[2022-02-01] MEDS: 0.9% Saline Lock 10 ML Syringe IV ×2 (13:37→16:56)
[2022-02-01] MEDS: NEPRO TUBE FEED 1,000 ML LIQUID 260 ML GT ×2 (13:37→17:37)
[2022-02-01] MEDS: APIXABAN 2.5 MG TABLET (WCH) GT ×2 (13:39→21:54)
[2022-02-01 16:45] LABS: Bedside Glucose 57 mg/dL (74-106)
[2022-02-01] MEDS: Dextrose 50%-Water 25 GM/50 ML DISP.SYRIN IV (16:56)
[2022-02-01 17:10] LABS: Bedside Glucose 64 mg/dL (74-106)
[2022-02-01 18:05] LABS: Bedside Glucose 94 mg/dL (74-106)
[2022-02-01] MEDS: Atorvastatin Calcium 40 MG Tablet GT (21:56)
[2022-02-01 23:00] LABS: Bedside Glucose 88 mg/dL (74-106)
[2022-02-02] VITALS (15 sets, daily range): BP systolic 84–110; BP diastolic 57–67; PULSE 70–80; RESP 17–22; TEMP 36.2–36.9; O2SAT 94–100
[2022-02-02] MEDS: NEPRO TUBE FEED 1,000 ML LIQUID 260 ML GT ×5 (05:39→21:41)
[2022-02-02] MEDS: Dextrose 50%-Water 25 GM/50 ML DISP.SYRIN IV (05:50)
[2022-02-02 06:06] LABS: Absolute Lymphocyte Count 0.72 X10^3/uL (0.83-4.51); Absolute Neutrophil Count 4.8 X10^3/uL (2.0-7.7); Basophil# 0.03 X10^3/uL; Basophil% 0.4 % (0-1); Eosinophil# 0.29 X10^3/uL; Eosinophils% 4.3 % (0-5); Hematocrit 26.1 % (40-54); Hemoglobin 8.5 g/dL (13.0-16.5); Lymphocyte # 0.72 X10^3/ul (0.83-4.51); Lymphocyte % 10.7 % (19-41); Mean Corp Hgb Conc 32.6 g/dL (32-36); Mean Corpuscular Hgb 34.1 pg (27.0-32.0); Mean Corpuscular Volume 104.8 fL (80-94); Monocyte# 0.86 X10^3/uL; Monocyte% 12.8 % (0-10); NRBC Flagged by Analyzer 0 % (0-5); Neutrophil % 71.7 % (47-70); POSITIVE MORPHOLOGY YES; Platelet Count 115 K/mm3 (150-450); RBC Distribution Width CV 19.2 % (11.6-14.6); RBC Distribution Width SD 74.4 fl (35.1-43.9); Red Blood Count 2.49 M/mm3 (4.6-6.2); White Blood Count 6.7 K/mm3 (4.4-11.0)
[2022-02-02 06:15] LABS: Differential Indicated SCAN CRITERIA MET
[2022-02-02 06:16] LABS: Bedside Glucose 54 mg/dL (74-106)
[2022-02-02 06:16] LABS: Bedside Glucose 64 mg/dL (74-106)
[2022-02-02 06:25] LABS: Anion Gap 8 (5-15); BUN 39 mg/dL (7-18); BUN/Creat Ratio 8.8 RATIO (10-20); Calcium,Total 8.7 mg/dL (8.5-10.1); Chloride 97 mmol/L (98-107); Creatinine, Serum 4.43 mg/dL (0.70-1.30); EST Glomerular Filtration Rate 14 mL/min (>60); Est Glom Filt Rate - Afr Amer 17 mL/min (>60); Estimated Creatinine Clearance 12.88 ml/min; Glucose 80 mg/dL (74-106); Potassium 4.2 mmol/L (3.5-5.1); Sodium Level 131 mmol/L (136-145)
[2022-02-02 06:40] LABS: Bedside Glucose 93 mg/dL (74-106)
[2022-02-02 06:53] LABS: Anisocytosis 2+; Differential Comment SCANNED; Macrocytosis 2+
[2022-02-02] MEDS: Menthol/Lanolin/Calamine/Znox 113 GM Tube 1 APPLIC TOPICAL ×2 (10:36→21:37)
[2022-02-02] MEDS: Lansoprazole 15 MG Capsule.DR 30 MG NG ×2 (10:36→21:28)
[2022-02-02] MEDS: Midodrine HCl 5 MG Tablet 10 MG PO ×2 (10:36→21:34)
[2022-02-02] MEDS: APIXABAN 2.5 MG TABLET (WCH) GT ×2 (10:36→21:34)
[2022-02-02] MEDS: Juven (unflavored) Packet 1 PACKET GT ×2 (10:36→17:36)
[2022-02-02 12:45] LABS: Bedside Glucose 94 mg/dL (74-106)
--- NOTE | 2022-02-02 14:05 | PN.HOSP_ITS ---
Subjective Subjective Patient seen and examined. He had no active complaints. He was started on tube feeding yesterday. HE is on 5L of oxygen today; he is usually on 2-3L. He denies feeling any more short of breath than usual. Review of systems otherwise negative. Objective Data Objective Data Vital Signs: Vital Signs Temp Pulse Resp BP Pulse Ox O2 Del Method O2 Flow Rate 97.8 F 71 17 93/57 L 98 Nasal Cannula 5 02/02/22 10:00 02/02/22 10:00 02/02/22 10:00 02/02/22 10:00 02/02/22 13:59 02/02/22 13:59 02/02/22 13:59 FiO2 50 02/02/22 10:00 Oxygen Flow Rate (L/min) 5 Oxygen Delivery Method Nasal Cannula Weight: 139 lb 5.314 oz Body Mass Index (BMI) 18.3 Intake & Output: Intake and Output for Last 24 Hours 01/31/22 02/01/22 02/02/22 23:59 23:59 23:59 Intake Total 993 / 993 2231 / 2351 855 / 855 Output Total 1999 0 / 0 Balance -1007 / -1007 2231 / 2351 855 / 855 Medical Nutrition Assessment Dietitian: Malnutrition Criteria Met Start: 01/28/22 10:30 Freq: Status: Active Protocol: Document 01/31/22 11:32 AG (Rec: 01/31/22 11:32 AG [id number]) Nutrition Malnutrition Evidence of Malnutrition Exists Yes Malnutrition (severe): Acute Illness/Injury Evidenced By Suboptimal Energy Intake ( Severe),Weight Loss (Severe) Clinical Problem Biting/Chewing Difficulty Etiology swallowing related to dysphagia Signs/Symptoms as evidenced by strict NPO status w/ plans for PEG tube placement Status Active Problem Acute Disease or Injury Related Malnutrition Etiology severe, acute malnutrition related to inadequate energy intake w/ increased energy needs d/t chronic dialysis Signs/Symptoms as evidenced by reported PO intake meeting <75% of estimated energy needs > 1 week; unintentional wt loss of 10.5#/6.5% wt loss < 1 month and 3.5kg/5.2% wt loss < 1 week Status Active Problem Recommendation Dietitian Recommendations/Changes When PEG placed, recommend Nepro Carb Steady- 260mL bolus 5x/day w/ 110mL flush before and after each bolus to provide 2301 calories, 105 g protein, and 2045mL total fluid/day. Would start w/ 130mL for first bolus, increase by 65mL as tolerated each bolus until goal of 260mL is achieved. Lab / Micro Data Result Diagrams: 02/02/22 05:45 02/02/22 05:45 Labs: Laboratory Results - last 24 hr 02/01/22 16:20: POC Glucose 57 L 02/01/22 16:53: POC Glucose 64 L 02/01/22 17:36: POC Glucose 94 02/01/22 22:40: POC Glucose 88 02/02/22 05:25: POC Glucose 54 L 02/02/22 05:45: WBC 6.7, RBC 2.49 L, Hgb 8.5 L, Hct 26.1 L, MCV 104.8 H, MCH 34.1 H, MCHC 32.6 D, RDW Std Deviation 74.4 H, RDW Coeff of Sue 19.2 H, Plt Count 115 L, MPV 11.0, Immature Gran % (Auto) 0.100, Neut % (Auto) 71.7 H, Lymph % (Auto) 10.7 L, Pope % (Auto) 12.8 H, Eos % (Auto) 4.3, Baso % (Auto) 0.4, Ab solute Neuts (auto) 4.8, Absolute Lymphs (auto) 0.72 L, Nucleated RBC % 0, Di fferential Comment SCANNED, Anisocytosis 2+, Macrocytosis 2+ 02/02/22 05:45: Sodium 131 L, Potassium 4.2, Chloride 97 L, Carbon Dioxide 26.0, Anion Gap 8, BUN 39 H, Creatinine 4.43 H, Estim Creat Clear Calc 12.88, Est GFR (MDRD) Af Amer 17 L, Est GFR (MDRD) Non-Af 14 L, BUN/Creatinine Ratio 8.8 L, Glucose 80, Calcium 8.7 02/02/22 05:50: POC Glucose 64 L 02/02/22 06:21: POC Glucose 93 02/02/22 12:22: POC Glucose 94 Micro: Microbiology 01/27/22 12:46 Blood Culture (Wb) - Anticubital Right Blood Culture - Final No growth in 5 days. 01/27/22 12:40 Blood Culture (Wb) - Right Hand Blood Culture - Final No growth in 5 days. Physical Exam Const alert, oriented x3 and no apparent distress Constitutional Narrative: Patient appears older than his stated age, he is cachectic General Appearance: cooperative, well kempt and well developed Orientation / Consciousness: awake HEENT normocephalic, head/scalp atraumatic and moist oral mucous membranes Head and Scalp: normocephalic Eyes PERRL, EOMs intact bilaterally and conjunctivae normal Neck no lymphadenopathy, supple, no JVD, thyroid normal and no carotid bruits General: trachea midline Resp normal respiratory effort and no use of accessory muscles Resp Narrative: on 5L of oxygen by nasal canula; diminished breath sounds bibasally, no wheezes or crackles. Auscultation: Negative for rales, rhonchi or wheezes Cardio regular rate, regular rhythm, S1 normal heart sound, S2 normal heart sound, no murmurs, no rub and no gallops Cardio Narrative: Heart rate and rhythm is irregular GI normal to inspection, nondistended, normoactive bowel sounds, soft to palpation, non-tender and non-distended GI Narrative: PEG tube in place. 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, left foot bandaged General Skin Exam: no breakdown Neuro oriented x3, CN's II-XII intact bilaterally, moves all extremities, no focal motor deficits and no sensory deficits noted Neuro Narrative: Patient has an element of expressive aphasia which is also complicated by the pa israel's extreme hearing loss Sensorium / Orientation: awake and alert Speech: speech normal Psych affect normal Psych Narrative: Assessment & Plan Assessment/Plan (1) Failure to thrive: (2) Esophageal dysphagia: (3) Bilateral pleural effusion: (4) Volume overload: (5) Acute on chronic respiratory failure with hypoxemia: PLAN: Plan #FLuid overload due to pulmonary edema * due to ESRD. CXR showed bilateral pleural effusion and pulmonary edema * was initially admitted to the ICU. * resolved after dialysis and transferred out of the ICU * he is on 5L of oxygen today, so i think he may have some fluid overload again. * To be diuresed tomorrow * #Hypotension: resolved #Dysphagia * GI on board * had modified barium swallow which showed poor esophageal opening * EGD done on 01/31/2022 showed benign appearing esophageal stenosis which was dilated, and 2 duodenal polyps which were biopsied. An externally removable PEG tube was completed * on Nepro tube feed 250mls 5x daily * #History of CVA: stable. on atorvastatin #HYpotension: on midodrine to help with hypotension. BP running in the 90s systolic. #AFib; on eliquis and metoprolol # Anemia of chronic disease * Hb is 8.5. 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 Accuchecks q6 hrly * #ESRD: on HD. On cinacalcet. Nephrology on board DVT prophylaxis: on eliquis Disposition: DC to [facility] when medically stable. LIkely DC tomorrow after diuresis Charges/Coding Visit Charges Inpatient E&M: 04689 Subs Hosp L2
[2022-02-02 17:21] LABS: Bedside Glucose 92 mg/dL (74-106)
--- NOTE | 2022-02-02 20:26 | PN.RENAL_ITS ---
Subjective Subjective Following for ESRD. The patient is still on more oxygen than usual. However, he denies chest pain, shortness of breath, or nausea. Objective Data Objective Data Vital Signs: Vital Signs Temp Pulse Resp BP Pulse Ox O2 Del Method O2 Flow Rate 97.8 F 73 18 110/67 94 Nasal Cannula 4 02/02/22 16:00 02/02/22 19:00 02/02/22 16:00 02/02/22 16:00 02/02/22 16:55 02/02/22 17:31 02/02/22 17:31 FiO2 50 02/02/22 10:00 Oxygen Flow Rate (L/min) 4 Oxygen Delivery Method Nasal Cannula Weight: 63.2 kg Body Mass Index (BMI) 18.3 Intake & Output: Intake and Output for Last 24 Hours 01/31/22 02/01/22 02/02/22 23:59 23:59 23:59 Intake Total 993 / 993 2231 / 2351 1335 / 1335 Output Total 1999 0 / 0 Balance -1007 / -1007 2231 / 2351 1335 / 1335 Medical Nutrition Assessment Dietitian: Malnutrition Criteria Met Start: 01/28/22 10:30 Freq: Status: Active Protocol: Document 01/31/22 11:32 AG (Rec: 01/31/22 11:32 AG [id number]) Nutrition Malnutrition Evidence of Malnutrition Exists Yes Malnutrition (severe): Acute Illness/Injury Evidenced By Suboptimal Energy Intake ( Severe),Weight Loss (Severe) Clinical Problem Biting/Chewing Difficulty Etiology swallowing related to dysphagia Signs/Symptoms as evidenced by strict NPO status w/ plans for PEG tube placement Status Active Problem Acute Disease or Injury Related Malnutrition Etiology severe, acute malnutrition related to inadequate energy intake w/ increased energy needs d/t chronic dialysis Signs/Symptoms as evidenced by reported PO intake meeting <75% of estimated energy needs > 1 week; unintentional wt loss of 10.5#/6.5% wt loss < 1 month and 3.5kg/5.2% wt loss < 1 week Status Active Problem Recommendation Dietitian Recommendations/Changes When PEG placed, recommend Nepro Carb Steady- 260mL bolus 5x/day w/ 110mL flush before and after each bolus to provide 2301 calories, 105 g protein, and 2045mL total fluid/day. Would start w/ 130mL for first bolus, increase by 65mL as tolerated each bolus until goal of 260mL is achieved. Lab / Micro Data Result Diagrams: 02/02/22 05:45 02/02/22 05:45 Labs: Laboratory Results - last 24 hr 02/01/22 22:40: POC Glucose 88 02/02/22 05:25: POC Glucose 54 L 02/02/22 05:45: WBC 6.7, RBC 2.49 L, Hgb 8.5 L, Hct 26.1 L, MCV 104.8 H, MCH 34.1 H, MCHC 32.6 D, RDW Std Deviation 74.4 H, RDW Coeff of Sue 19.2 H, Plt Count 115 L, MPV 11.0, Immature Gran % (Auto) 0.100, Neut % (Auto) 71.7 H, Lymph % (Auto) 10.7 L, Campbell % (Auto) 12.8 H, Eos % (Auto) 4.3, Baso % (Auto) 0.4, Absolute Neuts (auto) 4.8, Absolute Lymphs (auto) 0.72 L, Nucleated RBC % 0, Differential Comment SCANNED, Anisocytosis 2+, Macrocytosis 2+ 02/02/22 05:45: Sodium 131 L, Potassium 4.2, Chloride 97 L, Carbon Dioxide 26.0, Anion Gap 8, BUN 39 H, Creatinine 4.43 H, Estim Creat Clear Calc 12.88, Est GFR (MDRD) Af Amer 17 L, Est GFR (MDRD) Non-Af 14 L, BUN/Creatinine Ratio 8.8 L, Glucose 80, Calcium 8.7 02/02/22 05:50: POC Glucose 64 L 02/02/22 06:21: POC Glucose 93 02/02/22 12:22: POC Glucose 94 02/02/22 16:53: POC Glucose 92 Micro: Microbiology 01/27/22 12:46 Blood Culture (Wb) - Anticubital Right Blood Culture - Final No growth in 5 days. 01/27/22 12:40 Blood Culture (Wb) - Right Hand Blood Culture - Final No growth in 5 days. Physical Exam Narrative Const: Alert to name. No apparent distress. LUMMI. Cardio: S1-S2 RRR Respiratory: Lung sounds diminished posterior bases. On O2 via nasal canula GI: Abdomen soft, nontender, positive bowel sounds Extremities: No edema noted to bilateral lower legs, thighs, or feet. AV fistula left arm positive thrill and bruit. Jamel wrap intact/dry left foot Assessment & Plan Assessment/Plan (1) ESRD (end stage renal disease) on dialysis: (2) Volume overload: (3) Anemia of chronic disease: (4) Essential hypertension: (5) Secondary pulmonary arterial hypertension: PLAN: Plan - Patient underwent hemodialysis 01/28 with 2 L fluid removed. Dialyzed again on 01/29/2022 for 2.5 hours with 2 L fluid removal as patient/blood pressure tolerates. -Respiratory status and volume overload is improving. -Patient dialyzes at [facility] on a Thursday schedule as outpatient. -Dialysis on 01/31/2022 to get the patient back on [facility] schedule. We were able to remove 2 more liter of fluid. -No need for dialysis today. He will be dialyzed again on 02/03/2022. We will continue to ultrafilter the patient with dialysis to limit fluid overload. -Recently he has been shortening his dialysis sessions which likely has led to volume overload. Patient has history of chronic systolic heart failure with last known EF 25%. EDW had been 65 kg. Likely patient will have new lowered dry weight by time of hospital discharge. -Blood pressure is stable. Not on any antihypertensives. He is actually on midodrine. -The patient does not need any phosphate binders at this time. Last phosphorus is 3.2 on 01/30/2022. Will monitor phosphorus trends. -Anemia of chronic disease: Patient receives RITIKA with HD. Hemoglobin is 8.5 g/dL today which is stable. We will continue to monitor hemoglobin trends. -Patient had modified barium swallow today. Found to have severe oropharyngeal phase dysphagia resulting in aspiration. The patient is status post PEG placement on 01/31/2022. - Patient has left UA AVF and was evaluated by Dr. Cortes for left upper arm swelling concern; no intervention at this time and ok to cannulate. HD RN did not have issues with cannulation today.
[2022-02-02] MEDS: Atorvastatin Calcium 40 MG Tablet GT (21:34)
[2022-02-02] MEDS: 0.9% Saline Lock 10 ML Syringe IV (21:41)
[2022-02-02 22:55] LABS: Bedside Glucose 129 mg/dL (74-106)
[2022-02-03] VITALS (10 sets, daily range): BP systolic 103–126; BP diastolic 61–79; PULSE 74–85; RESP 20–29; TEMP 36.1–37.1; O2SAT 94–100
[2022-02-03 05:28] LABS: Absolute Neutrophil Count 6.7 X10^3/uL (2.0-7.7); Basophil# 0.03 X10^3/uL; Basophil% 0.4 % (0-1); Eosinophil# 0.28 X10^3/uL; Eosinophils% 3.4 % (0-5); Hematocrit 24.6 % (40-54); Lymphocyte % 6.2 % (19-41); Mean Corp Hgb Conc 32.5 g/dL (32-36); Mean Corpuscular Hgb 33.6 pg (27.0-32.0); Mean Corpuscular Volume 103.4 fL (80-94); Monocyte# 0.62 X10^3/uL; Monocyte% 7.6 % (0-10); NRBC Flagged by Analyzer 0 % (0-5); Neutrophil # 6.68 X10^3/uL (2.7-7.7); Neutrophil % 82.2 % (47-70); POSITIVE DIFFERENTIAL YES; POSITIVE MORPHOLOGY YES; Platelet Count 125 K/mm3 (150-450); RBC Distribution Width CV 18.6 % (11.6-14.6); Red Blood Count 2.38 M/mm3 (4.6-6.2); White Blood Count 8.1 K/mm3 (4.4-11.0)
[2022-02-03 05:29] LABS: Differential Indicated SCAN CRITERIA MET
[2022-02-03] MEDS: NEPRO TUBE FEED 1,000 ML LIQUID 260 ML GT ×2 (06:04→09:38)
[2022-02-03 06:14] LABS: BUN 60 mg/dL (7-18); Calcium,Total 8.6 mg/dL (8.5-10.1); Creatinine, Serum 4.98 mg/dL (0.70-1.30); EST Glomerular Filtration Rate 12 mL/min (>60); Est Glom Filt Rate - Afr Amer 15 mL/min (>60); Estimated Creatinine Clearance 11.46 ml/min; Glucose 94 mg/dL (74-106); Sodium Level 128 mmol/L (136-145)
[2022-02-03 06:15] LABS: Anion Gap 7 (5-15); Chloride 92 mmol/L (98-107); Phosphorus 3.6 mg/dL (2.5-4.9); Potassium 3.9 mmol/L (3.5-5.1)
[2022-02-03 06:50] LABS: Bedside Glucose 103 mg/dL (74-106)
[2022-02-03 06:55] LABS: Anisocytosis 1+; Hypochromasia 1+; Macrocytosis 2+; Platelet Estimate SLT DEC (ADEQ)
[2022-02-03 07:30] LABS: Bedside Glucose 75 mg/dL (74-106)
[2022-02-03 07:30] LABS: Bedside Glucose 77 mg/dL (74-106)
[2022-02-03] MEDS: Lansoprazole 15 MG Capsule.DR 30 MG NG (09:38)
[2022-02-03] MEDS: APIXABAN 2.5 MG TABLET (WCH) GT (09:38)
[2022-02-03] MEDS: Juven (unflavored) Packet 1 PACKET GT (09:38)
[2022-02-03] MEDS: Midodrine HCl 5 MG Tablet 10 MG PO (09:38)
--- NOTE | 2022-02-03 10:08 | TREXTCAR_ITS ---
Diet Diet Order/Speech Therapy: 01/31/22 12:22 Diet: Nothing Per Oral Is pt able to select menu?: Yes Diet Comments: STRICT NPO Tube Feed: Nepro tube feed via PEG tube 260mls 5x daily Routine Orders/Code Status Enema Type: Fleetz Enema Frequency: Daily PRN Suppository Type: Dulcolax 10mg Suppository Frequency: Daily PRN O2 Frequency: PRN Keep PO Greater than or Equal to (%): 92 Wound(s) coccyx: Wound Type: Pressure Injury left foot/toes: Wound Type: Amputation left lateral malleolus: Wound Type: scabbed areas Dressing Change: well padded dressing left medial foot: Wound Type: nearly healed incision Dressing Change: dry dressing left distal foot: Wound Type: Pressure Injury Dressing Change: dry dressing PEG TUBE: Wound Type: Surgical Incision Problem/Diagnosis (1) ESRD (end stage renal disease) on dialysis: Status: Acute Code(s): N18.6 - End stage renal disease; Z99.2 - Dependence on renal dialysis (2) Volume overload: Status: Acute Code(s): E87.70 - Fluid overload, unspecified (3) Anemia of chronic disease: Status: Chronic Code(s): D63.8 - Anemia in other chronic diseases classified elsewhere (4) Essential hypertension: Status: Chronic Code(s): I10 - Essential (primary) hypertension (5) Secondary pulmonary arterial hypertension: Status: Chronic Code(s): I27.21 - Secondary pulmonary arterial hypertension Plan #FLuid overload due to pulmonary edema * due to ESRD. CXR showed bilateral pleural effusion and pulmonary edema * was initially admitted to the ICU. * resolved after dialysis and transferred out of the ICU * he is on 5L of oxygen today, so i think he may have some fluid overload again. * To be diuresed tomorrow * #Hypotension: resolved #Dysphagia * GI on board * had modified barium swallow which showed poor esophageal opening * EGD done on 01/31/2022 showed benign appearing esophageal stenosis which was dilated, and 2 duodenal polyps which were biopsied. An externally removable PEG tube was completed * on Nepro tube feed 250mls 5x daily * #History of CVA: stable. on atorvastatin #HYpotension: on midodrine to help with hypotension. BP running in the 90s systolic. #AFib; on eliquis and metoprolol # Anemia of chronic disease * Hb is 8.5. 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 Accuchecks q6 hrly * #ESRD: on HD. On cinacalcet. Nephrology on board DVT prophylaxis: on eliquis Disposition: DC to [facility] when medically stable. LIkely DC tomorrow after diuresis Allergies/Procedures Done in Hospital Allergies No Known Allergies Allergy (Verified 01/27/22 10:51) Procedures: None Type of Care/Length of Stay Estimated LOS: More Than 30 Days Type of Care Needed: Skilled Rehab Potential: Fair Prognosis: Fair Additional Orders/Day of Discharge Day of Discharge: 02/03/22 Dietary and Speech Recommendations Dietitian Recommendations/Changes: When PEG placed, recommend Nepro Carb Steady- 260mL bolus 5x/day w/ 110mL flush before and after each bolus to provide 2301 calories, 105 g protein, and 2045mL total fluid/day. Would start w/ 130mL for first bolus, increase by 65mL as tolerated each bolus until goal of 260mL is achieved. Discharge Plan Admission Admit Date/Time: 01/27/22 16:06 Primary Reason for Your Visit: fluid overload, dysphagia Attending Provider: Ann Chang Primary Care Provider: Adair Castaneda Consulting Providers: Glen Pope ; Karthikeyan Cortes ; Brionna Parr ; Neville Lincoln ; Haile Burnham ; Carlos Vickers ; Cj Priest ; Roselyn Van NP ; Lindsay Mccabe ; Jluius Soto Instructions Patient Instructions: Dysphagia Aspiration Discharge Orders/Prescriptions Prescriptions: New midodrine 5 mg Tablet 10 mg PO BID Qty: 60 1RF Continued cinacalcet [Sensipar] 60 MG tablet 60 mg PO PRN PRN (Reason: IPTH) Label Comments: parathyroid Rx Instructions: Give 60mg on Mon, Tues, Wed, Fri before dialysis atorvastatin 40 mg Tablet 40 mg PO QHS metoprolol tartrate 50 mg Tablet 50 mg PO BID apixaban 2.5 mg Tablet 2.5 mg PO BID pantoprazole 40 mg Tablet,Delayed Release (Dr/Ec) 40 mg PO BID 60 Days Qty: 120 0RF B complex-vitamin C-folic acid 0.8 mg Tablet 1 tab PO DAILY Referrals / Follow Up: Lindsay Mccabe MD [Med Staff - Consulting] - Within 1 Week Adair Castaneda MD [Primary Care Provider] - Within 2 Weeks Dipesh Suresh DO [Med Staff - Active Staff] - Within 2 Weeks Disposition Disposition (needs filled in before D/C Order can be placed): [facility]
[2022-02-03] MEDS: Menthol/Lanolin/Calamine/Znox 113 GM Tube 1 APPLIC TOPICAL (10:11)
--- NOTE | 2022-02-03 10:14 | DS.PCM_ITS ---
Providers Date of Admission: 01/27/22 Date of Discharge: 02/03/22 Primary Care Physician: Dr. Adair Castaneda MD Consultations 01/27/22 17:34 Consult: Piece Jobber / Pulmonary Medicine Routine Consulting Provider: Pulmonary Medicine eloy Maricao Reason for Consult: hypotension EMERGENT Consult: No Notified: Yes Date Notified: 01/27/22 Time Notified: 16:12 Method of Notification: Verbal Consult: Nephrology Routine Consulting Provider: Lindsay Mccabe Reason for Consult: endstage renal disease, pulmonary edema EMERGENT Consult: No Notified: Yes Date Notified: 01/27/22 Time Notified: 16:09 Method of Notification: Verbal 01/27/22 18:32 Consult: Onc/Wound/front office associate Routine Comment: 01/27/22 18:38 Consult: General Surgery Routine Consulting Provider: Karthikeyan Cortes Reason for Consult: left fistula problem EMERGENT Consult: No Notified: Yes Date Notified: 01/27/22 Time Notified: 18:38 Method of Notification: Verbal 01/29/22 12:49 Consult: Gastroenterology Routine Consulting Provider: [facility] Reason for Consult: Dysphagia, cervical esophageal stenosis EMERGENT Consult: No Notified: Yes Date Notified: 01/29/22 Time Notified: 12:00 Method of Notification: Verbal Reason For Visit: PULMONARY EDEMA / VOLUME OVERLOAD / HYPOTENSION Diagnosis Discharge Diagnosis (1) ESRD (end stage renal disease) on dialysis: Status: Acute Code(s): N18.6 - End stage renal disease; Z99.2 - Dependence on renal dialysis (2) Volume overload: Status: Acute Code(s): E87.70 - Fluid overload, unspecified (3) Anemia of chronic disease: Status: Chronic Code(s): D63.8 - Anemia in other chronic diseases classified elsewhere (4) Essential hypertension: Status: Chronic Code(s): I10 - Essential (primary) hypertension (5) Secondary pulmonary arterial hypertension: Status: Chronic Code(s): I27.21 - Secondary pulmonary arterial hypertension Plan #FLuid overload due to pulmonary edema * due to ESRD. CXR showed bilateral pleural effusion and pulmonary edema * was initially admitted to the ICU. * resolved after dialysis and transferred out of the ICU * he is on 5L of oxygen today, so i think he may have some fluid overload again. * To be diuresed tomorrow * #Hypotension: resolved #Dysphagia * GI on board * had modified barium swallow which showed poor esophageal opening * EGD done on 01/31/2022 showed benign appearing esophageal stenosis which was dilated, and 2 duodenal polyps which were biopsied. An externally removable PEG tube was completed * on Nepro tube feed 250mls 5x daily * #History of CVA: stable. on atorvastatin #HYpotension: on midodrine to help with hypotension. BP running in the 90s systolic. #AFib; on eliquis and metoprolol # Anemia of chronic disease * Hb is 8.5. 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 Accuchecks q6 hrly * #ESRD: on HD. On cinacalcet. Nephrology on board DVT prophylaxis: on eliquis Disposition: DC to [facility] when medically stable. LIkely DC tomorrow after diuresis Medications at Discharge Home Medications cinacalcet 60 mg tablet (Sensipar) 60 mg PO PRN PRN IPTH 10/09/14 apixaban 2.5 mg tablet 2.5 mg PO BID 11/29/21 atorvastatin 40 mg tablet 40 mg PO QHS 11/29/21 metoprolol tartrate 50 mg tablet 50 mg PO BID 11/29/21 pantoprazole 40 mg tablet,delayed release 40 mg PO BID 60 days #120 tabs 12/04/21 vitamin B complex-vitamin C-folic acid 0.8 mg tablet 1 tab PO DAILY SUPPLEMENT 01/27/22 midodrine 5 mg tablet 10 mg PO BID #60 tabs 02/03/22 Hospital Course Operations None Procedures Dialysis and Peg tube placement Summary of Care Provided Minutes Spent on Discharge: 45 Hospital Course: Patient is a 76-year-old male with a past medical history as outlined was admitted through the ED on 01/27/2022 from his extended care facility after being found unresponsive. He was found unresponsive during his dialysis session. He also complained of shortness of breath; he usually wore 2 to 4 L of oxygen at home. He had had only half of his dialysis session on the day of admission. On admission chest x-ray showed evidence of fluid overload and pulmonary edema and he was requiring 4 L of oxygen. He was [facility] to [facility] for fluid overload in the setting of ESRD. Nephrology was consulted. Patient was evaluated by vascular surgery to ensure that his fistula was working well. He did have dialysis and his shortness of breath improved. Hospital course was complicated by dysphagia and GI was consulted. Patient was kept NPO. He had a modified barium swallow which showed some esophageal dysmotility. He had EGD which showed a benign-appearing esophageal stenosis which was dilated and 2 duodenal polyps which were biopsied. He had an externally removable PEG tube inserted. He was placed on Nepro tube feeds at 250 mils 5 times daily. Patient remained stable and was discharged back to group home facility on 02/03/2022 after he had dialysis. He is to continue with the tube feeding and is follow-up with his primary care doctor and nephrology as well as gastroenterology. Patient seen and examined prior to discharge. He felt well and had no active complaints. He had an uneventful night. Review of systems otherwise negative. Labs and vitals reviewed. Home medication reviewed and reconciled. Physical Exam Const alert, oriented x3 and no apparent distress General Appearance: cooperative, comfortable, well kempt and well developed Orientation / Consciousness: awake Exam Limitations: no limitations HEENT normocephalic, head/scalp atraumatic, hearing grossly normal bilaterally and moist oral mucous membranes Eyes PERRL, EOMs intact bilaterally and conjunctivae normal Neck no lymphadenopathy, supple, no JVD, thyroid normal and no carotid bruits General: trachea midline Resp normal respiratory effort, no retractions, no use of accessory muscles and clear to auscultation bilaterally Resp Narrative: on 2L of oxygen by nasal canula; diminished breath sounds bibasally, no wheezes or crackles. Auscultation: Negative for rales, rhonchi or wheezes Cardio regular rate, regular rhythm, S1 normal heart sound, S2 normal heart sound, no murmurs, no rub and no gallops Cardio Narrative: Heart rate and rhythm is irregular GI normal to inspection, nondistended, normoactive bowel sounds, soft to palpation, non-tender and non-distended GI Narrative: PEG tube in place. 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, left foot bandaged General Skin Exam: no breakdown Neuro oriented x3, CN's II-XII intact bilaterally, moves all extremities, no focal motor deficits and no sensory deficits noted Sensorium / Orientation: awake and alert Speech: speech normal Psych affect normal Psych Narrative: Medical Records Data Medical Nutrition Assessment Dietitian: Malnutrition Criteria Met Start: 01/28/22 10:30 Freq: Status: Active Protocol: Document 01/31/22 11:32 AG (Rec: 01/31/22 11:32 [id number]) Nutrition Malnutrition Evidence of Malnutrition Exists Yes Malnutrition (severe): Acute Illness/Injury Evidenced By Suboptimal Energy Intake ( Severe),Weight Loss (Severe) Clinical Problem Biting/Chewing Difficulty Etiology swallowing related to dysphagia Signs/Symptoms as evidenced by strict NPO status w/ plans for PEG tube placement Status Active Problem Acute Disease or Injury Related Malnutrition Etiology severe, acute malnutrition related to inadequate energy intake w/ increased energy needs d/t chronic dialysis Signs/Symptoms as evidenced by reported PO intake meeting <75% of estimated energy needs > 1 week; unintentional wt loss of 10.5#/6.5% wt loss < 1 month and 3.5kg/5.2% wt loss < 1 week Status Active Problem Recommendation Dietitian Recommendations/Changes When PEG placed, recommend Nepro Carb Steady- 260mL bolus 5x/day w/ 110mL flush before and after each bolus to provide 2301 calories, 105 g protein, and 2045mL total fluid/day. Would start w/ 130mL for first bolus, increase by 65mL as tolerated each bolus until goal of 260mL is achieved. Weight / BMI Weight Weight: 138 lb 14.259 oz Body Mass Index (BMI) 18.3 ABG / Lab / Microbiology Data Result Diagrams: 02/03/22 04:24 02/03/22 04:24 Laboratory: Laboratory Results - last 24 hr 02/02/22 01:25: POC Glucose 75 02/02/22 01:27: POC Glucose 77 02/02/22 12:22: POC Glucose 94 02/02/22 16:53: POC Glucose 92 02/02/22 21:52: POC Glucose 129 H 02/03/22 04:24: WBC 8.1, RBC 2.38 L, Hgb 8.0 L, Hct 24.6 L, MCV 103.4 H, MCH 3 3.6 H, MCHC 32.5, RDW Std Deviation 71.0 H, RDW Coeff of Sue 18.6 H, Plt Count 125 L, MPV 11.0, Immature Gran % (Auto) 0.200, Neut % (Auto) 82.2 H, Lymph % (Auto) 6.2 L, [place] % (Auto) 7.6, Eos % (Auto) 3.4, Baso % (Auto) 0.4, Absolute Neuts (auto) 6.7, Absolute Lymphs (auto) 0.50 L, Nucleated RBC % 0, Platelet Estimate SLT DEC, Hypochromasia 1+, Anisocytosis 1+, Macrocytosis 2+ 02/03/22 04:24: Sodium 128 L, Potassium 3.9, Chloride 92 L, Carbon Dioxide 29.0, Anion Gap 7, BUN 60 H, Creatinine 4.98 H, Estim Creat Clear Calc 11.46, Est GFR (MDRD) Af Amer 15 L, Est GFR (MDRD) Non-Af 12 L, BUN/Creatinine Ratio 12.0, Glucose 94, Calcium 8.6 02/03/22 04:24: Phosphorus 3.6 02/03/22 06:03: POC Glucose 103 Microbiology: Microbiology 01/27/22 12:46 Blood Culture (Wb) - Anticubital Right Blood Culture - Final No growth in 5 days. 01/27/22 12:40 Blood Culture (Wb) - Right Hand Blood Culture - Final No growth in 5 days. D/C Instructions Discharge Diet: Low fat / Low cholesterol Weight Bearing Status: Weight bearing as tolerated Call your doctor if you observe: Fever of 101 or Higher, Shortness of breath, Dizziness, Swelling in the ankles, Chest pain and Increased palpitations (irregular heartbeat) Meaningful Use Info Meaningful Use Diagnoses (Choose all that apply): None applicable Discharge Plan Admission Admit Date/Time: 01/27/22 16:06 Primary Reason for Your Visit: fluid overload, dysphagia Attending Provider: Ann Chang Primary Care Provider: Adair Castaneda Consulting Providers: Glen Pope ; Karthikeyan Cortes ; Brionna Parr ; Neville Lincoln ; Haile Burnham ; Carlos Vickers ; Cj Priest ; Roselyn Van ROD AND T[employer] STRAIGHTENER ; Lindsay Mccabe ; Julius Soto Instructions Patient Instructions: Dysphagia Aspiration Discharge Orders/Prescriptions Prescriptions: New midodrine 5 mg Tablet 10 mg PO BID Qty: 60 1RF Continued cinacalcet [Sensipar] 60 MG tablet 60 mg PO PRN PRN (Reason: IPTH) Label Comments: parathyroid Rx Instructions: Give 60mg on Mon, Tues, Wed, Fri before dialysis atorvastatin 40 mg Tablet 40 mg PO QHS metoprolol tartrate 50 mg Tablet 50 mg PO BID apixaban 2.5 mg Tablet 2.5 mg PO BID pantoprazole 40 mg Tablet,Delayed Release (Dr/Ec) 40 mg PO BID 60 Days Qty: 120 0RF B complex-vitamin C-folic acid 0.8 mg Tablet 1 tab PO DAILY Referrals / Follow Up: Lindsay Mccabe MD [Med Staff - Consulting] - Within 1 Week Adair Castaneda MD [Primary Care Provider] - Within 2 Weeks Dipesh Suresh DO [Med Staff - Active Staff] - Within 2 Weeks Disposition Disposition (needs filled in before D/C Order can be placed): [facility] Facility Charges/Coding Visit Charges Inpatient E&M: 90715 Disch Hosp
--- NOTE | 2022-02-03 10:22 | CASEMGMT ---
Discharge Warehouse Analyst This life insurance underwriter sent updated patient information to [facility] via [facility]. Owen SOOD Returns Clerk
--- NOTE | 2022-02-03 10:50 | PHA.DC.MR ---
Pharmacy Service has performed discharge medication reconciliation for this patient. The patient's discharge medication list was reviewed for discrepancies and discrepancies were resolved. Home Medications cinacalcet 60 mg tablet (Sensipar) 60 mg PO PRN PRN IPTH 10/09/14 apixaban 2.5 mg tablet 2.5 mg PO BID 11/29/21 atorvastatin 40 mg tablet 40 mg PO QHS 11/29/21 metoprolol tartrate 50 mg tablet 50 mg PO BID 11/29/21 pantoprazole 40 mg tablet,delayed release 40 mg PO BID 60 days #120 tabs 12/04/21 vitamin B complex-vitamin C-folic acid 0.8 mg tablet 1 tab PO DAILY SUPPLEMENT 01/27/22 midodrine 5 mg tablet 10 mg PO BID #60 tabs 02/03/22
--- NOTE | 2022-02-03 10:53 | SP.MBSS_ITS ---
Modified Barium Swallow - Patient Information Study Date: 02/03/22 Study Time: 10:45 Direct Billable Minutes: 75 Total Minutes procedure & reportin Diagnosis: ESRD (N18.16), Ischemic CVA (01/2021) (I63.9) Referring Physician: Ann Chang Reason for Referral: Objectively assess swallow function, risk for aspiration, and determine recommendations for least restrictive diet textures and compensatory strategies to improve safety of swallow. Medical History: Alvin Crandall is a 76-year-old male with PMH including CVA (01/2021), end stage renal disease, dialysis patient, HTN, GERD, GI bleed (11/2021), A fib, PAD (SEE EMR for full PMH). He presented to [facility] ED 01/27/2022 from [facility] where he resides for rehab services due to an unresponsive episode that happened during his dialysis on the day of presentation. Patient also complained of some increased shortness of breath. Work-up in the emergency room included chest x- ray which showed signs of fluid overload and pulmonary edema, patient's oxygen requirement was 4 L via nasal cannula. Patient was admitted to ICU for fluid overload/pulmonary edema secondary to his end-stage renal disease. RN requested ST consult prior to diet advancement. SUPERVISOR FILTER ASSEMBLY completed BSE 01/28/2022 and recommended that patient remain NPO - ok for ice chips 1 at a time supervised - monitor SpO2 to make sure the patient is maintaining. MBSS 01/29/2022 revealed severe dysphagia and recommended strict NPO with strong consideration for alternative means of nutrition/hydration and GI consult due to poor upper esophageal sphincter opening and pharyngeal weakness resulting in aspiration either during or following 7/8 trials completed during the study, despite use of compensatory strategies. EGD completed 01/31/2022 with esophageal dilation completed and PEG tube placed. Dr. Suresh requested the SUPERVISOR FILTER ASSEMBLY re-evaluate swallow function and aspiration risk s/p esophageal dilation, so SUPERVISOR FILTER ASSEMBLY scheduled repeat MBSS on this date. Current Diet Ordered: NPO with PEG tube Dentition: WNL Mental Status: WNL - Able to follow commands for evaluation Respiratory Status: Oxygenating on 3L/M nasal cannula - Penetration-Aspiration Scale Penetration-Aspiration Scale: OBJECTIVE ASSESSMENT OF SWALLOW FUNCTION (QUANTITATIVE ? PER TRIAL): PENETRATION / ASPIRATION SCALE (MARINO): 1 = does not enter airway 2 = enters airway/above vocal folds/ejected 3 = enters airway/above vocal folds/not ejected 4 = enters airway/contacts vocal folds/ejected 5 = enters airway/contacts vocal folds/not ejected 6 = enters airway/below vocal folds/ejected 7 = enters airway/below vocal folds/not ejected despite effort 8 = enters airway/below vocal folds/no effort VIDEOFLOROSCOPIC SCALE SCORE (MARINO): Grade I = aspiration of material that has penetrated into the laryngeal vestibule, intact cough reflex Grade II = aspiration < 10 % of the bolus, intact cough reflex Grade III = aspiration of < 10 % of the bolus, reduced cough reflex or aspiration of > 10 % of the bolus, intact cough reflex Grade IV = aspiration of > 10 % of the bolus, reduced cough reflex - Penetration-Aspiration Scale Score Thin Liquid via teaspoon Result: 7= enters airways/below vocal folds/not ejected despite effort - weak, ineffective cough reflex Thin liquid via 1/2 tsp with effortful swallow - cued cough and re-swallow after the initial swallow Result: 3= enters airways/above vocal folds/not ejected - cough and re-swallow was somewhat effective in clearing contrast from the laryngeal vestibule; however, the patient demonstrated SILENT post prandial aspiration following completion of the trial and cough/re-swallow [place] thick liquid via 1/2 tsp Result: 3= enters airways/above vocal folds/not ejected - SILENT post prandial aspiration observed - Oral Phase Labial Seal: No Labial Escape Tongue Control During Bolus Hold: Posterior escape of less than half of bolus Bolus Transport/Lingual Motion: Repetitive/disorganized tongue motion Oral Residue: Residue collection on oral structures - Pharyngeal Phase Initiation of Pharyngeal Swallow: Bolus head at posterior laryngeal surgace of epiglottis Soft Palate Elevation: No bolus between soft palate and pharyngeal wall Laryngeal Elevation: Partial superior movement thyroid cart/partial apprx aryt- epig petiole Anterior Hyoid Excursion: Partial anterior movement Epiglottic Movement: No inversion Laryngeal Vestibule Closure at Height of Swallow: Incomplete; narrow column of air/contrast in laryngeal vestibule Pharyngeal Stripping Wave: Absent Pharyngoesophageal Segment Opening: Minimal distension and minimal duration; marked obstruction of flow Tongue Base Retraction: Wide column of contrast between tongue base & post. pharyngeal wall Pharyngeal Residue: Minimal to no pharyngeal clearance - minimal pharyngeal clearance after the first swallow, which somewhat improved as the patient completed multiple swallows - majority of contrast remain in pharynx even after multiple swallows - Treatment Strategies Effects of treatment strategies attemped:: effortful swallow = little to no impact on pharyngeal clearance or airway closure during the swallow. cough and re-swallow = somewhat effective. - Diagnosis/Impression Diagnosis: Mild-mod oral dysphagia (R13.11), Sev pharyngoesophageal dysphagia (R13.14) Impression: The oral phase is primarily marked by... -Decreased bolus control with <1/2 of the bolus spilling posteriorly to the posterior surface of the epiglottis prior to swallow onset. -Repetitive tongue motion for A-P transport. -Mild oral residue after the swallow. The pharyngeal phase is primarily marked by... -Severely decreased airway closure during the swallow due to little anterior hyoid excursion, no epiglottic inversion, and decreased laryngeal elevation. -Moderately-severely decreased tongue base retraction, severely decreased UES opening/duration, and no pharyngeal stripping wave with resulting severe pharyngeal residues after the swallow. Thin and nectar thick liquids had minimal clearance through UES with each swallow. Even with multiple swallows, the majority of the bolus remained in the pharynx and placed the patient at increased risk for post prandial aspiration. Little to no improvement in opening/duration of upper esophageal sphincter, so SUPERVISOR FILTER ASSEMBLY completed limited trials during the study to decrease the amount of aspirated contrast due to poor pharyngeal clearance. -Aspiration of thin liquids by tsp, thin liquids via 1/2 tsp with effortful swallow (post prandial), and nectar thick liquids by 1/2 tsp (post prandial). Post prandial aspiration of thin and nectar thick liquids by 1/2 tsp was SILENT in nature. Cough and re-swallow was somewhat effective in clearing contrast from the laryngeal vestibule; however, due to poor pharyngeal clearance through the UES he still experienced post prandial aspiration spilling from severe residue in the pharynx. SUPERVISOR FILTER ASSEMBLY did not trial consistencies thicker than nectar thick due to concerns for increased aspiration due to poor pharyngeal clearance of thin and nectar thick boluses through UES. Did not assess solid cookie due to concerns for choking. - Recommendations Diet: NPO - Strict NPO - PEG tube to be utilized to meet primary hydration and nutrition needs Recommend Repeat Modified Barium Swallow: Yes - Repeat MBSS in 4-8 weeks after implementation of intensive oropharyngeal strengthening program Need for Skilled Speech Therapy Services: Yes Comment: The patient requires intensive dysphagia therapy to improve oropharyngeal swallow function. Will recommend implementation of exercises to promote improved hyolaryngeal elevation/excursion, tongue base retraction, pharyngeal contraction, and UES opening (Gracie, CTAR, Nani, effortful swallow). Will recommend trials of ice chips with SUPERVISOR FILTER ASSEMBLY only at this time - if good tolerance of ice chip trials at next level of care, would strongly consider the patient for a modified Means Free Water Protocol (e.g. sips of water by tsp/ice chips one at a time after oral care, utilize cough and re-swallow with each sip) to improve quality of life and to promote increased swallows throughout the patient's day. Education Completed: 1. Described result of evaluation., 2. Pt understands evaluation & agrees with goals and treatment plan., 7. Pt requires further education on strategies & risks. - Status Active ST Patient: Active - Contact Information [facility] Speech Therapy:: Alexandra Hope M.A. [facility]-SUPERVISOR FILTER ASSEMBLY Speech-Language Pathologist [facility] [address] [place] [address] [email or web address] [phone] 02/03/22 14:53
[2022-02-03 12:15] LABS: Bedside Glucose 104 mg/dL (74-106)
--- NOTE | 2022-02-03 13:03 | CHAPLAIN ---
Type of Pastoral Visit ___ Initial Visit _x__ Follow-up Visit ___ On-call Visit ___ General Patient Visit ___ Spiritual Assessment ___ Family Conference ___ Bereavement ___ Rapid Response ___ Code Blue ___ Other (describe below) Pastoral Care Referral From ___ Patient _x__ Family ___ Nurse ___ Physician ___ [employer] Assembler ___ Product Introduction Manager ___ Other (describe below) Sacrament/Intervention ___ Active listening ___ Anointing ___ Christian ___ Bereavement ___ Communion ___ María exploration ___ ___ Life review ___ Prayer ___ Reconciliation ___ Sacrament of Sick _x__ Supportive presence ___ Wedding ___ Other (describe below) Pastoral Comments patient is offered presence and spiritual care support again; pt is pleasant but does not engage in conversation; pt says that he is doing fine and feeling some better; pt says he does not need anything
--- NOTE | 2022-02-03 13:23 | CASEMGMT ---
Discharge [place] Rafting Guide This card writer hand sent d/c orders to [facility] via [facility]. This card writer hand called [facility] with a picker time of 5:30pm. Nursing staff made aware. Owen SOOD Stitch Burnisher
--- NOTE | 2022-02-03 14:30 | NURSING ---
This RN called pt's son, Alvin, to inform him that after dialysis, patient would be returning to [facility].
--- NOTE | 2022-02-03 14:52 | PCM.PN.REN ---
Subjective Subjective Seen on dialysis, tolerating treatment well. Objective Data Objective Data Vital Signs: Vital Signs Temp Pulse Resp BP Pulse Ox O2 Del Method O2 Flow Rate 97.7 F L 81 29 H 116/61 94 Nasal Cannula 3 02/03/22 10:00 02/03/22 13:15 02/03/22 13:15 02/03/22 13:15 02/03/22 13:15 02/03/22 14:24 02/03/22 14:24 FiO2 50 02/02/22 10:00 Oxygen Flow Rate (L/min) 3 Oxygen Delivery Method Nasal Cannula Weight: 63 kg Body Mass Index (BMI) 18.3 Intake & Output: Intake and Output for Last 24 Hours 02/01/22 02/02/22 02/03/22 23:59 23:59 23:59 Intake Total 2231 / 2351 1745 / 1745 60 / 60 Output Total 0 / 0 Balance 2231 / 2351 1745 / 1745 60 / 60 Medical Nutrition Assessment Dietitian: Malnutrition Criteria Met Start: 01/28/22 10:30 Freq: Status: Active Protocol: Document 01/31/22 11:32 AG (Rec: 01/31/22 11:32 AG [id number]) Nutrition Malnutrition Evidence of Malnutrition Exists Yes Malnutrition (severe): Acute Illness/Injury Evidenced By Suboptimal Energy Intake ( Severe),Weight Loss (Severe) Clinical Problem Biting/Chewing Difficulty Etiology swallowing related to dysphagia Signs/Symptoms as evidenced by strict NPO status w/ plans for PEG tube placement Status Active Problem Acute Disease or Injury Related Malnutrition Etiology severe, acute malnutrition related to inadequate energy intake w/ increased energy needs d/t chronic dialysis Signs/Symptoms as evidenced by reported PO intake meeting <75% of estimated energy needs > 1 week; unintentional wt loss of 10.5#/6.5% wt loss < 1 month and 3.5kg/5.2% wt loss < 1 week Status Active Problem Recommendation Dietitian Recommendations/Changes When PEG placed, recommend Nepro Carb Steady- 260mL bolus 5x/day w/ 110mL flush before and after each bolus to provide 2301 calories, 105 g protein, and 2045mL total fluid/day. Would start w/ 130mL for first bolus, increase by 65mL as tolerated each bolus until goal of 260mL is achieved. Lab / Micro Data Result Diagrams: 02/03/22 04:24 02/03/22 04:24 Labs: Laboratory Results - last 24 hr 02/02/22 01:25: POC Glucose 75 02/02/22 01:27: POC Glucose 77 02/02/22 16:53: POC Glucose 92 02/02/22 21:52: POC Glucose 129 H 02/03/22 04:24: WBC 8.1, RBC 2.38 L, Hgb 8.0 L, Hct 24.6 L, MCV 103.4 H, MCH 33.6 H, MCHC 32.5, RDW Std Deviation 71.0 H, RDW Coeff of Sue 18.6 H, Plt Count 125 L, MPV 11.0, Immature Gran % (Auto) 0.200, Neut % (Auto) 82.2 H, Lymph % (Auto) 6.2 L, Terrell % (Auto) 7.6, Eos % (Auto) 3.4, Baso % (Auto) 0.4, Absolute Neuts (auto) 6.7, Absolute Lymphs (auto) 0.50 L, Nucleated RBC % 0, Platelet Estimate SLT DEC, Hypochromasia 1+, Anisocytosis 1+, Macrocytosis 2+ 02/03/22 04:24: Sodium 128 L, Potassium 3.9, Chloride 92 L, Carbon Dioxide 29.0, Anion Gap 7, BUN 60 H, Creatinine 4.98 H, Estim Creat Clear Calc 11.46, Est GFR (MDRD) Af Amer 15 L, Est GFR (MDRD) Non-Af 12 L, BUN/Creatinine Ratio 12.0, Glucose 94, Calcium 8.6 02/03/22 04:24: Phosphorus 3.6 02/03/22 06:03: POC Glucose 103 02/03/22 11:49: POC Glucose 104 Micro: Microbiology 02/03/22 12:45 Nasal Secretion SARS-CoV-2 Antigen (Rapid) - Final 01/27/22 12:46 Blood Culture (Wb) - Anticubital Right Blood Culture - Final No growth in 5 days. 01/27/22 12:40 Blood Culture (Wb) - Right Hand Blood Culture - Final No growth in 5 days. Physical Exam Narrative Const: Alert to name. No apparent distress. [facility] [place]. Cardio: S1-S2 RRR Respiratory: Lung sounds diminished posterior bases. On O2 via nasal canula GI: Abdomen soft, nontender, positive bowel sounds Extremities: No edema noted to bilateral lower legs, thighs, or feet. AV fistula left arm positive thrill and bruit. Jamel wrap intact/dry left foot Assessment & Plan Assessment/Plan (1) ESRD (end stage renal disease) on dialysis: (2) Volume overload: (3) Anemia of chronic disease: (4) Essential hypertension: (5) Secondary pulmonary arterial hypertension: PLAN: Plan - Undergoing hemodialysis today over 3.5 hours with 1 to 2 L fluid removal as patient/blood pressure tolerates. Patient will have a new lower dry weight at time of discharge. -Respiratory status and volume overload is improving. -Patient dialyzes at [facility] on a Thursday schedule as outpatient. -Recently he has been shortening his dialysis sessions which likely has led to volume overload. Patient has history of chronic systolic heart failure with last known EF 25%. EDW had been 65 kg. Likely patient will have new lowered dry weight by time of hospital discharge. -Blood pressure is stable on midodrine 10mg bid. -The patient does not need any phosphate binders at this time. Last phosphorus 3.6. Will monitor phosphorus trends. -Anemia of chronic disease: Patient receives RITIKA with HD. Hemoglobin is stable. We will continue to monitor hemoglobin trends. -Patient had modified barium swallow, found to have severe oropharyngeal phase dysphagia resulting in aspiration. The patient is status post PEG placement on 01/31/2022. On Nepro. - Patient has left UA AVF and was evaluated by Dr. Cortes for left upper arm swelling concern; no intervention at this time and ok to cannulate. HD RN did not have issues with cannulation today. - discharge planning in progress, possibly to [facility] today after dialysis
--- NOTE | 2022-02-03 17:27 | DIALYSIS ---
hemodialysis completed x 3.5 hrs. Access via LFA AVF. Net UF 2000ml. pt ad well. See HD flowsheet on chart.
[2022-02-03 17:30] LABS: CPK Total, Creatine Kinase 19 U/L (39-308)
[2022-02-03 17:50] LABS: Bedside Glucose 71 mg/dL (74-106)
--- NOTE | 2022-02-03 17:50 | NURSING ---
Report called to RN at [facility].
== END 2022-02-03 18:01 | disposition skilled nursing facility (03) | DRG 291 ==
LOC: ED 15:38 → ICU 16:09 → PCU 01-29 18:24
PROVIDERS: Internal Medicine; Internal Medicine Critical Care Medicine; Internal Medicine Gastroenterology; Internal Medicine Nephrology; Nurse Practitioner Adult Health; Admitting Provider Internal Medicine; Emergency Provider Emergency Medicine; PCP Family Medicine; Visit Provider Student in an Organized Health Care Education/Training Program
PROC: 0DJ08ZZ Inspection of Upper Intestinal Tract, Via Natural or Artificial Opening Endoscopic (ICD-10-PCS; CPT 43235; principal; 2022-01-31 11:25)
DX: I13.2 Hypertensive heart and chronic kidney disease with heart failure and with stage 5 chronic kidney disease, or end stage renal disease (principal); E11.641 Type 2 diabetes mellitus with hypoglycemia with coma; E43 Unspecified severe protein-calorie malnutrition; I50.23 Acute on chronic systolic (congestive) heart failure; N18.6 End stage renal disease; D68.59 Other primary thrombophilia; I48.19 Other persistent atrial fibrillation; J96.11 Chronic respiratory failure with hypoxia; Z68.1 Body mass index [BMI] 19.9 or less, adult; K22.2 Esophageal obstruction; I27.21 Secondary pulmonary arterial hypertension; D63.8 Anemia in other chronic diseases classified elsewhere; I95.9 Hypotension, unspecified; I42.8 Other cardiomyopathies; Z99.2 Dependence on renal dialysis; E11.22 Type 2 diabetes mellitus with diabetic chronic kidney disease; E11.51 Type 2 diabetes mellitus with diabetic peripheral angiopathy without gangrene; E87.70 Fluid overload, unspecified; E78.5 Hyperlipidemia, unspecified; K31.7 Polyp of stomach and duodenum; Z79.01 Long term (current) use of anticoagulants; R53.81 Other malaise; R62.7 Adult failure to thrive; H91.90 Unspecified hearing loss, unspecified ear; Z79.899 Other long term (current) drug therapy; R13.12 Dysphagia, oropharyngeal phase
CPT/HCPCS: 36415; 71045; 74230; 80048; 80069; 80076; 82085; 82550; 82962; 83605; 83690; 84100; 84484; 85025; 85610; 85730; 87040; 87340; 87426; 88305; 90937; 92526; 92610; 92611; 93005; 94762; 97116; 97162; 97166; 97530; 97535; 97802; 97803; 99285; J7030; J7040; J7120; A4216; C1769; G0257; J2405

== ENCOUNTER → 2022-02-18 | Outpatient (REF) | payer MEDICARE, OTHER, SELFPAY ==
[2022-02-18 09:41] LABS: Absolute Lymphocyte Count 0.55 X10^3/uL (0.83-4.51); Absolute Neutrophil Count 4.2 X10^3/uL (2.0-7.7); Basophil# 0.04 X10^3/uL; Basophil% 0.7 % (0-1); Eosinophil# 0.05 X10^3/uL; Eosinophils% 0.9 % (0-5); Hematocrit 25.7 % (40-54); Lymphocyte # 0.55 X10^3/ul (0.83-4.51); Mean Corp Hgb Conc 31.1 g/dL (32-36); Mean Corpuscular Hgb 33.3 pg (27.0-32.0); Mean Corpuscular Volume 107.1 fL (80-94); Mean Platelet Vol. 11.1 fl (6.2-12.0); Monocyte# 0.71 X10^3/uL; Monocyte% 12.9 % (0-10); NRBC Flagged by Analyzer 0 % (0-5); Neutrophil # 4.15 X10^3/uL (2.7-7.7); Neutrophil % 75.1 % (47-70); POSITIVE DIFFERENTIAL YES; POSITIVE MORPHOLOGY YES; Platelet Count 246 K/mm3 (150-450); RBC Distribution Width CV 18.9 % (11.6-14.6); RBC Distribution Width SD 72.8 fl (35.1-43.9); White Blood Count 5.5 K/mm3 (4.4-11.0)
[2022-02-18 09:42] LABS: Differential Indicated SCAN CRITERIA MET
== END ==
LOC: OLS.SW 05:00
PROVIDERS: PCP Family Medicine; Visit Provider Family Medicine
DX: I12.0 Hypertensive chronic kidney disease with stage 5 chronic kidney disease or end stage renal disease (principal); N18.6 End stage renal disease; R53.83 Other fatigue
CPT/HCPCS: 36415; 85025

== ENCOUNTER 2022-02-25 14:02 | Inpatient (IN) | payer MEDICARE, OTHER, SELFPAY ==
[2022-02-25] VITALS (51 sets, daily range): BP systolic 42–190; BP diastolic 21–164; PULSE 44–97; RESP 10–35; TEMP 33.1–36.4; O2SAT 31–100; BMI 28.0; BMI 24.5
--- NOTE | 2022-02-25 14:13 | EKG12_ITS ---
Test Reason : UNRESPONSIVE Blood Pressure : / mmHG Vent. Rate : 083 BPM Atrial Rate : 000 BPM P-R Int : 000 ms QRS Dur : 118 ms QT Int : 434 ms P-R-T Axes : 000 154 093 degrees QTc Int : 509 ms Atrial fibrillation with a competing junctional pacemaker with premature ventricular or aberrantly co nducted complexes Right axis deviation Low voltage QRS Cannot rule out Anterior infarct , age undetermined Prolonged QT Abnormal ECG Confirmed by KORY KINCAID, ONOFRE ([id number]), sports editor ROSIE OVALLES ([id number]) on 02/26/2022 11:12:42 AM Referred By: NAFISA Confirmed By:ONOFRE HORN MD
--- NOTE | 2022-02-25 14:13 | RAD_ITS ---
STUDY: X-RAY CHEST REASON FOR EXAM: Male, 76 years old. Hypoxia TECHNIQUE: Single AP portable view of the chest. COMPARISON: Comparison is made with prior study dated 01/27/2022. FINDINGS: EKG electrodes are seen. There is volume loss in the right hemithorax with shift of the heart and mediastinal structures towards the right side of midline. Infiltration and/or atelectasis seen at the right lung base as well as in the right upper lobe. Obstruction of the right mainstem bronchus should be ruled out. Small left pleural effusion with atelectasis and/or infiltrate in the posterior medial segment of the left lower lobe. Normal size heart. Normal mediastinum and ramya. Normal visualized pulmonary arteries. There is atherosclerotic calcification of the aortic arch with tortuosity. Normal visualized thoracic spine. Healed right rib fractures. There is no demonstrated abnormality of the visualized soft tissue structures of the upper abdomen. RAD/Chest 1 View (Portable) IMPRESSION: Mild loss in the right hemithorax as described most likely secondary to partial obstruction of the right mainstem bronchus. Small left pleural effusion with left basilar infiltrate and/or atelectasis. Electronically Signed: Jackson Haile MD at 15:15 EST ,
--- NOTE | 2022-02-25 14:15 | EX.ED.DYSGE1 ---
HPI History of Present Illness Chief Complaint: Unresponsive Informant: patient and other Narrative Narrative: Most of them are mentioned in history of EMS from nursing facility. Some information in terms of pertinent positive or negative is from patient. But due to the patient's slightly decreased responsiveness history is difficult to obtain. He is also mildly hypotensive. Patient was evidently found by staff at [facility]. He was found to be hypoxic in the 40s as well as a heart rate in the 40s. I have no further details on other symptoms. I have no details on when he was last seen normal. Currently patient denies pain. He denies dyspnea. He is slow to answer but seems to be consistent in this when I asked it in different ways. He is alert to person and he knows he is in the hospital. I could not get him to answer the year. I have reviewed medical record that he came in with. Of note he is on midodrine so I am suspicious his blood pressures are normally lower. He is also on Eliquis. He has known renal failure and is on dialysis. He is a full code listed in their paperwork. [facility] Medical History Anemia of chronic disease Anticoagulated Bilateral renal artery stenosis Chronic anemia Dialysis patient Edema of left forearm Esophageal dysphagia ESRD (end stage renal disease) on dialysis Essential hypertension Failure to thrive GERD (gastroesophageal reflux disease) GI bleed (11/2021) Hyperlipidemia Ischemic cerebrovascular accident (CVA) (01/2021) Non-ischemic cardiomyopathy Non-traumatic rhabdomyolysis Peripheral arterial disease Peripheral vascular occlusive disease Persistent atrial fibrillation Polycystic kidney disease Renal artery stenosis Secondary pulmonary arterial hypertension Home Medications cinacalcet 60 mg tablet (Sensipar) 60 mg PO PRN PRN IPTH 10/09/14 [History Last Taken 02/25/22] apixaban 2.5 mg tablet 2.5 mg feeding tube BID 11/29/21 [History Last Taken 02/25/22] atorvastatin 40 mg tablet 40 mg feeding tube QHS 11/29/21 [History Last Taken 02/24/22] midodrine 5 mg tablet 10 mg feeding tube BID 02/25/22 [History Last Taken 02/25/22] pantoprazole 40 mg granules delayed-release for susp in packet 40 mg feeding tube DAILY GERD 02/25/22 [History Last Taken 02/24/22] vitamin B complex-vitamin C-folic acid 0.8 mg tablet (Renal-Artem) 1 tab feeding tube DAILY SUPPLEMENT 02/25/22 [History Last Taken 02/25/22] Allergy/AdvReac Type Severity Reaction Status Date / Time No Known Allergies Allergy Verified 02/25/22 14:04 Family History Mother Heart disease Father Heart disease Surgical History Amputation of toe History of angioplasty of peripheral vessel (09/10/21) History of bilateral cataract extraction History of tonsillectomy History of transmetatarsal amputation of left foot S/P arteriovenous (AV) fistula creation Social History housing: retirement Smoking Status: Never smoker alcohol intake: never substance use type: does not use ROS ROS ED ROS Narrative Detailed review of systems is really not obtainable at this point. Patient will answer that he is not short of breath or any pain anywhere. But he answers very slowly. I cannot get him to answer a series of individual questions regarding the review of systems. For this reason this was not able to be completed. Review of Systems ROS Unobtainable: due to mental status EXAM Physical Exam Const Vital Signs: 02/25/22 14:04 02/25/22 14:09 02/25/22 14:18 Temperature 95.1 F L Temperature Source Temporal Pulse Rate 59 L Respiratory Rate 22 H Respiratory Effort Respiratory Depth Respiratory Pattern Blood Pressure 92/70 Blood Pressure Mean 77 Pulse Ox 100 100 91 Oxygen Delivery Method Non-Rebreather Nasal Cannula Nasal Cannula Oxygen Flow Rate (L/min) 15 6 5 Fraction of Inspired Oxygen (FIO2) 02/25/22 14:20 02/25/22 14:26 02/25/22 14:30 Temperature Temperature Source Pulse Rate Respiratory Rate Respiratory Effort Short of Breath Labored Respiratory Depth Respiratory Pattern Blood Pressure Blood Pressure Mean Pulse Ox 78 85 Oxygen Delivery Method Nasal Cannula Nasal Cannula Non-Rebreather Oxygen Flow Rate (L/min) 6 6 15 Fraction of Inspired Oxygen (FIO2) 02/25/22 14:40 02/25/22 14:40 02/25/22 14:49 Temperature Temperature Source Pulse Rate 60 Respiratory Rate 35 H Respiratory Effort Respiratory Depth Respiratory Pattern Blood Pressure 97/77 63/23 L Blood Pressure Mean 83 36 Pulse Ox 90 82 Oxygen Delivery Method Non-Rebreather Bi-pap Oxygen Flow Rate (L/min) 15 Fraction of Inspired Oxygen (FIO2) 100 02/25/22 14:54 02/25/22 14:56 02/25/22 15:00 Temperature Temperature Source Pulse Rate 61 64 60 Respiratory Rate 23 H 25 H 23 H Respiratory Effort Respiratory Depth Respiratory Pattern Blood Pressure 51/26 L 70/50 L 42/28 L Blood Pressure Mean 34 56 32 Pulse Ox 91 81 31 Oxygen Delivery Method Bi-pap Bi-pap Bi-pap Oxygen Flow Rate (L/min) Fraction of Inspired Oxygen (FIO2) 100 100 100 02/25/22 15:05 02/25/22 15:09 02/25/22 15:15 Temperature Temperature Source Pulse Rate 60 55 L Respiratory Rate 12 14 Respiratory Effort Short of Breath Labored Accessory Muscle Use Respiratory Depth Shallow Respiratory Pattern Apnea Blood Pressure 62/21 L 59/28 L Blood Pressure Mean 34 38 Pulse Ox 54 96 Oxygen Delivery Method Ambu-Bag Mechanical Ventilator Oxygen Flow Rate (L/min) Fraction of Inspired Oxygen (FIO2) 100 60 02/25/22 15:15 02/25/22 15:20 02/25/22 15:27 Temperature Temperature Source Pulse Rate 60 69 66 Respiratory Rate 11 L 10 L 16 Respiratory Effort Respiratory Depth Respiratory Pattern Blood Pressure 70/32 L 109/95 H 103/69 Blood Pressure Mean 44 99 80 Pulse Ox 71 41 Oxygen Delivery Method Mechanical Ventilator Mechanical Ventilator Mechanical Ventilator Oxygen Flow Rate (L/min) Fraction of Inspired Oxygen (FIO2) 60 60 60 02/25/22 15:30 02/25/22 15:06 02/25/22 15:37 Temperature 91.7 F L Temperature Source Core Pulse Rate 71 44 L 60 Respiratory Rate 14 14 17 Respiratory Effort Respiratory Depth Respiratory Pattern Normal Blood Pressure 71/37 L 139/125 H Blood Pressure Mean 48 129 Pulse Ox 57 95 61 Oxygen Delivery Method Mechanical Ventilator Mechanical Ventilator Oxygen Flow Rate (L/min) Fraction of Inspired Oxygen (FIO2) 100 60 100 02/25/22 15:44 02/25/22 15:55 02/25/22 16:00 Temperature 91.7 F L 91.7 F L 91.6 F L Temperature Source Core Core Core Pulse Rate 62 62 65 Respiratory Rate 14 14 14 Respiratory Effort Respiratory Depth Respiratory Pattern Blood Pressure 138/122 H 190/164 H 168/124 H Blood Pressure Mean 127 172 138 Pulse Ox 97 95 94 Oxygen Delivery Method Mechanical Ventilator Mechanical Ventilator Mechanical Ventilator Oxygen Flow Rate (L/min) Fraction of Inspired Oxygen (FIO2) 100 100 100 02/25/22 16:14 02/25/22 16:25 02/25/22 16:30 Temperature 91.5 F L 91.5 F L 91.5 F L Temperature Source Core Core Core Pulse Rate 62 61 64 Respiratory Rate 15 16 17 Respiratory Effort Respiratory Depth Respiratory Pattern Blood Pressure 69/59 L 66/58 L 78/52 L Blood Pressure Mean 62 60 60 Pulse Ox 91 96 94 Oxygen Delivery Method Mechanical Ventilator Mechanical Ventilator Mechanical Ventilator Oxygen Flow Rate (L/min) Fraction of Inspired Oxygen (FIO2) 100 100 100 02/25/22 16:43 02/25/22 14:40 02/25/22 15:48 Temperature 91.6 F L Temperature Source Core Pulse Rate 67 59 L Respiratory Rate 22 H 29 H 14 Respiratory Effort Respiratory Depth Respiratory Pattern Blood Pressure 79/51 L Blood Pressure Mean 60 Pulse Ox 96 87 95 Oxygen Delivery Method Mechanical Ventilator Oxygen Flow Rate (L/min) Fraction of Inspired Oxygen (FIO2) 100 100 100 02/25/22 16:54 02/25/22 17:00 02/25/22 17:14 Temperature 91.8 F L 92.0 F L 92.2 F L Temperature Source Core Core Core Pulse Rate 60 57 L 64 Respiratory Rate 21 H 17 19 H Respiratory Effort Respiratory Depth Respiratory Pattern Blood Pressure 52/29 L 94/63 119/90 H Blood Pressure Mean 36 73 99 Pulse Ox 95 93 94 Oxygen Delivery Method Mechanical Ventilator Mechanical Ventilator Mechanical Ventilator Oxygen Flow Rate (L/min) Fraction of Inspired Oxygen (FIO2) 100 100 100 02/25/22 17:31 02/25/22 17:35 02/25/22 18:00 Temperature 92.5 F L 92.6 F L 93.0 F L Temperature Source Core Core Core Pulse Rate 64 65 67 Respiratory Rate 16 17 16 Respiratory Effort Respiratory Depth Respiratory Pattern Blood Pressure 91/40 L 91/40 L 121/99 H Blood Pressure Mean 57 57 106 Pulse Ox 83 95 94 Oxygen Delivery Method Mechanical Ventilator Mechanical Ventilator Mechanical Ventilator Oxygen Flow Rate (L/min) Fraction of Inspired Oxygen (FIO2) 100 100 02/25/22 18:30 02/25/22 19:00 02/25/22 19:14 Temperature 93.8 F L 93.9 F L Temperature Source Core Core Pulse Rate 70 72 65 Respiratory Rate 14 14 14 Respiratory Effort Respiratory Depth Respiratory Pattern Blood Pressure 96/67 126/93 H 126/93 H Blood Pressure Mean 76 104 104 Pulse Ox 96 99 98 Oxygen Delivery Method Mechanical Ventilator Mechanical Ventilator Mechanical Ventilator Oxygen Flow Rate (L/min) Fraction of Inspired Oxygen (FIO2) 100 100 02/25/22 18:35 Temperature Temperature Source Pulse Rate 66 Respiratory Rate 15 Respiratory Effort Respiratory Depth Respiratory Pattern Blood Pressure Blood Pressure Mean Pulse Ox 98 Oxygen Delivery Method Oxygen Flow Rate (L/min) Fraction of Inspired Oxygen (FIO2) 100 Constitutional Narrative: Patient looks chronically ill. He has consistent color consistent with long-term dialysis. He is not diaphoretic. He is spontaneously awake. HEENT Reports dry mucous membranes Mouth ED: Yes dry mucous membranes Mouth: dry mucous membranes Neck no JVD Chest Wall inspection of chest normal Chest Narrative: Patient is thin. Visible and palpable ribs. Resp normal respiratory effort Resp Narrative: His respiratory effort is actually normal at this time. He is not bradypnea. He is not working hard to breathe. Saturations are 100% on nonrebreather at 15 L. We switched him to 6 L nasal cannula he still at 100%. We will try to wean this down somewhat. Due to his low blood pressure, I did not sit him up to listen to the back of his lungs. But I do not hear rales down at the sides. Cardio regular rate Rhythm: abnormal rhythm GI normal to inspection, nondistended, normoactive bowel sounds GI Narrative: Patient has a PEG tube in left upper quadrant. No sign of infection. Abdomen is not distended. Bowel sounds are normal to slightly quiet. There is no tenderness that I get on exam. We are in the process of fully disrobing him to look at other areas. But I am getting orders and therapy in initiated. Back/Spine no CVA tenderness Back/Spine Narrative: No CVA tenderness when reaching around while patient is on his back. Extremity Extremity Narrative: He has had left distal toes/transmetatarsal amputation. Bandages are dry. There is no peripheral edema. Dialysis access palpable in left arm. No sign of bleeding. No sign of infection. Neuro Neuro Narrative: Patient does move all extremities. He looks left and right. I see no focal lateralizing deficit. Detailed exam is somewhat difficult. Patient does answer his name. He does tell me he is in the hospital. I cannot get him to answer what year it is. I also note that he appears to be mildly hard of hearing. Psych Psych Narrative: Flat affect Skin Skin Narrative: Chronic skin color changes. No marked pallor. No diaphoresis. MDM MDM MDM Narrative Medical decision making narrative: 14: 30 I was talking with son who came in here son talked with him and saw him last night. He seemed a little tired but nothing else out of the ordinary. It was a little later in the evening so he thought that was likely the source. The patient evidently talked to his girlfriend on the phone for short period of time. No report of fevers coughing or any other specific symptoms. Son states that his dialysis is Thursday and Thursday and he did have dialysis yesterday. He heard no reports of anything abnormal. Patient is a little bit quicker to answer questions now. He did know it was 2021 now. I could not get him to answer who is the president though. Saturations are little lower on 6 L so worry putting him back on the nonrebreather at this time. I explained to the son that his blood pressure is dropping a little bit again. We will give him fluids. He is in a difficult situation where his blood pressure is getting lower but he also has history of cardiomyopathy with poor ejection fraction and dialysis. Patient got progressively worse here he is having trouble maintaining sats. For this reason he was intubated. I did discuss with him and his son. He does want full measures. Procedure: Intubation: Patient is preoxygenated as well as we could considering the situation he was intubated on first attempt using glide scope and a 7.5 endotracheal tube. Good easy Change. Good breath sounds in the left but decreased on the right. However, he has consolidation and effusion obliterating the right on chest x-ray. Post intubation film does show good positioning. Because of the significant findings on x-ray, we did do CT that showed bilateral pneumonia. Patient had already been given IV fluids antibiotics. I discussed case with the hospitalist and patient will be admitted I discussed case with the son and he stated that the patient has multiple medical problems. He came in quite sick. He is doing better. However we cannot guarantee success or survival from this very significant event. Patient's white count was not elevated. However, his temperature was down that could be a sign of sepsis. Hemoglobin is low. Platelets are normal. Electrolytes showed some mildly low sodium but this is not new. Creatinine is consistent with chronic kidney disease. Liver function test showed no marked abnormalities. Lactate was only slightly elevated at 2.1. Lab Data Attestation: I reviewed the patient's lab results. Labs: Laboratory Results - last 24 hr 02/25/22 02/25/22 02/25/22 14:30 14:30 14:30 WBC 7.7 RBC 2.71 L Hgb 9.3 L Hct 30.2 L MCV 111.4 H MCH 34.3 H MCHC 30.8 L RDW Std Deviation 78.4 H RDW Coeff of Sue 19.0 H Plt Count 176 MPV 11.3 Immature Gran % (Auto) 0.300 Neut % (Auto) 78.7 H Lymph % (Auto) 9.2 L [place] % (Auto) 8.8 Eos % (Auto) 2.6 Baso % (Auto) 0.4 Absolute Neuts (auto) 6.1 Absolute Lymphs (auto) 0.71 L Nucleated RBC % 0 Platelet Estimate ADEQUATE RBC Morphology N CHROM Anisocytosis 2+ Macrocytosis 2+ PT 19.4 H INR 1.7 APTT 48.0 H Sodium 128 L Potassium 5.1 Chloride 90 L Carbon Dioxide 34.0 H Anion Gap 4 L BUN 57 H Creatinine 3.47 H Estim Creat Clear Calc 16.60 Est GFR (MDRD) Af Amer 22 L Est GFR (MDRD) Non-Af 18 L BUN/Creatinine Ratio 16.4 Glucose 118 H Lactic Acid Calcium 8.6 Phosphorus 4.0 Magnesium 2.6 Total Bilirubin 0.40 AST 24 ALT 17 Alkaline Phosphatase 241 H Troponin I High Sens 67 Total Protein 6.7 Albumin 1.9 L Globulin 4.8 H Albumin/Globulin Ratio 0.4 L Lipase 58 L Urine Color Urine Clarity Urine pH Ur Specific [place] Urine Protein Urine Glucose (UA) Urine Ketones Urine Occult Blood Urine Nitrite Urine Bilirubin Urine Urobilinogen Ur Leukocyte Esterase Urine RBC Urine WBC Ur Squamous Epith Cells Urine Bacteria Urine Mucus 02/25/22 02/25/22 02/25/22 14:30 15:30 18:47 WBC RBC Hgb Hct MCV MCH MCHC RDW Std Deviation RDW Coeff of Sue Plt Count MPV Immature Gran % (Auto) Neut % (Auto) Lymph % (Auto) [place] % (Auto) Eos % (Auto) Baso % (Auto) Absolute Neuts (auto) Absolute Lymphs (auto) Nucleated RBC % Platelet Estimate RBC Morphology Anisocytosis Macrocytosis PT INR APTT Sodium Potassium Chloride Carbon Dioxide Anion Gap BUN Creatinine Estim Creat Clear Calc Est GFR (MDRD) Af Amer Est GFR (MDRD) Non-Af BUN/Creatinine Ratio Glucose Lactic Acid 2.1 H* 2.4 H* Calcium Phosphorus Magnesium Total Bilirubin AST ALT Alkaline Phosphatase Troponin I High Sens Total Protein Albumin Globulin Albumin/Globulin Ratio Lipase Urine Color Brown Urine Clarity Clear Urine pH 8.0 Ur Specific [place] 1.010 Urine Protein 500 H Urine Glucose (UA) Normal Urine Ketones Negative Urine Occult Blood 250 H Urine Nitrite Positive H Urine Bilirubin Negative Urine Urobilinogen Normal Ur Leukocyte Esterase 25 H Urine RBC 25-50 SEEN Urine WBC 0-5 SEEN Ur Squamous Epith Cells 0 SEEN Urine Bacteria 2+ Urine Mucus 0 SEEN ABG Data ABG results: ABG 02/25/22 02/25/22 14:31 16:50 Specimen Type JOSE ART Sample Site R Brach pH 7.31 L Bicarbonate Actual 29.5 H Total CO2 31 Base Excess 3 H O2 Saturation 88 L O2 % 100 ABG pCO2 58.4 H ABG pO2 60 L VBG pH 7.15 L* VBG pO2 58 H VBG HCO3 33 H VBG Total CO2 36 H VBG O2 Sat (Calc) 79 H VBG Base Excess 5 H POC Mix VBG pCO2 Pt Tmp 95.1 H* Respiration Rate 14 O2 Delivery Device Adult Vent Vent Mode AC Tidal Volume 400 POC PEEP 5 Crit Call To/Read Back Yes Clinical Comments 6 lpm Radiography Diagnostic Testing: Clinical Impression(s) from Imaging Studies Chest X-Ray 02/25/22 14:13 IMPRESSION: Mild loss in the right hemithorax as described most likely secondary to partial obstruction of the right mainstem bronchus. Small left pleural effusion with left basilar infiltrate and/or atelectasis. Electronically Signed: Jackson Haile MD at 15:15 EST , Chest X-Ray 02/25/22 15:15 IMPRESSION: The tip of the endotracheal tube is at 3.6 times approximately the jesenia. There is reexpansion of the right hemithorax although there is complete opacification of the right hemithorax at this time. This may be related to persistent right pleural effusion and atelectasis of the right lung. Electronically Signed: Jackson Haile MD at 15:36 EST , Chest CT 02/25/22 16:05 IMPRESSION: There are bilateral pleural effusions. There is bilateral pneumonia. Electronically Signed: Ibrahima Pruitt MD at 18:48 EST , Initial x-ray showed bilateral effusion with significant obliteration of the right hemithorax. Postintubation x-ray shows good position of ET tube and slight improvement of aeration. CT showed effusion and bilateral pneumonia. EKG Initial EKG: Comments: EKG done for history of atrial fibrillation read by me shows A. fib with overall rate controlled at 83. No notable ventricular ectopy. There are diffuse nonspecific ST and T wave changes. No sign of infarct or ischemia. Critical Care Time Critical care time (excluding procedures): 30-74 minutes, Including time spent:, Discussing w/Patient &/or Family/Information Technology Account Manager, Discussing w/Consultants, Arranging Admission or Transfer, Performing Direct Patient Care at Bedside and - (65 minutes, multiple reevaluations, altering treatment, discussing with consultants.) Discharge Plan Dx/Rx/DC Orders Clinical Impression: Acute hypotension, Hypoxia, Sepsis, Bilateral pneumonia, Respiratory failure Disposition Disposition: Acute Care [facility] Discharge Date/Time: 02/25/22 21:53
--- NOTE | 2022-02-25 14:22 | ED.RN ---
PITTING EDEMA TO BILAT ROSALIO/ARMS.
--- NOTE | 2022-02-25 14:31 | CPS ---
critical values on vbg. Dr. lopez notified of critical values
--- NOTE | 2022-02-25 14:35 | ED.RN ---
PROVIDER AWARE OF BILAT HAND EDEMA, D/T BP WILL GIVE 500 BOLUS.
[2022-02-25 14:36] LABS: Blood Gas Specimen Type VEN; VBG BASE EXCESS 5 mmol/L (-1.0-3.5); VBG Bicarbonate 33 mmol/L (22-26); VBG PO2 58 mmHg (25-40); VBG SO2 79 % (50-70); VBG TCO2 36 mmol/L (23-33); VBG pCO2 95.1 mmHg (41-51); VBG pH 7.15 (7.32-7.42)
[2022-02-25 14:40] LABS: Absolute Lymphocyte Count 0.71 X10^3/uL (0.83-4.51); Absolute Neutrophil Count 6.1 X10^3/uL (2.0-7.7); Basophil# 0.03 X10^3/uL; Basophil% 0.4 % (0-1); Eosinophils% 2.6 % (0-5); Hematocrit 30.2 % (40-54); Hemoglobin 9.3 g/dL (13.0-16.5); Lymphocyte # 0.71 X10^3/ul (0.83-4.51); Lymphocyte % 9.2 % (19-41); Mean Corp Hgb Conc 30.8 g/dL (32-36); Mean Corpuscular Hgb 34.3 pg (27.0-32.0); Mean Corpuscular Volume 111.4 fL (80-94); Mean Platelet Vol. 11.3 fl (6.2-12.0); Monocyte# 0.68 X10^3/uL; Monocyte% 8.8 % (0-10); NRBC Flagged by Analyzer 0 % (0-5); Neutrophil # 6.07 X10^3/uL (2.7-7.7); Neutrophil % 78.7 % (47-70); POSITIVE MORPHOLOGY YES; Platelet Count 176 K/mm3 (150-450); RBC Distribution Width SD 78.4 fl (35.1-43.9); Red Blood Count 2.71 M/mm3 (4.6-6.2); White Blood Count 7.7 K/mm3 (4.4-11.0)
[2022-02-25 14:48] LABS: Differential Indicated SCAN CRITERIA MET
[2022-02-25 14:50] LABS: International Normalized Ratio 1.7; Prothrombin Time (Protime)PT. 19.4 SECONDS (11.7-14.9)
[2022-02-25 14:56] LABS: ALB/GLOB Ratio 0.4 RATIO (0.9-2.4); AST(SGOT) 24 U/L (15-37); Alanine Aminotransfer ALT/SGPT 17 U/L (16-61); Albumin, Serum 1.9 g/dL (3.2-5.0); Alkaline Phosphatase 241 U/L (45-117); Anion Gap 4 (5-15); BUN 57 mg/dL (7-18); BUN/Creat Ratio 16.4 RATIO (10-20); Calcium,Total 8.6 mg/dL (8.5-10.1); Chloride 90 mmol/L (98-107); Creatinine, Serum 3.47 mg/dL (0.70-1.30); EST Glomerular Filtration Rate 18 mL/min (>60); Est Glom Filt Rate - Afr Amer 22 mL/min (>60); Globulin 4.8 g/dL (2.2-4.2); Glucose 118 mg/dL (74-106); Lipase 58 U/L (73-393); Magnesium 2.6 mg/dL (1.6-2.6); Potassium 5.1 mmol/L (3.5-5.1); Protein, Total 6.7 g/dL (6.4-8.2); Sodium Level 128 mmol/L (136-145); Troponin-I HS 67 pg/mL (3.0-78.0)
[2022-02-25] MEDS: Etomidate 20 MG/10 ML Vial IV (15:04)
[2022-02-25] MEDS: Succinylcholine Chloride 200 MG/10 ML SYRINGE 100 MG IV (15:04)
[2022-02-25 15:12] LABS: Lactic Acid 2.1 mmol/L (0.4-1.9)
--- NOTE | 2022-02-25 15:15 | RAD_ITS ---
STUDY: X-RAY CHEST REASON FOR EXAM: Male, 76 years old. Post intubation TECHNIQUE: Single AP portable view of the chest. COMPARISON: Comparison is made with prior study done earlier today. FINDINGS: An endotracheal tube has been placed. The tip is at 3.6 cm proximal to the jesenia. A nasogastric tube is seen with the tip coiled in the body of the stomach. There is reexpansion of the right hemithorax although there is diffuse opacification of the right hemithorax. This may represent an effusion with persistent atelectasis of the right lung. Blunting of the left cosmetic angle with the atelectasis and/or infiltrate in the left lower lobe. RAD/Chest 1 View (Portable) IMPRESSION: The tip of the endotracheal tube is at 3.6 times approximately the jesenia. There is reexpansion of the right hemithorax although there is complete opacification of the right hemithorax at this time. This may be related to persistent right pleural effusion and atelectasis of the right lung. Electronically Signed: Jackson Haile MD at 15:36 EST ,
[2022-02-25] MEDS: 0.9% Normal Saline 1,000 ML 1000 ML IV (15:26)
[2022-02-25 15:45] LABS: Mucous, Urine 0 SEEN /hpf (<or=2+); Squamous Epithelial Cells - UA 0 SEEN /hpf (0-5)
[2022-02-25 15:55] LABS: Color, Urine Brown (Yellow); Glucose, Dipstick Normal (Normal); Ketone-Dipstick Negative (Negative); Leukocyte Esterase-Dipstick 25 /ul (Negative); Nitrite-Dipstick Positive (Negative); Occult Blood-Urine 250 /ul (Negative); Protein-Dipstick 500 mg/dl (Negative); Urine Bilirubin Dipstick Negative (Negative); Urine Clarity Clear (Clear); Urine Urobilinogen Normal (Normal)
--- NOTE | 2022-02-25 16:05 | CT_ITS ---
STUDY: CT Chest W/O Contrast Injection 02/25/2022 6:45 PM REASON FOR EXAM: Male, 76 years old. Respiratory failure unresponsive, diaphoretic, low pulse ox Individualized dose optimization techniques were used for this CT. TECHNIQUE: Transaxial imaging was performed withoutIV contrast material. COMPARISON: None. FINDINGS: There are degenerative changes of the shoulders. There is no pneumothorax. There is no demonstrated pleural abnormality. There are bilateral pleural effusions. There is bilateral pneumonia. ET tube and NG tube in place. There are calcifications of the coronary arteries. There is moderate cardiac enlargement. Healed right rib fractures. Healed left rib fractures. Normal mediastinum. Normal hilar regions. Normal pulmonary arteries. There is atherosclerotic calcification of the aortic arch with tortuosity and elongation of the aortic arch and descending thoracic aorta. There are multi-level degenerative changes of the thoracic spine. Soft tissue edema. CT/Chest without Contrast IMPRESSION: There are bilateral pleural effusions. There is bilateral pneumonia. Electronically Signed: Ibrahima Pruitt MD at 18:48 EST ,
[2022-02-25 16:12] LABS: Anisocytosis 2+; Macrocytosis 2+; Platelet Estimate ADEQUATE (ADEQ); Red Cell Morphology N CHROM NORMAL (NORM C&C)
[2022-02-25] MEDS: LORazepam 2 MG/ML Syringe 1 MG IV (16:12)
[2022-02-25 16:17] LABS: Red Blood Cells-Urine 25-50 SEEN /hpf (0-5)
--- NOTE | 2022-02-25 16:17 | CHAPLAIN ---
Type of Pastoral Visit _x__ Initial Visit ___ Follow-up Visit ___ On-call Visit ___ General Patient Visit ___ Spiritual Assessment ___ Family Conference ___ Bereavement ___ Rapid Response ___ Code Blue ___ Other (describe below) Pastoral Care Referral From ___ Patient _x__ Family ___ Nurse ___ Physician ___ Miller Head Assistant Wet Process ___ Boiler Operator Helper ___ Other (describe below) Sacrament/Intervention _x__ Active listening ___ Anointing ___ Confucianism ___ Bereavement ___ Communion ___ María exploration ___ ___ Life review _x__ Prayer ___ Reconciliation ___ Sacrament of Sick _x__ Supportive presence ___ Wedding ___ Other (describe below) Pastoral Comments patient is intubated and known to this core setter from years ago; recently gave support when pt was admitted; son is in the room and is offered support and presence; son receives the offer and talks about his father and the wishes he has expressed for his care; prayer given with promise of follow up as available and desired
[2022-02-25 16:19] LABS: Bacteria 2+ /hpf (None Seen); White Blood Cells 0-5 SEEN /hpf (0-5)
[2022-02-25 16:55] LABS: Base Excess 3 mmol/L (-2 to +2); Bicarbonate 29.5 mmol/L (22-26); Blood Gas Specimen Type ART; FI02 100; Mode AC; O2 Delivery Device Adult Vent; PEEP 5; PO2 60 mmHG (75-100); RR 14; SITE R Brach; SO2 88 % (95-99); Total Carbon Dioxide 31 mmol/L; Vt 400; pCO2 58.4 mmHg (35-45); pH 7.31 (7.35-7.45)
[2022-02-25] MEDS: 0.9% Normal Saline 1,000 ML 999 ML IV (17:08)
[2022-02-25 18:35] LABS: Reflex Lactate? Y
[2022-02-25 19:25] LABS: Lactic Acid 2.4 mmol/L (0.4-1.9)
--- NOTE | 2022-02-25 19:33 | HP.PCM.HOS_ITS ---
HPI - General General Date of Admission: 02/25/22 Date of Service: 02/25/22 Chief Complaint: Unresponsiveness HPI Narrative FLAQUITO GORDON, is a 76 M with a significant history of PAD; mild dementia; hypotension on midodrine; atrial fibrillation; dysphagia with G-tube; end-stage renal disease on dialysis (Wednesdays and Fridays) and heart failure with reduced ejection fraction who lives at [facility] presenting to the emergency department with unresponsiveness. Reportedly his oxygen saturation was in the 40s. Also his heart rate was in the 40s. Patient was placed on nonrebreather mask enroute to the emergency department. On the nonrebreather mask his oxygen saturation was improving. At the emergency d epartment attempt was made to wean patient off oxygen. However he became more dyspneic and his oxygen saturation dropped. VBG showed pH of 7.1 and PCO2 of 96. Patient was intubated. Patient was hyp othermic and required heating blankets. Chest x-ray showed that his right lung was completely milan out. Because patient is on Eliquis CTA was not done but rather CT chest was done to rule out whether there was any bronchial obstruction. CT scan showed bilateral pneumonia with pleural effusion. At the emergency department patient was given Ativan which failed to drop his blood pressures. History was obtained from emergency department doctor as patient was intubated. [facility] Medical History Anemia of chronic disease Anticoagulated Bilateral renal artery stenosis Chronic anemia Dialysis patient Edema of left forearm Esophageal dysphagia ESRD (end stage renal disease) on dialysis Essential hypertension Failure to thrive GERD (gastroesophageal reflux disease) GI bleed (11/2021) Hyperlipidemia Ischemic cerebrovascular accident (CVA) (01/2021) Non-ischemic cardiomyopathy Non-traumatic rhabdomyolysis Peripheral arterial disease Peripheral vascular occlusive disease Persistent atrial fibrillation Polycystic kidney disease Renal artery stenosis Secondary pulmonary arterial hypertension Home Medications cinacalcet 60 mg tablet (Sensipar) 60 mg PO PRN PRN IPTH 10/09/14 [History Last Taken 02/25/22] apixaban 2.5 mg tablet 2.5 mg feeding tube BID 11/29/21 [History Last Taken 02/25/22] atorvastatin 40 mg tablet 40 mg feeding tube QHS 11/29/21 [History Last Taken 02/24/22] midodrine 5 mg tablet 10 mg feeding tube BID 02/25/22 [History Last Taken 02/25/22] pantoprazole 40 mg granules delayed-release for susp in packet 40 mg feeding tube DAILY GERD 02/25/22 [History Last Taken 02/24/22] vitamin B complex-vitamin C-folic acid 0.8 mg tablet (Renal-Artem) 1 tab feeding tube DAILY SUPPLEMENT 02/25/22 [History Last Taken 02/25/22] Allergy/AdvReac Type Severity Reaction Status Date / Time No Known Allergies Allergy Verified 02/25/22 14:04 Family History Mother Heart disease Father Heart disease Surgical History Amputation of toe History of angioplasty of peripheral vessel (09/10/21) History of bilateral cataract extraction History of tonsillectomy History of transmetatarsal amputation of left foot S/P arteriovenous (AV) fistula creation Social History [facility]: [facility] Smoking Status: Never smoker alcohol intake: never substance use type: does not use ROS Review of Systems ROS Unobtainable: due to endotracheal tube Vital Signs Vital Signs Vital Signs: 02/25/22 14:04 02/25/22 14:09 02/25/22 14:18 Temperature 95.1 F L Temperature Source Temporal Pulse Rate 59 L Respiratory Rate 22 H Respiratory Effort Respiratory Depth Respiratory Pattern Blood Pressure 92/70 Blood Pressure Mean 77 Pulse Ox 100 100 91 Oxygen Delivery Method Non-Rebreather Nasal Cannula Nasal Cannula Oxygen Flow Rate (L/min) 15 6 5 Fraction of Inspired Oxygen (FIO2) 02/25/22 14:20 02/25/22 14:26 02/25/22 14:30 Temperature Temperature Source Pulse Rate Respiratory Rate Respiratory Effort Short of Breath Labored Respiratory Depth Respiratory Pattern Blood Pressure Blood Pressure Mean Pulse Ox 78 85 Oxygen Delivery Method Nasal Cannula Nasal Cannula Non-Rebreather Oxygen Flow Rate (L/min) 6 6 15 Fraction of Inspired Oxygen (FIO2) 02/25/22 14:40 02/25/22 14:40 02/25/22 14:49 Temperature Temperature Source Pulse Rate 60 Respiratory Rate 35 H Respiratory Effort Respiratory Depth Respiratory Pattern Blood Pressure 97/77 63/23 L Blood Pressure Mean 83 36 Pulse Ox 90 82 Oxygen Delivery Method Non-Rebreather Bi-pap Oxygen Flow Rate (L/min) 15 Fraction of Inspired Oxygen (FIO2) 100 02/25/22 14:54 02/25/22 14:56 02/25/22 15:00 Temperature Temperature Source Pulse Rate 61 64 60 Respiratory Rate 23 H 25 H 23 H Respiratory Effort Respiratory Depth Respiratory Pattern Blood Pressure 51/26 L 70/50 L 42/28 L Blood Pressure Mean 34 56 32 Pulse Ox 91 81 31 Oxygen Delivery Method Bi-pap Bi-pap Bi-pap Oxygen Flow Rate (L/min) Fraction of Inspired Oxygen (FIO2) 100 100 100 02/25/22 15:05 02/25/22 15:09 02/25/22 15:15 Temperature Temperature Source Pulse Rate 60 55 L Respiratory Rate 12 14 Respiratory Effort Short of Breath Labored Accessory Muscle Use Respiratory Depth Shallow Respiratory Pattern Apnea Blood Pressure 62/21 L 59/28 L Blood Pressure Mean 34 38 Pulse Ox 54 96 Oxygen Delivery Method Ambu-Bag Mechanical Ventilator Oxygen Flow Rate (L/min) Fraction of Inspired Oxygen (FIO2) 100 60 02/25/22 15:15 02/25/22 15:20 02/25/22 15:27 Temperature Temperature Source Pulse Rate 60 69 66 Respiratory Rate 11 L 10 L 16 Respiratory Effort Respiratory Depth Respiratory Pattern Blood Pressure 70/32 L 109/95 H 103/69 Blood Pressure Mean 44 99 80 Pulse Ox 71 41 Oxygen Delivery Method Mechanical Ventilator Mechanical Ventilator Mechanical Ventilator Oxygen Flow Rate (L/min) Fraction of Inspired Oxygen (FIO2) 60 60 60 02/25/22 15:30 02/25/22 15:06 02/25/22 15:37 Temperature 91.7 F L Temperature Source Core Pulse Rate 71 44 L 60 Respiratory Rate 14 14 17 Respiratory Effort Respiratory Depth Respiratory Pattern Normal Blood Pressure 71/37 L 139/125 H Blood Pressure Mean 48 129 Pulse Ox 57 95 61 Oxygen Delivery Method Mechanical Ventilator Mechanical Ventilator Oxygen Flow Rate (L/min) Fraction of Inspired Oxygen (FIO2) 100 60 100 02/25/22 15:44 02/25/22 15:55 02/25/22 16:00 Temperature 91.7 F L 91.7 F L 91.6 F L Temperature Source Core Core Core Pulse Rate 62 62 65 Respiratory Rate 14 14 14 Respiratory Effort Respiratory Depth Respiratory Pattern Blood Pressure 138/122 H 190/164 H 168/124 H Blood Pressure Mean 127 172 138 Pulse Ox 97 95 94 Oxygen Delivery Method Mechanical Ventilator Mechanical Ventilator Mechanical Ventilator Oxygen Flow Rate (L/min) Fraction of Inspired Oxygen (FIO2) 100 100 100 02/25/22 16:14 02/25/22 16:25 02/25/22 16:30 Temperature 91.5 F L 91.5 F L 91.5 F L Temperature Source Core Core Core Pulse Rate 62 61 64 Respiratory Rate 15 16 17 Respiratory Effort Respiratory Depth Respiratory Pattern Blood Pressure 69/59 L 66/58 L 78/52 L Blood Pressure Mean 62 60 60 Pulse Ox 91 96 94 Oxygen Delivery Method Mechanical Ventilator Mechanical Ventilator Mechanical Ventilator Oxygen Flow Rate (L/min) Fraction of Inspired Oxygen (FIO2) 100 100 100 02/25/22 16:43 02/25/22 14:40 02/25/22 15:48 Temperature 91.6 F L Temperature Source Core Pulse Rate 67 59 L Respiratory Rate 22 H 29 H 14 Respiratory Effort Respiratory Depth Respiratory Pattern Blood Pressure 79/51 L Blood Pressure Mean 60 Pulse Ox 96 87 95 Oxygen Delivery Method Mechanical Ventilator Oxygen Flow Rate (L/min) Fraction of Inspired Oxygen (FIO2) 100 100 100 02/25/22 16:54 02/25/22 17:00 02/25/22 17:14 Temperature 91.8 F L 92.0 F L 92.2 F L Temperature Source Core Core Core Pulse Rate 60 57 L 64 Respiratory Rate 21 H 17 19 H Respiratory Effort Respiratory Depth Respiratory Pattern Blood Pressure 52/29 L 94/63 119/90 H Blood Pressure Mean 36 73 99 Pulse Ox 95 93 94 Oxygen Delivery Method Mechanical Ventilator Mechanical Ventilator Mechanical Ventilator Oxygen Flow Rate (L/min) Fraction of Inspired Oxygen (FIO2) 100 100 100 02/25/22 17:31 02/25/22 17:35 02/25/22 18:00 Temperature 92.5 F L 92.6 F L 93.0 F L Temperature Source Core Core Core Pulse Rate 64 65 67 Respiratory Rate 16 17 16 Respiratory Effort Respiratory Depth Respiratory Pattern Blood Pressure 91/40 L 91/40 L 121/99 H Blood Pressure Mean 57 57 106 Pulse Ox 83 95 94 Oxygen Delivery Method Mechanical Ventilator Mechanical Ventilator Mechanical Ventilator Oxygen Flow Rate (L/min) Fraction of Inspired Oxygen (FIO2) 100 100 02/25/22 18:30 02/25/22 19:00 02/25/22 19:14 Temperature 93.8 F L 93.9 F L Temperature Source Core Core Pulse Rate 70 72 65 Respiratory Rate 14 14 14 Respiratory Effort Respiratory Depth Respiratory Pattern Blood Pressure 96/67 126/93 H 126/93 H Blood Pressure Mean 76 104 104 Pulse Ox 96 99 98 Oxygen Delivery Method Mechanical Ventilator Mechanical Ventilator Mechanical Ventilator Oxygen Flow Rate (L/min) Fraction of Inspired Oxygen (FIO2) 100 100 02/25/22 18:35 Temperature Temperature Source Pulse Rate 66 Respiratory Rate 15 Respiratory Effort Respiratory Depth Respiratory Pattern Blood Pressure Blood Pressure Mean Pulse Ox 98 Oxygen Delivery Method Oxygen Flow Rate (L/min) Fraction of Inspired Oxygen (FIO2) 100 Weight Weight: 78.8 kg Body Mass Index (BMI) 28.0 Physical Exam Narrative Physical exam: General: Hypoalert on mechanical ventilation with sedating drugs. Head: Normocephalic, atraumatic, no tenderness Eyes: Vision is grossly intact. EOMI ENT: ET tube in place. No trauma, no rhinorrhea Neck: Nontender, No thyromegaly. CVS: Irregularly irregular rate and rhythm. S1-S2 present. No murmur, gallop or rub. Respiratory : Rhonchi, chest wall nontender, no wheezing Abdomen: PEG tube in place. Soft, nontender, nondistended, normal bowel sounds, no masses : Deferred Back: Nontender, no CVA tenderness Extremities: Left foot stump. Bilateral upper extremity edema 3-4+. Lateral hip edema 3-4+. Skin: Coccygeal area with ulcers. Left foot stump with ulcers. Neuro: Hypoalert on mechanical ventilation. Psychiatry: Hypoalert on mechanical ventilation. Results Lab / Micro Data Result Diagrams: 02/25/22 14:30 02/25/22 14:30 Labs: Laboratory Results - last 24 hr 02/25/22 14:30: WBC 7.7, RBC 2.71 L, Hgb 9.3 L, Hct 30.2 L, MCV 111.4 H, MCH 34.3 H, MCHC 30.8 L, RDW Std Deviation 78.4 H, RDW Coeff of Sue 19.0 H, Plt Count 176, MPV 11.3, Immature Gran % (Auto) 0.300, Neut % (Auto) 78.7 H, Lymph % (Auto) 9.2 L, [place] % (Auto) 8.8, Eos % (Auto) 2.6, Baso % (Auto) 0.4, Absolute N euts (auto) 6.1, Absolute Lymphs (auto) 0.71 L, Nucleated RBC % 0, Platelet E stimate ADEQUATE, RBC Morphology N CHROM, Anisocytosis 2+, Macrocytosis 2+ 02/25/22 14:30: PT 19.4 H, INR 1.7, APTT 48.0 H 02/25/22 14:30: Sodium 128 L, Potassium 5.1, Chloride 90 L, Carbon Dioxide 34.0 H, Anion Gap 4 L, BUN 57 H, Creatinine 3.47 H, Estim Creat Clear Calc 16.60, Est GFR (MDRD) Af Amer 22 L, Est GFR (MDRD) Non-Af 18 L, BUN/Creatinine Ratio 16.4, Glucose 118 H, Calcium 8.6, Phosphorus 4.0, Magnesium 2.6, Total Bilirubin 0.40, AST 24, ALT 17, Alkaline Phosphatase 241 H, Troponin I High Sens 67, Total Protein 6.7, Albumin 1.9 L, Globulin 4.8 H, Albumin/Globulin Ratio 0.4 L, Lipase 58 L 02/25/22 14:30: Lactic Acid 2.1 H* 02/25/22 15:30: Urine Color Brown, Urine Clarity Clear, Urine pH 8.0, Ur Spe cific [place] 1.010, Urine Protein 500 H, Urine Glucose (UA) Normal, Urine Ke tones Negative, Urine Occult Blood 250 H, Urine Nitrite Positive H, Urine Bilirubin Negative, Urine Urobilinogen Normal, Ur Leukocyte Esterase 25 H, Urine RBC 25-50 SEEN, Urine WBC 0-5 SEEN, Ur Squamous Epith Cells 0 SEEN, Urine Ba cteria 2+, Urine Mucus 0 SEEN 02/25/22 18:47: Lactic Acid 2.4 H* Micro: Microbiology 02/25/22 14:24 Nasal Secretion SARS-CoV-2 & FLU Antigen (Rapid) - Final ABG Data ABG results: ABG 02/25/22 02/25/22 14:31 16:50 Specimen Type JOSE ART Sample Site R Brach pH 7.31 L Bicarbonate Actual 29.5 H Total CO2 31 Base Excess 3 H O2 Saturation 88 L O2 % 100 ABG pCO2 58.4 H ABG pO2 60 L VBG pH 7.15 L* VBG pO2 58 H VBG HCO3 33 H VBG Total CO2 36 H VBG O2 Sat (Calc) 79 H VBG Base Excess 5 H POC Mix VBG pCO2 Pt Tmp 95.1 H* Respiration Rate 14 O2 Delivery Device Adult Vent Vent Mode AC Tidal Volume 400 POC PEEP 5 Crit Call To/Read Back Yes Clinical Comments 6 lpm Radiology Impression Chest X-Ray 02/25/22 14:13 IMPRESSION: Mild loss in the right hemithorax as described most likely secondary to partial obstruction of the right mainstem bronchus. Small left pleural effusion with left basilar infiltrate and/or atelectasis. Electronically Signed: Jackson Haile MD at 15:15 EST , Chest X-Ray 02/25/22 15:15 IMPRESSION: The tip of the endotracheal tube is at 3.6 times approximately the jesenia. There is reexpansion of the right hemithorax although there is complete opacification of the right hemithorax at this time. This may be related to persistent right pleural effusion and atelectasis of the right lung. Electronically Signed: Jackson Haile MD at 15:36 EST , Chest CT 02/25/22 16:05 IMPRESSION: There are bilateral pleural effusions. There is bilateral pneumonia. Electronically Signed: Ibrahima Pruitt MD at 18:48 EST , Assessment & Plan Assessment/Plan (1) Sepsis: (2) Bilateral pneumonia: (3) Pleural effusion: (4) ESRD (end stage renal disease) on dialysis: (5) Pressure ulcer: PLAN: Plan Sepsis secondary to pneumonia The patient presented with sepsis due to (pneumonia) with acute sepsis related organ dysfunction as evidenced by (acute respiratory failure; hypotension and lactic acidosis.). SIRS criteria: Lowest temperature of 91.5 Fahrenheit on presentation requiring Maisha hugger. Maisha hugger continued. Respiratory rate more than 20 INR of 1.7, likely secondary to Eliquis use. Radiologist impression of chest x-ray: Mild loss in the right hemithorax most likely secondary to partial obstruction of the right mainstem bronchus. Small left pleural effusion with left basilar infiltrate and/or atelectasis. Radiologist impression of chest CT: There are bilateral pleural effusions. There is bilateral pneumonia. Actual chest CT image was visualized and independently interpreted and I agree with radiologist interpretation. Discussed emergency plan doctor will give vancomycin IV x1. We will check MRSA nasal swab and if positive consider continuing vancomycin. Of note patient is a dialysis patients. Zosyn started emergency department and continued. Initial lactic acid was 2.1. Repeat is 2.4. Blood cultures ordered emergency department, follow. Urine strep pneumoniae antigen and urine Legionella antigen ordered. Trend CBC and BMP Bilateral pleural effusion Hold Eliquis. Start patient on heparin drip. Consider thoracentesis when appropriate. End-stage renal disease on dialysis (Thursday, Thursday and Thursday) Reportedly last dialysis was on 02/24/2022. Nephrology consult. History of A. fib Controlled rate on presentation. Heparin as above. Chronic combined systolic and diastolic heart failure Last echocardiogram on 12/30/2021 showed ejection fraction of 25% and stage III diastolic dysfunction with severe hypokinesis of the left ventricle. Of note there was a large left pleural effusion. Pulmonary artery systolic pressure was 48 mmHg. With edema. Check BNP. Unclear at this time whether patient is seen acute exacerbation. Cautious use of fluids. Stage II pressure ulcer on coccyx and ulcers on left. Calmoseptine to coccygeal area. Xeroform gauze to ulcers on left foot stump. History of dysphagia With a G-tube. DVT prophylaxis Not indicated as patient has been started on heparin drip for history of A. fib. Charges/Coding Visit Charges Inpatient E&M: 62886 Init Hosp L3
--- NOTE | 2022-02-25 20:05 | ED.RN ---
lianne Echeverria called for update. stated she is also POA, adde to contacts. pt notified she called and acknowledged.
--- NOTE | 2022-02-25 20:19 | ED.RN ---
notified Dr. Han that 2nd set of blood cultures were not drawn prior to antibiotics started when ordered at 1430.
--- NOTE | 2022-02-25 20:25 | SEPSISATNOTE ---
Sepsis Attestation Sepsis Alert: Yes Sepsis Attestation: Agree w/Sepsis Possible Source of Sepsis: Pulmonary Sepsis Organ Dysfunction Criteria Present: SBP < 90 mmHg or MAP < 65 mmHg and Lactic Acid > 2 mmol/L Fluid Resuscitation Fluid Resuscitation ordered: 30 ml/kg fluid bolus ordered Sepsis Note Date exam was performed: 02/25/22 Time exam was performed: 20:26 Sepsis Attestation: Sepsis re-evaluation was performed Response to fluids: Fluid responsive hypotension
--- NOTE | 2022-02-25 20:41 | ED.RN ---
called report to Georgina [employer]. states EVS is now cleaning pt's ICU room
[2022-02-25 22:50] LABS: Base Excess 3 mmol/L (-2 to +2); Bicarbonate 28.1 mmol/L (22-26); Blood Gas Specimen Type ART; FI02 60; Mode AC; O2 Delivery Device Adult Vent; PEEP 5; PO2 65 mmHG (75-100); RR 14; SITE R Radial; SO2 92 % (95-99); Total Carbon Dioxide 30 mmol/L; Vt 400; pCO2 44.8 mmHg (35-45); pH 7.41 (7.35-7.45)
[2022-02-25] MEDS: Menthol/Lanolin/Calamine/Znox 113 GM Tube 1 APPLIC TOPICAL (22:52)
[2022-02-25] MEDS: Chlorhexidine 15 ML PO (22:53)
[2022-02-25] MEDS: HEPARIN/D5w 25,000 UNITS 25,000 UNITS/250 ML IV.SOLN. 11 UNITS CONT INF (22:54)
[2022-02-25] MEDS: Atorvastatin Calcium 40 MG Tablet GT (22:55)
[2022-02-25] MEDS: Midodrine HCl 5 MG Tablet 10 MG GT (22:55)
[2022-02-25] MEDS: Heparin Injection (Vial) 5,000 UNIT/ML VIAL 5000 UNIT IV (22:55)
[2022-02-25 23:33] LABS: CPK Total, Creatine Kinase 45 U/L (39-308); Triglycerides 69 mg/dL
[2022-02-26] VITALS (34 sets, daily range): BP systolic 82–158; BP diastolic 41–110; PULSE 60–95; RESP 11–22; TEMP 36.5–37; O2SAT 91–100
[2022-02-26] MEDS: CHLORHEXIDINE GLUC 2% CLOTH 1 EACH TOWELETTE TOPICAL (05:11)
[2022-02-26] MEDS: Menthol/Lanolin/Calamine/Znox 113 GM Tube 1 APPLIC TOPICAL ×3 (05:11→21:43)
[2022-02-26 05:20] LABS: Absolute Lymphocyte Count 0.48 X10^3/uL (0.83-4.51); Absolute Neutrophil Count 8.2 X10^3/uL (2.0-7.7); Basophil# 0.05 X10^3/uL; Basophil% 0.5 % (0-1); Eosinophil# 0.14 X10^3/uL; Eosinophils% 1.5 % (0-5); Hematocrit 23.7 % (40-54); Hemoglobin 7.4 g/dL (13.0-16.5); Lymphocyte # 0.48 X10^3/ul (0.83-4.51); Mean Corp Hgb Conc 31.2 g/dL (32-36); Mean Corpuscular Hgb 33.3 pg (27.0-32.0); Mean Corpuscular Volume 106.8 fL (80-94); Mean Platelet Vol. 11.2 fl (6.2-12.0); Monocyte# 0.72 X10^3/uL; Monocyte% 7.5 % (0-10); NRBC Flagged by Analyzer 0.2 % (0-5); Neutrophil % 85.2 % (47-70); POSITIVE DIFFERENTIAL YES; POSITIVE MORPHOLOGY YES; Platelet Count 143 K/mm3 (150-450); RBC Distribution Width CV 19.2 % (11.6-14.6); RBC Distribution Width SD 74.7 fl (35.1-43.9); Red Blood Count 2.22 M/mm3 (4.6-6.2); White Blood Count 9.6 K/mm3 (4.4-11.0)
[2022-02-26 05:26] LABS: Differential Indicated SCAN CRITERIA MET
[2022-02-26 05:45] LABS: Partial Thromboplast Time 146.1 Seconds (24.1-36.2)
[2022-02-26 05:52] LABS: Anion Gap 6 (5-15); BUN 60 mg/dL (7-18); BUN/Creat Ratio 17.1 RATIO (10-20); Chloride 93 mmol/L (98-107); Creatinine, Serum 3.51 mg/dL (0.70-1.30); EST Glomerular Filtration Rate 18 mL/min (>60); Est Glom Filt Rate - Afr Amer 22 mL/min (>60); Estimated Creatinine Clearance 18.18 ml/min; Glucose 25 mg/dL (74-106); Sodium Level 131 mmol/L (136-145)
[2022-02-26 06:09] LABS: BNP,B-Type NATRIURETIC PEPTIDE 1787.6 pg/mL (0-100)
[2022-02-26] MEDS: Dextrose 50%-Water 25 GM/50 ML DISP.SYRIN IV (06:15)
[2022-02-26 06:16] LABS: Allen Test Positive; Base Excess 5 mmol/L (-2 to +2); Blood Gas Specimen Type ART; FI02 40; Mode PS; O2 Delivery Device Adult Vent; PEEP 5; PO2 63 mmHG (75-100); PS 5; SITE R Brach; SO2 92 % (95-99); Total Carbon Dioxide 32 mmol/L; pCO2 47.1 mmHg (35-45); pH 7.41 (7.35-7.45)
[2022-02-26 06:18] LABS: Differential Comment SCANNED; Macrocytosis 1+; Microcytosis 1+; Polychromasia 1+
[2022-02-26 06:19] LABS: Anisocytosis 2+
[2022-02-26 07:05] LABS: Bedside Glucose 51 mg/dL (74-106)
--- NOTE | 2022-02-26 07:18 | PCM.PN.HOSP ---
Subjective Subjective Follow-up on sepsis secondary to pneumonia: Patient was seen and examined. He remains intubated, on minimal oxygen requirements. No acute events overnight. Objective Data Objective Data Vital Signs: Vital Signs Temp Pulse Resp BP Pulse Ox O2 Del Method O2 Flow Rate 98.4 F 66 19 H 82/71 L 96 Mechanical Ventilator 15 02/26/22 07:00 02/26/22 07:00 02/26/22 07:00 02/26/22 07:00 02/26/22 07:00 02/26/22 07:00 02/25/22 21:10 FiO2 40 02/26/22 07:00 Oxygen Flow Rate (L/min) 15 Oxygen Delivery Method Mechanical Ventilator Weight: 75.5 kg Body Mass Index (BMI) 24.5 Intake & Output: Intake and Output for Last 24 Hours 02/24/22 02/25/22 02/26/22 23:59 23:59 23:59 Intake Total 2876.54 / 2939.04 232.85 / 232.85 Output Total 75 / 75 Balance 2876.54 / 2939.04 157.85 / 157.85 Lab / Micro Data Result Diagrams: 02/26/22 05:05 02/26/22 05:05 Labs: Laboratory Results - last 24 hr 02/25/22 14:30: WBC 7.7, RBC 2.71 L, Hgb 9.3 L, Hct 30.2 L, MCV 111.4 H, MCH 34.3 H, MCHC 30.8 L, RDW Std Deviation 78.4 H, RDW Coeff of Sue 19.0 H, Plt Count 176, MPV 11.3, Immature Gran % (Auto) 0.300, Neut % (Auto) 78.7 H, Lymph % (Auto) 9.2 L, [place] % (Auto) 8.8, Eos % (Auto) 2.6, Baso % (Auto) 0.4, Absolute Neuts (auto) 6.1, Absolute Lymphs (auto) 0.71 L, Nucleated RBC % 0, Platelet Estimate ADEQUATE, RBC Morphology N CHROM, Anisocytosis 2+, Macrocytosis 2+ 02/25/22 14:30: PT 19.4 H, INR 1.7, APTT 48.0 H 02/25/22 14:30: Sodium 128 L, Potassium 5.1, Chloride 90 L, Carbon Dioxide 34.0 H, Anion Gap 4 L, BUN 57 H, Creatinine 3.47 H, Estim Creat Clear Calc 16.60, Est GFR (MDRD) Af Amer 22 L, Est GFR (MDRD) Non-Af 18 L, BUN/Creatinine Ratio 16.4, Glucose 118 H, Calcium 8.6, Phosphorus 4.0, Magnesium 2.6, Total Bilirubin 0.40, AST 24, ALT 17, Alkaline Phosphatase 241 H, Troponin I High Sens 67, Total Protein 6.7, Albumin 1.9 L, Globulin 4.8 H, Albumin/Globulin Ratio 0.4 L, Lipase 58 L 02/25/22 14:30: Lactic Acid 2.1 H* 02/25/22 14:30: Total Creatine Kinase 45, Triglycerides 69 02/25/22 15:30: Urine Color Brown, Urine Clarity Clear, Urine pH 8.0, Ur Specific [place] 1.010, Urine Protein 500 H, Urine Glucose (UA) Normal, Urine Ketones Negative, Urine Occult Blood 250 H, Urine Nitrite Positive H, Urine Bilirubin Negative, Urine Urobilinogen Normal, Ur Leukocyte Esterase 25 H, Urine RBC 25-50 SEEN, Urine WBC 0-5 SEEN, Ur Squamous Epith Cells 0 SEEN, Urine Bacteria 2+, Urine Mucus 0 SEEN 02/25/22 18:47: Lactic Acid 2.4 H* 02/26/22 05:05: WBC 9.6, RBC 2.22 L, Hgb 7.4 L, Hct 23.7 L, MCV 106.8 H, MCH 33.3 H, MCHC 31.2 L, RDW Std Deviation 74.7 H, RDW Coeff of Sue 19.2 H, Plt Count 143 L, MPV 11.2, Immature Gran % (Auto) 0.300, Neut % (Auto) 85.2 H, Lymph % (Auto) 5.0 L, [place] % (Auto) 7.5, Eos % (Auto) 1.5, Baso % (Auto) 0.5, Absolute Neuts (auto) 8.2 H, Absolute Lymphs (auto) 0.48 L, Nucleated RBC % 0.2, Differential Comment SCANNED, Polychromasia 1+, Anisocytosis 2+, Microcytosis 1+, Macrocytosis 1+ 02/26/22 05:05: Sodium 131 L, Potassium 5.0, Chloride 93 L, Carbon Dioxide 32.0, Anion Gap 6, BUN 60 H, Creatinine 3.51 H, Estim Creat Clear Calc 18.18, Est GFR (MDRD) Af Amer 22 L, Est GFR (MDRD) Non-Af 18 L, BUN/Creatinine Ratio 17.1, Glucose 25 L*, Calcium 8.0 L 02/26/22 05:05: B-Natriuretic Peptide 1787.6 H 02/26/22 05:05: APTT 146.1 H* 02/26/22 06:38: POC Glucose 51 L Micro: Microbiology 02/25/22 15:30 Urine Catheter - [place]ak Legionella Antigen - Final 02/25/22 15:30 Urine Catheter - [place] Streptococcus pneumoniae Antigen (M - Final 02/25/22 14:24 Nasal Secretion SARS-CoV-2 & FLU Antigen (Rapid) - Final ABG Data ABG results: ABG 02/25/22 02/25/22 02/25/22 14:31 16:50 22:39 Specimen Type JOSE ART ART Sample Site R Brach R Radial pH 7.31 L 7.41 Bicarbonate Actual 29.5 H 28.1 H Total CO2 31 30 Base Excess 3 H 3 H O2 Saturation 88 L 92 L O2 % 100 60 ABG pCO2 58.4 H 44.8 ABG pO2 60 L 65 L Chris Test N/A VBG pH 7.15 L* VBG pO2 58 H VBG HCO3 33 H VBG Total CO2 36 H VBG O2 Sat (Calc) 79 H VBG Base Excess 5 H POC Mix VBG pCO2 Pt Tmp 95.1 H* Respiration Rate 14 14 O2 Delivery Device Adult Vent Adult Vent Vent Mode AC AC Tidal Volume 400 400 POC PEEP 5 5 POC Pressure Suppt Crit Call To/Read Back Yes Clinical Comments 6 lpm 02/26/22 06:10 Specimen Type ART Sample Site R Brach pH 7.41 Bicarbonate Actual 30.0 H Total CO2 32 Base Excess 5 H O2 Saturation 92 L O2 % 40 ABG pCO2 47.1 H ABG pO2 63 L Chris Test Positive VBG pH VBG pO2 VBG HCO3 VBG Total CO2 VBG O2 Sat (Calc) VBG Base Excess POC Mix VBG pCO2 Pt Tmp Respiration Rate O2 Delivery Device Adult Vent Vent Mode PS Tidal Volume POC PEEP 5 POC Pressure Suppt 5 Crit Call To/Read Back Clinical Comments Radiography Diagnostic Testing: Radiology Impression Chest X-Ray 02/25/22 14:13 IMPRESSION: Mild loss in the right hemithorax as described most likely secondary to partial obstruction of the right mainstem bronchus. Small left pleural effusion with left basilar infiltrate and/or atelectasis. Electronically Signed: Jackson Haile MD at 15:15 EST , Chest X-Ray 02/25/22 15:15 IMPRESSION: The tip of the endotracheal tube is at 3.6 times approximately the jesenia. There is reexpansion of the right hemithorax although there is complete opacification of the right hemithorax at this time. This may be related to persistent right pleural effusion and atelectasis of the right lung. Electronically Signed: Jackson Haile MD at 15:36 EST , Chest CT 02/25/22 16:05 IMPRESSION: There are bilateral pleural effusions. There is bilateral pneumonia. Electronically Signed: Ibrahima Pruitt MD at 18:48 EST , Physical Exam Narrative Physical exam: General: Sedated, on mechanical ventilator HEENT: Atraumatic Oral: Moist Mucosa Neck: Supple Lungs: Diminished to auscultation Cardiovascular: HS I+II, regular, no murmurs Abdomen: Bowel Sounds Present, Soft, Non Tender Extremities: Wound on the right lower leg, lower extremities appear dusky Skin: No rashes, No breakdown Neurological: Grossly intact Psych/Mental Status: Appropriate Assessment & Plan Assessment/Plan (1) Sepsis: (2) Bilateral pneumonia: (3) Pleural effusion: (4) ESRD (end stage renal disease) on dialysis: (5) Pressure ulcer: PLAN: Plan 1. Possible sepsis secondary to bilateral pneumonia Blood cultures are pending, COVID-19 rapid antigen test as well as influenza A/B are negative. Urine Legionella and strep antigens are negative Continue on IV Zosyn 2. Acute hypoxic respiratory failure secondary to bilateral pleural effusion, massive on the right than left /bilateral pneumonia, Status post intubation, on minimal ventilator settings 3. ESRD on hemodialysis - -- Nephrology consulted, dialysis today 4. Chronic atrial fibrillation, rate controlled, continue on Heparin drip 5. Chronic combined systolic and diastolic heart failure, EF 25%, stage III diastolic dysfunction I doubt patient is in acute exacerbation of CHF Elevated BNP 1787.6 could be also secondary to renal failure Fluid removal to be tried in dialysis 6. Stage II pressure ulcer on coccyx and ulcers on left, continue on topical preparation 7. Dysphagia, status post G-tube, continue tube feeds 8. DVT prophylaxis?Heparin drip Charges/Coding Visit Charges Inpatient E&M: 88670 Subs Hosp L3
--- NOTE | 2022-02-26 08:45 | EX.PCM.CONCC ---
Assessment & Plan Assessment/Plan (1) Respiratory failure: (2) Bilateral pneumonia: (3) Sepsis: (4) ESRD (end stage renal disease) on dialysis: (5) Bilateral pneumonia: PLAN: Plan RECOMMENDATIONS: 1.? Continue empiric antibiotics pending culture 2.? Hold on fluid boluses.? Volume removal if possible with dialysis 3.? Attempt dialysis today with volume removal if possible 4.? Possible need for thoracentesis 5.? Transition to heparin from Eliquis for possible interventions 6. Spontaneous breathing and awakening trials per protocol IMPRESSIONS: 1.??Possible sepsis Patient with marginal blood pressures and known dialysis.? Cultures are currently pending, so would continue with empiric antibiotics for healthcare associated infection.? Additional fluid resuscitation will be held given patient's finding on chest x-ray, new oxygen requirements and concern for worsening in congestive heart failure.? Potential need for pressors cannot be excluded. Patient does have significant swelling of the fistula site, but fluctuance is not noted.? Endorgan damage noted by elevated lactate.? Patient has end-stage renal disease making creatinine unhelpful. 2.??Acute combined respiratory failure secondary to bilateral pleural effusions Patient with significant hypercarbia and increased AA gradient on presentation. Patient was able to have a spontaneous breathing trial this morning, but concerns are that patient would deteriorate rapidly given level of pleural effusions. Patient likely will require volume removal with hemodialysis. Cannot exclude the need for thoracentesis. High clinical suspicion for transudate pathology given patient's CHF and end-stage renal disease. 3.??Persistent A. fib/acute on chronic systolic CHF Patient with a known ejection fraction of 25%.? Chest x-ray does show findings consistent with volume overload.? Dialysis is being attempted at this time.? We will hold on any fluid boluses as this could lead to respiratory failure.? Wean supplemental oxygen as tolerated.? Cannot exclude the need for a thoracentesis, so will transition to a heparin drip. 4.??Hypertension/peripheral vascular disease/secondary pulmonary hypertension/advanced age/type 2 diabetes mellitus/debility Complicates care, management, recovery and prognosis.? Antihypertensives have been held secondary to problem #1.? Okay to continue with anticoagulation for now.? We will need to watch blood sugars closely, but hypoglycemia has been more of an issue.? This may be secondary to problem #1. Okay to start tube feeds. No basal insulin for now. TIME: 37 minutes critical care time spent addressing patient's respiratory failure, possible sepsis, CHF, review of all data and collaboration with care team HPI Consult Data Date of Consult: 02/26/22 HPI Narrative Reason for Consultation: Respiratory failure HPI Narrative: FLAQUITO GORDON is a 76 M, with past medical history listed below and known to me from previous hospitalizations, who presents to [facility] on 02/25/2022 secondary to decreased responsiveness from a nursing facility. Patient reportedly was mildly hypotensive, so EMS was called. Patient was found to be hypoxic in the 40s with a heart rate in the 40s. Little other details were available for ER staff as a history. Patient reportedly is on midodrine at baseline and has a history of end-stage renal disease on dialysis. Days of dialysis were not clear. In the ER, patient was afebrile with a blood pressure of 92/70. Patient was requiring 6 L/min initially, but eventually was on BiPAP and required intubation. Patient did become significantly hypothermic while in the ER. Additional history from the son after presentation concluded that the patient is normally on dialysis Thursday, Thursday and Thursday. Patient reportedly a bit a little slow to respond on the day prior to presentation, but had not had any specific complaints. Laboratory work-up showed a white blood cell count of 7.7, hemoglobin of 9.3 and platelets of 176. INR was elevated at 1.7. Sodium was 128 with a chloride of 90 and bicarb of 34. Creatinine was 3.47 with a glucose of 118. Alkaline phosphatase was elevated at 241, but other liver enzymes were within normal limits. Initial lactate and follow-up lactate were both above 2 and urine was suggestive of a urinary tract infection. ABG showed significant acidosis on 6 L/min that normalized following intubation. Chest x-ray showed bilateral pleural effusions. A CT of the chest was confirmatory of bilateral effusions with infiltrate. Given concerns for sepsis, patient was placed on antibiotics and did receive 2 L IV fluids for blood pressure support. Patient was transferred to the intensive care unit for further evaluation. Since being in the intensive care unit, patient has done okay. Patient did have a spontaneous breathing trial this morning with an ABG showing continued acidosis with marginal oxygenation, so was not extubated. Patient is not able to provide any additional history at this time as he has been placed back on sedation. [facility] Medical History Anemia of chronic disease Anticoagulated Bilateral renal artery stenosis Chronic anemia Dialysis patient Edema of left forearm Esophageal dysphagia ESRD (end stage renal disease) on dialysis Essential hypertension Failure to thrive GERD (gastroesophageal reflux disease) GI bleed (11/2021) Hyperlipidemia Ischemic cerebrovascular accident (CVA) (01/2021) Non-ischemic cardiomyopathy Non-traumatic rhabdomyolysis Peripheral arterial disease Peripheral vascular occlusive disease Persistent atrial fibrillation Polycystic kidney disease Renal artery stenosis Secondary pulmonary arterial hypertension Home Medications cinacalcet 60 mg tablet (Sensipar) 60 mg PO PRN PRN IPTH 10/09/14 [History Last Taken 02/25/22] apixaban 2.5 mg tablet 2.5 mg feeding tube BID 11/29/21 [History Last Taken 02/25/22] atorvastatin 40 mg tablet 40 mg feeding tube QHS 11/29/21 [History Last Taken 02/24/22] midodrine 5 mg tablet 10 mg feeding tube BID 02/25/22 [History Last Taken 02/25/22] pantoprazole 40 mg granules delayed-release for susp in packet 40 mg feeding tube DAILY GERD 02/25/22 [History Last Taken 02/24/22] vitamin B complex-vitamin C-folic acid 0.8 mg tablet (Renal-Artem) 1 tab feeding tube DAILY SUPPLEMENT 02/25/22 [History Last Taken 02/25/22] Allergy/AdvReac Type Severity Reaction Status Date / Time No Known Allergies Allergy Verified 02/25/22 14:04 Family History Mother Heart disease Father Heart disease Surgical History Amputation of toe History of angioplasty of peripheral vessel (09/10/21) History of bilateral cataract extraction History of tonsillectomy History of transmetatarsal amputation of left foot S/P arteriovenous (AV) fistula creation Social History housing: jail Smoking Status: Never smoker alcohol intake: never substance use type: does not use ROS Review of Systems ROS Unobtainable: due to endotracheal tube Physical Exam Const no apparent distress Constitutional Narrative: Patient appears older than his stated age, he appears cachectic. Good ventilator synchrony General Appearance: patient mechanically ventilated HEENT normocephalic, head/scalp atraumatic and moist oral mucous membranes HEENT Narrative: Some temporal wasting noted Mouth: endotracheal tube in place and OG tube in place Eyes PERRL, EOMs intact bilaterally and conjunctivae normal Neck supple, thyroid normal and no carotid bruits General: trachea midline Resp normal respiratory effort, no retractions, no use of accessory muscles and clear to auscultation bilaterally Auscultation: Negative for rales, rhonchi or wheezes Percussion: dullness Mid: right and Lower: right and left Cardio S1 normal heart sound, S2 normal heart sound, no murmurs, no rub and no gallops Cardio Narrative: Heart rate and rhythm is irregular GI normal to inspection, nondistended, normoactive bowel sounds, soft to palpation, non-tender and non-distended Extremity Extremity Narrative: left forearm fistula noted Skin Skin Narrative: Patient has a partial amputation of his left foot, his bandages were not removed for examination of the area General Skin Exam: no breakdown Neuro Sensorium / Orientation: sedated on vent Psych affect normal Mood & Affect: flat affect Lab / Micro Data Attestation: I reviewed the patient's lab results. Result Diagrams: 02/26/22 05:05 02/26/22 05:05 Labs: Laboratory Results - last 24 hr 02/25/22 14:30: WBC 7.7, RBC 2.71 L, Hgb 9.3 L, Hct 30.2 L, MCV 111.4 H, MCH 34.3 H, MCHC 30.8 L, RDW Std Deviation 78.4 H, RDW Coeff of Sue 19.0 H, Plt Count 176, MPV 11.3, Immature Gran % (Auto) 0.300, Neut % (Auto) 78.7 H, Lymph % (Auto) 9.2 L, [place] % (Auto) 8.8, Eos % (Auto) 2.6, Baso % (Auto) 0.4, Absolute Neuts (auto) 6.1, Absolute Lymphs (auto) 0.71 L, Nucleated RBC % 0, Platelet Estimate ADEQUATE, RBC Morphology N CHROM, Anisocytosis 2+, Macrocytosis 2+ 02/25/22 14:30: PT 19.4 H, INR 1.7, APTT 48.0 H 02/25/22 14:30: Sodium 128 L, Potassium 5.1, Chloride 90 L, Carbon Dioxide 34.0 H, Anion Gap 4 L, BUN 57 H, Creatinine 3.47 H, Estim Creat Clear Calc 16.60, Est GFR (MDRD) Af Amer 22 L, Est GFR (MDRD) Non-Af 18 L, BUN/Creatinine Ratio 16.4, Glucose 118 H, Calcium 8.6, Phosphorus 4.0, Magnesium 2.6, Total Bilirubin 0.40, AST 24, ALT 17, Alkaline Phosphatase 241 H, Troponin I High Sens 67, Total Protein 6.7, Albumin 1.9 L, Globulin 4.8 H, Albumin/Globulin Ratio 0.4 L, Lipase 58 L 02/25/22 14:30: Lactic Acid 2.1 H* 02/25/22 14:30: Total Creatine Kinase 45, Triglycerides 69 02/25/22 15:30: Urine Color Brown, Urine Clarity Clear, Urine pH 8.0, Ur Specific Peck 1.010, Urine Protein 500 H, Urine Glucose (UA) Normal, Urine Ketones Negative, Urine Occult Blood 250 H, Urine Nitrite Positive H, Urine Bilirubin Negative, Urine Urobilinogen Normal, Ur Leukocyte Esterase 25 H, Urine RBC 25-50 SEEN, Urine WBC 0-5 SEEN, Ur Squamous Epith Cells 0 SEEN, Urine Bacteria 2+, Urine Mucus 0 SEEN 02/25/22 18:47: Lactic Acid 2.4 H* 02/26/22 05:05: WBC 9.6, RBC 2.22 L, Hgb 7.4 L, Hct 23.7 L, MCV 106.8 H, MCH 33.3 H, MCHC 31.2 L, RDW Std Deviation 74.7 H, RDW Coeff of Sue 19.2 H, Plt Count 143 L, MPV 11.2, Immature Gran % (Auto) 0.300, Neut % (Auto) 85.2 H, Lymph % (Auto) 5.0 L, [place] % (Auto) 7.5, Eos % (Auto) 1.5, Baso % (Auto) 0.5, Absolute Neuts (auto) 8.2 H, Absolute Lymphs (auto) 0.48 L, Nucleated RBC % 0.2, Differential Comment SCANNED, Polychromasia 1+, Anisocytosis 2+, Microcytosis 1+, Macrocytosis 1+ 02/26/22 05:05: Sodium 131 L, Potassium 5.0, Chloride 93 L, Carbon Dioxide 32.0, Anion Gap 6, BUN 60 H, Creatinine 3.51 H, Estim Creat Clear Calc 18.18, Est GFR (MDRD) Af Amer 22 L, Est GFR (MDRD) Non-Af 18 L, BUN/Creatinine Ratio 17.1, Glucose 25 L*, Calcium 8.0 L 02/26/22 05:05: B-Natriuretic Peptide 1787.6 H 02/26/22 05:05: APTT 146.1 H* 02/26/22 06:38: POC Glucose 51 L Micro: Microbiology 02/25/22 15:30 Urine Catheter - Novak Legionella Antigen - Final 02/25/22 15:30 Urine Catheter - Novak Streptococcus pneumoniae Antigen (M - Final 02/25/22 14:24 Nasal Secretion SARS-CoV-2 & FLU Antigen (Rapid) - Final ABG Data ABG results: ABG 02/25/22 02/25/22 02/25/22 14:31 16:50 22:39 Specimen Type JOSE ART ART Sample Site R Brach R Radial pH 7.31 L 7.41 Bicarbonate Actual 29.5 H 28.1 H Total CO2 31 30 Base Excess 3 H 3 H O2 Saturation 88 L 92 L O2 % 100 60 ABG pCO2 58.4 H 44.8 ABG pO2 60 L 65 L Chris Test N/A VBG pH 7.15 L* VBG pO2 58 H VBG HCO3 33 H VBG Total CO2 36 H VBG O2 Sat (Calc) 79 H VBG Base Excess 5 H POC Mix VBG pCO2 Pt Tmp 95.1 H* Respiration Rate 14 14 O2 Delivery Device Adult Vent Adult Vent Vent Mode AC AC Tidal Volume 400 400 POC PEEP 5 5 POC Pressure Suppt Crit Call To/Read Back Yes Clinical Comments 6 lpm 02/26/22 06:10 Specimen Type ART Sample Site R Brach pH 7.41 Bicarbonate Actual 30.0 H Total CO2 32 Base Excess 5 H O2 Saturation 92 L O2 % 40 ABG pCO2 47.1 H ABG pO2 63 L Chris Test Positive VBG pH VBG pO2 VBG HCO3 VBG Total CO2 VBG O2 Sat (Calc) VBG Base Excess POC Mix VBG pCO2 Pt Tmp Respiration Rate O2 Delivery Device Adult Vent Vent Mode PS Tidal Volume POC PEEP 5 POC Pressure Suppt 5 Crit Call To/Read Back Clinical Comments Attestation: I personally reviewed and interpreted this ABG as follows: (Hypercarbic respiratory acidosis with increased AA gradient that has improved with interventions) Radiology Impression Chest X-Ray 02/25/22 14:13 IMPRESSION: Mild loss in the right hemithorax as described most likely secondary to partial obstruction of the right mainstem bronchus. Small left pleural effusion with left basilar infiltrate and/or atelectasis. Electronically Signed: Jackson Haile MD at 15:15 EST , Chest X-Ray 02/25/22 15:15 IMPRESSION: The tip of the endotracheal tube is at 3.6 times approximately the jesenia. There is reexpansion of the right hemithorax although there is complete opacification of the right hemithorax at this time. This may be related to persistent right pleural effusion and atelectasis of the right lung. Electronically Signed: Jackson Haile MD at 15:36 EST , Chest CT 02/25/22 16:05 IMPRESSION: There are bilateral pleural effusions. There is bilateral pneumonia. Electronically Signed: Ibrahima Pruitt MD at 18:48 EST , Charges/Coding Procedures Hospitalists Procedures: [id number] Critial Care 1st Hr
[2022-02-26] MEDS: Midodrine HCl 5 MG Tablet 10 MG GT (08:59)
[2022-02-26] MEDS: Lansoprazole 15 MG Capsule.DR 30 MG GT (09:00)
[2022-02-26] MEDS: Chlorhexidine 15 ML PO ×2 (09:00→21:43)
[2022-02-26] MEDS: NEPRO TUBE FEED 1,000 ML 20 ML GT (09:17)
--- NOTE | 2022-02-26 12:37 | WOUNDNOTE ---
wound photo: left distal foot
--- NOTE | 2022-02-26 12:38 | WOUNDNOTE ---
wound photo: left lateral malleolus
--- NOTE | 2022-02-26 12:39 | WOUNDNOTE ---
wound photo: left posterior heel
--- NOTE | 2022-02-26 13:19 | PCM.CONS.R ---
Documented by User: [email or web address] Arguelles 02/26/22 13:28 Assessment & Plan Assessment/Plan (1) ESRD (end stage renal disease) on dialysis: (2) Respiratory failure: (3) Bilateral pneumonia: (4) Pleural effusion: (5) Hypotension: PLAN: Plan Patient was admitted to ICU for respiratory failure currently on ventilator support, possible sepsis, fluid overload with bilateral pleural effusions and pneumonia. Patient to dialyze today over 4 hours on 2K dialysate bath and attempt fluid removal as patient/blood pressure tolerates. Blood pressures are low and patient is on midodrine. Will increase midodrine 20 mg 3 times daily however patient may need IV pressor support to help facilitate fluid removal during dialysis. During last hospitalization dry weight was lowered. Likely dry weight needs to be lowered again during this hospitalization. We will evaluate for dialysis/ultrafiltration needs again tomorrow. Patient has a known history of chronic systolic heart failure, EF 25%. Blood cultures pending, on IV antibiotics. Patient has a history of anemia of chronic disease and receives iron/RITIKA at dialysis. We will continue monitor hemoglobin trends. Further orders forthcoming as hospitalization evolves. HPI Consult Data Date of Consult: 02/26/22 HPI Narrative HPI Narrative: FLAQUITO GORDON, is a 76 M with past medical history significant for ESRD on hemodialysis at [facility] Thursday schedule who was brought to the emergency room from senior living for unresponsiveness. Apparently patient's oxygen saturation was in 40s in the ER, heart rate in 40s. Patient was initially placed on nonrebreather but was subsequently intubated and admitted to ICU for further evaluation and treatment. He was admitted for pneumonia, possible sepsis, pleural effusion, volume overload. We were consulted for dialysis needs. Patient last dialyzed on Thursday over 4 hours. Further information is gathered from the chart. [facility] Medical History Anemia of chronic disease Anticoagulated Bilateral renal artery stenosis Chronic anemia Dialysis patient Edema of left forearm Esophageal dysphagia ESRD (end stage renal disease) on dialysis Essential hypertension Failure to thrive GERD (gastroesophageal reflux disease) GI bleed (11/2021) Hyperlipidemia Ischemic cerebrovascular accident (CVA) (01/2021) Non-ischemic cardiomyopathy Non-traumatic rhabdomyolysis Peripheral arterial disease Peripheral vascular occlusive disease Persistent atrial fibrillation Polycystic kidney disease Renal artery stenosis Secondary pulmonary arterial hypertension Home Medications cinacalcet 60 mg tablet (Sensipar) 60 mg PO PRN PRN IPTH 10/09/14 [History Last Taken 02/25/22] apixaban 2.5 mg tablet 2.5 mg feeding tube BID 11/29/21 [History Last Taken 02/25/22] atorvastatin 40 mg tablet 40 mg feeding tube QHS 11/29/21 [History Last Taken 02/24/22] midodrine 5 mg tablet 10 mg feeding tube BID 02/25/22 [History Last Taken 02/25/22] pantoprazole 40 mg granules delayed-release for susp in packet 40 mg feeding tube DAILY GERD 02/25/22 [History Last Taken 02/24/22] vitamin B complex-vitamin C-folic acid 0.8 mg tablet (Renal-Artem) 1 tab feeding tube DAILY SUPPLEMENT 02/25/22 [History Last Taken 02/25/22] Allergy/AdvReac Type Severity Reaction Status Date / Time No Known Allergies Allergy Verified 02/25/22 14:04 Family History Mother Heart disease Father Heart disease Surgical History Amputation of toe History of angioplasty of peripheral vessel (09/10/21) History of bilateral cataract extraction History of tonsillectomy History of transmetatarsal amputation of left foot S/P arteriovenous (AV) fistula creation Social History housing: senior living Smoking Status: Never smoker alcohol intake: never substance use type: does not use ROS ROS Narrative Unable to obtain Physical Exam Narrative On vent S1, S2, RRR Lung sounds with scattered rhonchi and rales, diminished breath sounds Abdomen soft, positive bowel sounds Edema to bilateral lower leg Left arm AV fistula Lab / Micro Data Result Diagrams: 02/26/22 05:05 02/26/22 05:05 Labs: Laboratory Results - last 24 hr 02/25/22 14:30: WBC 7.7, RBC 2.71 L, Hgb 9.3 L, Hct 30.2 L, MCV 111.4 H, MCH 34.3 H, MCHC 30.8 L, RDW Std Deviation 78.4 H, RDW Coeff of Sue 19.0 H, Plt Count 176, MPV 11.3, Immature Gran % (Auto) 0.300, Neut % (Auto) 78.7 H, Lymph % (Auto) 9.2 L, [place] % (Auto) 8.8, Eos % (Auto) 2.6, Baso % (Auto) 0.4, Absolute Neuts (auto) 6.1, Absolute Lymphs (auto) 0.71 L, Nucleated RBC % 0, Platelet Estimate ADEQUATE, RBC Morphology N CHROM, Anisocytosis 2+, Macrocytosis 2+ 02/25/22 14:30: PT 19.4 H, INR 1.7, APTT 48.0 H 02/25/22 14:30: Sodium 128 L, Potassium 5.1, Chloride 90 L, Carbon Dioxide 34.0 H, Anion Gap 4 L, BUN 57 H, Creatinine 3.47 H, Estim Creat Clear Calc 16.60, Est GFR (MDRD) Af Amer 22 L, Est GFR (MDRD) Non-Af 18 L, BUN/Creatinine Ratio 16.4, Glucose 118 H, Calcium 8.6, Phosphorus 4.0, Magnesium 2.6, Total Bilirubin 0.40, AST 24, ALT 17, Alkaline Phosphatase 241 H, Troponin I High Sens 67, Total Protein 6.7, Albumin 1.9 L, Globulin 4.8 H, Albumin/Globulin Ratio 0.4 L, Lipase 58 L 02/25/22 14:30: Lactic Acid 2.1 H* 02/25/22 14:30: Total Creatine Kinase 45, Triglycerides 69 02/25/22 15:30: Urine Color Brown, Urine Clarity Clear, Urine pH 8.0, Ur Specific Ren[place]rew 1.010, Urine Protein 500 H, Urine Glucose (UA) Normal, Urine Ketones Negative, Urine Occult Blood 250 H, Urine Nitrite Positive H, Urine Bilirubin Negative, Urine Urobilinogen Normal, Ur Leukocyte Esterase 25 H, Urine RBC 25-50 SEEN, Urine WBC 0-5 SEEN, Ur Squamous Epith Cells 0 SEEN, Urine Bacteria 2+, Urine Mucus 0 SEEN 02/25/22 18:47: Lactic Acid 2.4 H* 02/26/22 05:05: WBC 9.6, RBC 2.22 L, Hgb 7.4 L, Hct 23.7 L, MCV 106.8 H, MCH 33.3 H, MCHC 31.2 L, RDW Std Deviation 74.7 H, RDW Coeff of Sue 19.2 H, Plt Count 143 L, MPV 11.2, Immature Gran % (Auto) 0.300, Neut % (Auto) 85.2 H, Lymph % (Auto) 5.0 L, [place] % (Auto) 7.5, Eos % (Auto) 1.5, Baso % (Auto) 0.5, Absolute Neuts (auto) 8.2 H, Absolute Lymphs (auto) 0.48 L, Nucleated RBC % 0.2, Differential Comment SCANNED, Polychromasia 1+, Anisocytosis 2+, Microcytosis 1+, Macrocytosis 1+ 02/26/22 05:05: Sodium 131 L, Potassium 5.0, Chloride 93 L, Carbon Dioxide 32.0, Anion Gap 6, BUN 60 H, Creatinine 3.51 H, Estim Creat Clear Calc 18.18, Est GFR (MDRD) Af Amer 22 L, Est GFR (MDRD) Non-Af 18 L, BUN/Creatinine Ratio 17.1, Glucose 25 L*, Calcium 8.0 L 02/26/22 05:05: B-Natriuretic Peptide 1787.6 H 02/26/22 05:05: APTT 146.1 H* 02/26/22 06:38: POC Glucose 51 L Micro: Microbiology 02/25/22 15:41 Sputum, Induced/Lukens Gram Stain - Final 02/25/22 15:41 Sputum, Induced/Lukens Respiratory Culture - Preliminary GNR lactose oysterman 02/25/22 15:30 Urine, Random Urine Culture - Preliminary Culture exhibits no growth. 02/25/22 15:30 Urine Catheter - Novak Legionella Antigen - Final 02/25/22 15:30 Urine Catheter - Novak Streptococcus pneumoniae Antigen (M - Final 02/25/22 14:24 Nasal Secretion SARS-CoV-2 & FLU Antigen (Rapid) - Final ABG Data ABG results: ABG 02/25/22 02/25/22 02/25/22 14:31 16:50 22:39 Specimen Type JOSE ART ART Sample Site R Brach R Radial pH 7.31 L 7.41 Bicarbonate Actual 29.5 H 28.1 H Total CO2 31 30 Base Excess 3 H 3 H O2 Saturation 88 L 92 L O2 % 100 60 ABG pCO2 58.4 H 44.8 ABG pO2 60 L 65 L Chris Test N/A VBG pH 7.15 L* VBG pO2 58 H VBG HCO3 33 H VBG Total CO2 36 H VBG O2 Sat (Calc) 79 H VBG Base Excess 5 H POC Mix VBG pCO2 Pt Tmp 95.1 H* Respiration Rate 14 14 O2 Delivery Device Adult Vent Adult Vent Vent Mode AC AC Tidal Volume 400 400 POC PEEP 5 5 POC Pressure Suppt Crit Call To/Read Back Yes Clinical Comments 6 lpm 02/26/22 06:10 Specimen Type ART Sample Site R Brach pH 7.41 Bicarbonate Actual 30.0 H Total CO2 32 Base Excess 5 H O2 Saturation 92 L O2 % 40 ABG pCO2 47.1 H ABG pO2 63 L Chris Test Positive VBG pH VBG pO2 VBG HCO3 VBG Total CO2 VBG O2 Sat (Calc) VBG Base Excess POC Mix VBG pCO2 Pt Tmp Respiration Rate O2 Delivery Device Adult Vent Vent Mode PS Tidal Volume POC PEEP 5 POC Pressure Suppt 5 Crit Call To/Read Back Clinical Comments Radiology Impression Chest X-Ray 02/25/22 14:13 IMPRESSION: Mild loss in the right hemithorax as described most likely secondary to partial obstruction of the right mainstem bronchus. Small left pleural effusion with left basilar infiltrate and/or atelectasis. Electronically Signed: Jackson Haile MD at 15:15 EST , Chest X-Ray 02/25/22 15:15 IMPRESSION: The tip of the endotracheal tube is at 3.6 times approximately the jesenia. There is reexpansion of the right hemithorax although there is complete opacification of the right hemithorax at this time. This may be related to persistent right pleural effusion and atelectasis of the right lung. Electronically Signed: Jackson Haile MD at 15:36 EST , Chest CT 02/25/22 16:05 IMPRESSION: There are bilateral pleural effusions. There is bilateral pneumonia. Electronically Signed: Ibrahima Pruitt MD at 18:48 EST , Documented by User: Dr. Alda Quinteros MD 02/26/22 14:55 Assessment & Plan Assessment/Plan (1) ESRD (end stage renal disease) on dialysis: (2) Respiratory failure: (3) Bilateral pneumonia: (4) Pleural effusion: (5) Hypotension: PLAN: Plan Patient was admitted to ICU for respiratory failure currently on ventilator support, possible sepsis, fluid overload with bilateral pleural effusions and pneumonia. Patient to dialyze today over 4 hours on 2K dialysate bath and attempt fluid removal as patient/blood pressure tolerates. Blood pressures are low and patient is on midodrine. Will increase midodrine 20 mg 3 times daily however patient may need IV pressor support to help facilitate fluid removal during dialysis. During last hospitalization dry weight was lowered. Likely dry weight needs to be lowered again during this hospitalization. We will evaluate for dialysis/ultrafiltration needs again tomorrow. Patient has a known history of chronic systolic heart failure, EF 25%. Blood cultures pending, on IV antibiotics. Patient has a history of anemia of chronic disease and receives iron/RITIKA at dialysis. We will continue monitor hemoglobin trends. Further orders forthcoming as hospitalization evolves. Attending addendum Patient was seen and examined independently. He is known to us from outpatient dialysis unit. Usually gets Thursday, Thursday, Thursday. Has had fluid issues, was initially not very compliant with dialysis, recently somewhat better. Fluid removal limited by blood pressure. Takes midodrine. Admitted with altered mental status, bradycardia, relative hypotension. Chest x-ray with essentially milan out right-sided lung. CT chest with extensive effusions. Has moderate amount of peripheral anasarca. Blood pressure is borderline. Attempt dialysis today. Fluid removal as tolerated. May need pressor support. Discussed with ICU team HPI Consult Data Date of Consult: 02/26/22 [facility] Medical History Anemia of chronic disease Anticoagulated Bilateral renal artery stenosis Chronic anemia Dialysis patient Edema of left forearm Esophageal dysphagia ESRD (end stage renal disease) on dialysis Essential hypertension Failure to thrive GERD (gastroesophageal reflux disease) GI bleed (11/2021) Hyperlipidemia Ischemic cerebrovascular accident (CVA) (01/2021) Non-ischemic cardiomyopathy Non-traumatic rhabdomyolysis Peripheral arterial disease Peripheral vascular occlusive disease Persistent atrial fibrillation Polycystic kidney disease Renal artery stenosis Secondary pulmonary arterial hypertension Home Medications cinacalcet 60 mg tablet (Sensipar) 60 mg PO PRN PRN IPTH 10/09/14 [History Last Taken 02/25/22] apixaban 2.5 mg tablet 2.5 mg feeding tube BID 11/29/21 [History Last Taken 02/25/22] atorvastatin 40 mg tablet 40 mg feeding tube QHS 11/29/21 [History Last Taken 02/24/22] midodrine 5 mg tablet 10 mg feeding tube BID 02/25/22 [History Last Taken 02/25/22] pantoprazole 40 mg granules delayed-release for susp in packet 40 mg feeding tube DAILY GERD 02/25/22 [History Last Taken 02/24/22] vitamin B complex-vitamin C-folic acid 0.8 mg tablet (Renal-Artem) 1 tab feeding tube DAILY SUPPLEMENT 02/25/22 [History Last Taken 02/25/22] Allergy/AdvReac Type Severity Reaction Status Date / Time No Known Allergies Allergy Verified 02/25/22 14:04 Family History Mother Heart disease Father Heart disease Surgical History Amputation of toe History of angioplasty of peripheral vessel (09/10/21) History of bilateral cataract extraction History of tonsillectomy History of transmetatarsal amputation of left foot S/P arteriovenous (AV) fistula creation Social History housing: senior living Smoking Status: Never smoker alcohol intake: never substance use type: does not use Lab / Micro Data Result Diagrams: 02/26/22 05:05 02/26/22 05:05
[2022-02-26 14:19] LABS: M R Staph aureus DNA By PCR Negative (Negative); Probe Check PASS; Specimen Processing Control PASS
--- NOTE | 2022-02-26 14:20 | NURSING ---
ETT at 23 @ lip and right side of mouth, notified respiratory. RT at bedside and repositioned tube and tightened tube olvera at this time
[2022-02-26 15:49] LABS: Partial Thromboplast Time 82.9 Seconds (24.1-36.2)
[2022-02-26] MEDS: Midodrine HCl 5 MG Tablet 20 MG GT (16:25)
[2022-02-26] MEDS: Propofol 10MG/Ml 1,000 MG/100 ML Bottle 4.7 MG CONT INF (16:25)
--- NOTE | 2022-02-26 16:27 | NURSING ---
seizure-like activity with eyes and facial twitching and body jerking, DR. Lincoln at bedside to access, propofol started at 10 mcg/kg/min, seizure-like activity has stopped, per Dr. Lincoln continue propofol at this time, if seizure-like activity returns, will need brain CT.
--- NOTE | 2022-02-26 16:46 | PCM.OP.PRO ---
Procedure Report Date of Procedure: 02/26/22 Right femoral dialysis catheter placement consent obtained from son. He is contracted towards right and left arm has AVF hence decided to place a right femoral catheter. Femoral vein visualized under US. compressible. heparin drip held temporarily. site prepared with chlorprep. drape applied. local anesthesia with 1% lidocaine. IV access obtained, wire passed without any resistance. venous placement of wire visually confirmed. serial dilators applied. catheter threaded over wire, wire withdrawn intact. sutures applied. No immediate complications.
[2022-02-26] MEDS: Atorvastatin Calcium 40 MG Tablet GT (21:44)
[2022-02-26 23:04] LABS: Partial Thromboplast Time 106.8 Seconds (24.1-36.2)
[2022-02-27] VITALS (46 sets, daily range): BP systolic 79–168; BP diastolic 47–114; PULSE 52–118; RESP 12–24; TEMP 36.1–37; O2SAT 93–100; BMI 24.5
[2022-02-27] MEDS: 0.9% Saline Lock 10 ML Syringe IV ×3 (01:05→05:21)
[2022-02-27] MEDS: CHLORHEXIDINE GLUC 2% CLOTH 1 EACH TOWELETTE TOPICAL (01:07)
[2022-02-27 01:34] LABS: Glucose 1 mg/dL (74-106)
[2022-02-27] MEDS: Dextrose 50%-Water 25 GM/50 ML DISP.SYRIN IV ×3 (01:35→05:20)
[2022-02-27] MEDS: Atropine Sulfate 1 MG/10 ML Syringe IV (01:40)
--- NOTE | 2022-02-27 01:41 | EKG12_ITS ---
Test Reason : RHYTHM CHANGE Blood Pressure : / mmHG Vent. Rate : 106 BPM Atrial Rate : 136 BPM P-R Int : 000 ms QRS Dur : 118 ms QT Int : 406 ms P-R-T Axes : 000 162 194 degrees QTc Int : 539 ms Suspect arm lead reversal, interpretation assumes no reversal Atrial fibrillation Low voltage QRS (Limb Leads) Anterolateral infarct , age undetermined, cannot be excluded Consider repeat ECG Prolonged QT Abnormal ECG Confirmed by MICHAEL KINCAID, JOHN ([id number]), medical editor ROSIE OVALLES ([id number]) on 02/28/2022 7:45:58 AM Referred By: RHIANNA Confirmed By:JOHN RODRIGUEZ MD
[2022-02-27] MEDS: Dextrose 10%-Water 250 ML 999 ML IV (01:55)
[2022-02-27 02:16] LABS: Bedside Glucose 275 mg/dL (74-106)
--- NOTE | 2022-02-27 02:59 | NURSING ---
Checked patient's blood glucose with bedside glucometer. Results said critical low. Serum glucose was sent. Lab called with results and blood glucose was 1. Dr. Christy paged at 0135. 0135- D50 amp given. 0138-D50 amp given. 0140- Patient started becoming bradycardic with HR in the 20s. This RN checked pulse. Pulse felt but weak. Atropine 1mg given. EKG was obtained. Dr. Christy paged again to come up to bedside to assess patient. 0145- Dr. Christy is at bedside assessing patient. Vitals at this time are WNL. D10 bolus is ordered and administered. 0155- Bedside glucose is rechecked and is 275
[2022-02-27 03:55] LABS: Absolute Lymphocyte Count 0.45 X10^3/uL (0.83-4.51); Absolute Neutrophil Count 9.1 X10^3/uL (2.0-7.7); Basophil# 0.02 X10^3/uL; Basophil% 0.2 % (0-1); Eosinophil# 0.03 X10^3/uL; Eosinophils% 0.3 % (0-5); Hematocrit 20.4 % (40-54); Hemoglobin 6.3 g/dL (13.0-16.5); Lymphocyte # 0.45 X10^3/ul (0.83-4.51); Lymphocyte % 4.3 % (19-41); Mean Corp Hgb Conc 30.9 g/dL (32-36); Mean Corpuscular Hgb 33.2 pg (27.0-32.0); Mean Corpuscular Volume 107.4 fL (80-94); Mean Platelet Vol. 11.6 fl (6.2-12.0); Monocyte% 7.7 % (0-10); NRBC Flagged by Analyzer 0.3 % (0-5); Neutrophil % 87.1 % (47-70); POSITIVE DIFFERENTIAL YES; POSITIVE MORPHOLOGY YES; Platelet Count 148 K/mm3 (150-450); RBC Distribution Width CV 19.6 % (11.6-14.6); White Blood Count 10.4 K/mm3 (4.4-11.0)
[2022-02-27 03:55] LABS: Bedside Glucose 89 mg/dL (74-106)
[2022-02-27 03:57] LABS: Differential Indicated SCAN CRITERIA MET
--- NOTE | 2022-02-27 04:19 | CT_ITS ---
STUDY: CTA HEAD AND NECK WITH CONTRAST REASON FOR EXAM: Male, 76 years old. STROKE RADIATION DOSAGE (If Supplied By Facility): CTDIvol = ( 25.67 ) mGy, DLP = ( 764.19 ) mGycm TECHNIQUE: CT angiography was performed with a multi-detector CT scanner. Data acquisition was obtained from the skull base through the vertex following intravenous administration of IV 75mL Isovue-[id number]. MIP images were reconstructed from the axial data set. Post-processing of the angiographic images was performed, with multiplanar reformation and 3D reconstruction. Individualized dose optimization techniques were used for this CT. COMPARISON: No relevant priors. FINDINGS: Normal bilateral petrous carotid arteries. There is calcified plaque formation of the right cavernous carotid artery, without a cross-sectional luminal stenosis. There is calcified plaque formation of the left cavernous carotid artery, without a cross-sectional luminal stenosis. Normal right A1 segments of the anterior cerebral artery. Normal left A1 segments of the anterior cerebral artery. Normal intact anterior communicating artery (ACOM). Normal bilateral A2 segments of the anterior cerebral arteries. Normal right M1 and M2 segments of the middle cerebral arteries, with a normal M1 bifurcation. Normal left M1 and M2 segments of the middle cerebral arteries, with a normal M1 bifurcation. Normal right posterior communicating artery (PCOM). Normal left posterior communicating artery (PCOM). There is extensive atherosclerotic plaque formation of the origin of the segment 3 for the right vertebral artery with an estimated stenosis of greater than 70%. Normal basilar artery with a normal basilar bifurcation. The visualized bilateral superior cerebellar (SCA) arteries are normal. Normal bilateral P1, P2 and visualized P3 segments of the posterior cerebral arteries. There is no demonstrated aneurysm of the [place]. There is no demonstrated abnormality of the visualized brain. AORTIC ARCH: Normal visualized aortic arch. Normal origins of the brachiocephalic, left common carotid, and left subclavian arteries. RIGHT CAROTID ARTERIES: Normal right common carotid artery (CCA). There is mild atherosclerotic plaque formation with minimal narrowing of the right carotid bulb. There is mild atherosclerotic plaque formation of the origin of the right internal carotid artery with less than 50% cross sectional diameter stenosis. Normal visualized cervical portion of the right internal carotid artery. Normal origin of the right external carotid artery (ECA). LEFT CAROTID ARTERIES: Normal left common carotid artery (CCA). There is mild atherosclerotic plaque formation with minimal narrowing of the left carotid bulb. There is mild atherosclerotic plaque formation of the origin of the left internal carotid artery with less than 50% cross sectional diameter stenosis. Normal visualized cervical portion of the left internal carotid artery. Normal origin of the left external carotid artery (ECA). VERTEBRAL ARTERIES: There is enhancement within the bilateral vertebral arteries with a small right vertebral artery, and a dominant left vertebral artery.There is extensive atherosclerotic plaque formation of the origin of the segment 3 for the right vertebral artery with an estimated stenosis of greater than 70%. CT/STROKE CTA Head AND Neck W/Con IMPRESSION: There is extensive atherosclerotic plaque formation of the origin of the segment 3 for the right vertebral artery with an estimated stenosis of greater than 70%. N.B. : The above Results were Read Back by Chadd Choudhary MD to SERGIO MOCTEZUMA and understanding confirmed on 02/27/2022 05:05:09 (ET). Electronically Signed: Chadd Choudhary MD at 5:05 EST ,
--- NOTE | 2022-02-27 04:21 | CT_ITS ---
We are attempting to reach an attending provider to discuss findings. An addendum with communication details will be sent when the communication is complete. STUDY: CT HEAD STROKE PROTOCOL W/O CONTRAST INJECTION REASON FOR EXAM: Male, 76 years old. stroke alert TECHNIQUE: Transaxial CT imaging of the brain was performed without administration of intravenous contrast material. Individualized dose optimization techniques were used for this CT. COMPARISON: No relevant priors. FINDINGS: Normal soft tissue structures. Normal calvarium. Normal size ventricles and extra-axial spaces for the patient''s age. There are areas of decreased attenuation within the white matter tracts of the supratentorial brain, consistent with microvascular disease changes. There are small punctate calcifications of the basal ganglia which are seen in the aging brain as a normal variant. Normal brainstem. Normal cerebellum. There is no intracranial hemorrhage. There are no findings of an acute ischemic infarction. Normal visualized paranasal sinuses. ASPECT score: 10 CT/STROKE Brain/Head without Cont IMPRESSION: Chronic involutional changes of the brain. Electronically Signed: Chadd Choudhary MD at 4:49 EST ,
--- NOTE | 2022-02-27 04:27 | PCM.PN.BLA ---
Progress Note Stroke alert: Stroke alert secondary to anisocoria and not withdrawing to pain at left upper and left lower extremities while withdrawing to pain at right upper and right lower extremity. Discussed with [facility] telemetry neurologist. Per radiologist interpretation CT brain is nonacute notified via phone. Neurologist CTA head and neck did not show any LVO. [facility] tele neurologist recommended stat PTT and if Stat PTT is less than 40 tPA can be given. Also set PTT goal to 50-70 until size of stroke is properly delineated. Check MRI; ECHO. Already on statin; Atorvastatin 40mg daily; continue. Per neurologist no need to escalate dose until status of stroke is confirmed
[2022-02-27 04:29] LABS: ALB/GLOB Ratio 0.4 RATIO (0.9-2.4); AST(SGOT) 41 U/L (15-37); Alanine Aminotransfer ALT/SGPT 14 U/L (16-61); Albumin, Serum 1.5 g/dL (3.2-5.0); Alkaline Phosphatase 139 U/L (45-117); Anion Gap 10 (5-15); BUN 61 mg/dL (7-18); BUN/Creat Ratio 15.7 RATIO (10-20); Calcium,Total 8.3 mg/dL (8.5-10.1); Chloride 93 mmol/L (98-107); Creatinine, Serum 3.88 mg/dL (0.70-1.30); EST Glomerular Filtration Rate 16 mL/min (>60); Est Glom Filt Rate - Afr Amer 20 mL/min (>60); Estimated Creatinine Clearance 16.45 ml/min; Globulin 3.8 g/dL (2.2-4.2); Glucose 65 mg/dL (74-106); Potassium 5.6 mmol/L (3.5-5.1); Protein, Total 5.3 g/dL (6.4-8.2); Sodium Level 131 mmol/L (136-145)
[2022-02-27 04:30] LABS: Anisocytosis 2+; Differential Comment SCANNED
[2022-02-27 04:31] LABS: Macrocytosis 1+; Microcytosis 1+; Polychromasia RARE
[2022-02-27 04:41] LABS: Bedside Glucose 59 mg/dL (74-106)
--- NOTE | 2022-02-27 05:13 | ECHOD_ITS ---
Reason For Study: TIA/CVA Procedure This was a 2D Doppler, Color Flow transthoracic echocardiogram. Patient scanned supine due to intubation. Exam performed portable in ICU/CCU. Left Ventricle Normal left ventricle. The estimated ejection fraction is 40-45 %. Right Ventricle Moderately dilated right ventricle. Moderately severe global right ventricular systolic dysfunction. Atria Normal left atrium. The right atrium is moderately enlarged. Mitral Valve The mitral valve is structurally normal. No prolapse or stenosis seen. Trivial mitral valve insufficiency. Tricuspid Valve Normal tricuspid valve. Mild to moderate (1-2+) tricuspid valve insufficiency. Aortic Valve Mild diffuse aortic valve calcification. Mild aortic stenosis. Mild (1+) aortic valve insufficiency. Medication Performed a rapid injection of agitated mix of 9 cc saline and 1cc air to assess for atrial septal defect. MMode/2D Measurements & Calculations LVIDd: 4.8 cm IVSd: 0.88 cm LVOT diam: 1.9 cm LVIDs: 3.6 cm LVPWd: 1.2 cm LVOT area: 2.8 cm2 RVDd: 4.8 cm FS: 25.0 % Ao root diam: 3.7 cm LAV(MOD-bp): 61.6 ml LVAd ap4: 32.5 cm2 LAV(MOD-bp) Indexed: 32.1 ml/m2 LVLd ap4: 8.7 cm LAV(MOD-sp2): 63.4 ml EDV(MOD-sp4): 103.0 ml LAV(MOD-sp4): 54.6 ml EDV(sp4-el): 103.4 ml LVAs ap4: 24.3 cm2 LVLs ap4: 7.7 cm ESV(MOD-sp4): 64.6 ml ESV(sp4-el): 64.7 ml EF(MOD-sp4): 37.3 % EF(sp4-el): 37.4 % SV(MOD-sp4): 38.4 ml SV(MOD-sp2): 45.5 ml LVAd ap2: 30.6 cm2 LVLd ap2: 8.5 cm EDV(MOD-sp2): 95.1 ml EDV(sp2-el): 94.0 ml LVAs ap2: 20.3 cm2 LVLs ap2: 7.3 cm ESV(MOD-sp2): 49.6 ml ESV(sp2-el): 47.6 ml EF(MOD-sp2): 47.8 % SV(sp4-el): 38.7 ml LA A4 area: 19.6 cm2 RA A4 area: 23.3 cm2 Doppler Measurements & Calculations MV E max anamika: 116.9 cm/sec Ao V2 max: 251.9 cm/sec LV V1 max: 140.7 cm/sec Ao max P.5 mmHg LV V1 max P.0 mmHg Ao V2 mean: 169.9 cm/sec LV V1 mean P.7 mmHg Ao mean P.2 mmHg LV V1 mean: 88.4 cm/sec Ao V2 VTI: 47.8 cm LV V1 VTI: 25.0 cm AV (velocity ratio): 0.52 MIHAELA(I,D): 1.5 cm2 MIHAELA(V,D): 1.6 cm2 SV(LVOT): 69.7 ml PA V2 max: 113.7 cm/sec TR max anamika: 261.6 cm/sec TR max P.5 mmHg ECHO/Echo Complete Interpretation Summary The estimated ejection fraction is 40-45 %. Significant improvement in LV systolic Function EF was 25%(12/30/21) Large L.Pleural Effusion Ordering Physician: Joe Christy Referring Physician: Adair Castaneda Performed By: Kirsten Keith RDCS
[2022-02-27 05:31] LABS: Bedside Glucose 38 mg/dL (74-106)
[2022-02-27 05:35] LABS: Bedside Glucose < 10 mg/dL (74-106)
[2022-02-27 05:46] LABS: Partial Thromboplast Time 44.7 Seconds (24.1-36.2)
[2022-02-27 06:26] LABS: Bedside Glucose 66 mg/dL (74-106)
[2022-02-27] MEDS: Dextrose 10%-Water 250 ML 50 ML IV (06:45)
[2022-02-27 07:20] LABS: Bedside Glucose 46 mg/dL (74-106)
[2022-02-27] MEDS: Heparin Injection (Vial) 5,000 UNIT/ML VIAL IV (07:53)
--- NOTE | 2022-02-27 07:59 | NURSING ---
0400- This RN went into patient's room to perform assessment. Patient was no longer withdrawing to pain. Had weak cough and gag. Right pupil is a 2mm round and sluggish, Left pupil is a 4mm round and nonreactive. Patient's eyes also deviate to the right. Propofol and Fentanyl drips were paused. NIH a score of 23 at this time. Stroke Alert called. 0408- Dr. Christy is at bedside assessing patient. Preparing to go down to STAT Brain CT with this RN and Junior Harley RN, RT and Dr. Christy. [facility] called and alerted. 0415- Patient in CT scan. NIH score at this time 26. 0420- This RN and Dr. Christy discussing patient condition with Neurologist with [facility]. This RN informed Neurologist of patient's history and current condition. Last PTT was at 2200 and was 106.8. Patient has been on heparin drip for over 24 hours. Patient also had issues with Left arm fistula swelling and bleeding when being accessed for dialysis earlier in the evening. Neurologist recommended to obtain another PTT now and if less than [address] Christy noted and said we will follow through with these recommendations. 0430- NIH score at this time 26. 0445- Preparing to return back to unit. NIH remains a 26. Dr. Christy has no orders for NIH or other stroke interventions at this time. 0450- Patient returned back to unit and settled in room. 0500- STAT PTT drawn and sent to lab. Awaiting results. 0530- Discussed patient updates and conditions with Dr. Lincoln. PTT results came back at 44.7. Dr. Lincoln stated due to patient's condition and complications we would not do tPA. 0630- Patient started having some tremors in the left arm. Dr. Lincoln is at bedside assessing patient. STAT EEG ordered. Dr. Lincoln stated that we will hold off on restarted sedation at this time until EEG is obtained. Patient's vitals are WNL.
--- NOTE | 2022-02-27 08:08 | PN.CC_ITS ---
Assessment & Plan Assessment/Plan (1) Respiratory failure: (2) Bilateral pneumonia: (3) Sepsis: (4) ESRD (end stage renal disease) on dialysis: PLAN: Plan RECOMMENDATIONS: 1.? Initiate D10 drip, in addition to tube feeds 2.? Continue empiric antibiotics 3.? Attempt dialysis today with volume removal if possible 4.? Hold on thoracentesis for now given hemodynamic instability 5.? Transition to heparin from Eliquis for possible interventions 6. Spontaneous breathing and awakening trials per protocol IMPRESSIONS: 1.??Sepsis secondary to E. coli pneumonia Patient with marginal blood pressures and known dialysis.? Cultures are currently showing E. coli in the sputum, so would continue with empiric antibiotics for healthcare associated infection.? Additional fluid resuscitation will be held given patient's finding on chest x-ray, new oxygen requirements and concern for worsening in congestive heart failure.? Potential need for pressors cannot be excluded, especially with dialysis. Patient does have significant swelling of the fistula site, but fluctuance is not noted.? Endorgan damage noted by elevated lactate.? Patient has end-stage renal disease making creatinine unhelpful. 2.??Acute combined respiratory failure secondary to E. coli pneumonia with bilateral pleural effusions Patient with significant hypercarbia and increased AA gradient on pr esentation. Patient is on appropriate antibiotics at this time. Patient likely will require volume removal with hemodialysis. Cannot exclude the need for thoracentesis. High clinical suspicion for transudate pathology given patient's CHF and end-stage renal disease. Patient is too hemodynamically unstable to proceed with thoracentesis at this time. 3.??Persistent A. fib/acute on chronic systolic CHF Patient with a known ejection fraction of 25%.? Chest x-ray does show findings consistent with volume overload.? Dialysis is being attempted at this time.? We will hold on any fluid boluses as this could lead to respiratory failure.? Wean supplemental oxygen as tolerated.? Cannot exclude the need for a thoracentesis, so will transition to a heparin drip. 4.??Hypertension/peripheral vascular disease/secondary pulmonary hypertension/advanced age/type 2 diabetes mellitus/debility Complicates care, management, recovery and prognosis.? Antihypertensives have been held secondary to problem #1.? Okay to continue with anticoagulation for now.? We will need to watch blood sugars closely, but hypoglycemia has been more of an issue.? This may be secondary to problem #1. Okay to start tube feeds. No basal insulin for now. 5. Persistent hypoglycemia with neurologic changes Clinical suspicion for an element of hypoglycemia secondary to problem #1. Patient will be placed on a D10 drip. Patient does have significant hyperkalemia. I disagree with the stroke neurologist for tPA. Patient does have a high risk of complications including multiple recent sticks of AV fistula, right femoral line, ongoing gram-negative sepsis and confounding hypoglycemia. Exact time of onset is also unclear and there is no obvious obstruction noted on CTA of the head. Will order an EEG for evaluation of seizure activity 6. Anemia Exact etiology is unclear at this time. Patient does not have any clinical bleeding noted. Will transfuse blood. Addendum 10:05 AM: Extensive discussion with the patient's son at the bedside. Discussed recommendations for tPA and my concerns. After review the risks, benefits and alternatives, patient son agrees that this would probably not be a good idea. Some was also informed about the grave nature of possible neurologic issues including seizure disorder versus occult stroke. The son is very clear that he has had multiple conversations with his father and his father has stated that he would do anything necessary to live. Patient's son is very clear that he would likely not make the same decision but feels that he is trying to follow through with his father's wishes and wants the patient to remain a full code. He understands and has discussed with his father before that rib fractures are likely with CPR given his comorbidities. Son was reassured that this can be reassessed in the future if significant neurologic defects are noted. He does want to be called with an update on the EEG as he has seen some of the spastic activity prior to reinitiation of propofol. TIME: 80 minutes critical care time spent addressing patient's respiratory failure, possible sepsis, CHF, review of all data and collaboration with care team Subjective Subjective Several overnight events were reviewed. To briefly summarize, patient with multiple attempts at fistula access yesterday that were unsuccessful. Patient ultimately had a right femoral line placed. However, patient did not receive hemodialysis yesterday. Patient has had recurrent hypoglycemia requiring multiple interventions. Patient was noted to have unequal pupils, so went for CT of the head showing no acute intracranial bleed. A stroke team neurologist did recommend tPA if PTT was less than 40 despite confounding factors. Patient is being hooked up for dialysis this morning. Objective Data Objective Data Vital Signs: Vital Signs Temp Pulse Resp BP Pulse Ox O2 Del Method O2 Flow Rate 36.8 C 81 15 126/86 H 97 Mechanical Ventilator 15 02/27/22 07:00 02/27/22 07:09 02/27/22 07:09 02/27/22 07:00 02/27/22 07:09 02/27/22 07:00 02/25/22 21:10 FiO2 40 02/27/22 07:09 Oxygen Flow Rate (L/min) 15 Oxygen Delivery Method Mechanical Ventilator Weight: 76.4 kg Body Mass Index (BMI) 24.5 Intake & Output: Intake and Output for Last 24 Hours 02/25/22 02/26/22 02/27/22 23:59 23:59 23:59 Intake Total 2876.54 / 2939.04 959.11 / 1003.81 802.98 / 802.98 Output Total 120 / 130 30 / 30 Balance 2876.54 / 2939.04 839.11 / 873.81 772.98 / 772.98 Lab / Micro Data Attestation: I reviewed the patient's lab results. Result Diagrams: 02/27/22 03:40 02/27/22 03:40 Labs: Laboratory Results - last 24 hr 02/26/22 05:00: MRSA (PCR) Negative 02/26/22 15:15: APTT 82.9 H 02/26/22 22:00: APTT 106.8 H* 02/27/22 00:33: POC Glucose < 10 L* 02/27/22 01:02: Glucose 1 L* 02/27/22 01:56: POC Glucose 275 H 02/27/22 03:35: POC Glucose 89 02/27/22 03:40: WBC 10.4, RBC 1.90 L, Hgb 6.3 L, Hct 20.4 L, MCV 107.4 H, MCH 33.2 H, MCHC 30.9 L, RDW Std Deviation 77.0 H, RDW Coeff of Sue 19.6 H, Plt Count 148 L, MPV 11.6, Immature Gran % (Auto) 0.400, Neut % (Auto) 87.1 H, Lymph % (Auto) 4.3 L, [place] % (Auto) 7.7, Eos % (Auto) 0.3, Baso % (Auto) 0.2, Absolute Neuts (auto) 9.1 H, Absolute Lymphs (auto) 0.45 L, Nucleated RBC % 0.3, Differential Comment SCANNED, Polychromasia RARE, Anisocytosis 2+, Microcytosis 1+, Macrocytosis 1+ 02/27/22 03:40: Sodium 131 L, Potassium 5.6 H, Chloride 93 L, Carbon Dioxide 28.0, Anion Gap 10, BUN 61 H, Creatinine 3.88 H, Estim Creat Clear Calc 16.45, Est GFR (MDRD) Af Amer 20 L, Est GFR (MDRD) Non-Af 16 L, BUN/Creatinine Ratio 15.7, Glucose 65 L, Calcium 8.3 L, Total Bilirubin 0.50, AST 41 H, ALT 14 L, Alkaline Phosphatase 139 H, Total Protein 5.3 L, Albumin 1.5 L, Globulin 3.8, Albumin/Globulin Ratio 0.4 L 02/27/22 04:14: POC Glucose 59 L 02/27/22 05:10: APTT 44.7 H 02/27/22 05:11: POC Glucose 38 L* 02/27/22 06:08: POC Glucose 66 L 02/27/22 07:00: POC Glucose 46 L Micro: Microbiology 02/25/22 14:30 Blood Culture (Wb) - Right Wrist Blood Culture - Preliminary No growth in 48 hours. 02/25/22 15:30 Urine, Random Urine Culture - Final Culture exhibits no growth. 02/25/22 15:41 Sputum, Induced/Lukens Gram Stain - Final 02/25/22 15:41 Sputum, Induced/Lukens Respiratory Culture - Final Escherichia coli 02/25/22 15:30 Urine Catheter - Novak Legionella Antigen - Final 02/25/22 15:30 Urine Catheter - Novak Streptococcus pneumoniae Antigen (M - Final 02/25/22 14:24 Nasal Secretion SARS-CoV-2 & FLU Antigen (Rapid) - Final Radiography Diagnostic Testing: Radiology Impression Head/Neck CTA 02/27/22 04:19 IMPRESSION: There is extensive atherosclerotic plaque formation of the origin of the segment 3 for the right vertebral artery with an estimated stenosis of greater than 70%. N.B. : The above Results were Read Back by Chadd Choudhary MD to SERGIO MOCTEZUMA and understanding confirmed on 02/27/2022 05:05:09 (ET). Electronically Signed: Chadd Choudhary MD at 5:05 EST , ADDENDUM: 02/27/22 0512 IMPRESSION: There is extensive atherosclerotic plaque formation of the origin of the segment 3 for the right vertebral artery with an estimated stenosis of greater than 70%. N.B. : The above Results were Read Back by Chadd Choudhary MD to SERGIO MOCTEZUMA and understanding confirmed on 02/27/2022 05:05:09 (ET). Electronically Signed: Chadd Choudhary MD at 5:05 EST , Brain CT 02/27/22 04:21 IMPRESSION: Chronic involutional changes of the brain. Electronically Signed: Chadd Choudhary MD at 4:49 EST , ADDENDUM: 02/27/22 0507 IMPRESSION: Chronic involutional changes of the brain. N.B. : The above Results were Read Back by Chadd Choudhary MD to Dr. Sergio Moctezuma MD, and understanding confirmed on 02/27/2022 05:00:59 (ET). Electronically Signed: Chadd Choudhary MD at 4:49 EST , Physical Exam Const no apparent distress Constitutional Narrative: Patient appears older than his stated age, he appears cachectic. Good ventilator synchrony General Appearance: patient mechanically ventilated HEENT normocephalic, head/scalp atraumatic and moist oral mucous membranes HEENT Narrative: Temporal wasting appreciated Mouth: endotracheal tube in place Eyes conjunctivae normal Eyes Narrative: Roving eye movements. Left pupil 4 mm, right 2 mm Neck supple, thyroid normal and no carotid bruits General: trachea midline Resp Auscultation: rhonchi and diminished lung sounds; Negative for rales or wheezes Percussion: dullness Mid: right and Lower: right and left Cardio S1 normal heart sound, S2 normal heart sound, no murmurs, no rub and no gallops Cardio Narrative: Heart rate and rhythm is irregular GI normal to inspection, nondistended, normoactive bowel sounds, soft to palpation, non-tender and non-distended Extremity Extremity Narrative: left forearm fistula noted, right femoral HD cath clean, dry and intact General Extremity: edema bilateral (Weeping noted) Skin Skin Narrative: 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
[2022-02-27 08:21] LABS: Bedside Glucose 68 mg/dL (74-106)
--- NOTE | 2022-02-27 08:21 | NURSING ---
0030- This RN checked bedside glucose and it resulted critically low <10. Serum glucose was drawn and sent to lab 0135- Lab called with critical results of serum glucose of 1. Dr. Christy paged. This RN went to assess patient and visualised on the monitor patient christian down into 20s. Pulse is felt but weak. 0135- 1 amp of D50 IVP administered. Atropine 1mg IVP given. HR is now sitting in 70s to 80s. 0138- 1 amp of D50 IVP given. 0140- D10 250ml bolus given. Dr. Christy is at bedside. 0155- Bedside blood glucose rechecked and is 275. No new orders at this time.
--- NOTE | 2022-02-27 09:00 | NURSING ---
Propofol and Fentanyl have been on hold since about 0400 due to patient being unresponsive. Patient started having spastic motions in Left Hand about 1 hour ago that has now progressed to include the whole left arm. Dr Lincoln notified and came to bedside to visualize. seizure like activity then began in the right arm and began spreading to rest of the body. Verbal order received to restart the propofol gtt at 10 Mcg/kg/min and titrate per policy to suppress seizure activity.
--- NOTE | 2022-02-27 09:17 | PN.HOSP_ITS ---
Subjective Subjective Follow-up on sepsis secondary to pneumonia: Patient was seen and examined.?Overnight, patient was found to have a dilated left pupil. He appeared not to be moving his left side. An acute stroke was called. CT of the brain was negative for acute intracranial bleed. Stroke teleneurology recommended tPA if PTT was less than 40; PTT came back at 44. Patient had issues with his dialysis access yesterday with multiple attempts at accessing his fistula been unsuccessful. A right femoral line was placed. Patient was also noted to be severely hypoglycemic, started on D10 Objective Data Objective Data Vital Signs: Vital Signs Temp Pulse Resp BP Pulse Ox O2 Del Method O2 Flow Rate 98.1 F 84 14 132/71 H 98 Mechanical Ventilator 15 02/27/22 08:00 02/27/22 08:00 02/27/22 08:00 02/27/22 08:00 02/27/22 08:00 02/27/22 08:00 02/25/22 21:10 FiO2 40 02/27/22 08:00 Oxygen Flow Rate (L/min) 15 Oxygen Delivery Method Mechanical Ventilator Weight: 76.4 kg Body Mass Index (BMI) 24.5 Intake & Output: Intake and Output for Last 24 Hours 02/25/22 02/26/22 02/27/22 23:59 23:59 23:59 Intake Total 2876.54 / 2939.04 959.11 / 1003.81 802.98 / 802.98 Output Total 120 / 130 30 / 30 Balance 2876.54 / 2939.04 839.11 / 873.81 772.98 / 772.98 Lab / Micro Data Result Diagrams: 02/27/22 03:40 02/27/22 03:40 Labs: Laboratory Results - last 24 hr 02/26/22 05:00: MRSA (PCR) Negative 02/26/22 15:15: APTT 82.9 H 02/26/22 22:00: APTT 106.8 H* 02/27/22 00:33: POC Glucose < 10 L* 02/27/22 01:02: Glucose 1 L* 02/27/22 01:56: POC Glucose 275 H 02/27/22 03:35: POC Glucose 89 02/27/22 03:40: WBC 10.4, RBC 1.90 L, Hgb 6.3 L, Hct 20.4 L, MCV 107.4 H, MCH 33.2 H, MCHC 30.9 L, RDW Std Deviation 77.0 H, RDW Coeff of Sue 19.6 H, Plt Count 148 L, MPV 11.6, Immature Gran % (Auto) 0.400, Neut % (Auto) 87.1 H, Lymph % (Auto) 4.3 L, [place] % (Auto) 7.7, Eos % (Auto) 0.3, Baso % (Auto) 0.2, Absolute Neuts (auto) 9.1 H, Absolute Lymphs (auto) 0.45 L, Nucleated RBC % 0.3, Differential Comment SCANNED, Polychromasia RARE, Anisocytosis 2+, Microcytosis 1+, Macrocytosis 1+ 02/27/22 03:40: Sodium 131 L, Potassium 5.6 H, Chloride 93 L, Carbon Dioxide 28.0, Anion Gap 10, BUN 61 H, Creatinine 3.88 H, Estim Creat Clear Calc 16.45, Est GFR (MDRD) Af Amer 20 L, Est GFR (MDRD) Non-Af 16 L, BUN/Creatinine Ratio 15.7, Glucose 65 L, Calcium 8.3 L, Total Bilirubin 0.50, AST 41 H, ALT 14 L, Alkaline Phosphatase 139 H, Total Protein 5.3 L, Albumin 1.5 L, Globulin 3.8, Albumin/Globulin Ratio 0.4 L 02/27/22 04:14: POC Glucose 59 L 02/27/22 05:10: APTT 44.7 H 02/27/22 05:11: POC Glucose 38 L* 02/27/22 06:08: POC Glucose 66 L 02/27/22 07:00: POC Glucose 46 L 02/27/22 08:00: POC Glucose 68 L Micro: Microbiology 02/25/22 14:30 Blood Culture (Wb) - Right Wrist Blood Culture - Preliminary No growth in 48 hours. 02/25/22 15:30 Urine, Random Urine Culture - Final Culture exhibits no growth. 02/25/22 15:41 Sputum, Induced/Lukens Gram Stain - Final 02/25/22 15:41 Sputum, Induced/Lukens Respiratory Culture - Final Escherichia coli 02/25/22 15:30 Urine Catheter - Novak Legionella Antigen - Final 02/25/22 15:30 Urine Catheter - Novak Streptococcus pneumoniae Antigen (M - Final 02/25/22 14:24 Nasal Secretion SARS-CoV-2 & FLU Antigen (Rapid) - Final Radiography Diagnostic Testing: Radiology Impression Head/Neck CTA 02/27/22 04:19 IMPRESSION: There is extensive atherosclerotic plaque formation of the origin of the segment 3 for the right vertebral artery with an estimated stenosis of greater than 70%. N.B. : The above Results were Read Back by Chadd Choudhary MD to SERGIO MOCTEZUMA and understanding confirmed on 02/27/2022 05:05:09 (ET). Electronically Signed: Chadd Choudhary MD at 5:05 EST , ADDENDUM: 02/27/22 0512 IMPRESSION: There is extensive atherosclerotic plaque formation of the origin of the segment 3 for the right vertebral artery with an estimated stenosis of greater than 70%. N.B. : The above Results were Read Back by Chadd Choudhary MD to SERGIO MOCTEZUMA and understanding confirmed on 02/27/2022 05:05:09 (ET). Electronically Signed: Chadd Choudhary MD at 5:05 EST , Brain CT 02/27/22 04:21 IMPRESSION: Chronic involutional changes of the brain. Electronically Signed: Chadd Choudhary MD at 4:49 EST , ADDENDUM: 02/27/22 0507 IMPRESSION: Chronic involutional changes of the brain. N.B. : The above Results were Read Back by Chadd Choudhary MD to Dr. Sergio Moctezuma MD, and understanding confirmed on 02/27/2022 05:00:59 (ET). Electronically Signed: Chadd Choudhary MD at 4:49 EST , Physical Exam Narrative Physical exam: General: Sedated, on mechanical ventilator HEENT: Atraumatic, left pupil appears dilated and unreactive compared to right Oral: Moist Mucosa Neck: Supple Lungs: Diminished to auscultation Cardiovascular: HS I+II, regular, no murmurs Abdomen: Bowel Sounds Present, Soft, Non Tender Extremities: Wound on the right lower leg, lower extremities appear dusky, left leg TMA with dressing over right Skin: No rashes, No breakdown Neurological: Grossly intact Psych/Mental Status: Appropriate Assessment & Plan Assessment/Plan (1) Sepsis: (2) Bilateral pneumonia: (3) Pleural effusion: (4) ESRD (end stage renal disease) on dialysis: (5) Pressure ulcer: PLAN: Plan 1. Probable acute stroke, acute bleed ruled out with a negative CT brain Awaiting MRI of the brain Patient is not an ideal candidate for tPA in the light of PTT being elevated and patient on heparin drip prior to this event Discussed with manufacturing systems engineer who had discussed with the patient's son at the bedside, who agrees with no tPA We will follow-up on results of the MRI 2. Severe hypoglycemia, unclear etiology, Patient was not on insulin or oral hypoglycemics Continue D10 infusion, frequent blood sugar checks 3. Anemia, unclear etiology, drop in hemoglobin from 7.4-6.3, Patient is being transfused 2 units of packed RBCs We will check stool for occult blood, trend labs 4. Sepsis secondary to E. coli bilateral pneumonia Blood cultures are pending, COVID-19 rapid antigen test as well as influenza A/B are negative. Urine Legionella and strep antigens are negative Continue on IV Zosyn 5. Acute hypoxic respiratory failure secondary to bilateral pleural effusion, massive on the right than left /bilateral pneumonia, Status post intubation, on minimal ventilator settings Thoracocentesis deferred for now; manufacturing systems engineer following 6. ESRD on hemodialysis - -- Nephrology nephrology following 7. Chronic atrial fibrillation, rate controlled, continue on Heparin drip 8. Chronic combined systolic and diastolic heart failure, EF 25%, stage III diastolic dysfunction I doubt patient is in acute exacerbation of CHF Elevated BNP 1787.6 could be also secondary to renal failure 9. Stage II pressure ulcer on coccyx and ulcers on left, continue on topical preparation 10. Dysphagia, status post G-tube, continue tube feeds 11. DVT prophylaxis?Heparin drip Charges/Coding Visit Charges Inpatient E&M: 17021 [facility] L3
[2022-02-27] MEDS: Propofol 10MG/Ml 1,000 MG/100 ML Bottle 4.7 MG CONT INF ×2 (09:23→21:24)
[2022-02-27 09:45] LABS: Bedside Glucose 85 mg/dL (74-106)
--- NOTE | 2022-02-27 10:07 | PCM.PN.REN ---
Subjective Subjective On vent. Seen and examined on dialysis. Son at bedside. Objective Data Objective Data Vital Signs: Vital Signs Temp Pulse Resp BP Pulse Ox O2 Del Method O2 Flow Rate 98.1 F 82 15 132/71 H 98 Mechanical Ventilator 15 02/27/22 08:00 02/27/22 08:00 02/27/22 08:00 02/27/22 08:00 02/27/22 08:00 02/27/22 08:00 02/25/22 21:10 FiO2 40 02/27/22 08:00 Oxygen Flow Rate (L/min) 15 Oxygen Delivery Method Mechanical Ventilator Weight: 76.4 kg Body Mass Index (BMI) 24.5 Intake & Output: Intake and Output for Last 24 Hours 02/25/22 02/26/22 02/27/22 23:59 23:59 23:59 Intake Total 2876.54 / 2939.04 959.11 / 1003.81 802.98 / 802.98 Output Total 120 / 130 30 / 30 Balance 2876.54 / 2939.04 839.11 / 873.81 772.98 / 772.98 Lab / Micro Data Result Diagrams: 02/27/22 03:40 02/27/22 03:40 Labs: Laboratory Results - last 24 hr 02/26/22 05:00: MRSA (PCR) Negative 02/26/22 15:15: APTT 82.9 H 02/26/22 22:00: APTT 106.8 H* 02/27/22 00:33: POC Glucose < 10 L* 02/27/22 01:02: Glucose 1 L* 02/27/22 01:56: POC Glucose 275 H 02/27/22 03:35: POC Glucose 89 02/27/22 03:40: WBC 10.4, RBC 1.90 L, Hgb 6.3 L, Hct 20.4 L, MCV 107.4 H, MCH 33.2 H, MCHC 30.9 L, RDW Std Deviation 77.0 H, RDW Coeff of Sue 19.6 H, Plt Count 148 L, MPV 11.6, Immature Gran % (Auto) 0.400, Neut % (Auto) 87.1 H, Lymph % (Auto) 4.3 L, [place] % (Auto) 7.7, Eos % (Auto) 0.3, Baso % (Auto) 0.2, Absolute Neuts (auto) 9.1 H, Absolute Lymphs (auto) 0.45 L, Nucleated RBC % 0.3, Differential Comment SCANNED, Polychromasia RARE, Anisocytosis 2+, Microcytosis 1+, Macrocytosis 1+ 02/27/22 03:40: Sodium 131 L, Potassium 5.6 H, Chloride 93 L, Carbon Dioxide 28.0, Anion Gap 10, BUN 61 H, Creatinine 3.88 H, Estim Creat Clear Calc 16.45, Est GFR (MDRD) Af Amer 20 L, Est GFR (MDRD) Non-Af 16 L, BUN/Creatinine Ratio 15.7, Glucose 65 L, Calcium 8.3 L, Total Bilirubin 0.50, AST 41 H, ALT 14 L, Alkaline Phosphatase 139 H, Total Protein 5.3 L, Albumin 1.5 L, Globulin 3.8, Albumin/Globulin Ratio 0.4 L 02/27/22 04:14: POC Glucose 59 L 02/27/22 05:10: APTT 44.7 H 02/27/22 05:11: POC Glucose 38 L* 02/27/22 06:08: POC Glucose 66 L 02/27/22 07:00: POC Glucose 46 L 02/27/22 08:00: POC Glucose 68 L 02/27/22 09:05: Crossmatch See Detail 02/27/22 09:10: POC Glucose 85 Micro: Microbiology 02/25/22 14:30 Blood Culture (Wb) - Right Wrist Blood Culture - Preliminary No growth in 48 hours. 02/25/22 15:30 Urine, Random Urine Culture - Final Culture exhibits no growth. 02/25/22 15:41 Sputum, Induced/Lukens Gram Stain - Final 02/25/22 15:41 Sputum, Induced/Lukens Respiratory Culture - Final Escherichia coli 02/25/22 15:30 Urine Catheter - Novak Legionella Antigen - Final 02/25/22 15:30 Urine Catheter - Novak Streptococcus pneumoniae Antigen (M - Final 02/25/22 14:24 Nasal Secretion SARS-CoV-2 & FLU Antigen (Rapid) - Final Radiography Diagnostic Testing: Radiology Impression Head/Neck CTA 02/27/22 04:19 IMPRESSION: There is extensive atherosclerotic plaque formation of the origin of the segment 3 for the right vertebral artery with an estimated stenosis of greater than 70%. N.B. : The above Results were Read Back by Chadd Choudhary MD to JOE MOCTEZUMA and understanding confirmed on 02/27/2022 05:05:09 (ET). Electronically Signed: Chadd Choudhary MD at 5:05 EST , ADDENDUM: 02/27/22 0512 IMPRESSION: There is extensive atherosclerotic plaque formation of the origin of the segment 3 for the right vertebral artery with an estimated stenosis of greater than 70%. N.B. : The above Results were Read Back by Chadd Choudhary MD to JOE MOCTEZUMA and understanding confirmed on 02/27/2022 05:05:09 (ET). Electronically Signed: Chadd Choudhary MD at 5:05 EST , Brain CT 02/27/22 04:21 IMPRESSION: Chronic involutional changes of the brain. Electronically Signed: Chadd Choudhary MD at 4:49 EST , ADDENDUM: 02/27/22 0507 IMPRESSION: Chronic involutional changes of the brain. N.B. : The above Results were Read Back by Chadd Choudhary MD to Dr. Joe Moctezuma MD, and understanding confirmed on 02/27/2022 05:00:59 (ET). Electronically Signed: Chadd Choudhary MD at 4:49 EST , Physical Exam Narrative On vent S1, S2, RRR Lung sounds with scattered rhonchi and rales, diminished breath sounds Abdomen soft, positive bowel sounds Edema to bilateral lower legs Left upper arm AV fistula thrill and bruit. Edema noted to entire left arm. Dressing clean dry intact to left upper arm Nontunneled temporary femoral HD catheter accessed for dialysis Assessment & Plan Assessment/Plan (1) ESRD (end stage renal disease) on dialysis: (2) Respiratory failure: (3) Bilateral pneumonia: (4) Pleural effusion: (5) Hypotension: PLAN: Plan - ESRD; outpatient HD schedule Thursday at [facility] over 4 hours. Patient to dialyze today on 2K bath and attempt around 3 L fluid removal as patient/blood pressure tolerates. We will evaluate daily for dialysis/ultrafiltration needs. -Temporary femoral HD catheter placed 02/26 due to difficulty cannulating AV fistula. We will avoid utilizing AV fistula at this time. - chronic systolic heart failure, EF 25%. Chest x-ray findings with volume overload. Blood pressure is low but acceptable. On midodrine. Not requiring pressor support at this time. -E. coli pneumonia, blood cultures pending, on IV antibiotics. - anemia of chronic disease and receives iron/RITIKA at dialysis. PRBC today -CT head no acute intracranial bleed. To have MRI and EEG
[2022-02-27 10:26] LABS: Bedside Glucose 76 mg/dL (74-106)
[2022-02-27 11:25] LABS: Bedside Glucose 57 mg/dL (74-106)
--- NOTE | 2022-02-27 11:28 | TELEMED_ITS ---
[facility] has confirmed receipt of a request for visit. This document confirms receipt of the order initiating the consult. To find the results of the consultation, please view the patient's reports for the scanned Telemed Consult.
--- NOTE | 2022-02-27 11:59 | DIALYSIS ---
hemodialysis completed x 3.5 HRs. Access via right groin temporary HD cath. Net UF 2500ml. See HD flowsheet on chart. report to Joey COLIN.
[2022-02-27] MEDS: Dextrose 10%-Water 250 ML 60 ML IV (12:16)
--- NOTE | 2022-02-27 12:16 | CHAPLAIN ---
Type of Pastoral Visit ___ Initial Visit ___ Follow-up Visit ___ On-call Visit ___ General Patient Visit ___ Spiritual Assessment _x__ Family Conference ___ Bereavement ___ Rapid Response ___ Code Blue ___ Other (describe below) Pastoral Care Referral From ___ Patient _x__ Family ___ Nurse ___ Physician ___ Theater Technician ___ Steam And Power Supervisor ___ Other (describe below) Sacrament/Intervention _x__ Active listening ___ Anointing ___ Anabaptist ___ Bereavement ___ Communion ___ Maíra exploration ___ _x__ Life review ___ Prayer ___ Reconciliation ___ Sacrament of Sick _x__ Supportive presence ___ Wedding ___ Other (describe below) Pastoral Comments spent much time with son of the patient in order to listen and allow him to process the situation and the decisions pending about care; son is articulate about what his father has said about what he wants; son states he is communicating with two of his brothers and the girlfriend of patient; gave presence and supportive attention
[2022-02-27] MEDS: Lansoprazole 15 MG Capsule.DR 30 MG GT (12:17)
[2022-02-27] MEDS: Chlorhexidine 15 ML PO ×2 (12:18→22:00)
[2022-02-27] MEDS: Folic Acid/Vitamin B Comp W-C 1 Capsule 1 CAP PO (12:18)
[2022-02-27] MEDS: Aspirin 81 MG TAB.CHEW GT (12:18)
[2022-02-27] MEDS: Midodrine HCl 5 MG Tablet 20 MG GT ×2 (12:18→16:34)
[2022-02-27] MEDS: Heparin 10,000 UNITS/10 ML Vial 2800 UNITS IV (12:19)
[2022-02-27 12:20] LABS: Bedside Glucose 54 mg/dL (74-106)
--- NOTE | 2022-02-27 12:56 | CASEMGMT ---
SW sent updates to [facility] via [employer]. Tata Klein SHELVING SUPERVISOR EXPENSE CLERK
[2022-02-27 13:50] LABS: Bedside Glucose 55 mg/dL (74-106)
[2022-02-27 14:24] LABS: Partial Thromboplast Time > 200.0 Seconds (24.1-36.2)
--- NOTE | 2022-02-27 14:35 | MRI_ITS ---
HISTORY: STROKE. TECHNIQUE: Multiplanar and multisequence MR images of the brain were obtained without contrast. 288 images. COMPARISON: CT earlier same day. FINDINGS: BRAIN PARENCHYMA: Mild restricted diffusion involving the bilateral posterior parietal and occipital cortical and subcortical region with associated mild increased T2 FLAIR signal. 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 Chronic white matter changes. No acute intracranial hemorrhage identified. CSF SPACES: Generalized volume loss. No significant midline shift or other mass effect.No extra-axial fluid collection. VASCULAR SYSTEM: Major intracranial flow voids are maintained. PARANASAL SINUSES AND MASTOID AIR CELLS: Mild fluid in the mastoid air cells. ORBITS: Bilateral lens resections. MRI/Brain without Contrast IMPRESSION: Mildly increased signal in the bilateral posterior parietal and occipital lobes, which can be seen with acute hypertensive encephalopathy or ischemia. Chronic involutional and white matter changes. 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 Electronically Signed: Antonella Banerjee MD at 15:47 EST ,
[2022-02-27] MEDS: Dextrose 10%-Water 250 ML 75 ML IV ×3 (16:21→23:01)
[2022-02-27] MEDS: Menthol/Lanolin/Calamine/Znox 113 GM Tube 1 APPLIC TOPICAL ×2 (16:21→21:15)
[2022-02-27 16:30] LABS: Bedside Glucose 94 mg/dL (74-106)
[2022-02-27 16:30] LABS: Bedside Glucose 50 mg/dL (74-106)
[2022-02-27] MEDS: HEPARIN/D5w 25,000 UNITS 25,000 UNITS/250 ML IV.SOLN. 15 UNITS CONT INF (17:17)
[2022-02-27 18:20] LABS: Bedside Glucose 94 mg/dL (74-106)
[2022-02-27 20:31] LABS: Bedside Glucose 99 mg/dL (74-106)
[2022-02-27] MEDS: NEPRO TUBE FEED 1,000 ML 35 ML GT (21:01)
[2022-02-27] MEDS: Atorvastatin Calcium 40 MG Tablet GT (21:16)
[2022-02-27 21:55] LABS: Bedside Glucose 123 mg/dL (74-106)
[2022-02-27 22:50] LABS: Bedside Glucose 141 mg/dL (74-106)
--- NOTE | 2022-02-27 23:12 | NURSING ---
Received phone call from teleneurology stating that Mr. Villa needs to be on continuous EEG based on findings from temporary EEG monitoring. Notified Dr. Christy about need to transfer patient.
[2022-02-27 23:56] LABS: Bedside Glucose 159 mg/dL (74-106)
[2022-02-28] VITALS (35 sets, daily range): BP systolic 104–175; BP diastolic 45–92; PULSE 50–95; RESP 13–23; TEMP 35.5–36.8; O2SAT 91–100; BMI 24.5
[2022-02-28 00:58] LABS: Partial Thromboplast Time > 200.0 Seconds (24.1-36.2)
[2022-02-28 01:45] LABS: Bedside Glucose 150 mg/dL (74-106)
[2022-02-28 02:51] LABS: Bedside Glucose 170 mg/dL (74-106)
[2022-02-28] MEDS: Dextrose 10%-Water 250 ML 75 ML IV (03:20)
--- NOTE | 2022-02-28 03:45 | PN_ITS ---
Progress Note With EEG showing nonconvulsive status epilepticus called [facility] transfer line. Patient has been accepted at [facility]. However patient has been placed on a waiting list. [facility] transfer line was also called. However at this time [facility] is not accepting any transfers except STEMI and trauma patients.
--- NOTE | 2022-02-28 03:45 | PCM.PN.BLA ---
Progress Note With EEG showing nonconvulsive status epilepticus called [facility] transfer line. Patient has been accepted at [facility]. However patient has been placed on a waiting list. [facility] transfer line was also called. However at this time [facility] is not accepting any transfers except STEMI and trauma patients.
[2022-02-28 04:10] LABS: Absolute Lymphocyte Count 0.16 X10^3/uL (0.83-4.51); Absolute Neutrophil Count 7.3 X10^3/uL (2.0-7.7); Differential Indicated SCAN CRITERIA MET; Hematocrit 23.9 % (40-54); Hemoglobin 7.7 g/dL (13.0-16.5); Lymphocyte # 0.16 X10^3/ul (0.83-4.51); Lymphocyte % 2.1 % (19-41); Mean Corp Hgb Conc 32.2 g/dL (32-36); Mean Corpuscular Hgb 32.6 pg (27.0-32.0); Mean Corpuscular Volume 101.3 fL (80-94); Mean Platelet Vol. 11.6 fl (6.2-12.0); Monocyte# 0.07 X10^3/uL; Monocyte% 0.9 % (0-10); NRBC Flagged by Analyzer 0 % (0-5); Neutrophil # 7.34 X10^3/uL (2.7-7.7); Neutrophil % 96.6 % (47-70); POSITIVE DIFFERENTIAL YES; POSITIVE MORPHOLOGY YES; Platelet Count 118 K/mm3 (150-450); RBC Distribution Width CV 19.6 % (11.6-14.6); RBC Distribution Width SD 71.4 fl (35.1-43.9); Red Blood Count 2.36 M/mm3 (4.6-6.2); White Blood Count 7.6 K/mm3 (4.4-11.0)
[2022-02-28 04:21] LABS: Bedside Glucose 205 mg/dL (74-106)
[2022-02-28 04:26] LABS: ALB/GLOB Ratio 0.4 RATIO (0.9-2.4); AST(SGOT) 72 U/L (15-37); Alanine Aminotransfer ALT/SGPT 20 U/L (16-61); Albumin, Serum 1.4 g/dL (3.2-5.0); Alkaline Phosphatase 145 U/L (45-117); Anion Gap 11 (5-15); BUN 43 mg/dL (7-18); BUN/Creat Ratio 14.2 RATIO (10-20); Calcium,Total 8.8 mg/dL (8.5-10.1); Chloride 93 mmol/L (98-107); Creatinine, Serum 3.02 mg/dL (0.70-1.30); EST Glomerular Filtration Rate 22 mL/min (>60); Est Glom Filt Rate - Afr Amer 26 mL/min (>60); Estimated Creatinine Clearance 21.13 ml/min; Globulin 3.8 g/dL (2.2-4.2); Glucose 202 mg/dL (74-106); Potassium 4.2 mmol/L (3.5-5.1); Protein, Total 5.2 g/dL (6.4-8.2); Sodium Level 129 mmol/L (136-145)
[2022-02-28 04:46] LABS: Anisocytosis 2+; Differential Comment SCANNED; Macrocytosis 1+; Microcytosis 1+
[2022-02-28] MEDS: Menthol/Lanolin/Calamine/Znox 113 GM Tube 1 APPLIC TOPICAL ×3 (05:18→18:37)
[2022-02-28 05:26] LABS: Bedside Glucose 287 mg/dL (74-106)
[2022-02-28 06:21] LABS: Bedside Glucose 170 mg/dL (74-106)
[2022-02-28] MEDS: Sodium Chloride 19.25 MEQ in Dextrose 10%-Water 250 ML 60 MEQ IV (06:43)
--- NOTE | 2022-02-28 07:18 | PN.CC_ITS ---
Assessment & Plan Assessment/Plan (1) Respiratory failure: (2) Bilateral pneumonia: (3) Sepsis: (4) ESRD (end stage renal disease) on dialysis: PLAN: Plan RECOMMENDATIONS: 1.? Transition IV fluids to D10 normal saline given hyponatremia 2.? Continue empiric antibiotics 3.? Attempt dialysis today with volume removal if possible 4.? Hold on thoracentesis for now given hemodynamic instability 5.? Agree with Keppra. Titrate propofol. No SAT/SBT at this time 6. Transfer to a tertiary center for 24-hour EEG monitoring IMPRESSIONS: 1.??Sepsis secondary to E. coli pneumonia Patient with marginal blood pressures and known dialysis.? Cultures are currently showing E. coli in the sputum, so would continue with empiric antibiotics for healthcare associated infection.? Additional fluid resuscitation will be held given patient's finding on chest x-ray, new oxygen requirements and concern for worsening in congestive heart failure.? Potential need for pressors cannot be excluded, especially with dialysis. Patient does have significant swelling of the fistula site, but fluctuance is not noted.? Endorgan damage noted by elevated lactate.? Patient has end-stage renal disease making creatinine unhelpful. 2.??Acute combined respiratory failure secondary to E. coli pneumonia with bilateral pleural effusions Patient with significant hypercarbia and increased AA gradient on presentation. Patient is on appropriate antibiotics at this time. Patient likely will require volume removal with hemodialysis. Cannot exclude the need for thoracentesis. High clinical suspicion for transudate pathology given patient's CHF and end-stage renal disease. Patient is too hemodynamically unstable to proceed with thoracentesis at this time. 3.??Persistent A. fib/acute on chronic systolic CHF Patient with a known ejection fraction of 45%.? Chest x-ray does show findings consistent with volume overload.? Tolerated dialysis.? We will hold on any fluid boluses as this could lead to respiratory failure.? Wean supplemental oxygen as tolerated.? Patient will likely need a thoracentesis at some point 4.??Hypertension/peripheral vascular disease/secondary pulmonary hypertension/advanced age/type 2 diabetes mellitus/debility Complicates care, management, recovery and prognosis.? Antihypertensives have been held secondary to problem #1.? Okay to continue with anticoagulation for now.? We will need to watch blood sugars closely, but hypoglycemia has been more of an issue.? This may be secondary to problem #1. Continue tube feeds. Hyponatremia likely secondary to IV fluids. These will be changed.. No basal insulin for now. 5. Persistent hypoglycemia with neurologic changes/potential status e pilepticus Clinical suspicion for an element of hypoglycemia secondary to problem #1. Patient with intermittent hypoglycemia which would increase possibility of status. Patient has been placed on Keppra. Unable to obtain 24-hour EEGs at this facility, so patient should go to a tertiary center. Patient's son was very clear yesterday that he wants to do everything. 6. Anemia Exact etiology is unclear at this time. Patient does not have any clinic al bleeding noted. Will transfuse blood as necessary to maintain hemoglobin greater than 7. TIME: 33 minutes critical care time spent addressing patient's respiratory failure, possible sepsis, CHF, review of all data and collaboration with care team Subjective Subjective Patient has done okay from a hemodynamic standpoint. Unfortunately, EEG is highly suggestive of possible status epilepticus. Blood sugars have been improved on IV fluids. Teleneurology is recommending transfer to a tertiary center for 24-hour EEG monitoring. Objective Data Objective Data Vital Signs: Vital Signs Temp Pulse Resp BP Pulse Ox O2 Del Method O2 Flow Rate 36.6 C 67 18 140/78 H 99 Mechanical Ventilator 3 02/28/22 04:00 02/28/22 07:00 02/28/22 07:00 02/28/22 07:00 02/28/22 07:00 02/28/22 07:00 02/27/22 12:48 FiO2 30 02/28/22 07:00 Oxygen Flow Rate (L/min) 3 Oxygen Delivery Method Mechanical Ventilator Weight: 77.1 kg Body Mass Index (BMI) 24.5 Intake & Output: Intake and Output for Last 24 Hours 02/26/22 02/27/22 02/28/22 23:59 23:59 23:59 Intake Total 959.11 / 1003.81 3259.49 / 3386.69 475.10 / 475.10 Output Total 120 / 130 2565 / 2570 Balance 839.11 / 873.81 694.49 / 816.69 465.10 / 465.10 Lab / Micro Data Attestation: I reviewed the patient's lab results. Result Diagrams: 02/28/22 04:05 02/28/22 04:05 Labs: Laboratory Results - last 24 hr 02/27/22 07:00: POC Glucose 46 L 02/27/22 08:00: POC Glucose 68 L 02/27/22 09:05: Blood Type O POSITIVE, Antibody Screen NEGATIVE, Crossmatch See Detail 02/27/22 09:10: POC Glucose 85 02/27/22 10:04: POC Glucose 76 02/27/22 11:05: POC Glucose 57 L 02/27/22 11:59: POC Glucose 54 L 02/27/22 13:10: APTT > 200.0 H* 02/27/22 13:29: POC Glucose 55 L 02/27/22 14:05: POC Glucose 50 L 02/27/22 15:57: POC Glucose 94 02/27/22 18:00: POC Glucose 94 02/27/22 19:42: POC Glucose 99 02/27/22 21:37: POC Glucose 123 H 02/27/22 22:31: POC Glucose 141 H 02/27/22 23:20: APTT Cancelled 02/27/22 23:21: POC Glucose 159 H 02/27/22 23:55: APTT Cancelled 02/28/22 00:19: APTT > 200.0 H* 02/28/22 00:29: POC Glucose 287 H 02/28/22 01:28: POC Glucose 150 H 02/28/22 02:30: POC Glucose 170 H 02/28/22 04:02: POC Glucose 205 H 02/28/22 04:05: Sodium 129 L, Potassium 4.2, Chloride 93 L, Carbon Dioxide 25.0, Anion Gap 11, BUN 43 H, Creatinine 3.02 H, Estim Creat Clear Calc 21.13, Est GFR (MDRD) Af Amer 26 L, Est GFR (MDRD) Non-Af 22 L, BUN/Creatinine Ratio 14.2, Glucose 202 H, Calcium 8.8, Total Bilirubin 0.50, AST 72 H, ALT 20, Alkaline Phosphatase 145 H, Total Protein 5.2 L, Albumin 1.4 L, Globulin 3.8, Albumin/Globulin Ratio 0.4 L 02/28/22 04:05: WBC 7.6, RBC 2.36 L, Hgb 7.7 L, Hct 23.9 L, MCV 101.3 H D, MCH 32.6 H, MCHC 32.2, RDW Std Deviation 71.4 H, RDW Coeff of Sue 19.6 H, Plt Count 118 L, MPV 11.6, Immature Gran % (Auto) 0.400, Neut % (Auto) 96.6 H, Lymph % (Auto) 2.1 L, [place] % (Auto) 0.9, Eos % (Auto) 0.0, Baso % (Auto) 0.0, Absolute Neuts (auto) 7.3, Absolute Lymphs (auto) 0.16 L, Nucleated RBC % 0, Differential Comment SCANNED, Anisocytosis 2+, Microcytosis 1+, Macrocytosis 1+ 02/28/22 06:01: POC Glucose 170 H Micro: Microbiology 02/25/22 14:30 Blood Culture (Wb) - Right Wrist Blood Culture - Preliminary No growth in 48 hours. 02/25/22 15:30 Urine, Random Urine Culture - Final Culture exhibits no growth. 02/25/22 15:41 Sputum, Induced/Lukens Gram Stain - Final 02/25/22 15:41 Sputum, Induced/Lukens Respiratory Culture - Final Escherichia coli 02/25/22 15:30 Urine Catheter - Novak Legionella Antigen - Final 02/25/22 15:30 Urine Catheter - Novak Streptococcus pneumoniae Antigen (M - Final 02/25/22 14:24 Nasal Secretion SARS-CoV-2 & FLU Antigen (Rapid) - Final Radiography Diagnostic Testing: Radiology Impression Echocardiogram 02/27/22 05:13 Interpretation Summary The estimated ejection fraction is 40-45 %. Significant improvement in LV systolic Function EF was 25%(12/30/21) Large L.Pleural Effusion Ordering Physician: Joe Christy Referring Physician: Adair Castaneda Performed By: Kirsten Keith RDCS Brain MRI 02/27/22 14:35 IMPRESSION: Mildly increased signal in the bilateral posterior parietal and occipital lobes, which can be seen with acute hypertensive encephalopathy or ischemia. Chronic involutional and white matter changes. 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 Electronically Signed: Antonella Banerjee MD at 15:47 EST , Physical Exam Const no apparent distress Constitutional Narrative: Patient appears older than his stated age, he appears cachectic. Good ventilator synchrony General Appearance: patient mechanically ventilated HEENT normocephalic, head/scalp atraumatic and moist oral mucous membranes Eyes EOMs intact bilaterally and conjunctivae normal Eyes Narrative: No longer has roving eye movements. Neck supple, thyroid normal and no carotid bruits General: trachea midline Resp normal respiratory effort, no retractions, no use of accessory muscles and clear to auscultation bilaterally Auscultation: rhonchi and diminished lung sounds; Negative for rales or wheezes Percussion: dullness Mid: right and Lower: right and left Cardio S1 normal heart sound, S2 normal heart sound, no murmurs, no rub and no gallops Cardio Narrative: Heart rate and rhythm is irregular GI normal to inspection, nondistended, normoactive bowel sounds, soft to palpation, non-tender and non-distended Extremity Extremity Narrative: left forearm fistula noted, right femoral HD cath clean, dry and intact General Extremity: edema bilateral (Weeping noted) Skin Skin Narrative: 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
[2022-02-28] MEDS: Aspirin 81 MG TAB.CHEW GT (08:30)
[2022-02-28] MEDS: CHLORHEXIDINE GLUC 2% CLOTH 1 EACH TOWELETTE TOPICAL (08:30)
[2022-02-28] MEDS: Lansoprazole 15 MG Capsule.DR 30 MG GT (08:31)
[2022-02-28] MEDS: Chlorhexidine 15 ML PO ×2 (08:32→21:01)
[2022-02-28 08:55] LABS: Bedside Glucose 176 mg/dL (74-106)
--- NOTE | 2022-02-28 08:56 | PCM.PN.HOSP ---
Subjective Subjective Follow-up on sepsis secondary to pneumonia/Acute CVA/status epilepticus: Patient was seen and examined.? Patient did have a few jerking movements of the right upper extremities. He has been put back on propofol since yesterday morning. Patient's EEG showed severe diffuse cortical irritability and high risk of nonconvulsive status epilepticus. MRI of the brain showed increased signal in the bilateral posterior parietal and occipital lobes. 2D echo shows EF of 40 to 45% Objective Data Objective Data Vital Signs: Vital Signs Temp Pulse Resp BP Pulse Ox O2 Del Method O2 Flow Rate 97.8 F 108 H 16 140/78 H 95 Mechanical Ventilator 3 02/28/22 04:00 02/28/22 08:51 02/28/22 08:51 02/28/22 07:00 02/28/22 08:51 02/28/22 07:00 02/27/22 12:48 FiO2 35 02/28/22 08:51 Oxygen Flow Rate (L/min) 3 Oxygen Delivery Method Mechanical Ventilator Weight: 77.1 kg Body Mass Index (BMI) 24.5 Intake & Output: Intake and Output for Last 24 Hours 02/26/22 02/27/22 02/28/22 23:59 23:59 23:59 Intake Total 959.11 / 1003.81 3259.49 / 3386.69 475.10 / 475.10 Output Total 120 / 130 2565 / 2570 Balance 839.11 / 873.81 694.49 / 816.69 465.10 / 465.10 Lab / Micro Data Result Diagrams: 02/28/22 04:05 02/28/22 04:05 Labs: Laboratory Results - last 24 hr 02/27/22 09:05: Blood Type O POSITIVE, Antibody Screen NEGATIVE, Crossmatch See Detail 02/27/22 09:10: POC Glucose 85 02/27/22 10:04: POC Glucose 76 02/27/22 11:05: POC Glucose 57 L 02/27/22 11:59: POC Glucose 54 L 02/27/22 13:10: APTT > 200.0 H* 02/27/22 13:29: POC Glucose 55 L 02/27/22 14:05: POC Glucose 50 L 02/27/22 15:57: POC Glucose 94 02/27/22 18:00: POC Glucose 94 02/27/22 19:42: POC Glucose 99 02/27/22 21:37: POC Glucose 123 H 02/27/22 22:31: POC Glucose 141 H 02/27/22 23:20: APTT Cancelled 02/27/22 23:21: POC Glucose 159 H 02/27/22 23:55: APTT Cancelled 02/28/22 00:19: APTT > 200.0 H* 02/28/22 00:29: POC Glucose 287 H 02/28/22 01:28: POC Glucose 150 H 02/28/22 02:30: POC Glucose 170 H 02/28/22 04:02: POC Glucose 205 H 02/28/22 04:05: Sodium 129 L, Potassium 4.2, Chloride 93 L, Carbon Dioxide 25.0, Anion Gap 11, BUN 43 H, Creatinine 3.02 H, Estim Creat Clear Calc 21.13, Est GFR (MDRD) Af Amer 26 L, Est GFR (MDRD) Non-Af 22 L, BUN/Creatinine Ratio 14.2, Glucose 202 H, Calcium 8.8, Total Bilirubin 0.50, AST 72 H, ALT 20, Alkaline Phosphatase 145 H, Total Protein 5.2 L, Albumin 1.4 L, Globulin 3.8, Albumin/Globulin Ratio 0.4 L 02/28/22 04:05: WBC 7.6, RBC 2.36 L, Hgb 7.7 L, Hct 23.9 L, MCV 101.3 H D, MCH 32.6 H, MCHC 32.2, RDW Std Deviation 71.4 H, RDW Coeff of Sue 19.6 H, Plt Count 118 L, MPV 11.6, Immature Gran % (Auto) 0.400, Neut % (Auto) 96.6 H, Lymph % (Auto) 2.1 L, [place] % (Auto) 0.9, Eos % (Auto) 0.0, Baso % (Auto) 0.0, Absolute Neuts (auto) 7.3, Absolute Lymphs (auto) 0.16 L, Nucleated RBC % 0, Differential Comment SCANNED, Anisocytosis 2+, Microcytosis 1+, Macrocytosis 1+ 02/28/22 06:01: POC Glucose 170 H 02/28/22 08:21: POC Glucose 176 H Micro: Microbiology 02/25/22 14:30 Blood Culture (Wb) - Right Wrist Blood Culture - Preliminary No growth in 48 hours. 02/25/22 15:30 Urine, Random Urine Culture - Final Culture exhibits no growth. 02/25/22 15:41 Sputum, Induced/Lukens Gram Stain - Final 02/25/22 15:41 Sputum, Induced/Lukens Respiratory Culture - Final Escherichia coli 02/25/22 15:30 Urine Catheter - Novak Legionella Antigen - Final 02/25/22 15:30 Urine Catheter - Novak Streptococcus pneumoniae Antigen (M - Final 02/25/22 14:24 Nasal Secretion SARS-CoV-2 & FLU Antigen (Rapid) - Final Radiography Diagnostic Testing: Radiology Impression Echocardiogram 02/27/22 05:13 Interpretation Summary The estimated ejection fraction is 40-45 %. Significant improvement in LV systolic Function EF was 25%(12/30/21) Large L.Pleural Effusion Ordering Physician: Joe Christy Referring Physician: Adair Castaneda Performed By: Kirsten Keith VALERIE Brain MRI 02/27/22 14:35 IMPRESSION: Mildly increased signal in the bilateral posterior parietal and occipital lobes, which can be seen with acute hypertensive encephalopathy or ischemia. Chronic involutional and white matter changes. 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 Electronically Signed: Antonella Banerjee MD at 15:47 EST , Physical Exam Narrative Physical exam: General: Sedated, on mechanical ventilator HEENT: Atraumatic, left pupil appears dilated and unreactive compared to right Oral: Moist Mucosa Neck: Supple Lungs: Diminished to auscultation Cardiovascular: HS I+II, regular, no murmurs Abdomen: Bowel Sounds Present, Soft, Non Tender Extremities: Wound on the right lower leg, lower extremities appear dusky, left leg TMA with dressing over right Skin: No rashes, No breakdown Neurological: Grossly intact Psych/Mental Status: Appropriate Assessment & Plan Assessment/Plan (1) Sepsis: (2) Bilateral pneumonia: (3) Pleural effusion: (4) ESRD (end stage renal disease) on dialysis: (5) Pressure ulcer: PLAN: Plan Summary: 76-year-old male, senior care resident, admitted with hypoxia, found to have a right massive pleural effusion, intubated in the ED, and managed in ICU. Patient had acute stroke and also went into status epilepticus on02/26/22. 1. Status epilepticus, noted on stat EEG, patient is on propofol drip Transferred to tertiary facility for continuous EEG is pending We will continue to monitor 2. Acute stroke, acute bleed ruled out with a negative CT brain MRI of the brain showed increased signal in the bilateral occipital and posterior parietal lobes Patient is not an ideal candidate for tPA in the light of PTT being elevated and patient on heparin drip prior to this event Will continue on Eliquis, statin, aspirin 3. Severe hypoglycemia, unclear etiology, patient is on tube feeds Patient was not on insulin or oral hypoglycemics Continue D10 infusion, frequent blood sugar checks 4. Anemia, unclear etiology, hemoglobin is 7.7 Status post 2 units of packed RBCs Stool for occult blood is pending 5. Sepsis secondary to E. coli bilateral pneumonia Blood cultures, COVID-19 rapid antigen test as well as influenza A/B are negative. Urine Legionella and strep antigens are negative Continue on IV Zosyn 6. Acute hypoxic respiratory failure secondary to bilateral pleural effusion, massive on the right than left /bilateral pneumonia, Status post intubation, on minimal ventilator settings Thoracocentesis deferred for now; veneer supervisor following 7. ESRD on hemodialysis - -- Nephrology nephrology following 8. Chronic atrial fibrillation, rate controlled, continue on Heparin drip 9. Chronic combined systolic and diastolic heart failure, EF 25%, stage III diastolic dysfunction I doubt patient is in acute exacerbation of CHF Elevated BNP 1787.6 could be also secondary to renal failure 10. Stage II pressure ulcer on coccyx and ulcers on left, continue on topical preparation 11. Dysphagia, status post G-tube, continue tube feeds 12. DVT prophylaxis?Heparin drip Charges/Coding Visit Charges Inpatient E&M: 33494 Subs Hosp L3
[2022-02-28] MEDS: Midodrine HCl 5 MG Tablet 20 MG GT (10:19)
--- NOTE | 2022-02-28 10:20 | CASEMGMT ---
Social Work SW attended ICU rounds. Pt son present. Plan is for transfer to Tertiary facility. SW updated [facility] of planned transfer. CHINTAN Abreu
--- NOTE | 2022-02-28 10:26 | NURSING ---
dialysis in progress, BP dropped to 97/53, midodrine given at this time
[2022-02-28 11:09] LABS: Partial Thromboplast Time 95.1 Seconds (24.1-36.2)
[2022-02-28 11:20] LABS: Bedside Glucose 179 mg/dL (74-106)
[2022-02-28] MEDS: Sodium Chloride 19.25 MEQ in Dextrose 10%-Water 250 ML 50 MEQ IV (11:45)
[2022-02-28] MEDS: TITRATION PARAMETER CHANGE 1 EACH IV (11:46)
[2022-02-28] MEDS: Propofol 10MG/Ml 1,000 MG/100 ML Bottle 14.2 MG CONT INF ×2 (12:43→21:01)
[2022-02-28] MEDS: 0.9% Saline Lock 10 ML Syringe IV (12:43)
--- NOTE | 2022-02-28 12:47 | PCM.PN.REN ---
Subjective Subjective Was found to have seizures, on transfer list for tertiary [facility]. Waiting on bed. Seen on dialysis today. Objective Data Objective Data Vital Signs: Vital Signs Temp Pulse Resp BP Pulse Ox O2 Del Method O2 Flow Rate 97.3 F L 59 L 18 104/67 97 Mechanical Ventilator 3 02/28/22 12:00 02/28/22 12:00 02/28/22 12:00 02/28/22 12:00 02/28/22 12:00 02/28/22 12:00 02/27/22 12:48 FiO2 25 02/28/22 12:00 Oxygen Flow Rate (L/min) 3 Oxygen Delivery Method Mechanical Ventilator Weight: 77.1 kg Body Mass Index (BMI) 24.5 Intake & Output: Intake and Output for Last 24 Hours 02/26/22 02/27/22 02/28/22 23:59 23:59 23:59 Intake Total 959.11 / 1003.81 3259.49 / 3386.69 3490.5125 / 3490.5125 Output Total 120 / 130 2565 / 2570 Balance 839.11 / 873.81 694.49 / 816.69 3473.5125 / 3473.5125 Lab / Micro Data Result Diagrams: 02/28/22 04:05 02/28/22 04:05 Labs: Laboratory Results - last 24 hr 02/27/22 09:05: Blood Type O POSITIVE, Antibody Screen NEGATIVE, Crossmatch See Detail 02/27/22 13:10: APTT > 200.0 H* 02/27/22 13:29: POC Glucose 55 L 02/27/22 14:05: POC Glucose 50 L 02/27/22 15:57: POC Glucose 94 02/27/22 18:00: POC Glucose 94 02/27/22 19:42: POC Glucose 99 02/27/22 21:37: POC Glucose 123 H 02/27/22 22:31: POC Glucose 141 H 02/27/22 23:20: APTT Cancelled 02/27/22 23:21: POC Glucose 159 H 02/27/22 23:55: APTT Cancelled 02/28/22 00:19: APTT > 200.0 H* 02/28/22 00:29: POC Glucose 287 H 02/28/22 01:28: POC Glucose 150 H 02/28/22 02:30: POC Glucose 170 H 02/28/22 04:02: POC Glucose 205 H 02/28/22 04:05: Sodium 129 L, Potassium 4.2, Chloride 93 L, Carbon Dioxide 25.0, Anion Gap 11, BUN 43 H, Creatinine 3.02 H, Estim Creat Clear Calc 21.13, Est GFR (MDRD) Af Amer 26 L, Est GFR (MDRD) Non-Af 22 L, BUN/Creatinine Ratio 14.2, Glucose 202 H, Calcium 8.8, Total Bilirubin 0.50, AST 72 H, ALT 20, Alkaline Phosphatase 145 H, Total Protein 5.2 L, Albumin 1.4 L, Globulin 3.8, Albumin/Globulin Ratio 0.4 L 02/28/22 04:05: WBC 7.6, RBC 2.36 L, Hgb 7.7 L, Hct 23.9 L, MCV 101.3 H D, MCH 32.6 H, MCHC 32.2, RDW Std Deviation 71.4 H, RDW Coeff of Sue 19.6 H, Plt Count 118 L, MPV 11.6, Immature Gran % (Auto) 0.400, Neut % (Auto) 96.6 H, Lymph % (Auto) 2.1 L, [place] % (Auto) 0.9, Eos % (Auto) 0.0, Baso % (Auto) 0.0, Absolute Neuts (auto) 7.3, Absolute Lymphs (auto) 0.16 L, Nucleated RBC % 0, Differential Comment SCANNED, Anisocytosis 2+, Microcytosis 1+, Macrocytosis 1+ 02/28/22 06:01: POC Glucose 170 H 02/28/22 08:21: POC Glucose 176 H 02/28/22 10:45: APTT 95.1 H* 02/28/22 10:58: POC Glucose 179 H Micro: Microbiology 02/25/22 14:30 Blood Culture (Wb) - Right Wrist Blood Culture - Preliminary No growth in 48 hours. 02/25/22 15:30 Urine, Random Urine Culture - Final Culture exhibits no growth. 02/25/22 15:41 Sputum, Induced/Lukens Gram Stain - Final 02/25/22 15:41 Sputum, Induced/Lukens Respiratory Culture - Final Escherichia coli 02/25/22 15:30 Urine Catheter - Novak Legionella Antigen - Final 02/25/22 15:30 Urine Catheter - Novak Streptococcus pneumoniae Antigen (M - Final 02/25/22 14:24 Nasal Secretion SARS-CoV-2 & FLU Antigen (Rapid) - Final Radiography Diagnostic Testing: Radiology Impression Echocardiogram 02/27/22 05:13 Interpretation Summary The estimated ejection fraction is 40-45 %. Significant improvement in LV systolic Function EF was 25%(12/30/21) Large L.Pleural Effusion Ordering Physician: Joe Christy Referring Physician: Adair Castaneda Performed By: Kirsten Keith, VALERIE Brain MRI 02/27/22 14:35 IMPRESSION: Mildly increased signal in the bilateral posterior parietal and occipital lobes, which can be seen with acute hypertensive encephalopathy or ischemia. Chronic involutional and white matter changes. 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 Electronically Signed: Antonella Banerjee MD at 15:47 EST Reading Location ID and State: [facility] / [place] Tel , Service support , Physical Exam Narrative On vent S1, S2, RRR Lung sounds with scattered rhonchi and rales, diminished breath sounds Abdomen soft, positive bowel sounds Edema to bilateral lower legs Left upper arm AV fistula thrill and bruit. Edema noted to entire left arm. Dressing clean dry intact to left upper arm Nontunneled temporary femoral HD catheter accessed for dialysis Assessment & Plan Assessment/Plan (1) ESRD (end stage renal disease) on dialysis: (2) Respiratory failure: (3) Bilateral pneumonia: (4) Pleural effusion: (5) Hypotension: PLAN: Plan - ESRD; outpatient HD schedule Thursday at [facility] over 4 hours. Seen on dialysis today. Tolerating volume removal okay. -Temporary femoral HD catheter placed 02/26 due to difficulty cannulating AV fistula. We will avoid utilizing AV fistula at this time. - chronic systolic heart failure, EF 25%. Chest x-ray findings with volume overload/effusions. Blood pressure is low but acceptable. On midodrine. Not requiring pressor support at this time. -E. coli pneumonia, on IV antibiotics. - anemia of chronic disease and receives iron/RITIKA at dialysis. PRBC -CT head no acute intracranial bleed. EEG showed seizure activity. Waiting on transfer to tertiary facility. Discussed with son at bedside.
--- NOTE | 2022-02-28 14:34 | DIALYSIS ---
Hemodialysis x3.5 hours completed at 1315 on a 2K bath, changed to IUF only during last hour, tolerated fairly well, HR intermittently in the 40s, UF 3000mL, received scheduled midodrine during HD, accessed via right groin temporary dialysis catheter, worked well, PHYLLIS AVF EDDI due to dressings and swelling, 1 episode of left shoulder twitching during tx, staff aware
[2022-02-28] MEDS: HEPARIN/D5w 25,000 UNITS 25,000 UNITS/250 ML IV.SOLN. 10 UNITS CONT INF (16:49)
[2022-02-28 17:10] LABS: Bedside Glucose 180 mg/dL (74-106)
[2022-02-28] MEDS: Sodium Chloride 19.25 MEQ in Dextrose 10%-Water 250 ML 40 MEQ IV (17:34)
[2022-02-28 18:11] LABS: Bedside Glucose 187 mg/dL (74-106)
[2022-02-28 18:24] LABS: Hematocrit 23.4 % (40-54); Hemoglobin 7.5 g/dL (13.0-16.5)
[2022-02-28] MEDS: NEPRO TUBE FEED 1,000 ML 35 ML GT (18:37)
[2022-02-28 18:57] LABS: Partial Thromboplast Time 207.1 Seconds (24.1-36.2)
--- NOTE | 2022-02-28 19:12 | PCM.DC.SUM ---
Providers Date of Admission: 02/25/22 Date of Discharge: 02/28/22 Primary Care Physician: Dr. Adair Castaneda MD Consultations 02/25/22 22:00 Consult: Operations Administrator / Pulmonary Medicine Routine Consulting Provider: Neville Lincoln Reason for Consult: Vent management; sepsis EMERGENT Consult: No Notified: Yes Date Notified: 02/25/22 Time Notified: 19:23 Method of Notification: Text Consult: Nephrology Routine Consulting Provider: Alda Quinteros Reason for Consult: esrd on dialysis (M,W,F) EMERGENT Consult: No Notified: Yes Date Notified: 02/26/22 Time Notified: 09:30 Method of Notification: Answering Service 02/26/22 08:22 Consult: Onc/Wound/guest associate Routine Comment: Reason for Consult:: multiple wounds Reason For Visit: SEPSIS; BILATERAL PNEUMONIA Diagnosis Discharge Diagnosis (1) ESRD (end stage renal disease) on dialysis: Status: Chronic Code(s): N18.6 - End stage renal disease; Z99.2 - Dependence on renal dialysis (2) Respiratory failure: Status: Acute Code(s): J96.90 - Respiratory failure, unspecified, unspecified whether with hypoxia or hypercapnia (3) Bilateral pneumonia: Status: Acute Code(s): J18.9 - Pneumonia, unspecified organism (4) Pleural effusion: Status: Acute Code(s): J90 - Pleural effusion, not elsewhere classified (5) Hypotension: Status: Acute Code(s): I95.9 - Hypotension, unspecified Plan 1. Status epilepticus 2. Acute stroke 3. Severe hypoglycemia, unclear etiology 4. Anemia, s/p PRBCs 5. Sepsis secondary to E. coli bilateral pneumonia 6. Acute hypoxic respiratory failure secondary to bilateral pleural effusion, massive on the right than left /bilateral pneumonia, 7. ESRD on hemodialysis - M-W-F 8. Chronic atrial fibrillation 9. Chronic combined systolic and diastolic heart failure, EF 40 %, stage III diastolic dysfunction 10. Stage II pressure ulcer on coccyx and ulcers on left 11. Dysphagia, status post G-tube Medications at Discharge Home Medications cinacalcet 60 mg tablet (Sensipar) 60 mg PO PRN PRN IPTH 10/09/14 apixaban 2.5 mg tablet 2.5 mg feeding tube BID 11/29/21 atorvastatin 40 mg tablet 40 mg feeding tube QHS 09/23/22 midodrine 5 mg tablet 10 mg feeding tube BID 02/25/22 pantoprazole 40 mg granules delayed-release for susp in packet 40 mg feeding tube DAILY GERD 02/25/22 vitamin B complex-vitamin C-folic acid 0.8 mg tablet (Renal-Artem) 1 tab feeding tube DAILY SUPPLEMENT 02/25/22 Hospital Course Operations None Procedures 2-D Echocardiogram Summary of Care Provided Minutes Spent on Discharge: 45 Hospital Course: 76-year old male with past medical history of ESRD on hemodialysis, dementia, chronic atrial fibrillation, chronic systolic CHF, EF 45%, [facility] who presented with altered consciousness. Patient was reportedly saturating in the 40s. He was placed on a nonrebreather mask and brought to the emergency department. In the emergency department, he became more dyspneic. VBG shows CVA respiratory acidosis. Patient was intubated. He was hypothermic. Chest x-ray showed massive right pleural effusion. Patient was admitted to the intensive care unit, with sepsis secondary to pneumonia. Patient had hypotension and required use of pressors briefly. Operations Administrator and nephrology were consulted. Patient did have a drop in his hemoglobin, this was initially believed to be secondary to hemodilution. He received 2 units of packed RBCs. He is due for occult blood was pending onto the day of discharge when he came back positive. Patient was noted on the evening of 02/26/2022 to be having anisocoria with dilated left pupil. Stroke alert was called. CT of the brain showed no intracranial bleed. Teleneurology was consulted and recommended tPA if his PTT was less than 40. His PTT was 44. Patient underwent MRI bilateral posterior cerebral and occipital infarcts. Patient was also noted to be having seizure-like activity. Stat EEG came back suggestive of status epilepticus. Patient was started on Keppra and maintained on IV propofol. He was transferred to [facility] for continuous EEG. Physical Exam Narrative see progress note of the day Weight / BMI Weight Weight: 77.1 kg Body Mass Index (BMI) 24.5 ABG / Lab / Microbiology Data Result Diagrams: 02/28/22 18:15 02/28/22 04:05 Laboratory: Laboratory Results - last 24 hr 02/27/22 19:42: POC Glucose 99 02/27/22 21:37: POC Glucose 123 H 02/27/22 22:31: POC Glucose 141 H 02/27/22 23:20: APTT Cancelled 02/27/22 23:21: POC Glucose 159 H 02/27/22 23:55: APTT Cancelled 02/28/22 00:19: APTT > 200.0 H* 02/28/22 00:29: POC Glucose 287 H 02/28/22 01:28: POC Glucose 150 H 02/28/22 02:30: POC Glucose 170 H 02/28/22 04:02: POC Glucose 205 H 02/28/22 04:05: Sodium 129 L, Potassium 4.2, Chloride 93 L, Carbon Dioxide 25.0, Anion Gap 11, BUN 43 H, Creatinine 3.02 H, Estim Creat Clear Calc 21.13, Est GFR (MDRD) Af Amer 26 L, Est GFR (MDRD) Non-Af 22 L, BUN/Creatinine Ratio 14.2, Glucose 202 H, Calcium 8.8, Total Bilirubin 0.50, AST 72 H, ALT 20, Alkaline Phosphatase 145 H, Total Protein 5.2 L, Albumin 1.4 L, Globulin 3.8, Albumin/Globulin Ratio 0.4 L 02/28/22 04:05: WBC 7.6, RBC 2.36 L, Hgb 7.7 L, Hct 23.9 L, MCV 101.3 H D, MCH 32.6 H, MCHC 32.2, RDW Std Deviation 71.4 H, RDW Coeff of Sue 19.6 H, Plt Count 118 L, MPV 11.6, Immature Gran % (Auto) 0.400, Neut % (Auto) 96.6 H, Lymph % (Auto) 2.1 L, [place] % (Auto) 0.9, Eos % (Auto) 0.0, Baso % (Auto) 0.0, Absolute Neuts (auto) 7.3, Absolute Lymphs (auto) 0.16 L, Nucleated RBC % 0, Differential Comment SCANNED, Anisocytosis 2+, Microcytosis 1+, Macrocytosis 1+ 02/28/22 05:05: POC Glucose 180 H 02/28/22 06:01: POC Glucose 170 H 02/28/22 08:21: POC Glucose 176 H 02/28/22 10:45: APTT 95.1 H* 02/28/22 10:58: POC Glucose 179 H 02/28/22 17:33: POC Glucose 187 H 02/28/22 18:15: APTT 207.1 H* 02/28/22 18:15: Hgb 7.5 L, Hct 23.4 L Microbiology: Microbiology 02/28/22 15:10 Stool Stool Occult Blood (DILIP) - Final Occult Blood Positive 02/25/22 14:30 Blood Culture (Wb) - Right Wrist Blood Culture - Preliminary No growth in 48 hours. 02/25/22 15:30 Urine, Random Urine Culture - Final Culture exhibits no growth. 02/25/22 15:41 Sputum, Induced/Lukens Gram Stain - Final 02/25/22 15:41 Sputum, Induced/Lukens Respiratory Culture - Final Escherichia coli 02/25/22 15:30 Urine Catheter - Novak Legionella Antigen - Final 02/25/22 15:30 Urine Catheter - Novak Streptococcus pneumoniae Antigen (M - Final 02/25/22 14:24 Nasal Secretion SARS-CoV-2 & FLU Antigen (Rapid) - Final Meaningful Use Info Meaningful Use Diagnoses (Choose all that apply): Ischemic CVA CVA Therapy Assessed for PT,OT and/or ST?: No Reason therapy not assessed?: Palliative Care Ischemic Stroke Antithrombotic order at d/c?: Yes Dx of Atrial fib/flutter?: Yes Anticoagulant at discharge?: Yes Statins at discharge?: Yes Primary Dx Acute Ischemic CVA?: Yes IV tPA ordered during stay?: No Reason IV t-PA not ordered: Treatment not Indicated Discharge Plan Admission Admit Date/Time: 02/25/22 19:15 Attending Provider: Keyla Davis Primary Care Provider: Adair Castaneda Consulting Providers: Neville Lincoln ; Joe Christy ; Alda Quinteros Discharge Orders/Prescriptions Prescriptions: No Action cinacalcet [Sensipar] 60 MG tablet 60 mg PO PRN PRN (Reason: IPTH) Label Comments: parathyroid Rx Instructions: Give 60mg on Mon, Tues, Wed, Fri before dialysis atorvastatin 40 mg Tablet 40 mg feeding tube QHS apixaban 2.5 mg Tablet 2.5 mg feeding tube BID Renal-Artem 0.8 mg Tablet 1 tab feeding tube DAILY pantoprazole [address] For Susp In Packet 40 mg feeding tube DAILY midodrine 5 mg tablet 10 mg feeding tube BID Referrals / Follow Up: Adair Castaneda MD [Primary Care Provider] - Disposition Discharge Orders: Discharge Patient (Routine); Ordered 02/28/22 Ordered By: Dr. Keyla Davis Charges/Coding Visit Charges Inpatient E&M: 48308 Disch Hosp
--- NOTE | 2022-02-28 20:12 | NURSING ---
unable to complete CAM d/t mental status
--- NOTE | 2022-02-28 21:00 | NURSING ---
[facility] called and stated transport will be here in approx 80 minutes [facility] [address] Givens.
[2022-02-28] MEDS: Atorvastatin Calcium 40 MG Tablet GT (21:01)
--- NOTE | 2022-02-28 21:37 | NURSING ---
update provided to Luiza, from [facility]
--- NOTE | 2022-02-28 21:40 | NURSING ---
Alvin Bobo, son/POA called and given update on patient transferring.
--- NOTE | 2022-02-28 22:04 | NURSING ---
report called to Lena at [facility].
--- NOTE | 2022-02-28 22:45 | NURSING ---
all IV drips continued in transport to [facility]
[2022-03-01 05:25] LABS: Bedside Glucose 170 mg/dL (74-106)
== END 2022-02-28 22:48 | disposition short-term general hospital (02) | DRG 871 ==
LOC: ED 19:23 → ICU 19:38
PROVIDERS: Internal Medicine Critical Care Medicine; Nurse Practitioner Adult Health; Admitting Provider Hospitalist; Emergency Provider Emergency Medicine; PCP Family Medicine; Visit Provider Internal Medicine
DX: A41.51 Sepsis due to Escherichia coli [E. coli] (principal); J15.5 Pneumonia due to Escherichia coli; J96.01 Acute respiratory failure with hypoxia; I63.9 Cerebral infarction, unspecified; N18.6 End stage renal disease; E87.20 Acidosis, unspecified; I13.2 Hypertensive heart and chronic kidney disease with heart failure and with stage 5 chronic kidney disease, or end stage renal disease; I50.42 Chronic combined systolic (congestive) and diastolic (congestive) heart failure; I42.8 Other cardiomyopathies; I48.20 Chronic atrial fibrillation, unspecified; E87.1 Hypo-osmolality and hyponatremia; G40.901 Epilepsy, unspecified, not intractable, with status epilepticus; E11.649 Type 2 diabetes mellitus with hypoglycemia without coma; L89.152 Pressure ulcer of sacral region, stage 2; Z99.2 Dependence on renal dialysis; L97.529 Non-pressure chronic ulcer of other part of left foot with unspecified severity; E11.621 Type 2 diabetes mellitus with foot ulcer; E11.22 Type 2 diabetes mellitus with diabetic chronic kidney disease; E11.51 Type 2 diabetes mellitus with diabetic peripheral angiopathy without gangrene; I27.21 Secondary pulmonary arterial hypertension; T87.89 Other complications of amputation stump; G83.24 Monoplegia of upper limb affecting left nondominant side; Z93.1 Gastrostomy status; D63.8 Anemia in other chronic diseases classified elsewhere; I95.9 Hypotension, unspecified; E78.5 Hyperlipidemia, unspecified; E87.5 Hyperkalemia; H57.04 Mydriasis; H57.02 Anisocoria; R79.1 Abnormal coagulation profile; R13.10 Dysphagia, unspecified; Y83.5 Amputation of limb(s) as the cause of abnormal reaction of the patient, or of later complication, without mention of misadventure at the time of the procedure; Z79.01 Long term (current) use of anticoagulants; Z79.82 Long term (current) use of aspirin; Z79.899 Other long term (current) drug therapy
CPT/HCPCS: 31500; 31720; 36600; 51702; 70450; 70496; 70498; 70551; 71045; 71250; 80048; 80053; 81001; 82274; 82550; 82803; 82947; 82962; 83605; 83690; 83735; 83880; 84100; 84478; 84484; 85014; 85018; 85025; 85610; 85730; 86850; 86900; 86901; 86920; 86922; 87040; 87070; 87077; 87086; 87186; 87205; 87428; 87449; 87641; 90937; 93005; 93306; 94002; 94003; 95819; 97162; 97166; 97802; 97803; 99251; 99285; J7030; J7040; J7050; P9016; Q9967; A4216; C1751; C1752; G0257; G0463; J3010

== ENCOUNTER → 2022-02-25 | Outpatient (REF) | payer SELFPAY | LOC: OLS.SW 05:00 | PROVIDERS: PCP Family Medicine; Visit Provider Family Medicine | DX: N18.6 End stage renal disease (principal) ==